=== PATIENT | male | born 1970 | race Caucasian/White ===

== ENCOUNTER 2021-01-15 20:07 | Inpatient (IN) | payer MEDICAID, SELFPAY ==
[~2021-01-15] VITALS: Ht 182.9 cm; Wt 112.5 kg
--- NOTE | 2021-01-15 20:07 | NUR ---
193- PT KARLY TRUONG. TAKEN TO BED 2
[2021-01-15 20:08] VITALS: BP 121/65
--- NOTE | 2021-01-15 20:08 | NUR ---
50 YO M GRAEMEA FROM [facility] [place] WITH C/C OF FEVER 101, RETOOK TEMP, TEMP AT 100.1. RT STATED FACILITY ADMIN 2 325MG OF TYLENOL WITH NO RELIEF OF FEVER. FACILITY ALSO APPLIED ICE PACKS, NO RELIEF. STATED THAT PT HAD JUST BEEN D/C FROM HOSPITAL, DATE UNK, RECEIVED ORDERS TO SEND PT HERE BY . ON ANTIB ZOSYN SINCE 01/12/21. PT HAS A GT, TRACH TO VENT, F/C IN PLACE, AND R UPPER ARM PICC LINE. SEIZURE PADS IN PLACE AND PT PLACED ON MONITOR. HX: SEPSIS, DM2, HTN, GERD, KIDNEY INJURY, AKF NKA
--- NOTE | 2021-01-15 20:30 | NUR ---
ERMD MADE AWARE OF PT'S PICC LINE, UNABLE TO DRAW BLOOD, BUT FLUIDS DO ENTER. STATED THAT'S OK WE CAN USE.
[2021-01-15 20:54] LABS: APPEARANCE,URINE SL CLOUDY (CLEAR); BILIRUBIN,URINE NEGATIVE (NEGATIVE); BLOOD, URINE 2+ (NEGATIVE); COLOR,URINE YELLOW (YELLOW); LEUKOCYTE ESTERASE ,URINE NEGATIVE (NEGATIVE); NITRITE, URINE NEGATIVE (NEGATIVE); PH,URINE 5.5 (5.0-9.0); UGLUCOSE 1+ (NEGATIVE)
[2021-01-15 20:55] LABS: BASOPHILS # (AUTO) 0.3 K/uL (0.00-0.22); BASOPHILS % (AUTO) 2.2 % (0.0-2.0); EOSINOPHILS % (AUTO) 0.3 % (0.0-4.0); HEMATOCRIT 32.4 % (36-52); HEMOGLOBIN 10.6 g/dL (12.0-18.0); LYMPHOCYTES # (AUTO) 1.5 K/uL (2.0-11.5); LYMPHOCYTES % (AUTO) 9.7 % (20.5-51.1); MEAN CORPUSCULAR HEMOGLOBIN 30 pg (27-31); MEAN CORPUSCULAR HGB CONC 33 g/dL (33-37); MEAN CORPUSCULAR VOLUME 90.5 fL (80-94); MONOCYTES # (AUTO) 1.5 K/uL (0.8-1.0); MONOCYTES % (AUTO) 9.6 % (1.7-9.3); NEUTROPHILS # (AUTO) 11.9 K/uL (1.8-7.7); NEUTROPHILS % (AUTO) 78.2 % (42.2-75.2); PLATELET COUNT (AUTO) 200 K/uL (140-450); RED BLOOD CELL COUNT(AUTO) 3.58 MIL/uL (4.20-6.10); RED CELL DISTRIBUTION WIDTH 14.4 % (11.6-13.7); WHITE BLOOD COUNT (AUTO) 15.2 K/uL (4.8-10.8)
[2021-01-15 21:04] LABS: URINE AMORPHOUS URATE 1+ /HPF (None Seen)
[2021-01-15] MEDS ORDERED: NACL 0.9% 1,000 ML IV ONE (21:05)
[2021-01-15] MEDS ORDERED: PIPERACILLIN/TAZOBACTAM 3.375 GM in DEXTROSE 5% 50 ML IV ONE (21:05)
[2021-01-15] MEDS ORDERED: VANCOMYCIN 1,000 MG in DEXTROSE 5% 250 ML IV ONE (21:05)
[2021-01-15 21:09] LABS: ALBUMIN 2.1 g/dL (3.4-5.0); ANION GAP 12.9 (8-16); CARBON DIOXIDE 34.1 mmol/L (21-32); CREATININE 1.4 mg/dL (0.6-1.3); TOTAL BILIRUBIN 0.4 mg/dL (0.0-1.0)
[2021-01-15] MEDS ORDERED: ACETAMINOPHEN 325 MG TAB PO ONE (21:10)
[2021-01-15] MEDS ORDERED: VANCOMYCIN 1,000 MG VIAL ONE (21:23)
[2021-01-15] MEDS ORDERED: CRUSHER, PILL MC ONE (21:26)
--- NOTE | 2021-01-15 21:42 | NUR ---
CALLED TO CONFIRM VANCO AND ZOSYN LAST DOSES, VANCO 4PM AND ZOSYN 5PM , ERMD MADE AWARE. INSTRUCTED TO HOLD MEDS.
--- NOTE | 2021-01-15 21:52 | NUR ---
GT MEDS HELD DUE TO INCOMPATIBILITY OF PORT ACCESS, CRYSTALD MADE AWARE.
[2021-01-15] MEDS ORDERED: ONDANSETRON 4 MG/2 ML VIAL IVP PRN (22:10)
[2021-01-15] MEDS ORDERED: DOCUSATE SODIUM 100 MG GELCAP PO PRN (22:10)
[2021-01-15] MEDS ORDERED: HYDROcodone/APAP 5/325 MG 1 TAB TAB PO PRN (22:10)
[2021-01-15] MEDS ORDERED: MORPHINE SULFATE 2 MG/ML SYR IVP PRN (22:10)
[2021-01-15] MEDS: NACL 0.9% 1,000 ML IV SCH (22:10)
[2021-01-15] MEDS ORDERED: LORazepam 2 MG/ML VIAL IM/IVP PRN (22:10)
[2021-01-15] MEDS ORDERED: ZOLPIDEM 5 MG TAB PO PRN (22:10)
[2021-01-15] MEDS ORDERED: SODIUM PHOS / POTASSIUM PHOS 1 PKT PDR PO PRN (22:10)
[2021-01-15] MEDS ORDERED: POTASSIUM CHLORIDE 10 MEQ TABER PO PRN (22:10)
[2021-01-15] MEDS ORDERED: MAG SULF 2000 MG/WATER PREMIX 50 ML IV PRN (22:10)
[2021-01-15] MEDS ORDERED: ALBU0.0912 IH (22:28)
[2021-01-15] MEDS ORDERED: AMLO10TA PO (22:30)
--- NOTE | 2021-01-15 22:30 | NUR ---
ZOSYN FIRST DOSE GIVEN PER
[2021-01-15] MEDS ORDERED: ASCO-5 PO (22:31)
[2021-01-15] MEDS ORDERED: ATRMDI INH (22:32)
[2021-01-15] MEDS ORDERED: CARV25TA GT (22:34)
[2021-01-15] MEDS ORDERED: CHOL50004 GT (22:36)
[2021-01-15] MEDS ORDERED: CLON0.1T46 GT (22:38)
[2021-01-15] MEDS ORDERED: DOCU-299 GT (22:39)
--- NOTE | 2021-01-15 22:39 | NUR ---
[facility] [place] AUTHORIZ[place] # [id number]
[2021-01-15 22:40] LABS: CHOL/HDL RATIO 4.7 (1-4.5); FREE T4 (FREE THYROXINE) 0.94 ng/dL (0.76-1.46); THYROID STIMULATING HORMONE 1.16 uIU/mL (0.34-3.74)
[2021-01-15] MEDS ORDERED: ENAL5TAB48 GT (22:41)
[2021-01-15] MEDS ORDERED: HYDR-1100 GT (22:42)
[2021-01-15] MEDS ORDERED: PANT40EC GT (22:51)
[2021-01-15] MEDS ORDERED: FURO-572 GT (22:51)
[2021-01-15] MEDS ORDERED: INSU100S53 SC (22:51)
[2021-01-15] MEDS ORDERED: SLIDE SUBQ (22:51)
[2021-01-15] MEDS ORDERED: ACET-2619 PO (22:51)
[2021-01-15] MEDS ORDERED: CHLO473S62 PO (22:51)
[2021-01-15] MEDS ORDERED: LON2.5 GT (22:51)
[2021-01-15] MEDS ORDERED: KEP500L PO (22:51)
[2021-01-15] MEDS ORDERED: LISI40TA12 GT (22:51)
[2021-01-15] MEDS ORDERED: VANC250C3 IV (22:51)
[2021-01-15] MEDS ORDERED: MIRABULK GT (22:51)
--- NOTE | 2021-01-15 22:56 | NUR ---
CONTACTED ESTEFANY RICH FOR PICC LINE, STATED IT WILL NOT BE PLACED UNTIL AM, DR.M OTERO.
--- NOTE | 2021-01-15 23:00 | NUR ---
SAAB CATH REPLACED FR16 USING STERILE TECHNIQUE, 100 ML RETURN OF YELLOW URINE. PT TOLERATED WELL.
[2021-01-15] MEDS ORDERED: PIPERACILLIN/TAZOBACTAM 3.375 GM VIAL IV ONE (23:06)
[2021-01-15 23:19] LABS: PROTHROMBIN TIME 10.6 secs (10.8-13.4)
--- NOTE | 2021-01-16 00:23 | NUR ---
GAVE REPORT TO ESTEFNAY BERNABE [id number].
--- NOTE | 2021-01-16 00:40 | NUR ---
Patient will be admitted to care of . Admited to TELE. Will go to [id number]. Belongings list completed. Report to ESTEFANY BERNABE.
--- NOTE | 2021-01-16 00:45 | NUR ---
ADMITTED A MALE PATIENT FROM ER VIA GURNEY, AWAKE WITH TRACH TO VENT. CC: FEVER DX: SEVERE SEPSIS, UTI PNA. HX: DM , SEIZURES, HTN, NEUROGENIC BLADDER, STROKE LEFT SIDED WEAKNESS. G-TUBE IN PLACE, SAAB CATHETER INTACT DRAINING CLEAR YELLOW URINE. PATIENT IS APHASIC. NO S/S OF RESPIRATORY DISTRESS. SKIN IS NON INTACT, WITH SKIN TEAR ON THE RIGHT COLLAR BONE, PRESSURE ULCER ON THE RIGHT EAR. ALL SAFETY PRECAUTIONS ARE IN PLACE. HEAD OF BED ELEVATED TO 30 DEGREES. PICC LINE ON THE HILDA REMOVED D/T NOT WORKING/CLOGGED. CALL LIGHT WITHIN REACH. WILL CONTINUE TO MONITOR.
--- NOTE | 2021-01-16 00:50 | NUR ---
PT TRANSPORTED FROM ED TO 126 W/ NO ADVERSE REACTIONS NO CHANGES TO VENT VENT IS PLUGGED INTO RED OUTLET W/ ALARMS ON AND AUDIBLE + AMBU AT BEDSIDE
[2021-01-16] MEDS ORDERED: PIPERACILLIN/TAZOBACTAM 3.375 GM in DEXTROSE 5% 50 ML IV SCH (01:00)
[2021-01-16 04:00] VITALS: BP 146/61
[2021-01-16] MEDS ORDERED: PIPERACILLIN/TAZOBACTAM 3.375 GM VIAL IV ONE (04:56)
[2021-01-16] MEDS: PIPERACILLIN/TAZOBACTAM 3.375 GM in DEXTROSE 5% 50 ML IV SCH ×3 (05:01→20:33)
[2021-01-16 06:11] LABS: ANION GAP 9.9 (8-16); CARBON DIOXIDE 33.1 mmol/L (21-32); CREATININE 1.1 mg/dL (0.6-1.3); MAGNESIUM 2.7 mg/dL (1.8-2.4); TOTAL BILIRUBIN 0.5 mg/dL (0.0-1.0)
[2021-01-16 06:27] LABS: BASOPHILS # (AUTO) 0.1 K/uL (0.00-0.22); BASOPHILS % (AUTO) 0.3 % (0.0-2.0); EOSINOPHILS % (AUTO) 0.2 % (0.0-4.0); HEMATOCRIT 35.3 % (36-52); HEMOGLOBIN 11.2 g/dL (12.0-18.0); LYMPHOCYTES # (AUTO) 1.9 K/uL (2.0-11.5); LYMPHOCYTES % (AUTO) 10.2 % (20.5-51.1); MEAN CORPUSCULAR HEMOGLOBIN 29 pg (27-31); MEAN CORPUSCULAR HGB CONC 32 g/dL (33-37); MONOCYTES # (AUTO) 1.8 K/uL (0.8-1.0); MONOCYTES % (AUTO) 9.3 % (1.7-9.3); NEUTROPHILS # (AUTO) 15.2 K/uL (1.8-7.7); PLATELET COUNT (AUTO) 217 K/uL (140-450); RED BLOOD CELL COUNT(AUTO) 3.84 MIL/uL (4.20-6.10); RED CELL DISTRIBUTION WIDTH 14.4 % (11.6-13.7)
--- NOTE | 2021-01-16 07:20 | NUR ---
RECEIVED REPORT FROM NIGHT NURSE PT IS APHASIC, TRACH TO VENT. FIO2 IS 35, RATE 18, PEEP 5, PT IS ON TELE, IV ACCESS ON L AC 18 GAUGE NS RUNNING AT 100ML/HR. PT HAS G TUBE FEEDING. PT HAS PRESSURE INJURY AT RIGHT EAR, SKIN TEAR ON RIGHT COLLAR BONE AREA. PT HAS SAAB CATHETER. PLAN OF CARE DISCUSSED WILL CONTINUE TO MONITOR PT.
--- NOTE | 2021-01-16 07:49 | NUR ---
PASSED ON ENDORSEMENT TO AM SHIFT RN.
[2021-01-16 08:00] VITALS: BP 135/67
--- NOTE | 2021-01-16 08:14 | NUR ---
PT IS IN BED, SEMI FOWLERS POSITION. NO RESPIRATORY DISTRESS NOTED ON TRACH TO VENT. G TUBE FEEDING IS INFUSING ORDERED. SAAB CATH IN PLACE DRAINING CLEAR, YELLOW URINE. PT IS STABLE AT THIS TIME.
[2021-01-16] MEDS: DOCUSATE SODIUM 100 MG GELCAP PO SCH (09:00)
[2021-01-16] MEDS ORDERED: VANCOMYCIN PER PHARMACY MC PRN (10:15)
--- NOTE | 2021-01-16 10:15 | NUR ---
ROUNDED ON PT. HE IS LAYING IN SEMI FOWLERS POSITION WITH NO DISTRESS NOTED. TRACH TO VENT WITH O2 SAT AT 92%. PT WAS CHANGED AND REPOSITIONED. PT WAS TURNED AND PILLOWS WERE USED TO OFFLOAD PRESSURE.
[2021-01-16] MEDS: NACL 0.9% 1,000 ML IV SCH (10:24)
[2021-01-16] MEDS ORDERED: VANCOMYCIN 750 MG in DEXTROSE 5% 250 ML IV SCH (11:00)
[2021-01-16] MEDS: NACL 0.45% 1,000 ML IV SCH ×2 (11:00→20:35)
--- NOTE | 2021-01-16 11:00 | NUR ---
RECEIVED CALL FROM LAB PT IS POSITIVE FOR GRAM NEGATIVE RODS PRELIMINARY. INFORMED MD AWAITING FOR FURTHER ORDERS.
--- NOTE | 2021-01-16 11:03 | NUR ---
STABLE NO DISTRESS NOTED DEEP TRACHEAL SUCTION FOR MODERATE THIN YELLOW SECRETONS AIRWAY PATENT SPUTUM CULTURE SPECIMEN OBTAINED FORWARDED TO LAB
[2021-01-16 12:00] VITALS: BP 146/70
[2021-01-16] MEDS: VANCOMYCIN 750 MG in NACL 0.9% 250 ML IV SCH ×2 (12:46→23:44)
[2021-01-16] MEDS: ACETAMINOPHEN 325 MG TAB PO PRN ×2 (12:54→22:27)
--- NOTE | 2021-01-16 12:59 | NUR ---
ADMINISTERED TYLENOL, PT HAS FEVER 100.4, COOLING MEASURES ARE IN PLACED. WILL REASSESS THE TEMPERATURE.
--- NOTE | 2021-01-16 14:57 | NUR ---
PT IS IN THE BED, NO S/S OF PAIN NOTED.NO SOB WILL CONTINUE TO MONITOR.
[2021-01-16 16:00] VITALS: BP 148/78
[2021-01-16] MEDS ORDERED: ENALAPRIL 5 MG TAB GT SCH (17:55)
[2021-01-16] MEDS ORDERED: DEXTROSE 50% 50 ML SYR IVP PRN (18:30)
--- NOTE | 2021-01-16 18:51 | NUR ---
TOOK PICTURES OF DTI ON BOTH HEELS, LEFT EAR WOUND, TEMPERATURE IS 98.7, COOLING MEASURES ARE IN PLACED. WILL CONTINUE TO MONITOR PT
--- NOTE | 2021-01-16 19:29 | NUR ---
ENDORSED THE NIGHT NURSE FOR CONTINUITY OF CARE. PT IS STABLE.
--- NOTE | 2021-01-16 19:57 | NUR ---
RECEIVED PATIENT FROM AM NURSE IN BED ON SEMI GUEVARA'S WITH TRACH TO VENT, FIO2 35 VT 450 R 18. NO S/S OF RESPIRATORY DISTRESS. ALL SAFETY PRECAUTIONS ARE IN PLACE. SAAB CATHETER DRAINING WELL CLEAR YELLOW URINE. NO SINGS OF PAIN NOTED. WILL CONTINUE TO MONITOR.
[2021-01-16 20:00] VITALS: BP 141/75
--- NOTE | 2021-01-16 20:33 | NUR ---
SCHEDULED MEDS GIVEN PER MD ORDERED.
[2021-01-16] MEDS: BLOOD GLUCOSE MONITORING 1 DEV DEV FS SCH (21:00)
[2021-01-16] MEDS: carvediloL 12.5 MG TAB GT SCH (22:25)
[2021-01-16] MEDS: levETIRAcetam 100 MG/ML ORASYR PO SCH (22:26)
[2021-01-16] MEDS: INSULIN LISPRO SLIDING SCALE 100 UNITS/ML VIAL SUBQ PRN (22:29)
[2021-01-16 22:30] VITALS: BP 141/75
[2021-01-17] VITALS (8 sets, daily range): BP systolic 116–159; BP diastolic 53–86
--- NOTE | 2021-01-17 | NUR ---
CHECKED PATIENT, PATIENT IS SLEEPING. NO SIGNS OF DISTRESS NOTED. AFEBRILE. KEPT CLEAN, DRY AND COMFORTABLE.
[2021-01-17] MEDS: PIPERACILLIN/TAZOBACTAM 3.375 GM in DEXTROSE 5% 50 ML IV SCH ×2 (04:37→13:16)
[2021-01-17] MEDS: BLOOD GLUCOSE MONITORING 1 DEV DEV FS SCH ×4 (06:30→21:02)
[2021-01-17] MEDS: INSULIN LISPRO SLIDING SCALE 100 UNITS/ML VIAL SUBQ PRN ×4 (06:31→21:36)
[2021-01-17] MEDS: NACL 0.45% 1,000 ML IV SCH ×2 (06:35→08:31)
[2021-01-17 06:43] LABS: BASOPHILS % (AUTO) 0.3 % (0.0-2.0); EOSINOPHILS # (AUTO) 0.1 K/uL (0-0.4); EOSINOPHILS % (AUTO) 0.8 % (0.0-4.0); HEMATOCRIT 31.4 % (36-52); HEMOGLOBIN 10.1 g/dL (12.0-18.0); LYMPHOCYTES # (AUTO) 1.5 K/uL (2.0-11.5); LYMPHOCYTES % (AUTO) 9.1 % (20.5-51.1); MEAN CORPUSCULAR HEMOGLOBIN 29 pg (27-31); MEAN CORPUSCULAR HGB CONC 32 g/dL (33-37); MONOCYTES % (AUTO) 6.2 % (1.7-9.3); NEUTROPHILS # (AUTO) 13.5 K/uL (1.8-7.7); NEUTROPHILS % (AUTO) 83.6 % (42.2-75.2); PLATELET COUNT (AUTO) 206 K/uL (140-450); RED BLOOD CELL COUNT(AUTO) 3.45 MIL/uL (4.20-6.10); RED CELL DISTRIBUTION WIDTH 14.2 % (11.6-13.7); WHITE BLOOD COUNT (AUTO) 16.1 K/uL (4.8-10.8)
[2021-01-17 06:58] LABS: ALBUMIN 1.9 g/dL (3.4-5.0); ANION GAP 8.9 (8-16); CARBON DIOXIDE 32.2 mmol/L (21-32); CREATININE 1.2 mg/dL (0.6-1.3); MAGNESIUM 2.5 mg/dL (1.8-2.4); POTASSIUM 4.1 mmol/L (3.5-5.1); TOTAL BILIRUBIN 0.3 mg/dL (0.0-1.0)
--- NOTE | 2021-01-17 07:28 | NUR ---
PT BEEN ENDORSED BY TREVIN FOR CONTINUITY OF CARE, POC DISCUSSED. PT IS TRACH TO VENT PT WITH A FIO2 35, VT 450, RR 18. PT HAS A L AC 20. FLUIDS HAVE NOTE BEEN REPLENISHED, WILL REPLENISH. PT HAS A GTUBE BUT TUBE FEEDING IS COMPLETE, WILL REPLENISH TUBE FEEDING WELL. PT HAS A SAAB CATH DRAINING YELLOW URINE. ALL SAFETY MEASURES IN PLACE, CALL LIGHT WITHIN REACH. WILL CONTINUE TO MONITOR.
--- NOTE | 2021-01-17 07:34 | NUR ---
ENDORSED TO AM NURSE FOR CONTINUITY OF CARE. PATIENT IS STABLE.
--- NOTE | 2021-01-17 07:50 | NUR ---
RECEIVED ON A [employer] Company[employer]APE R860 VENTILATOR PLUGGED INTO RED OUTLET TOLERATING WELL WITHOUT ADVERSE REACTIONS NOTED TO A KRISTIANLEY #6 AIRWAY SECURED WITH A GE TRACH TIE CUFF PRESSURE CHECKED NOTED AMBU BAG NOTED AT BEDSIDE GOOD CHEST RISE DEEP TRACHEAL SUCTION FOR COPIOUS THIN PALE YELLOW SECRETIONS AIRWAY PATENT
--- NOTE | 2021-01-17 08:21 | NUR ---
LAB CALLED, MORNING LAB WAS 419 BLOOD GLUCOSE AND BUN 37. BUN TRENDING DOWN. BLOOD GLUCOSE COVERAGE ADMINISTERED THIS AM. WILL CONTINUE TO MONITOR BLOOD GLUCOSE.
--- NOTE | 2021-01-17 08:24 | NUR ---
PATIENT HAS BEEN SCREENED AND CATEGORIZED HIGH NUTRITION RISK. PATIENT WILL BE SEEN WITHIN 1-2 DAYS OF ADMISSION. 01/17/21 RECEIVED FNS CONSULT FOR WOUNDS AND TUBE FEEDING. RECEIVED FNS REFERRAL FOR TUBE FEEDING AND ADITYA LESS THAN [address]
--- NOTE | 2021-01-17 08:34 | NUR ---
PT MYRA MEDICATION ADMINISTERED PER MD ORDER. PT TOLERATED ADMINISTRATION. ASSESSED RESIDUAL PRIOR, 10 ML. FLUSHED PRIOR TO AND AFTER ADMINISTRATION. PT TOLERATED ADMINISTRATION. NEW GTUBE TUBING AND GLUCERNA STARTED. TUBING PRIMED AND STARTED. NEW IV FLUIDS STARTED. PT IV IS PATENT AND INTACT. PT TEMPATURE 99.9, COOLING MEASURES IMPLEMENTED. WILL CONTINUE TO MONITOR. PT O2 IS 98%. ALL SAFETY MEASURES IN PLACE. CALL LIGHT WITHIN REACH. WILL CONTINUE TO MONITOR.
[2021-01-17] MEDS: POLYETHYLENE GLYCOL 17 GM/PKT GT PRN (08:36)
[2021-01-17] MEDS: levETIRAcetam 100 MG/ML ORASYR PO SCH ×2 (08:36→21:03)
[2021-01-17] MEDS: carvediloL 12.5 MG TAB GT SCH ×2 (08:37→21:03)
[2021-01-17] MEDS: ASCORBIC ACID 500 MG TAB PO SCH (08:38)
[2021-01-17] MEDS: amLODIPine 5 MG TAB PO SCH (08:38)
[2021-01-17] MEDS: FUROSEMIDE 20 MG TAB GT SCH (08:38)
[2021-01-17] MEDS: lisinopriL 20 MG TAB GT SCH (08:39)
[2021-01-17] MEDS: minoxidiL 2.5 MG TAB GT SCH (08:39)
[2021-01-17] MEDS: DOCUSATE SODIUM 100 MG GELCAP PO SCH (08:40)
[2021-01-17] MEDS ORDERED: NON-FORMULARY ITEM (Hydralazine HCl (Hydralazine Hcl) 1 TAB) GT/PO SCH (09:00)
[2021-01-17] MEDS ORDERED: PANTOPRAZOLE 40 MG TABEC PO SCH (09:00)
--- NOTE | 2021-01-17 09:58 | NUR ---
PT IS RESTING COMFORTABLE IN BED WITH NO ACUTE S/S OF DISTRESS. PT IS REPOSITIONED. ALL SAFETY MEASURES IN PLACE. CALL LIGHT WITHIN REACH. WILL CONTINUE TO MONITOR.
--- NOTE | 2021-01-17 11:38 | NUR ---
MYRA MEDICATION ADMINISTERED PER MD ORDER. PT TOLERATED ADMINISTRATION. PT BLOOD GLUCOSE 327. 8UNITS INSULIN ADMINISTERED PER MD ORDER IN PTS ABD. PT IS STABLE. COOLING MEASURES IN PLACE. PT IS REPOSITIONED. ALL SAFETY MEASURES IN PLACE. CALL LIGHT WITHIN REACH. WILL CONTINUE TO MONITOR.
[2021-01-17] MEDS: VANCOMYCIN 750 MG in NACL 0.9% 250 ML IV SCH ×2 (11:44→22:45)
[2021-01-17] MEDS: hydrALAZINE 25 MG TAB GT SCH ×2 (13:16→16:42)
--- NOTE | 2021-01-17 13:20 | NUR ---
SPOKE WITH PTS POINT OF CONTACT, MOTHER, CASIMIRO. ANSWERED ALL OF HER QUESTIONS.
--- NOTE | 2021-01-17 13:44 | NUR ---
MYRA MEDICATION ADMINISTERED PER MD ORDER. PT TOLERATED ADMINISTRATION. ALL SAFETY MEASURES IN PLACE. CALL LIGHT WITHIN REACH. WILL CONTINUE TO MONITOR.
--- NOTE | 2021-01-17 14:43 | NUR ---
NO DISTRESS NOTED GOOD CHEST RISE AIRWAY PATENT
[2021-01-17] MEDS: ACETAMINOPHEN 325 MG TAB PO PRN (14:52)
--- NOTE | 2021-01-17 14:52 | NUR ---
PRN TYLENOL ADMINISTERED FOR INCREASED TEMPERATURE. ICE PACKS HAVE BEEN APPLIED TO PTS ARMPITS, ALL BLANKETS REMOVED. PT TOLERATED ADMINISTRATION. ALL SAFETY MEASURES IN PLACE. CALL LIGHT WITHIN REACH. WILL CONTINUE TO MONITOR.
--- NOTE | 2021-01-17 15:29 | NUR ---
01/17/21 RD INITIAL ASSESSMENT COMPLETED PLEASE REFER TO NUTRITION ASSESSMENT UNDER CARE ACTIVITY FOR ESTIMATED NUTRITIONAL NEEDS. 1. CONTINUE GLUCERNA 1.2 @ 80 ML/HR X 24 HR -THIS WILL PROVIDE 2304 KCAL/DAY AND 115 GM OF PROTEIN/DAY, MEETING ADEQUATE NUTRIENT NEEDS 2. CONTINUE FREE WATER FLUSH OF 325 ML Q4H PER MD 3. RECOMMENDED CRISTINE BID TO PROMOTE WOUND HEALING 4. RD TO FOLLOW-UP 2-3 DAYS, HIGH RISK MARIB[address] FUENT[address] RD
--- NOTE | 2021-01-17 16:51 | NUR ---
BLOOD GLUCOSE IS 326 8 UNITS OF INSULIN ADMINISTERED PER MD ORDER. MYRA MEDICATION ADMINISTERED PER MD ORDER. PT TOLERATED ADMINISTRATION. ALL SAFETY MEASURES IN PLACE. CALL LIGHT WITHIN REACH. WILL CONTINUE TO MONITOR.
--- NOTE | 2021-01-17 17:08 | NUR ---
STABLE NO DISTRESS NOTED GOOD CHEST RISE DEEP TRACHEAL SUCTION FOR MODERATE THICK YELLOW SECRETINS SATURATION 97% ON FIO2 OF 35% PEEP 5cmH2O TITRATED FIO2 TO 30% IRONER MACHINE TO NOTIFY RN
--- NOTE | 2021-01-17 18:55 | NUR ---
INFORMED BY ESTEFANY ZHONG THAT PREVIOUS SPUTUM CULTURE CAME BACK CONTAMINATED AND A NEW SAMPLE NEEDS TO BE OBTAINED. NEW ORDER HAS BEEN PLACED. WILL ENDORSE TO INSTITUTE SCIENTIST NURSE TO INFORM RT TO COLLECT SPUTUM CULTURE. PT IS STABLE. ALL SAFETY MEASURES IN PLACE. WILL CONTINUE TO MONITOR.
--- NOTE | 2021-01-17 19:01 | NUR ---
PT WILL BE ENDORSED TO RADIO INTERFERENCE INVESTIGATOR NURSE FOR CONTINUITY OF CARE IN STABLE CONDITION, POC DISCUSSED.
--- NOTE | 2021-01-17 19:05 | NUR ---
RECEIVED PATIENT FROM AM SHIFT NURSE FOR CONTINUITY OF CARE. APHASIC, UNABLE TO MAKE NEEDS KNOWN. TRACH TO VENT. RESPIRATIONS EVEN, UNLABORED. NO S/S RESPIRATORY DISTRESS. O2 SAT 97%. S1/S2 AUSCULTATED. TELE MONITORING. FLACC 0. SKIN WARM, DRY. IV SITE TO LEFT AC 20G PATENT/INTACT, INFUSING FLUIDS WELL. ABDOMEN SOFT, NONTENDER, NONDISTENDED. BOWEL SOUNDS ACTIVE x4 QUADRANTS. GT PATENT, CONTINUE ON ENTERAL FEEDING TOLERATING WELL. HOB UP 45 DEGREES. SAAB CATHETER PATENT WITH YELLOW URINE DRAINING TO GRAVITY. CALL LIGHT IN REACH. PLAN OF CARE DISCUSSED. ISOLATION PRECAUTIONS OBSERVED. SAFETY PRECAUTIONS IN PLACE.
[2021-01-17] MEDS ORDERED: MEROPENEM 1,000 MG VIAL IV ONE (20:45)
[2021-01-17] MEDS: MEROPENEM 1,000 MG in NACL 0.9% 100 ML IV SCH (21:03)
[2021-01-17] MEDS: DOCUSATE 100 MG/10 ML UDC GT SCH (21:03)
--- NOTE | 2021-01-17 21:30 | NUR ---
DUE MEDS GIVEN. NO S/S RESPIRATORY DISTRESS. FLACC 0. PATIENT IS CLEAN/DRY. CALL LIGHT IN REACH. ISOLATION PRECAUTIONS OBSERVED. SAFETY PRECAUTIONS IN PLACE.
--- NOTE | 2021-01-17 23:28 | NUR ---
PATIENT RESTING COMFORTABLY IN BED. NO S/S RESPIRATORY DISTRESS. FLACC 0. PATIENT IS CLEAN/DRY. CALL LIGHT IN REACH. ISOLATION PRECAUTIONS OBSERVED. SAFETY PRECAUTIONS IN PLACE.
[2021-01-18] VITALS: BP 140/76
[2021-01-18] MEDS: ACETAMINOPHEN 325 MG TAB PO PRN ×4 (00:03→18:00)
--- NOTE | 2021-01-18 01:05 | NUR ---
VAP ORAL CARE RENDERED.
--- NOTE | 2021-01-18 02:51 | NUR ---
0220 SECOND SPUTUM SAMPLE SENT TO LAB
[2021-01-18] MEDS: NACL 0.45% 1,000 ML IV SCH ×3 (03:03→22:35)
--- NOTE | 2021-01-18 03:09 | NUR ---
INCONTINENT CARE RENDERED WITH BULK PIGMENT REDUCER AT BEDSIDE. NO S/S RESPIRATORY DISTRESS. FLACC 0. CALL LIGHT IN REACH. SAFETY PRECAUTIONS IN PLACE. ISOLATION PRECAUTIONS OBSERVED BY ALL STAFF.
[2021-01-18] MEDS ORDERED: MEROPENEM 1,000 MG VIAL IV ONE (03:47)
[2021-01-18 04:00] VITALS: BP 148/78
[2021-01-18] MEDS: MEROPENEM 1,000 MG in NACL 0.9% 100 ML IV SCH ×2 (04:16→12:43)
--- NOTE | 2021-01-18 05:04 | NUR ---
DUE MEDS GIVEN. NO S/S RESPIRATORY DISTRESS. FLACC 0. PATIENT IS CLEAN/DRY. CALL LIGHT IN REACH. SAFETY PRECAUTIONS IN PLACE. ISOLATION PRECAUTIONS OBSERVED BY ALL STAFF.
[2021-01-18] MEDS: INSULIN LISPRO SLIDING SCALE 100 UNITS/ML VIAL SUBQ PRN ×4 (05:39→21:16)
[2021-01-18] MEDS: BLOOD GLUCOSE MONITORING 1 DEV DEV FS SCH ×4 (06:37→21:11)
[2021-01-18 06:47] LABS: BASOPHILS # (AUTO) 0.1 K/uL (0.00-0.22); BASOPHILS % (AUTO) 0.6 % (0.0-2.0); EOSINOPHILS # (AUTO) 0.2 K/uL (0-0.4); EOSINOPHILS % (AUTO) 1.5 % (0.0-4.0); HEMATOCRIT 28.9 % (36-52); HEMOGLOBIN 9.4 g/dL (12.0-18.0); LYMPHOCYTES # (AUTO) 2.1 K/uL (2.0-11.5); LYMPHOCYTES % (AUTO) 14.7 % (20.5-51.1); MEAN CORPUSCULAR HEMOGLOBIN 29 pg (27-31); MEAN CORPUSCULAR HGB CONC 33 g/dL (33-37); MEAN CORPUSCULAR VOLUME 89.7 fL (80-94); MONOCYTES # (AUTO) 0.8 K/uL (0.8-1.0); MONOCYTES % (AUTO) 5.9 % (1.7-9.3); NEUTROPHILS % (AUTO) 77.3 % (42.2-75.2); PLATELET COUNT (AUTO) 183 K/uL (140-450); RED BLOOD CELL COUNT(AUTO) 3.22 MIL/uL (4.20-6.10); WHITE BLOOD COUNT (AUTO) 14.3 K/uL (4.8-10.8)
[2021-01-18 07:09] LABS: ALBUMIN 1.8 g/dL (3.4-5.0); ANION GAP 10.1 (8-16); CARBON DIOXIDE 29.1 mmol/L (21-32); CREATININE 1.1 mg/dL (0.6-1.3); MAGNESIUM 2.2 mg/dL (1.8-2.4); POTASSIUM 4.2 mmol/L (3.5-5.1); TOTAL BILIRUBIN 0.3 mg/dL (0.0-1.0)
--- NOTE | 2021-01-18 07:13 | NUR ---
ENDORSED PATIENT TO AM SHIFT NURSE FOR CONTINUITY OF CARE.
--- NOTE | 2021-01-18 07:21 | NUR ---
PT HAS BEEN ENDORSED BY PARER NURSE FOR CONTINUITY OF CARE, POC DISCUSSED. PT IS RESTING IN BED WITH EYES CLOSE, TRACH TO VENT WITH FIO2 SET AT FIO2. PT IS GETTING GTUBE RUNNING GLUCERNA 1.2 AT 80 ML RUNNING FREE FLUSHES Q4 HR. PT IS SATING AT 95%. ALL SAFETY MEASURES IN PLACE, CALL LIGHT WITHIN REACH. WILL CONTINUE TO MONITOR.
[2021-01-18 08:00] VITALS: BP 160/86
--- NOTE | 2021-01-18 08:49 | NUR ---
CALLED PHARMACY TO CHANGE PROTONIX TO BE ABLE TO BE CRUSHED AND GIVEN THROUGH GTUBE.
[2021-01-18] MEDS: carvediloL 12.5 MG TAB GT SCH ×2 (09:24→20:39)
[2021-01-18] MEDS: ASCORBIC ACID 500 MG TAB PO SCH (09:24)
[2021-01-18] MEDS: hydrALAZINE 25 MG TAB GT SCH ×3 (09:25→17:05)
[2021-01-18] MEDS: FUROSEMIDE 20 MG TAB GT SCH (09:26)
[2021-01-18] MEDS: amLODIPine 5 MG TAB PO SCH (09:26)
[2021-01-18] MEDS: minoxidiL 2.5 MG TAB GT SCH (09:26)
[2021-01-18] MEDS: lisinopriL 20 MG TAB GT SCH (09:26)
[2021-01-18] MEDS: POLYETHYLENE GLYCOL 17 GM/PKT GT PRN (09:26)
[2021-01-18] MEDS: DOCUSATE 100 MG/10 ML UDC GT SCH ×2 (09:27→20:38)
[2021-01-18] MEDS: levETIRAcetam 100 MG/ML ORASYR PO SCH ×2 (09:34→20:39)
--- NOTE | 2021-01-18 09:48 | NUR ---
[facility] MEDICATION ADMINISTERED PER MD ORDER. PT TOLERATED ADMINISTRATION. ASSESSED RESIDUAL PRIOR TO; 45 ML; FLUSHED WITH 15ML PRIOR TO AND AFTER ADMINISTRATION OF MEDICATION. IV IS PATENT AND INTACT. PT TEMPERATURE IS STEADY AT 99.4. PT O2 SATURATION IS STEADY AT 94%. ALL SAFETY MEASURES IN PLACE, WILL CONTINUE TO MONITOR.
--- NOTE | 2021-01-18 10:29 | NUR ---
RECEIVED ON A [employer]APE R860 VENTILATOR PLUGGED INTO RED OUTLET TOLERATING WELL WITHOUT ADVERSE REACTIONS NOTED TO A YG DCT #8 AIRWAY SECURED WITH A GE TRACH TIE CUFF PRESSURE CHECKED NOTED AMBU BAG NOTED AT BEDSIDE RESTING WELL NO SOB NOTED GOOD CHEST RISE DEP TRACHEAL SUCTION FOR COPIOUS SEMI THICK YELLOW SECRETIONS AIRWAY PATENT
--- NOTE | 2021-01-18 10:45 | NUR ---
RECEIVED REPORT FROM IDA ALLISON
[2021-01-18] MEDS: VANCOMYCIN 750 MG in NACL 0.9% 250 ML IV SCH (11:00)
[2021-01-18 12:00] VITALS: BP 141/79
--- NOTE | 2021-01-18 12:15 | NUR ---
WITH REMP OF 100.3, COOLING MEASURES RENDERED. TYLENOL GIVEN ORDERED Addendum: 01/18/21 at 1756 by Jay Guerra RN TEMP OF 100.3
--- NOTE | 2021-01-18 14:26 | NUR ---
RESTING WELL GOOD CHEST RISE DEEP TRACHEAL SUCTION FOR MODERATE THICK YELLOW SECRETIONS AIRWAY PATENT
--- NOTE | 2021-01-18 15:00 | NUR ---
CLARENCE CARE DONE. TURNED AND REPOSITIONED PT
[2021-01-18 16:00] VITALS: BP 131/72
--- NOTE | 2021-01-18 16:30 | NUR ---
TEMP 100.8, CONTINUE COOLING MEASURES. WILL GIVE TYLENOL WHEN DUE
--- NOTE | 2021-01-18 18:30 | NUR ---
TEMP 100.4, CONTINUE COOLING MEASURES, TYLENOL GIVEN
--- NOTE | 2021-01-18 19:30 | NUR ---
RECEIVED REPORT FROM AMALIA ALLISON FOR CONTINUITY OF CARE. PT NONVERBAL, AROUSABLE TO VERBAL/TACTILE STIMULI. NO APPARENT S/S OF ACUTE DISTRESS. BREATHING EVEN AND UNLABORED ON TRACH TO VENT WITH O2 SAT OF 97%. NO S/S OF CP, SOB OR PAIN. L AC 20G INTACT/PATENT WITH 1/2NS@100ML/HR. G-TUBE INTACT/PATENT WITH GLUCERNA 1.2@80ML/HR. SAAB CATH INTACT/PATENT WITH YELLOW URINE DRAINING TO GRAVITY. POC AND WHITE COMMUNICATION BOARD UPDATED. BED IN LOW/LOCKED POSITION. CALL LIGHT WITHIN REACH. PT ENCOURAGED TO CALL FOR ANY NEEDS/ASSISTANCE. WILL CONTINUE TO MONITOR.
[2021-01-18 20:00] VITALS: BP 128/74
[2021-01-18] MEDS ORDERED: cefTRIAXone 2,000 MG VIAL ONE (20:59)
[2021-01-18] MEDS: cefTRIAXone 2,000 MG in DEXTROSE 5% 100 ML IV SCH (21:10)
[2021-01-19] VITALS: BP 125/67
[2021-01-19 04:00] VITALS: BP 134/76
[2021-01-19] MEDS: ACETAMINOPHEN 325 MG TAB PO PRN ×2 (05:00→22:09)
[2021-01-19 06:16] LABS: BASOPHILS % (AUTO) 0.3 % (0.0-2.0); EOSINOPHILS # (AUTO) 0.3 K/uL (0-0.4); EOSINOPHILS % (AUTO) 2.3 % (0.0-4.0); HEMATOCRIT 32.4 % (36-52); HEMOGLOBIN 10.3 g/dL (12.0-18.0); LYMPHOCYTES # (AUTO) 1.9 K/uL (2.0-11.5); LYMPHOCYTES % (AUTO) 15.4 % (20.5-51.1); MEAN CORPUSCULAR HEMOGLOBIN 29 pg (27-31); MEAN CORPUSCULAR HGB CONC 32 g/dL (33-37); MEAN CORPUSCULAR VOLUME 90.5 fL (80-94); MONOCYTES # (AUTO) 0.8 K/uL (0.8-1.0); MONOCYTES % (AUTO) 6.3 % (1.7-9.3); NEUTROPHILS # (AUTO) 9.6 K/uL (1.8-7.7); NEUTROPHILS % (AUTO) 75.7 % (42.2-75.2); PLATELET COUNT (AUTO) 209 K/uL (140-450); RED BLOOD CELL COUNT(AUTO) 3.58 MIL/uL (4.20-6.10); RED CELL DISTRIBUTION WIDTH 14.1 % (11.6-13.7); WHITE BLOOD COUNT (AUTO) 12.7 K/uL (4.8-10.8)
[2021-01-19] MEDS: INSULIN LISPRO SLIDING SCALE 100 UNITS/ML VIAL SUBQ PRN ×4 (07:01→22:07)
[2021-01-19 07:07] LABS: ALBUMIN 1.9 g/dL (3.4-5.0); ANION GAP 10.2 (8-16); CARBON DIOXIDE 30.1 mmol/L (21-32); CREATININE 0.9 mg/dL (0.6-1.3); MAGNESIUM 2.3 mg/dL (1.8-2.4); POTASSIUM 4.3 mmol/L (3.5-5.1); TOTAL BILIRUBIN 0.2 mg/dL (0.0-1.0)
--- NOTE | 2021-01-19 07:20 | NUR ---
REPORT GIVEN TO TREVIN ALILSON FOR CONTINUITY OF CARE. PT RESTING QUIETLY. NO APPARENT S/S OF ACUTE DISTRESS. BREATHING EVEN AND UNLABORED. BED IN LOW/LOCKED POSITION. CALL LIGHT WITHIN REACH. ALL NEEDS MET AT THIS TIME.
--- NOTE | 2021-01-19 07:40 | NUR ---
RECEIVED REPORT FROM SHERIFFS NURSE. PATIENT LYING DOWN IN BED SLEEPING, AROUSABLE BY PAIN SENSATION. ON TRACH TO VENT. NO DISTRESS NOTED. FIO2:30%. SAAB CATHETER IN PLACE, IV SITE INTACT, PATENT, AND INFUSING IVF PER MD ORDERS. GTUBE FEEDING IN PLACE, ON CONTINUOUS FEEDING. REVIEWED PLAN OF CARE WITH PATIENT. UNABLE TO COMPREHEND. SAFETY MEASURES IN PLACE, CALL LIGHT WITHIN REACH. WILL CONTINUE TO MONITOR.
[2021-01-19 08:00] VITALS: BP 149/83
[2021-01-19] MEDS: BLOOD GLUCOSE MONITORING 1 DEV DEV FS SCH ×4 (08:26→21:00)
[2021-01-19] MEDS: NACL 0.45% 1,000 ML IV SCH ×2 (08:35→17:45)
[2021-01-19] MEDS: ASCORBIC ACID 500 MG TAB PO SCH (09:00)
[2021-01-19] MEDS: amLODIPine 5 MG TAB PO SCH (10:03)
[2021-01-19] MEDS: PANTOPRAZOLE 40 MG INJ VIAL IVP SCH (10:03)
[2021-01-19] MEDS: DOCUSATE 100 MG/10 ML UDC GT SCH ×2 (10:04→22:11)
[2021-01-19] MEDS: hydrALAZINE 25 MG TAB GT SCH ×3 (10:04→17:45)
[2021-01-19] MEDS: minoxidiL 2.5 MG TAB GT SCH (10:04)
[2021-01-19] MEDS: FUROSEMIDE 20 MG TAB GT SCH (10:04)
[2021-01-19] MEDS: carvediloL 12.5 MG TAB GT SCH ×2 (10:05→22:10)
[2021-01-19] MEDS: lisinopriL 20 MG TAB GT SCH (10:05)
--- NOTE | 2021-01-19 10:15 | NUR ---
SCHEDULED MEDICATIONS DUE GIVEN. WILL CONTINUE TO MONITOR.
[2021-01-19] MEDS: levETIRAcetam 100 MG/ML ORASYR PO SCH ×2 (10:45→22:09)
[2021-01-19 12:00] VITALS: BP 134/68
--- NOTE | 2021-01-19 13:00 | NUR ---
WOUND CARE EVALUATION NOTE: REASON FOR EVALUATION: LOW ADITYA SCALE AND MULTIPLE PRESSURE INJURY WOUNDS SKIN ASSESSMENT DONE WITH THIS 50 Y/O PT ADMITTED FROM SNF TO [facility] WITH INITIAL DX FEVER. PAST MEDICAL HX INCLUDES HEMORRHAGIC STROKE, CHRONIC RESPIRATORY FAILURE TRACH TO VENT, PEG, NEUROGENIC BLADDER, DM, HTN AND EPILEPSY. ALL ABOVE INFORMATION OBTAINED FROM ADMISSION H&P. PT. ADMITTED WITH MULTIPLE DTI HEELS AND SACRALCOCCYX AND PRESSURE INJURIES TO EARS. PT IS AWAKE. SKIN IS WARM AND MOIST, PT. WITH FEVER, BLE NO HAIR GROWTH, NO EDEMA. DORSAL PEDAL PULSES PRESENT AND NORMAL. CAPILLARY REFILLED < 2 SEC. X 10 TOES. INCONTINENT OF BOWEL. F/C PATENT WITH MODERATE AMOUNT YELLOW COLOR URINE OUT PUT OBSERVED. PLAN OF CARE DISCUSSED WITH PRIMARY RN. COMORBIDITIES RELATED TO DELAY WOUND HEALING, FURTHER SKIN BREAKS AND UN-AVOIDABLE PRESSURE INJURY: BOWEL INCONTINENCE, INFECTION, DM, HYPOXEMIC DECREASE TISSUE PERFUSION, LOW ALBUMIN LEVEL, DECREASE MOBILITY AND FUNCTIONAL ABILITIES, AND HOB ELEVATED THE MAJORITY OF TIMES DUE TO MEDICAL REASONS. 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 - GT SITE CLARENCE STOMA WITH SKIN INTACT. -MOISTURE ASSOCIATED DERMATITIS R/L GROINS EXTENDED TO CLARENCE-ANAL SKIN RED, MOIST AND INTACT -PRESSURE INJURY UN-STAGEABLE TO LEFT EAR 1X0.5X0.1CM 100% BROWN DRY ESCHAR TISSUE, CLARENCE WOUND SKIN INTACT. -PRESSURE INJURY UN-STAGEABLE TO RIGHT EAR 3X1X0.1CM 100% BROWN DRY ESCHAR TISSUE, CLARENCE WOUND SKIN INTACT. -DTI TO RIGHT HEEL 1X1CM 100% MAROON COLOR, CLARENCE-WOUND SKIN INTACT -DTI TO LEFT HEEL 0.5X0.5CM 100% MAROON COLOR, CLARENCE-WOUND SKIN INTACT -PRESSURE INJURY SACRALCOCCYX PREVIOUSLY BLOODY BLISTER WITH PARTIAL THICKNESS SKIN LOSS, OPEN WOUND 1X2CM SUPERFICIAL DEPTH, ENTIRE AREA DTI 4X5CM INTACT BLISTER REMAIN PARTIALLY, SURROUNDING SKIN MOIST NON-BLANCHABLE REDNESS, ENTIRE AREA FURTHER DAMAGE INDICATED RECOMMENDATIONS: -APPLY HYDRAGUARD TO R/L GROINS EXTENDED TO CLARENCE-ANAL BID AND PRN IF SOILING -PAINT RIGHT, LEFT EARS WITH BETADINE ALIE. BID AND LEONIE -APPLY SOAKED 2X2 BETADINE GAUZES TO TRACH CLARENCE STOMA SKIN AND COVER WITH FOAM DRESSING QD AND PRN IF POSSIBLE, OFF LOADING TRACH DEVICE TO THE AREA - CLEANSE SACRALCOCCYX WITH WOUND CLEANSING SOLUTION, PAT DRY, APPLY THERAHONEY GEL COVER WITH DRY DRESSING QD AND PRN IF SOILING -APPLY SKIN PREP TO BILATERAL HEELS BID, AIR DRY AND APPLY HEEL RAISERS TO BOTH HEELS AT ALL TIMES -OFFLOAD BILATERAL HEELS BY PLACING PILLOWS UNDER CALVES UNLESS OTHERWISE CONTRAINDICATED -PRESSURE REDISTRIBUTION SURFACE THERAPY -TURN AND REPOSITION Q2H, OFFLOAD SACRALCOCCYX AND BUTTOCKS BY TURNING RIGHT AND LEFT -CONTINUE TO FOLLOW RD RECOMMENDATIONS PLEASE CONTACT WOUND CARE NURSE FOR ANY QUESTION AND CHANGE OF WOUND CONDITION. Addendum: 01/19/21 at 1720 by Breezy Carr RN (Grace) SACRALCOCCYX PHOTO OBTAINED, OFF FOCUS DUE TO PT. MOVEMENT.
--- NOTE | 2021-01-19 13:50 | NUR ---
SCHEDULED MEDICATIONS DUE GIVEN. WILL CONTINUE TO MONITOR.
--- NOTE | 2021-01-19 15:13 | NUR ---
01/19/21 RD FOLLOW UP COMPLETED PLEASE REFER TO NUTRITION ASSESSMENT UNDER CARE ACTIVITY FOR ESTIMATED NUTRITIONAL NEEDS. 1. CONTINUE GLUCERNA 1.2 @ 80 ML/HR X 24 HR -THIS WILL PROVIDE 2304 KCAL/DAY AND 115 GM OF PROTEIN/DAY, MEETING ADEQUATE NUTRIENT NEEDS 2. CONTINUE FREE WATER FLUSH OF 325 ML Q4H PER MD 3. RECOMMENDED CRISTINE BID TO PROMOTE WOUND HEALING 4. RD TO FOLLOW-UP 2-3 DAYS, HIGH RISK MARIBETH FUENT[address] RD
[2021-01-19 16:00] VITALS: BP 122/68
--- NOTE | 2021-01-19 17:45 | NUR ---
SCHEDULED MEDICATIONS DUE GIVEN. WILL CONTINUE TO MONITOR.
--- NOTE | 2021-01-19 19:54 | NUR ---
GAVE REPORT TO FLIGHT OPERATIONS SPECIALIST NURSE FOR CONTINUITY OF CARE. PATIENT IN STABLE CONDITION.
[2021-01-19 20:00] VITALS: BP 129/68
--- NOTE | 2021-01-19 20:00 | NUR ---
RECEIVED BEDSIDE REPORT FROM DAY RN REGARDING THE PT FOR CONTINUITY OF CARE. PATIENT EYES OPEN, APHASIC. ON TRACH TO VENT SETTING. FIO2- 30%, PEEP- 5, VT- 450, RR-18, SATING 96%. NO SIGN AND SYMPTOMS OF DISTRESS NOTED AT THIS TIME. IVF AND GTF INFUSING ORDERED. BED IN LOW POSITION, BED ALARM ON, SIDE RAILS UP X2 AND BREAKS ON. CALL LIGHT WITHIN REACH. WILL CONTINUE POC AND MONITORING.
[2021-01-19] MEDS: cefTRIAXone 2,000 MG in DEXTROSE 5% 100 ML IV SCH (21:55)
--- NOTE | 2021-01-19 22:00 | NUR ---
SCHEDULED MEDICATIONS GIVEN ORDERED. PATIENT TOLERATED IT WELL. NO ADVERSE DRUG REACTION NOTED WILL CONTINUE TO OBSERVE PATIENT.
[2021-01-20] VITALS: BP 130/71
[2021-01-20] MEDS: HYDRAGUARD CREAM TP SCH ×2 (01:40→13:00)
[2021-01-20] MEDS: GAUZE TP SCH ×2 (01:40→13:00)
--- NOTE | 2021-01-20 02:23 | NUR ---
PATIENT ASLEEP AT THIS TIME. VISIBLE CHEST RISE AND FALL NOTED. WILL CONTINUE OBSERVATION. CALL LIGHT WITHIN REACH. SAFETY MEASURES IN PLACED.
[2021-01-20 04:00] VITALS: BP 140/72
[2021-01-20] MEDS: NACL 0.45% 1,000 ML IV SCH (04:10)
[2021-01-20] MEDS: BLOOD GLUCOSE MONITORING 1 DEV DEV FS SCH ×4 (05:37→21:00)
[2021-01-20] MEDS: INSULIN LISPRO SLIDING SCALE 100 UNITS/ML VIAL SUBQ PRN ×2 (05:39→17:08)
--- NOTE | 2021-01-20 06:35 | NUR ---
PATIENT STABLE. NO ACUTE EVENT THROUGHOUT THE NIGHT. NO SIGN AND SYMPTOMS OF DISTRESS NOTED AT THIS TIME. ALL NEEDS ATTENDED. WILL ENDORSE THE PATIENT TO THE ONCOMING RN FOR CONTINUITY OF CARE.
[2021-01-20 07:04] LABS: BASOPHILS % (AUTO) 0.3 % (0.0-2.0); EOSINOPHILS # (AUTO) 0.3 K/uL (0-0.4); EOSINOPHILS % (AUTO) 1.7 % (0.0-4.0); HEMATOCRIT 29.9 % (36-52); HEMOGLOBIN 9.8 g/dL (12.0-18.0); LYMPHOCYTES # (AUTO) 1.8 K/uL (2.0-11.5); LYMPHOCYTES % (AUTO) 12.4 % (20.5-51.1); MEAN CORPUSCULAR HEMOGLOBIN 29 pg (27-31); MEAN CORPUSCULAR HGB CONC 33 g/dL (33-37); MEAN CORPUSCULAR VOLUME 88.7 fL (80-94); MONOCYTES # (AUTO) 0.9 K/uL (0.8-1.0); MONOCYTES % (AUTO) 5.9 % (1.7-9.3); NEUTROPHILS # (AUTO) 11.8 K/uL (1.8-7.7); NEUTROPHILS % (AUTO) 79.7 % (42.2-75.2); PLATELET COUNT (AUTO) 189 K/uL (140-450); RED BLOOD CELL COUNT(AUTO) 3.37 MIL/uL (4.20-6.10); RED CELL DISTRIBUTION WIDTH 13.7 % (11.6-13.7); WHITE BLOOD COUNT (AUTO) 14.8 K/uL (4.8-10.8)
[2021-01-20 07:20] LABS: ALBUMIN 1.8 g/dL (3.4-5.0); ANION GAP 11.3 (8-16); CARBON DIOXIDE 26.9 mmol/L (21-32); CREATININE 0.9 mg/dL (0.6-1.3); MAGNESIUM 2.1 mg/dL (1.8-2.4); POTASSIUM 4.2 mmol/L (3.5-5.1); TOTAL BILIRUBIN 0.3 mg/dL (0.0-1.0)
--- NOTE | 2021-01-20 07:36 | NUR ---
ENDORSED PATIENT TO DAY RN FOR CONTINUITY OF CARE. PATIENT STABLE. SIGNING OFF.
[2021-01-20] MEDS: levETIRAcetam 100 MG/ML ORASYR PO SCH ×2 (10:01→21:00)
[2021-01-20] MEDS: PANTOPRAZOLE 40 MG INJ VIAL IVP SCH (10:02)
[2021-01-20] MEDS: carvediloL 12.5 MG TAB GT SCH ×2 (10:04→21:00)
[2021-01-20] MEDS: hydrALAZINE 25 MG TAB GT SCH ×3 (10:04→17:09)
[2021-01-20] MEDS: lisinopriL 20 MG TAB GT SCH (10:05)
[2021-01-20] MEDS: DOCUSATE 100 MG/10 ML UDC GT SCH ×2 (10:07→21:00)
[2021-01-20] MEDS: FUROSEMIDE 20 MG TAB GT SCH (10:08)
[2021-01-20] MEDS: amLODIPine 5 MG TAB PO SCH (10:08)
[2021-01-20] MEDS: minoxidiL 2.5 MG TAB GT SCH (10:09)
[2021-01-20] MEDS: ASCORBIC ACID 500 MG TAB PO SCH (10:10)
[2021-01-20] MEDS: THERAHONEY GEL 42.5 GM TP SCH (13:00)
[2021-01-20 20:00] VITALS: BP 144/74
[2021-01-20] MEDS: cefTRIAXone 2,000 MG in DEXTROSE 5% 100 ML IV SCH (21:00)
[2021-01-20 21:21] VITALS: BP 152/55
[2021-01-20 21:22] VITALS: BP 146/75
[2021-01-21] VITALS (8 sets, daily range): BP systolic 113–144; BP diastolic 69–76
[2021-01-21] MEDS: HYDRAGUARD CREAM TP SCH ×2 (01:15→13:43)
[2021-01-21] MEDS: GAUZE TP SCH ×2 (01:20→13:43)
[2021-01-21] MEDS: INSULIN LISPRO SLIDING SCALE 100 UNITS/ML VIAL SUBQ PRN ×5 (01:34→20:45)
--- NOTE | 2021-01-21 03:31 | NUR ---
PATIENT WITH EYES OPEN TRACH TO VENT NON VERBAL.PATIENT LUNGS DIMINISH ABDOMEN SOFT RECEIVING GLUCERNIA 80 HOUR RECEIVING EVERY FOUR HOURS 325 CC WATER FLUSH. NO RESIDUAL. PATIENT HAS A G-TUBE. F/C DRAINING YELLOW URINE. PATIENT HAS MULTIPLE WOUNDS PATIENT TRACH TO VENT SETTINGS AC18, TV 450, FI02 24%, PEEP 5 SAT97%. NO DISTRESS NOTED.
[2021-01-21] MEDS: NACL 0.45% 1,000 ML IV SCH ×2 (03:49→21:35)
[2021-01-21] MEDS: BLOOD GLUCOSE MONITORING 1 DEV DEV FS SCH ×4 (06:20→20:58)
--- NOTE | 2021-01-21 07:25 | NUR ---
RECEIVED BEDSIDE REPORT FROM STAFFING RN NURSE FOR CONTINUITY OF CARE. PT IS APHASIC. ON TRACH TO VENT WITH BREATHING UNLABORED. VENT SETTINGS; FIO2 24%, PEEP 5, VT 450, RT 18. G TUBE IN PLACE RUNNING FEEDING, GLUCERNA AT 80 ML/HR. SAAB CATH IN PLACE DRAINING CLEAR, YELLOW URINE. MULTIPLE WOUNDS ON THE SACRAL, BILATERAL HEELS, COLLAR BONE, AND BILAT EARS. IV IS IN THE LEFT AC 20 GAUGE, PATENT AND INTACT. PT IS STABLE AT THIS TIME. PLAN OF CARE DISCUSSED.
--- NOTE | 2021-01-21 09:40 | NUR ---
PT IS STABLE. BREATHING IS UNLABORED ON TRACH TO VENT. G TUBE IS IN PLACE WITH RESIDUAL LESS THAN 5 ML. PT TOLERATING FEEDING WELL. DIAPER IS DRY AND IN PLACE. SAAB CATH IN PLACE. PT DOES NOT APPEAR TO BE IN ANY DISTRESS. FLACC 0. WILL CONTINUE TO MONITOR.
[2021-01-21] MEDS: PANTOPRAZOLE 40 MG INJ VIAL IVP SCH (09:46)
[2021-01-21] MEDS: ASCORBIC ACID 500 MG TAB PO SCH (09:47)
[2021-01-21] MEDS: minoxidiL 2.5 MG TAB GT SCH (09:47)
[2021-01-21] MEDS: carvediloL 12.5 MG TAB GT SCH ×2 (09:47→20:35)
[2021-01-21] MEDS: FUROSEMIDE 20 MG TAB GT SCH (09:47)
[2021-01-21] MEDS: levETIRAcetam 100 MG/ML ORASYR PO SCH ×2 (09:48→20:35)
[2021-01-21] MEDS: DOCUSATE 100 MG/10 ML UDC GT SCH ×2 (09:48→20:35)
[2021-01-21] MEDS ORDERED: [UNRECOGNIZED DRUG - OTHER] IV (10:39)
[2021-01-21] MEDS ORDERED: IV Gentamycin IV (10:39)
[2021-01-21] MEDS: lisinopriL 20 MG TAB GT SCH (10:56)
[2021-01-21] MEDS: amLODIPine 5 MG TAB PO SCH (10:56)
[2021-01-21] MEDS: hydrALAZINE 25 MG TAB GT SCH ×3 (10:57→17:11)
--- NOTE | 2021-01-21 11:35 | NUR ---
PT WAS CHANGED AND REPOSITIONED. PILLOWS WERE USED TO OFFSET PRESSURE OFF WOUND ON BACK. PT OPENED EYES WHILE REPOSITIONING BUT DOES NOT TRACK WITH EYES. BREATHING IS UNLABORED ON TRACH TO VENT. O2 SAT IS 96%. WILL CONTINUE TO MONITOR.
--- NOTE | 2021-01-21 13:30 | NUR ---
PT IS STABLE. LAYING IN SEMI FOWLERS POSITION. G TUBE FEEDING INFUSING ORDERED. IV IS PATENT AND INTACT. WILL CONTINUE TO MONITOR.
[2021-01-21] MEDS: THERAHONEY GEL 42.5 GM TP SCH (13:43)
--- NOTE | 2021-01-21 15:30 | NUR ---
PT WAS CHANGED HE HAD A BM. BM WAS MODERATE IN AMOUNT. PT TOLERATED MOVEMENT WELL. ON TRACH TO VENT WITH BREATHING UNLABORED. DRESSING WAS CHANGED ON SACRAL. FLACC 0. WILL CONTINUE TO MONITOR.
--- NOTE | 2021-01-21 15:47 | NUR ---
01/21/21 RD FOLLOW UP COMPLETED PLEASE REFER TO NUTRITION ASSESSMENT UNDER CARE ACTIVITY FOR ESTIMATED NUTRITIONAL NEEDS. 1.CONTINUE GLUCERNA 1.2 @ 80 ML/HR X 24 HR a.THIS WILL PROVIDE 2304 KCAL/DAY AND 115 GM OF PROTEIN/DAY, MEETING ADEQUATE NUTRIENT NEEDS 2.CONTINUE FREE WATER FLUSH OF 325 ML Q4H PER MD 3.CONT CRISTINE BID TO PROMOTE WOUND HEALING 4.RD TO FOLLOW-UP 2-3 DAYS, HIGH RISK MARIBETH FUENTES RD
--- NOTE | 2021-01-21 17:14 | NUR ---
PT'S BS READING IS 343. HUMALOG INSULIN, 8 UNITS, WAS GIVEN PER SLIDING SCALE.
--- NOTE | 2021-01-21 17:26 | NUR ---
DC PLANNING: PATIENT IS GOING BACK TO [facility] CAN GO TO ROOM 120 C . [facility] WITH [facility] PROFESSOR TIME 7:30PM NOTIFIED [facility] PARAPROFESSIONAL . CM TO FOLLOW Addendum: 01/28/21 at 1155 by Matilda Hunt RN DC PLANNING: PATIENT HAS A DC ORDER GOING BACK TO [facility]. FAXED ALL PAPERWORK TO [facility] AWAITING FOR BED. CM TO FOLLOW Addendum: 01/28/21 at 1728 by Matilda Hunt RN DC PLANNING: CALLED [facility] SPOKE WITH BREANA STILL REVIEWING THE [facility] [employer] AWAITING FOR BED NUMBER. CALLED [facility] SPOKE WITH SHILOH YUE IT WILL CALL Addendum: 01/28/21 at 1747 by Matilda Hunt RN DC PLANNING: RECEIVED A CALL FROM BREANA AT [facility] STATED THEY ARE UNABLE TO TAKE PATIENT BECAUSE OF THE ISOLATION , STATED THEIR INFECTIOUS NURSE STATED EVEN THOUGH OUR ID STATED PT IS COLONIZED, WITH THEIR GUIDE LINE NEEDS TO BE ON ISOLATION AND NO ISO BED FOR TODAY AND TOMORROW. NOTIFIED DR DUENAS . MARIBEL TO FOLLOW Addendum: 02/01/21 at 1647 by Matilda Hunt RN DC PLANNING: PT GOT TRANSFERRED TO ICU, [facility] TO FO[facility] Addendum: 02/02/21 at 1138 by Matilda Hunt RN DC PLANNING: RECEIVED A CALL FROM TAMY LÓPEZ AT [facility] UPDATED PATIENT'S CLINICAL AND THE NEED FOR LTAC. PER TAMY WILL DISCUSS WITH SALES TEAM RECRUITER AND CALL BACK WITH THE DECISION. CM TO FOLLOW Addendum: 02/03/21 at 1403 by Matilda Hunt RN DC PLANING: CALLED AND FAXED ALL PAPERWORK TO [facility] ,SPOKE WITH BREANA MASTERSON ISO TORIN Norman CM TO FOLLOW Addendum: 02/04/21 at 1145 by Matilda Hunt RN DC PLANNING: CALLED [facility] SPOKE WITH [facility] ,STATED NO [facility]. CM TO FOLLOW Addendum: 02/04/21 at 1516 by Matilda Hunt RN DC PLANNING: PATIENT IS GOING TO [facility] CAN GO TO ROOM 120B # TO GIVE REPORT [phone] [facility] WITH [facility] PROFESSOR TIME 4:15 NOTIFIED JANICE DAN NURSE.
--- NOTE | 2021-01-21 17:58 | NUR ---
PT HAD A LARGE BM. BM WAS LIQUID AND BROWN IN COLOR. ALL LINENS AND DRESSING ON WOUND WAS CHANGED. PT WAS GIVEN A BED BATH. PT TOLERATED THIS WELL. PADDED BOOTS IN PLACE. LOTION APPLIED TO DRY SKIN ON HANDS AND FEET. PILLOWS WERE USED TO OFFSET PRESSURE ON SACRAL REGION.
--- NOTE | 2021-01-21 19:30 | NUR ---
ENDORSED PT TO FOOD PREP WORKER NURSE FOR CONTINUITY OF CARE. PT IS STABLE AT THIS TIME. PLAN OF CARE DISCUSSED.
[2021-01-21] MEDS: cefTRIAXone 2,000 MG in DEXTROSE 5% 100 ML IV SCH (19:52)
[2021-01-21] MEDS: ACETAMINOPHEN 325 MG TAB PO PRN (20:35)
--- NOTE | 2021-01-21 21:00 | NUR ---
CALLED [facility] AND REPORT GIVEN TO CHEMA, MADE AWARE THAT TEMP IS 100.9 AT 1999, REQUESTED TO CALL HER BACK LATER FOR THE TEMP, WOUND PICS TAKEN, PT REPOSITIONED AND OFFLOAD PRESSURE AREAS.
--- NOTE | 2021-01-21 21:50 | NUR ---
AXILLARY TEMP OF 99.6, CHEMA MADE AWARE, STATED STILL WITH LOW GRADE FEVER, WILL CALL BACK WHEN [facility] IS HERE.
--- NOTE | 2021-01-21 22:35 | NUR ---
[facility] TRANSPORT HERE, AXILLARY TEMP 100.3, CALLED CHEMA, STATED THEY CANNOT ACCEPT PT TONIGHT, THEY WANT TEMP TO BE 99 AND BELOW, DR RIVERA MADE AWARE, CAR FROM [facility] CALLED AND TOLD TO PUT PT ON WILL CALL FOR TOMORROW IF PT'S TEMP IS LOW ENOUGH FOR TRANSFER BACK TO [facility], WILL ENDORSE.
[2021-01-21] MEDS ORDERED: GENTAMICIN PER PHARMACY MC PRN (22:40)
[2021-01-21] MEDS ORDERED: GENTAMICIN 80 MG/2 ML VIAL ONE (23:11)
[2021-01-21] MEDS: GENTAMICIN 120 MG in DEXTROSE 5% 100 ML IV SCH (23:16)
[2021-01-22] VITALS: BP 112/70
[2021-01-22] MEDS: GAUZE TP SCH ×2 (01:09→13:39)
[2021-01-22] MEDS: HYDRAGUARD CREAM TP SCH ×2 (01:09→13:39)
--- NOTE | 2021-01-22 02:00 | NUR ---
SEEN PT SLEEPING, OPEN EYES TO TOUCH, FLACC-0, REPOSITIONED AND OFFLOAD PRESSURE AREAS, MONITORED CLOSELY.
[2021-01-22 04:00] VITALS: BP 122/71
[2021-01-22] MEDS: ACETAMINOPHEN 325 MG TAB PO PRN ×3 (05:13→17:28)
--- NOTE | 2021-01-22 05:15 | NUR ---
TYLENOL 650MG GIVEN VIA G-TUBE FOR AXILLARY TEMP OF 101.0, COOLING MEASURES STARTED, BM WITH LARGE LOOSE BROWN STOOL, PERINEAL CARE DONE, REPOSITIONED AND OFFLOAD PRESSURE AREAS, SUCTION SECRETIONS PRN, ORAL CARE DONE, MONITORED CLOSELY.
[2021-01-22] MEDS: NACL 0.45% 1,000 ML IV SCH ×2 (05:55→21:35)
[2021-01-22] MEDS: INSULIN LISPRO SLIDING SCALE 100 UNITS/ML VIAL SUBQ PRN ×4 (05:57→20:56)
[2021-01-22] MEDS ORDERED: GENTAMICIN 80 MG/2 ML VIAL ONE (06:03)
[2021-01-22] MEDS: GENTAMICIN 120 MG in DEXTROSE 5% 100 ML IV SCH ×3 (06:17→23:00)
[2021-01-22] MEDS: BLOOD GLUCOSE MONITORING 1 DEV DEV FS SCH ×4 (06:55→20:53)
--- NOTE | 2021-01-22 07:28 | NUR ---
REPORT GIVEN FROM KASSIDY PULMONARY NURSE PRACTITIONER NURSE FOR CONTINUITY OF CARE, POC DISCUSSED. PT IS VENT TO TRACH SATING AT 100% WITH FIO2 AT 24, PEEP 5, VT 450, RR 18. PT BLOOD PRESSURES IS 118/74. PT HAS A LEFT AC 20 G RUNNING 0.45 NS @ 40. PT RECEIVES TUBE FEEDING AT 80 ML AND Q4 325 FLUSHES. PT HAS A SACRAL WOUND WITH DRESSING CHANGED AND COVERED IN AN ISLAND DRESSING. PT HAS A SAAB DRAINING YELLOW URINE. PT IS ON CONTACT PRECAUTIONS FOR MDRO OF THE SPUTUM. PT HAS A DISCHARGE ORDER FOR WHEN FEVER IS BELOW 99, CURRENT TEMP IS 100.6. WILL MEDICATE PER MD ORDER. ALL SAFETY MEASURES IN PLACE, WILL CONTINUE TO MONITOR.
--- NOTE | 2021-01-22 07:33 | NUR ---
PT AWAKE, NO SIGNS OF DISTRESS, REPORT GIVEN TO IDA FOR CONTINUITY OF CARE.
[2021-01-22 08:00] VITALS: BP 118/74
[2021-01-22] MEDS: levETIRAcetam 100 MG/ML ORASYR PO SCH ×2 (08:54→20:41)
[2021-01-22] MEDS: DOCUSATE 100 MG/10 ML UDC GT SCH ×2 (08:54→20:40)
[2021-01-22] MEDS: PANTOPRAZOLE 40 MG INJ VIAL IVP SCH (08:55)
[2021-01-22] MEDS: FUROSEMIDE 20 MG TAB GT SCH (08:55)
[2021-01-22] MEDS: ASCORBIC ACID 500 MG TAB PO SCH (08:55)
[2021-01-22] MEDS: carvediloL 12.5 MG TAB GT SCH ×2 (09:00→20:39)
[2021-01-22] MEDS: minoxidiL 2.5 MG TAB GT SCH (09:01)
[2021-01-22] MEDS: lisinopriL 20 MG TAB GT SCH (09:01)
[2021-01-22] MEDS: amLODIPine 5 MG TAB PO SCH (09:02)
[2021-01-22] MEDS: hydrALAZINE 25 MG TAB GT SCH ×3 (09:02→17:27)
--- NOTE | 2021-01-22 09:19 | NUR ---
MYRA MEDICATION ADMINISTERED PER MD ORDER, PT TOLERATED ADMINISTRATION. ASSESS RESIDUAL PRIOR TO ADMINISTRATION, 25ML. FLUSHED WITH 10CC PRIOR TO MEDICATION ADMINISTRATION AND AFTER. RESTARTED TUBE FEEDING. IV SITE IS PT. COOLING MEASURES IN PACE. PT SATING AT 98%. ALL SAFETY MEASURES IN PLACE, WILL CONTINUE TO MONITOR.
--- NOTE | 2021-01-22 11:22 | NUR ---
BLOOD GLUCOSE CHECK IS 352, 10 UNITS OF INSULIN ADMINISTERED PER SLIDING SCALE. PRN TYLENOL ADMINISTERED PER MD ORDER FOR ELEVATED TEMP. WILL CONTINUE TO MONITOR. ALL SAFETY MEASURES IN PLACE, WILL CONTINEUE TO MONITOR.
[2021-01-22 12:00] VITALS: BP 90/52
--- NOTE | 2021-01-22 12:41 | NUR ---
PT HAS BEEN CLEANED, 1LARGE LOOSE BM NOTED. SAAB EMPTIED OF 850 YELLOW URINE. PT GTUBE DRESSING CHANGE. SACRAL DRESSING CHANGE. ALL BARRIER CREAM AND THERAHONEY APPLIED TO PT. PT TOLERATED CLEANING AND REPOSITIONING. ALL SAFETY MEASURES IN PLACE. CALL LIGHT WITHIN REACH WILL CONTINUE TO MONITOR.
[2021-01-22] MEDS: THERAHONEY GEL 42.5 GM TP SCH (13:39)
--- NOTE | 2021-01-22 13:50 | NUR ---
MYRA BP MEDICATION NONADMINISTERED PER MD ORDER DUE TO PTS DECREASED BP.
--- NOTE | 2021-01-22 15:04 | NUR ---
ROUNDED ON PT, PT IS RESTING IN BED WITH NO ACUTE S/S OF DISTRESS. PT IS SATING AT 98%. ALL SAFETY MEASURES IN PLACE CALL LIGHT WITHIN REACH. WILL CONTINUE TO MONITOR.
--- NOTE | 2021-01-22 15:53 | NUR ---
REASSESS PT TEMPATURE; 100.2. COOLING MEASURES INITIATED.
[2021-01-22 16:00] VITALS: BP 116/67
--- NOTE | 2021-01-22 16:05 | NUR ---
MYRA MEDICATION ADMINISTERED PER MD ORDER. PT TOLERATED ADMINISTRATION. PT BLOOD GLUCOSE 340, 10 UNITS OF INSULIN WILL BE ADMINISTERED PER MD ORDER.
--- NOTE | 2021-01-22 17:37 | NUR ---
MYRA MEDICATION ADMINISTERED PER MD ORDER, PRN TYLENOL ADMINISTERED PER MD ORDER FOR A FEVER OF 100.9. ALL SAFETY MEASURES IN PLACE. CALL LIGHT WITHIN REACH. WILL CONTINUE TO MONITOR
--- NOTE | 2021-01-22 18:37 | NUR ---
REASSESS TEMPERATURE: 98.9. PT IS IN STABLE CONDITION SATING AT 98%. ALL SAFETY MEASURES IN PLACE. WILL CONTINUE TO MONITOR.
--- NOTE | 2021-01-22 19:02 | NUR ---
PT IS STABLE. PT ENDORSED TO OUTSIDE SALES CONSULTANT NURSE FOR CONTINUITY OF CARE. POC DISCUSSED.
--- NOTE | 2021-01-22 19:04 | NUR ---
RECEIVED BEDSIDE REPORT FROM AM NURSE. PATIENT ON BED SLEEPING, NO S/S OF RESPIRATORY DISTRESS. SAAB CATHETER IN PLACE DRAINING CLEAR YELLOW URINE. ALL SAFETY PRECAUTIONS ARE IN PLACE. IVF 1/2 NS INFUSING WELL ON THE LAC. CALL LIGHT WITHIN REACH.
[2021-01-22 20:00] VITALS: BP 126/78
[2021-01-22] MEDS: cefTRIAXone 2,000 MG in DEXTROSE 5% 100 ML IV SCH (20:31)
--- NOTE | 2021-01-22 23:00 | NUR ---
GARAMYCIN NOT GIVEN ORDERED TO GIVE AFTER TROUGH AT 01/23/21 AT 0700.
[2021-01-23] VITALS (7 sets, daily range): BP systolic 100–129; BP diastolic 58–75
[2021-01-23] MEDS: HYDRAGUARD CREAM TP SCH ×2 (01:09→12:05)
[2021-01-23] MEDS: GAUZE TP SCH ×2 (01:09→12:05)
[2021-01-23] MEDS: INSULIN LISPRO SLIDING SCALE 100 UNITS/ML VIAL SUBQ PRN ×4 (06:33→21:48)
[2021-01-23] MEDS: BLOOD GLUCOSE MONITORING 1 DEV DEV FS SCH ×4 (06:36→21:25)
[2021-01-23 06:37] LABS: BASOPHILS % (AUTO) 0.1 % (0.0-2.0); EOSINOPHILS # (AUTO) 0.3 K/uL (0-0.4); EOSINOPHILS % (AUTO) 1.8 % (0.0-4.0); HEMATOCRIT 31.4 % (36-52); HEMOGLOBIN 10.3 g/dL (12.0-18.0); LYMPHOCYTES # (AUTO) 1.5 K/uL (2.0-11.5); MEAN CORPUSCULAR HEMOGLOBIN 29 pg (27-31); MEAN CORPUSCULAR HGB CONC 33 g/dL (33-37); MEAN CORPUSCULAR VOLUME 89.1 fL (80-94); MONOCYTES # (AUTO) 1.6 K/uL (0.8-1.0); MONOCYTES % (AUTO) 9.1 % (1.7-9.3); NEUTROPHILS # (AUTO) 14.1 K/uL (1.8-7.7); PLATELET COUNT (AUTO) 249 K/uL (140-450); RED BLOOD CELL COUNT(AUTO) 3.52 MIL/uL (4.20-6.10); WHITE BLOOD COUNT (AUTO) 17.5 K/uL (4.8-10.8)
[2021-01-23 07:04] LABS: ANION GAP 11.4 (8-16); CARBON DIOXIDE 28.4 mmol/L (21-32); CREATININE 0.9 mg/dL (0.6-1.3); POTASSIUM 4.8 mmol/L (3.5-5.1)
[2021-01-23] MEDS: GENTAMICIN 120 MG in DEXTROSE 5% 100 ML IV SCH ×2 (07:08→18:50)
--- NOTE | 2021-01-23 07:27 | NUR ---
RECEIVED REPORT FROM PRODUCT DEVELOPMENT SPECIALIST NURSE FOR CONTINUITY OF CARE, POC DISCUSSED. PT IS APHASIC, OPENS EYES TO NAME. PT IS TRACH TO VENT, SATING AT 98%. PT CHEST RISING AND FALLING EVEN AND UNLABORED, NO SOB NOTED. PT HAS A LEFT AC 20 G RUNNING 0.45 NS AT 40 ML. PT IS ON CONTACT PRECAUTIONS FOR MDRO OF THE SPUTUM. PT HAS A SAAB CATH DRAINING YELLOW URINE. ALL SAFETY MEASURES IN PLACE, WILL CONTINUE TO MONITOR.
--- NOTE | 2021-01-23 07:28 | NUR ---
AUTOMOBILE INSURANCE CLAIM EXAMINER REPORTS GENTAMICIN TROUGH DRAWN AT 0630. AUTOMOBILE INSURANCE CLAIM EXAMINER REPORTS GENTAMICIN HUNG AT 0700.
--- NOTE | 2021-01-23 07:28 | NUR ---
ENDORSED TO AM SHIFT RN FOR CONTINUITY OF CARE. PATIENT IS STABLE. NO FEVER OVERNIGHT.
--- NOTE | 2021-01-23 07:50 | NUR ---
ASSESSED PTS TEMPERATURE, 100.7 ORAL.
[2021-01-23 08:26] LABS: LYMPHOCYTES % (AUTO) 8.4 % (20.5-51.1); NEUTROPHILS % (AUTO) 80.6 % (42.2-75.2)
[2021-01-23] MEDS: lisinopriL 20 MG TAB GT SCH (09:09)
[2021-01-23] MEDS: ACETAMINOPHEN 325 MG TAB PO PRN ×2 (09:10→18:14)
[2021-01-23] MEDS: hydrALAZINE 25 MG TAB GT SCH ×3 (09:10→17:59)
[2021-01-23] MEDS: carvediloL 12.5 MG TAB GT SCH ×2 (09:10→21:23)
[2021-01-23] MEDS: amLODIPine 5 MG TAB PO SCH (09:10)
[2021-01-23] MEDS: minoxidiL 2.5 MG TAB GT SCH (09:11)
[2021-01-23] MEDS: ASCORBIC ACID 500 MG TAB PO SCH (09:11)
[2021-01-23] MEDS: FUROSEMIDE 20 MG TAB GT SCH (09:11)
[2021-01-23] MEDS: levETIRAcetam 100 MG/ML ORASYR PO SCH ×2 (09:11→21:18)
[2021-01-23] MEDS: DOCUSATE 100 MG/10 ML UDC GT SCH ×2 (09:12→21:18)
[2021-01-23] MEDS: PANTOPRAZOLE 40 MG INJ VIAL IVP SCH (09:12)
--- NOTE | 2021-01-23 09:27 | NUR ---
MYRA MEDICATION ADMINISTERED PER MD ORDER, PT TOLERATED ADMINISTRATION. ASSESSED RESIDUAL, 10ML ASPIRATED. FLUSHED WITH 10ML PRIOR TO AND AFTER MEDICATION ADMINISTRATION. PRN TYLENOL ADMINISTERED PER MD ORDER FOR A FEVER OF 100.7. PT IS TRACH TO VENT SATING AT 98%. ALL SAFETY MEASURES IN PLACE, CALL LIGHT WITHIN REACH. WILL CONTINUE TO MONITOR.
--- NOTE | 2021-01-23 10:55 | NUR ---
PT IS ASLEEP IN BED WITH CHEST RISING AND FALLING EVEN AND UNLABORED, SATING AT 98%. NO S/S OF ACUTE DISTRESS. ALL SAFETY MEASURES IN PLACE, CALL LIGHT WITHIN REACH. WILL CONTINUE TO MONITOR.
[2021-01-23] MEDS: THERAHONEY GEL 42.5 GM TP SCH (12:05)
--- NOTE | 2021-01-23 12:12 | NUR ---
BLOOD GLUCOSE 328, 8 UNITS OF INSULIN ADMINISTERED PER SLIDING SCALE. PT TOLERATED ADMINISTRATION. MYRA MEDICATION NON ADMINISTERED DUE TO DECREASED BLOOD PRESSURE, 100/58. PT IS STABLE WITH NO ACUTE S/S OF DISTRESS, SATING AT 98%. ALL SAFETY MEASURES IN PLACE, CALL LIGHT WITHIN REACH. WILL CONTINUE TO MONITOR.
--- NOTE | 2021-01-23 13:07 | NUR ---
NOTIFIED DIETARY OF GLUCERNA 1.2 FOR PT BEING OUT, AND NO EXTRA BOTTLES NOTED IN THE CABINET. DIETARY STATED THEY WILL BRING ONE. WILL FOLLOW UP.
--- NOTE | 2021-01-23 15:55 | NUR ---
PT HAS BEEN CLEANED, REPOSITIONED AND ASSESSED. HEELS HAVE BEEN ELEVATED, SACRAL DRESSING IS DRY AND INTACT. PT WIPED DOWN AND CLEANED. NO BM NOTED. PT REMAINED STABLE DURING CLEANING. NEW SHEETS AND GOWN PROVIDED. PT IS SATING AT 99%. GENTAMICIN NOT HUNG DUE TO MYRA DOSE CANCELED. NEW DOSE SCHEDULED FOR 1899, PEAK MYRA FOR 1829. PT IS STABLE. WILL CONTINUE TO MONITOR, ALL SAFETY MEASURES IN PLACE. CALL LIGHT WITHIN REACH. WILL CONTINUE TO MONITOR.
--- NOTE | 2021-01-23 18:08 | NUR ---
MYRA MEDICATION ADMINISTERED PER MD ORDER, PRN TYLENOL ADMINISTERED PER MD ORDER FOR 101.3 FEVER[address] COOLING MEASURES IN PLACE. WILL CONTINUE TO MONITOR.
--- NOTE | 2021-01-23 19:18 | NUR ---
PT ENDORSED TO TAX EXAMINER NURSE FOR CONTINUITY OF CARE, POC DISCUSSED. PT IS STABLE.
--- NOTE | 2021-01-23 19:19 | NUR ---
RECEIVED BEDSIDE REPORT FROM DAY SHIFT NURSE. PT IN BED RESTING. PT WITH EYE OPENING TO VOICE, NON-VERBAL. PT ON TRACH TO VENT, NO S/SX OF RESPI DISTRESS NOTED, SPO2 97%. ABDOMEN SOFT AND NON-TENDER, PT WITH GTUBE IN PLACE, ON CONTINUOUS FEEDING. SAAB CATHETER IN PLACE DRAINING WELL TO YELLOW URINE. SKIN IS WARM AND DRY. PT WITH MULTIPLE WOUNDS ON COLLAR BONE, EARS AND HEELS. IV ACCESS ON LEFT AC G20 PATENT AND INTACT, IVF INFUSING WELL. NO S/SX OF PAIN OR DISCOMFORT NOTED AT THIS TIME. FLACC 0. SAFETY MEASURES IN PLACE, CALL LIGHT WITHIN REACH, WILL CONTINUE TO MONITOR.
[2021-01-23] MEDS ORDERED: INSULIN LANTUS 100 UNITS/ML 10 ML VIAL SUBQ SCH (21:00)
[2021-01-23] MEDS: cefTRIAXone 2,000 MG in DEXTROSE 5% 100 ML IV SCH (21:18)
--- NOTE | 2021-01-23 21:23 | NUR ---
VS TAKEN. PT FEBRILE 102.2, TYLENOL NOT DUE YET. 0ML GTUBE RESIDUAL NOTED, SCHEDULED MEDS GIVEN ORDERED. BLOOD SUGAR 350, INSULIN COVERAGE GIVEN WELL. PT TURNED AND REPOSITIONED. SAFETY MEASURES IN PLACE. WILL CONTINUE TO MONITOR.
[2021-01-23] MEDS ORDERED: CRUSHER, PILL MC ONE (21:34)
[2021-01-23] MEDS: NACL 0.45% 1,000 ML IV SCH (21:35)
[2021-01-24] VITALS: BP 120/68
--- NOTE | 2021-01-24 00:07 | NUR ---
VS TAKEN. PT FEBRILE 101.0. SCHEDULED TYLENOL NOT DUE YET. COOLING MEASURES KEPT IN PLACE. PT REPOSITIONED. FLACC 0. SAFETY MEASURES IN PLACE. WILL CONTINUE TO MONITOR.
[2021-01-24] MEDS: ACETAMINOPHEN 325 MG TAB PO PRN (01:35)
[2021-01-24] MEDS: HYDRAGUARD CREAM TP SCH ×2 (01:36→13:13)
[2021-01-24] MEDS: GAUZE TP SCH ×2 (01:36→13:13)
--- NOTE | 2021-01-24 01:36 | NUR ---
PT STILL FEBRILE 101.1. PRN TYLENOL GIVEN ORDERED. WILL CONTINUE TO MONITOR.
[2021-01-24 04:00] VITALS: BP 117/71
--- NOTE | 2021-01-24 04:19 | NUR ---
VS STABLE. PT STILL FEBRILE. TYLENOL NOT DUE. PERINEAL, CATHETER, SKIN, ORAL CARE GIVEN. PT TOLERATED WELL. PT NOT IN DISTRESS. PT KEPT COMFORTABLE. SAFETY MEASURES IN PLACE. WILL CONTINUE TO MONITOR.
[2021-01-24] MEDS: BLOOD GLUCOSE MONITORING 1 DEV DEV FS SCH ×4 (06:36→21:00)
[2021-01-24] MEDS ORDERED: GENTAMICIN 80 MG/2 ML VIAL ONE (06:39)
[2021-01-24 06:40] LABS: HEMATOCRIT 28.5 % (36-52); HEMOGLOBIN 9.5 g/dL (12.0-18.0); MEAN CORPUSCULAR HEMOGLOBIN 30 pg (27-31); MEAN CORPUSCULAR HGB CONC 33 g/dL (33-37); MEAN CORPUSCULAR VOLUME 89.2 fL (80-94); PLATELET COUNT (AUTO) 257 K/uL (140-450); RED BLOOD CELL COUNT(AUTO) 3.19 MIL/uL (4.20-6.10); WHITE BLOOD COUNT (AUTO) 20.2 K/uL (4.8-10.8)
[2021-01-24] MEDS: GENTAMICIN 120 MG in DEXTROSE 5% 100 ML IV SCH (06:49)
[2021-01-24] MEDS: INSULIN LISPRO SLIDING SCALE 100 UNITS/ML VIAL SUBQ PRN ×4 (06:49→21:03)
[2021-01-24 07:05] LABS: ANION GAP 10.8 (8-16); CARBON DIOXIDE 27.8 mmol/L (21-32); POTASSIUM 4.6 mmol/L (3.5-5.1)
[2021-01-24 07:13] LABS: LYMPHOCYTES % (MANUAL) 7 % (20-46); MONOCYTES % (MANUAL) 5 % (5-12)
--- NOTE | 2021-01-24 07:25 | NUR ---
RECEIVED CHANGE OF SHIFT REPORT FROM NIGHT NURSE AT BEDSIDE FOR CONTINUITY OF CARE. REVIEWED AND WILL CONTINUE WITH POC. PT CONDITION IS STABLE. PT ASLEEP DURING BEDSIDE REPORT. NURSE REPORTS PT IS AA&OX2 WHEN AWAKE. PT IS ON TRACH TO VENT WITH FIO2: 24, PEEP: 5, VT: 450, RT: 18 WITH BREATHING NORMAL AND UNLABORED, PT HAS G-TUBE IN PLACE RUNNING PER MD ORDER. PT HAS LAC 20G RUNNING IVF PER MD ORDER. PT HAS SACRAL ULCER COVERED BY DRESSING, BILATERAL HEEL DTI. DRESSING IS DRY AND INTACT. WILL CONTINUE TO MONITOR.
--- NOTE | 2021-01-24 07:30 | NUR ---
REPORT GIVEN TO DAY SHIFT NURSE FOR CONTINUITY OF CARE
[2021-01-24 08:00] VITALS: BP 129/78
[2021-01-24] MEDS: carvediloL 12.5 MG TAB GT SCH ×2 (09:14→21:05)
[2021-01-24] MEDS: amLODIPine 5 MG TAB PO SCH (09:14)
[2021-01-24] MEDS: hydrALAZINE 25 MG TAB GT SCH ×3 (09:14→17:00)
[2021-01-24] MEDS: minoxidiL 2.5 MG TAB GT SCH (09:15)
[2021-01-24] MEDS: metroNIDAZOLE 500 MG TAB PEG SCH ×3 (09:15→17:09)
[2021-01-24] MEDS: lisinopriL 20 MG TAB GT SCH (09:15)
[2021-01-24] MEDS: ASCORBIC ACID 500 MG TAB PO SCH (09:15)
[2021-01-24] MEDS: DOCUSATE 100 MG/10 ML UDC GT SCH ×2 (09:16→21:05)
[2021-01-24] MEDS: PANTOPRAZOLE 40 MG INJ VIAL IVP SCH (09:16)
[2021-01-24] MEDS: FUROSEMIDE 20 MG TAB GT SCH (09:16)
[2021-01-24] MEDS: levETIRAcetam 100 MG/ML ORASYR PO SCH ×2 (09:17→21:05)
--- NOTE | 2021-01-24 09:30 | NUR ---
PT CONDITION IS STABLE. PT HAS IVF AND GTF RUNNING PER MD ORDER. PT IS ON TRACH TO VENT FIO2: 21, PEEP: 5, VT: 450, AND RT: 18. BREATHING IS NORMAL AND UNLABORED. WILL CONTINUE TO MONITOR PT CONDITION.
--- NOTE | 2021-01-24 11:26 | NUR ---
PT CONDITION IS STABLE. PT APHASIC. DOES NOT APPEAR TO BE IN PAIN OR DISTRESS. WILL CONTINUE TO MONITOR.
[2021-01-24 12:00] VITALS: BP 91/46
--- NOTE | 2021-01-24 12:00 | NUR ---
PT BLOOD GLUCOSE LEVEL IS 317, ADMINISTERED 8 UNITS OF HUMALOG INSULIN PER SLIDING SCALE. WILL CONTINUE TO MONITOR.
[2021-01-24] MEDS: metroNIDAZOLE 500 MG/NS PREMIX 100 ML IV SCH ×2 (13:00→21:51)
[2021-01-24] MEDS: THERAHONEY GEL 42.5 GM TP SCH (13:13)
--- NOTE | 2021-01-24 13:39 | NUR ---
PT CONDITION IS STABLE. PT APPEARS TO BE TAKING A NAP. BREATHING IS NORMAL AND UNLABORED WITH TRACH TO VENT. IVF AND TUBE FEED IS RUNNING PER MD ORDER. WILL CONTINUE TO MONITOR.
--- NOTE | 2021-01-24 15:16 | NUR ---
01/24/21 RD FOLLOW UP COMPLETED PLEASE REFER TO NUTRITION ASSESSMENT UNDER CARE ACTIVITY FOR ESTIMATED NUTRITIONAL NEEDS. 1.CONTINUE GLUCERNA 1.2 @80ML/HR X 24 HR - THIS WILL PROVIDE 2304 KCAL/DAY AND 115 GM OF PROTEIN/DAY MEETING ADEQUATE NUTRIENT NEEDS TOLERATED 2. CONTINUE FREE WATER FLUSH OF 325 ML Q4H PER MD. 3. CONTINUE CRISTINE BID TO PROMOTE WOUND HEALING 4. RD TO FOLLOW UP 2-3 DAYS, HIGH RISK JIMENA RODARTE RD
--- NOTE | 2021-01-24 15:30 | NUR ---
PT CONDITION IS STABLE. PT IS TAKING A NAP AND IS BREATHING NORMAL AND UNLABORED. PT DOES NOT APPEAR TO BE IN PAIN OR DISTRESS AT THIS TIME. WILL CONTINUE TO MONITOR CONDITION.
[2021-01-24 16:00] VITALS: BP 99/52
--- NOTE | 2021-01-24 16:27 | NUR ---
ADMINISTERED HUMALOG PRN FOR BLOOD GLUCOSE LEVEL OF 310. ADMINISTERED 8 UNITS PER SLIDING SCALE.
--- NOTE | 2021-01-24 17:38 | NUR ---
PT CONDITION IS STABLE. PT IS ASLEEP AND APHASIC. PT IS RUNNING IVF AND TUBE FEED PER MD ORDERS. PT DOES NOT APPEAR TO BE IN PAIN OR DISCOMFORT. WILL CONTINUE TO MONITOR.
--- NOTE | 2021-01-24 19:30 | NUR ---
RECEIVED BEDSIDE REPORT FROM DAY RN. PT IS APHASIC APPEARS TO BE ASLEEP AT THIS TIME. PT IS TRACH TO VENT. VENT SETTINGS: A/C VC 21% 450, 18 +5 , RR19 96%. C/C FEVER DX SEPSIS UTI PNA HX CVA DM, GERD SZ APHASIC. SAAB CATH IN PLACE DRAINING YELLOW URINE. IV LAC 20G INFUSING 1/2 NS AT 40ML/H MX WOUNDS, SACRAL WOUND DRESSING IS C/D/I. CHRIS EAR DTI LEONIE CHRIS HEEL DTI LEONIE ON HEEL PROTECTOR, R NECK CLINICAL PROJECT ASSISTANT, ON CONTACT ISO FOR MDRO URINE. POC DISCUSSED WITH PT. PT UNABLE TO COMPREHEND. CALL LIGHT IS WITHIN REACH. WILL CONTINUE TO MONITOR
--- NOTE | 2021-01-24 19:35 | NUR ---
GAVE CHANGE OF SHIFT REPORT TO NIGHT NURSE AT BEDSIDE FOR CONTINUITY OF CARE. DISCUSSED POC. PT CONDITION IS STABLE.
--- NOTE | 2021-01-24 19:51 | NUR ---
GENTAMICIN TROUGH HIGH 2.2 NOT REPORTED TO PHARMACY D/T GENTAMICIN WAS D/C.
[2021-01-24 20:00] VITALS: BP 115/66
[2021-01-24] MEDS: cefTRIAXone 2,000 MG in DEXTROSE 5% 100 ML IV SCH (20:34)
[2021-01-24] MEDS: INSULIN LANTUS 100 UNITS/ML 10 ML VIAL SUBQ SCH (21:00)
--- NOTE | 2021-01-24 21:05 | NUR ---
VSS. SAT WELL 97% ON FIO2 21%. PATIENT WITH 30CC OF GASTRIC RESIDUALS. MYRA MEDICATIONS GIVEN VIA G TUBE. BS 305 MYRA LANTUS GIVEN AND HUMALOG PER SLIDING SCALE. ORAL CARE PROVIDED WITH SOME DIFFICULTY D/T PT NOT OPENING MOUTH. PATIENT WAS REPOSITION FOR COMFORT. SAFETY MEASURES ARE IN PLACE. WILL CONTINUE TO MONITOR.
[2021-01-24] MEDS: NACL 0.45% 1,000 ML IV SCH (21:48)
[2021-01-25] VITALS (8 sets, daily range): BP systolic 100–116; BP diastolic 52–65
--- NOTE | 2021-01-25 | NUR ---
VITAL SIGNS ARE WITHIN NORMAL LIMITS. PATIENT WAS CLEANED AND REPOSITION FOR COMFORT. ORAL CARE PROVIDED. HOB ELEVATED. WILL CONTINUE TO MONITOR.
[2021-01-25] MEDS: GAUZE TP SCH ×2 (00:45→12:57)
[2021-01-25] MEDS: HYDRAGUARD CREAM TP SCH ×2 (00:45→12:56)
--- NOTE | 2021-01-25 02:02 | NUR ---
MADE ROUNDS. PATIENT APPEARS TO BE ASLEEP. CHEST RISE AND FALL NOTED. CALL LIGHT IS WITHIN REACH. WILL CONTINUE TO MONITOR.
--- NOTE | 2021-01-25 04:10 | NUR ---
VITAL SIGNS ARE WITHIN NORMAL LIMITS. ALL SAFETY MEASURES ARE IN PLACE. CALL LIGHT IS WITHIN REACH. WILL CONTINUE TO MONITOR.
[2021-01-25] MEDS: metroNIDAZOLE 500 MG/NS PREMIX 100 ML IV SCH ×3 (04:52→20:40)
[2021-01-25] MEDS: BLOOD GLUCOSE MONITORING 1 DEV DEV FS SCH ×4 (06:26→20:54)
[2021-01-25] MEDS: INSULIN LISPRO SLIDING SCALE 100 UNITS/ML VIAL SUBQ PRN ×4 (06:26→22:02)
--- NOTE | 2021-01-25 06:26 | NUR ---
BS 279 ADMIN HUMALOG PER SLIDING SCALE. NEW TUBE FEEDING STARTED PER ORDERS. CRISTINE MIXED AND GIVEN VIA G TUBE PER ORDERS. HOB ELEVATED. SAFETY MEASURES ARE IN PLACE.
[2021-01-25 06:31] LABS: BASOPHILS % (AUTO) 0.2 % (0.0-2.0); EOSINOPHILS # (AUTO) 0.2 K/uL (0-0.4); HEMATOCRIT 25.4 % (36-52); HEMOGLOBIN 8.6 g/dL (12.0-18.0); LYMPHOCYTES # (AUTO) 1.8 K/uL (2.0-11.5); LYMPHOCYTES % (AUTO) 10.5 % (20.5-51.1); MEAN CORPUSCULAR HEMOGLOBIN 29 pg (27-31); MEAN CORPUSCULAR HGB CONC 34 g/dL (33-37); MEAN CORPUSCULAR VOLUME 86.9 fL (80-94); MONOCYTES # (AUTO) 1.6 K/uL (0.8-1.0); MONOCYTES % (AUTO) 9.3 % (1.7-9.3); NEUTROPHILS # (AUTO) 13.2 K/uL (1.8-7.7); PLATELET COUNT (AUTO) 230 K/uL (140-450); RED BLOOD CELL COUNT(AUTO) 2.92 MIL/uL (4.20-6.10); RED CELL DISTRIBUTION WIDTH 14.3 % (11.6-13.7); WHITE BLOOD COUNT (AUTO) 16.7 K/uL (4.8-10.8)
[2021-01-25 06:52] LABS: ANION GAP 12.6 (8-16); CARBON DIOXIDE 26.1 mmol/L (21-32); POTASSIUM 4.7 mmol/L (3.5-5.1)
--- NOTE | 2021-01-25 07:13 | NUR ---
RECEIVED CHANGE OF SHIFT REPORT FROM NIGHT NURSE AT BEDSIDE FOR CONTINUITY OF CARE. REVIEWED AND WILL CONTINUE WITH POC. PT ASLEEP DURING REPORT. PT IS STABLE. WHEN AWAKE PT IS AA&OX1. ON TRACH TO VENT BREATHING UNLABORED AND NORMAL FIO2:21, PEEP: 5, VT: 450, AND RT: 18. SAAB IN PLACE AND DRAINING. PT HAS LAC 20G IV PATENT AND RUNNING FLUIDS PER MD ORDER. PT IS ON GT FEED GLUCERNA 1.2 RUNNING PER MD ORDER. SKIN IS WARM, DRY , AND INTACT EXCEPT SACRAL WOUND WITH DRESSING IN PLACE, BILATERAL HEEL DTI WITH HEEL PROTECTORS, R-NECK WOUND OPEN TO AIR, AND BILATERAL EAR WOUNDS OPEN TO AIR. WILL CONTINUE MONITORING.
--- NOTE | 2021-01-25 07:18 | NUR ---
GAVE BEDSIDE REPORT TO DAY RN. PT ENDORSED IN STABLE CONDITION.
--- NOTE | 2021-01-25 08:11 | NUR ---
RECEIVED ON A [employer] R860 VENTILATOR PLUGGED INTO RED OUTLET TOLERATING WELL WITHOUT ADVERSE REACTIONS NOTED TO A YG DCT #8 AIRWAY SECURED WITH A GE TRACH TIE CUFF PRESSURE CHECKED NOTED AMBU BAG NOTED AT BEDSIDE RESTING COMFORTABLY NO APPARENT DISTRESS NOTED GOOD CHEAT RISE DEEP TRACHEAL SUCTION FOR MODERATE THIN YELLOW SECRETIONS AIRWAY PATENT
[2021-01-25] MEDS: lisinopriL 20 MG TAB GT SCH (09:00)
[2021-01-25] MEDS: carvediloL 12.5 MG TAB GT SCH ×2 (09:00→21:05)
[2021-01-25] MEDS: DOCUSATE 100 MG/10 ML UDC GT SCH ×2 (09:00→20:39)
[2021-01-25] MEDS: hydrALAZINE 25 MG TAB GT SCH ×3 (09:00→17:37)
[2021-01-25] MEDS: amLODIPine 5 MG TAB PO SCH (09:00)
[2021-01-25] MEDS: minoxidiL 2.5 MG TAB GT SCH ×2 (09:00→09:29)
--- NOTE | 2021-01-25 09:28 | NUR ---
PT CONDITION IS STABLE. PT APPEARS TO BE SLEEPING WITH NO SIGNS OF DISTRESS OR PAIN. WILL CONTINUE TO MONITOR.
[2021-01-25] MEDS: metroNIDAZOLE 500 MG TAB PEG SCH ×2 (09:29→12:57)
[2021-01-25] MEDS: FUROSEMIDE 20 MG TAB GT SCH (09:29)
[2021-01-25] MEDS: ASCORBIC ACID 500 MG TAB PO SCH (09:29)
[2021-01-25] MEDS: PANTOPRAZOLE 40 MG INJ VIAL IVP SCH (09:30)
[2021-01-25] MEDS: levETIRAcetam 100 MG/ML ORASYR PO SCH ×2 (09:30→20:40)
--- NOTE | 2021-01-25 10:06 | NUR ---
SATURATION 90% ON FIO1 OF 21% PEEP 5cmH2O TRACHEAL SUCTION FOR MODERATE THIN PALE YELLOW SECRETIONS AIRWAY PATENT INCREASED FIO2 TO 24% TO MAINTAIN SATURATION GREATER THAN 90% Addendum: 01/25/21 at 1146 by Farshad Tapia RT FIO1 = FIO2
--- NOTE | 2021-01-25 11:45 | NUR ---
PT CONDITION IS STABLE. PERFORMED BED BATH WITH LITHOSTRIPPER. CHANGED WOUND DRESSING AND CLEANED EAR WOUND WITH BETADINE PER WOUND CARE ORDER. WILL CONTINUE TO MONITOR PT CONDITION.
--- NOTE | 2021-01-25 12:49 | NUR ---
PT BLOOD GLUCOSE LEVEL 249. ADMINISTERED 4 UNITS OF HUMALOG INSULIN PER SLIDING SCALE PARAMETERS. WILL CONTINUE TO PERFORM SCHEDULED GLUCOSE CHECKS.
[2021-01-25] MEDS: THERAHONEY GEL 42.5 GM TP SCH (12:57)
--- NOTE | 2021-01-25 13:24 | NUR ---
PT CONDITION IS STABLE. PT APPEARS TO BE ASLEEP. NO SIGNS OF DISTRESS OR PAIN. WILL CONTINUE WITH FREQ ROUNDING.
--- NOTE | 2021-01-25 14:45 | NUR ---
PT TRANSPORTED TO RADIOLOGY FOR CT. BRAD (RN) AND ANIBAL (RT) WERE REQUESTED TO BE PRESENT FOR PROCEDURE. PT TRANSPORTED VIA HOSPITAL BED. CONDITION IS STABLE.
--- NOTE | 2021-01-25 15:20 | NUR ---
PT BACK ON UNIT. CONDITION IS STABLE. WILL CONTINUE TO MONITOR.
--- NOTE | 2021-01-25 17:30 | NUR ---
PT CONDITION IS STABLE. PT DOES NOT APPEAR TO BE IN PAIN. WILL CONTINUE TO MONITOR.
[2021-01-25] MEDS: cefTRIAXone 2,000 MG in DEXTROSE 5% 100 ML IV SCH (20:37)
[2021-01-25] MEDS: INSULIN LANTUS 100 UNITS/ML 10 ML VIAL SUBQ SCH (21:00)
--- NOTE | 2021-01-25 21:07 | NUR ---
GAVE CHANGE OF SHIFT REPORT TO NIGHT NURSE AT BEDSIDE FOR CONTINUITY OF CARE. POC DISCUSSED. PT STABLE.
[2021-01-26] MEDS: HYDRAGUARD CREAM TP SCH ×2 (01:00→13:00)
[2021-01-26] MEDS: GAUZE TP SCH ×2 (01:00→13:00)
[2021-01-26 04:00] VITALS: BP 123/82
[2021-01-26] MEDS: metroNIDAZOLE 500 MG/NS PREMIX 100 ML IV SCH ×3 (05:16→20:58)
[2021-01-26] MEDS: BLOOD GLUCOSE MONITORING 1 DEV DEV FS SCH ×4 (06:00→21:17)
[2021-01-26 06:10] LABS: HEMOGLOBIN 8.9 g/dL (12.0-18.0); MEAN CORPUSCULAR HEMOGLOBIN 29 pg (27-31); MEAN CORPUSCULAR HGB CONC 33 g/dL (33-37); MEAN CORPUSCULAR VOLUME 88.5 fL (80-94); PLATELET COUNT (AUTO) 271 K/uL (140-450); RED BLOOD CELL COUNT(AUTO) 3.05 MIL/uL (4.20-6.10); RED CELL DISTRIBUTION WIDTH 14.6 % (11.6-13.7); WHITE BLOOD COUNT (AUTO) 15.8 K/uL (4.8-10.8)
[2021-01-26 06:27] LABS: ANION GAP 13.2 (8-16); CARBON DIOXIDE 27.6 mmol/L (21-32); CREATININE 0.9 mg/dL (0.6-1.3); POTASSIUM 4.8 mmol/L (3.5-5.1)
[2021-01-26] MEDS: INSULIN LISPRO SLIDING SCALE 100 UNITS/ML VIAL SUBQ PRN ×4 (06:54→21:19)
--- NOTE | 2021-01-26 07:30 | NUR ---
REPORT TO AM RN, PT SLEPT AT INTERVALS, AFEBRILE ALL SHIFTS W/ X2 EPISODES OF DIAPHORESIS, BS WNL, THIS AM BLOOD SUGAR 237 MG/DL. PM/ AM CARE DONE, PT TOLERATED WELL. POSITIONED COMFORTABLY AT PRESENT. NO RESP DISTRESS NOTED-TRACHE TO VENT AT ORDERED SETTINGS.
--- NOTE | 2021-01-26 07:48 | NUR ---
RECEIVED ON A [employer] R860 VENTILATOR PLUGGED INTO RED OUTLET TOLERATING WELL WITHOUT ADVERSE REACTIONS NOTED TO A YG DCT #8 AIRWAY SECURED WITH A GE TRACH TIE CUFF PRESSURE CHECKED NOTED AMBU BAG NOTED AT BEDSIDE LOC RESTING COMFORTABLY GOOD CHEST RISE DEEP TRACHEAL SUCTION FOR MODERATE SEMI THICK PALE YELLOW WITN SCATTERED PLUGS AIRWAY PATENT
[2021-01-26 08:00] VITALS: BP 134/84
[2021-01-26 09:26] LABS: EOSINOPHILS % (MANUAL) 2 % (0-4); LYMPHOCYTES % (MANUAL) 12 % (20-46); MONOCYTES % (MANUAL) 8 % (5-12)
[2021-01-26 09:28] LABS: METAMYELOCYTES % 1 % (0-0); MYELOCYTES % 1 % (0-0)
[2021-01-26] MEDS: DOCUSATE 100 MG/10 ML UDC GT SCH ×2 (09:30→20:56)
[2021-01-26] MEDS: FUROSEMIDE 20 MG TAB GT SCH (09:30)
[2021-01-26] MEDS: hydrALAZINE 25 MG TAB GT SCH ×3 (09:31→17:00)
[2021-01-26] MEDS: POLYETHYLENE GLYCOL 17 GM/PKT GT PRN (09:31)
[2021-01-26] MEDS: carvediloL 12.5 MG TAB GT SCH ×2 (09:32→20:57)
[2021-01-26] MEDS: minoxidiL 2.5 MG TAB GT SCH (09:32)
[2021-01-26] MEDS: ASCORBIC ACID 500 MG TAB PO SCH (09:33)
[2021-01-26] MEDS: PANTOPRAZOLE 40 MG INJ VIAL IVP SCH (09:34)
[2021-01-26] MEDS: lisinopriL 20 MG TAB GT SCH (09:35)
[2021-01-26] MEDS: amLODIPine 5 MG TAB PO SCH (09:35)
[2021-01-26] MEDS: levETIRAcetam 100 MG/ML ORASYR PO SCH ×2 (09:36→20:58)
[2021-01-26] MEDS: ACETAMINOPHEN 325 MG TAB PO PRN ×2 (09:43→17:41)
--- NOTE | 2021-01-26 10:15 | NUR ---
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
--- NOTE | 2021-01-26 11:04 | NUR ---
BG ASSESSED 201
--- NOTE | 2021-01-26 11:22 | NUR ---
PRN INSULIN MEDICATION GIVEN PER MD ORDER. PT EDUCATED . PT UNABLE TO VERBALIZE UNDERSTANDSING DUE TO CONDITION . CALL LIGHT WITHIN REACH ALL SAFETY MEASURES ARE IN PLACE
[2021-01-26 11:33] VITALS: BP 108/73
--- NOTE | 2021-01-26 11:33 | NUR ---
STABLE NO DISTRESS NOTED EQUAL CHEST RIISE DEEP TRACHEAL SUCTION FOR MODERATE THIN PALE YELLOW SECRETIONS AIRWAY PATENT
[2021-01-26 12:00] VITALS: BP 98/62
[2021-01-26] MEDS: THERAHONEY GEL 42.5 GM TP SCH (13:00)
--- NOTE | 2021-01-26 13:00 | NUR ---
PT CHANGED AND REPOSITIONED. WOUND CARE PERFORMED. COOLING MEASURES ARE IN PLACE.
--- NOTE | 2021-01-26 14:16 | NUR ---
NO DISTRESS NOTED EQUAL CHEST RISE GOOD AERATION THROUGHOUT BILATERAL LUNG GEIGER AIRWAY PATENT
--- NOTE | 2021-01-26 15:10 | NUR ---
PT RESTING IN BED, NO S/SX OF DISTRESS AT THIS TIME. PT REPOSITIONED AND ADRIAN BATH PERFORMED. PT TOLERATED WELL.
--- NOTE | 2021-01-26 15:15 | NUR ---
01/26/21 RD FOLLOW UP COMPLETED PLEASE REFER TO NUTRITION ASSESSMENT UNDER CARE ACTIVITY FOR ESTIMATED NUTRITIONAL NEEDS. 1. CONTINUE GLUCERNA 1.2 @ 80 ML/HR X 24 HR a. THIS WILL PROVIDE 2304 KCAL/DAY AND 115 GM OF PROTEIN/DAY, MEETING ADEQUATE NUTRIENT NEEDS 2. CONTINUE FREE WATER FLUSH OF 325 ML Q4H PER MD 3. CONT CRISTINE BID TO PROMOTE WOUND HEALING 4. RD TO FOLLOW-UP 2-3 DAYS, HIGH RISK REVIEWED BY JIMENA RODARTE RD
[2021-01-26 16:00] VITALS: BP 119/70
--- NOTE | 2021-01-26 16:40 | NUR ---
BG ASSESSED BG 249
--- NOTE | 2021-01-26 18:55 | NUR ---
IV SITE CHANGED PER PROTOCOL , NEW IV SITE RIGHT FOREARM 20 G
--- NOTE | 2021-01-26 19:23 | NUR ---
REPORT GIVEN TO NIGHT NURSE FOR CONTINUITY OF CARE. PT STABLE. NO S/S OF DISTRESS. ALL SAFETY MEASURES IN PLACE.
[2021-01-26 20:30] VITALS: BP 125/81
[2021-01-26] MEDS: cefTRIAXone 2,000 MG in DEXTROSE 5% 100 ML IV SCH (20:53)
[2021-01-26] MEDS: INSULIN LANTUS 100 UNITS/ML 10 ML VIAL SUBQ SCH (21:18)
[2021-01-27] MEDS: GAUZE TP SCH ×2 (01:00→13:43)
[2021-01-27] MEDS: HYDRAGUARD CREAM TP SCH ×2 (01:00→13:43)
[2021-01-27 04:30] VITALS: BP 127/77
[2021-01-27] MEDS: metroNIDAZOLE 500 MG/NS PREMIX 100 ML IV SCH ×3 (05:00→20:52)
[2021-01-27 06:14] LABS: BASOPHILS % (AUTO) 0.3 % (0.0-2.0); EOSINOPHILS # (AUTO) 0.3 K/uL (0-0.4); EOSINOPHILS % (AUTO) 1.8 % (0.0-4.0); HEMATOCRIT 28.4 % (36-52); HEMOGLOBIN 9.5 g/dL (12.0-18.0); LYMPHOCYTES # (AUTO) 1.6 K/uL (2.0-11.5); LYMPHOCYTES % (AUTO) 9.2 % (20.5-51.1); MEAN CORPUSCULAR HEMOGLOBIN 29 pg (27-31); MEAN CORPUSCULAR HGB CONC 33 g/dL (33-37); MEAN CORPUSCULAR VOLUME 87.6 fL (80-94); MONOCYTES # (AUTO) 1.3 K/uL (0.8-1.0); MONOCYTES % (AUTO) 7.5 % (1.7-9.3); NEUTROPHILS # (AUTO) 13.9 K/uL (1.8-7.7); NEUTROPHILS % (AUTO) 81.2 % (42.2-75.2); PLATELET COUNT (AUTO) 296 K/uL (140-450); RED BLOOD CELL COUNT(AUTO) 3.24 MIL/uL (4.20-6.10); RED CELL DISTRIBUTION WIDTH 14.3 % (11.6-13.7); WHITE BLOOD COUNT (AUTO) 17.2 K/uL (4.8-10.8)
[2021-01-27 06:56] LABS: CARBON DIOXIDE 25.6 mmol/L (21-32); CREATININE 0.9 mg/dL (0.6-1.3); POTASSIUM 4.6 mmol/L (3.5-5.1)
[2021-01-27 07:00] LABS: MAGNESIUM 2.2 mg/dL (1.8-2.4); PHOSPHORUS 3.3 mg/dL (2.5-4.9)
[2021-01-27] MEDS: BLOOD GLUCOSE MONITORING 1 DEV DEV FS SCH ×4 (07:13→21:02)
[2021-01-27] MEDS: INSULIN LISPRO SLIDING SCALE 100 UNITS/ML VIAL SUBQ PRN ×4 (07:14→21:06)
--- NOTE | 2021-01-27 07:40 | NUR ---
Report to AM RN. FREQUENT ROUNDS TO ASSESS PO2 LEVEL/ RESP STATUS THROUGHOUT SHIFT. PT SLEPT WELL MOST OF SHIFT, SCHEDULED MEDS ADMINISTERED. PT A TRACHE TO VENT TO SPECIFIC SETTINGS. ON ROUNDS PT HAS BEEN STABLE W/ PO2 AT 96% AND HIGHER. LAST VS WNL, RESP REG NON-LABORED, PO2 98%, THIS AM.
--- NOTE | 2021-01-27 07:43 | NUR ---
RECEIVED REPORT FROM SENIOR ETL DEVELOPER RN FOR CONTINUITY OF CARE. PATIENT IS RESTING IN BED. NO S/S OF DISTRESS. RESPIRATIONS ARE EVEN AND UNLABORED. ALL SAFETY PRECAUTIONS IN PLACE. WILL CONTINUE TO MONITOR.
[2021-01-27 08:00] VITALS: BP 130/82
[2021-01-27] MEDS: carvediloL 12.5 MG TAB GT SCH ×2 (10:14→21:23)
[2021-01-27] MEDS: PANTOPRAZOLE 40 MG INJ VIAL IVP SCH (10:14)
[2021-01-27] MEDS: lisinopriL 20 MG TAB GT SCH (10:15)
[2021-01-27] MEDS: minoxidiL 2.5 MG TAB GT SCH (10:15)
[2021-01-27] MEDS: ASCORBIC ACID 500 MG TAB PO SCH (10:15)
[2021-01-27] MEDS: hydrALAZINE 25 MG TAB GT SCH ×4 (10:15→17:00)
[2021-01-27] MEDS: amLODIPine 5 MG TAB PO SCH (10:16)
[2021-01-27] MEDS: levETIRAcetam 100 MG/ML ORASYR PO SCH ×2 (10:17→20:52)
[2021-01-27] MEDS: DOCUSATE 100 MG/10 ML UDC GT SCH ×2 (10:17→20:51)
[2021-01-27] MEDS: FUROSEMIDE 20 MG TAB GT SCH (10:17)
--- NOTE | 2021-01-27 10:20 | NUR ---
ADMINISTERED SCHEDULED MEDICATIONS TO PATIENT. PATIENT DOES NOT SHOW ANY S/S OF DISTRESS. IV SITE AT RIGHT WRIST 20G IS DRY, PATENT, INTACT, AND FLUSHING WELL. ALL SAFETY PRECAUTIONS IN PLACE.
--- NOTE | 2021-01-27 12:10 | NUR ---
PATIENT'S BLOOD SUGAR IS 224. ADMINISTERED 4 UNITS OF INSULIN PER SLIDING SCALE.
[2021-01-27] MEDS: ACETAMINOPHEN 325 MG TAB PO PRN (12:50)
--- NOTE | 2021-01-27 12:55 | NUR ---
PATIENT HAD A MILD FEVER OF 100.4, SO PRN TYLENOL WAS ADMINISTERED. COOLING MEASURES ALSO IN PLACE. WILL CONTINUE TO MONITOR.
--- NOTE | 2021-01-27 13:30 | NUR ---
ASSISTED MONOGRAM MACHINE OPERATOR CHANGING PATIENT. ALSO CHANGED SACRAL WOUND DRESSING. PATIENT TOLERATED ACTIVITY WELL. ALL SAFETY PRECAUTIONS REMAIN IN PLACE.
[2021-01-27] MEDS: THERAHONEY GEL 42.5 GM TP SCH (13:43)
[2021-01-27 16:00] VITALS: BP 96/61
--- NOTE | 2021-01-27 16:15 | NUR ---
PATIENT'S BLOOD SUGAR WAS 217. ADMINISTERED 4 UNITS OF INSULIN PER SLIDING SCALE.
--- NOTE | 2021-01-27 19:20 | NUR ---
ENDORSED PATIENT TO SYSTEM ADMIN RN FOR CONTINUITY OF CARE. PATIENT IS STABLE.
[2021-01-27 20:00] VITALS: BP 109/68
[2021-01-27] MEDS: cefTRIAXone 2,000 MG in DEXTROSE 5% 100 ML IV SCH (20:48)
[2021-01-27] MEDS: INSULIN LANTUS 100 UNITS/ML 10 ML VIAL SUBQ SCH (21:01)
[2021-01-27 21:22] VITALS: BP 120/74
[2021-01-28] MEDS: HYDRAGUARD CREAM TP SCH ×2 (01:00→13:59)
[2021-01-28] MEDS: GAUZE TP SCH ×2 (01:00→13:59)
[2021-01-28 04:00] VITALS: BP 121/72
[2021-01-28] MEDS: metroNIDAZOLE 500 MG/NS PREMIX 100 ML IV SCH ×3 (04:36→21:42)
[2021-01-28] MEDS: ACETAMINOPHEN 325 MG TAB PO PRN (05:22)
--- NOTE | 2021-01-28 05:30 | NUR ---
TYLENOL NEEDED FOR FEVER (100.9 DEGREES FAHRENHEIT) AND COOLING MEASURES IN PLACE. TOM ALAN RN
[2021-01-28 05:36] LABS: BASOPHILS # (AUTO) 0.1 K/uL (0.00-0.22); BASOPHILS % (AUTO) 0.4 % (0.0-2.0); EOSINOPHILS # (AUTO) 0.3 K/uL (0-0.4); EOSINOPHILS % (AUTO) 1.9 % (0.0-4.0); HEMATOCRIT 27.9 % (36-52); HEMOGLOBIN 9.2 g/dL (12.0-18.0); LYMPHOCYTES # (AUTO) 1.6 K/uL (2.0-11.5); LYMPHOCYTES % (AUTO) 10.1 % (20.5-51.1); MEAN CORPUSCULAR HEMOGLOBIN 29 pg (27-31); MEAN CORPUSCULAR HGB CONC 33 g/dL (33-37); MEAN CORPUSCULAR VOLUME 88.6 fL (80-94); MONOCYTES # (AUTO) 1.2 K/uL (0.8-1.0); NEUTROPHILS # (AUTO) 12.3 K/uL (1.8-7.7); NEUTROPHILS % (AUTO) 79.6 % (42.2-75.2); PLATELET COUNT (AUTO) 324 K/uL (140-450); RED BLOOD CELL COUNT(AUTO) 3.15 MIL/uL (4.20-6.10); RED CELL DISTRIBUTION WIDTH 14.6 % (11.6-13.7); WHITE BLOOD COUNT (AUTO) 15.4 K/uL (4.8-10.8)
[2021-01-28 06:36] LABS: MAGNESIUM 2.3 mg/dL (1.8-2.4); PHOSPHORUS 4.2 mg/dL (2.5-4.9)
[2021-01-28 06:44] LABS: ANION GAP 13.1 (8-16); CARBON DIOXIDE 26.5 mmol/L (21-32); CREATININE 0.9 mg/dL (0.6-1.3); POTASSIUM 4.6 mmol/L (3.5-5.1)
[2021-01-28] MEDS: INSULIN LISPRO SLIDING SCALE 100 UNITS/ML VIAL SUBQ PRN ×4 (06:52→21:17)
[2021-01-28] MEDS: BLOOD GLUCOSE MONITORING 1 DEV DEV FS SCH ×4 (06:53→21:16)
--- NOTE | 2021-01-28 07:29 | NUR ---
HANDOFF WITH ESTEFANY TAO. TOM ALAN RN
--- NOTE | 2021-01-28 09:15 | NUR ---
IV SITE NOTED ON LEFT FOREARM WITH FLUIDS RUNNING. PATIENT MEDICATED PER MD ORDERS. PATIENT EDUCATED ON MEDICATIONS GIVEN. ALL SAFETY MEASURES IN PLACE.
[2021-01-28] MEDS: hydrALAZINE 25 MG TAB GT SCH ×3 (09:46→17:35)
[2021-01-28] MEDS: carvediloL 12.5 MG TAB GT SCH ×2 (09:47→21:41)
[2021-01-28] MEDS: DOCUSATE 100 MG/10 ML UDC GT SCH ×2 (09:53→21:42)
[2021-01-28] MEDS: levETIRAcetam 100 MG/ML ORASYR PO SCH ×2 (09:54→21:41)
[2021-01-28] MEDS: PANTOPRAZOLE 40 MG INJ VIAL IVP SCH (09:55)
[2021-01-28] MEDS: amLODIPine 5 MG TAB PO SCH (09:55)
[2021-01-28] MEDS: POLYETHYLENE GLYCOL 17 GM/PKT GT PRN (09:55)
[2021-01-28] MEDS: FUROSEMIDE 20 MG TAB GT SCH (09:56)
[2021-01-28] MEDS: ASCORBIC ACID 500 MG TAB PO SCH (09:56)
[2021-01-28] MEDS: minoxidiL 2.5 MG TAB GT SCH (09:56)
[2021-01-28] MEDS: lisinopriL 20 MG TAB GT SCH (09:57)
[2021-01-28] MEDS ORDERED: METR500T1 IV (11:03)
--- NOTE | 2021-01-28 11:26 | NUR ---
PT RESTING. NO S/S OF DISTRESS. CHEST RISE AND FALL SYMMETRICAL. ALL SAFETY MEASURES IN PLACE
[2021-01-28 12:00] VITALS: BP 120/72
--- NOTE | 2021-01-28 13:45 | NUR ---
CHANGED PT BEDDING AND GOWN. WOUND CARE PERFORMED. DRESSINGS CHANGED, CLEAN AND DRY. PATIENT TOLERATED DRESSING CHANGE WELL. CALL LIGHT IN REACH. ALL SAFETY MEASURES IN PLACE
[2021-01-28] MEDS: THERAHONEY GEL 42.5 GM TP SCH (13:58)
--- NOTE | 2021-01-28 15:26 | NUR ---
01/28/21 RD FOLLOW UP COMPLETED PLEASE REFER TO NUTRITION ASSESSMENT UNDER CARE ACTIVITY FOR ESTIMATED NUTRITIONAL NEEDS. 1. CONTINUE GLUCERNA 1.2 @ 80 ML/HR X 24 HR -THIS WILL PROVIDE 2304 KCAL/DAY AND 115 GM OF PROTEIN/DAY, MEETING ADEQUATE NUTRIENT NEEDS CONTINUE FREE WATER FLUSH PER MD 3. RECOMMENDED CRISTINE BID TO PROMOTE WOUND HEALING 4. RD TO FOLLOW-UP 2-3 DAYS, HIGH RISK MARIBETH FUENTES RD
--- NOTE | 2021-01-28 16:30 | NUR ---
BG ASSESSED , 161. PRN MEDICATION GIVEN PER MD ORDER. PT EDUCATED AND VERBALIZED UNDERSTANDING.
--- NOTE | 2021-01-28 17:37 | NUR ---
[id number] PRN MEDICATION GIVEN , COOLING MEASURES APPLIED
--- NOTE | 2021-01-28 18:00 | NUR ---
PT TUBE FEEDING CHANGED PT TOLERATING WELL , PT REPOSITIONED FOR COMFORT
--- NOTE | 2021-01-28 19:30 | NUR ---
PT ENDORSED TO DANCING MASTER RN FOR CONTINUITY OF CARE. PT INSTABLE CONDITION.
[2021-01-28] MEDS: cefTRIAXone 2,000 MG in DEXTROSE 5% 100 ML IV SCH (20:10)
[2021-01-28 20:14] VITALS: BP 123/74
[2021-01-28] MEDS: INSULIN LANTUS 100 UNITS/ML 10 ML VIAL SUBQ SCH (21:35)
[2021-01-29] MEDS: HYDRAGUARD CREAM TP SCH ×2 (00:02→13:32)
[2021-01-29] MEDS: GAUZE TP SCH ×2 (00:02→13:33)
[2021-01-29 00:09] VITALS: BP 112/73
--- NOTE | 2021-01-29 03:22 | NUR ---
COMPLETE BED BATH, LINEN CHANGE. WOUND CARE. REPOSITIONING, HEEL PROTECTOR CHECK. TOM ALAN RN
[2021-01-29 03:41] VITALS: BP 118/73
[2021-01-29] MEDS: BLOOD GLUCOSE MONITORING 1 DEV DEV FS SCH ×4 (06:58→20:25)
[2021-01-29] MEDS: INSULIN LISPRO SLIDING SCALE 100 UNITS/ML VIAL SUBQ PRN ×4 (07:01→20:33)
--- NOTE | 2021-01-29 07:17 | NUR ---
HANDOFF WITH CHELO JEWELL RN. TOM ALAN RN
[2021-01-29] MEDS: hydrALAZINE 25 MG TAB GT SCH ×3 (09:49→17:00)
[2021-01-29] MEDS: carvediloL 12.5 MG TAB GT SCH ×2 (09:50→20:44)
[2021-01-29] MEDS: DOCUSATE 100 MG/10 ML UDC GT SCH ×2 (09:50→20:44)
[2021-01-29] MEDS: minoxidiL 2.5 MG TAB GT SCH (09:51)
[2021-01-29] MEDS: lisinopriL 20 MG TAB GT SCH (09:51)
[2021-01-29] MEDS: FUROSEMIDE 20 MG TAB GT SCH (09:51)
[2021-01-29] MEDS: levETIRAcetam 100 MG/ML ORASYR PO SCH ×2 (09:52→20:45)
[2021-01-29] MEDS: amLODIPine 5 MG TAB PO SCH (09:52)
[2021-01-29] MEDS: PANTOPRAZOLE 40 MG INJ VIAL IVP SCH (09:52)
[2021-01-29] MEDS: ASCORBIC ACID 500 MG TAB PO SCH (09:53)
[2021-01-29] MEDS: THERAHONEY GEL 42.5 GM TP SCH (13:32)
[2021-01-29 18:39] VITALS: BP 112/69
[2021-01-29] MEDS: cefTRIAXone 2,000 MG in DEXTROSE 5% 100 ML IV SCH (19:54)
[2021-01-29 20:08] VITALS: BP 122/67
[2021-01-29] MEDS: INSULIN LANTUS 100 UNITS/ML 10 ML VIAL SUBQ SCH (20:33)
[2021-01-30] VITALS (7 sets, daily range): BP systolic 102–136; BP diastolic 59–77
[2021-01-30] MEDS: GAUZE TP SCH ×2 (00:03→13:00)
[2021-01-30] MEDS: HYDRAGUARD CREAM TP SCH ×2 (00:03→13:00)
--- NOTE | 2021-01-30 03:14 | NUR ---
CHG BATH, PARTIAL LINEN CHANGE, WOUND CARE, SAAB CATHETER CARE, TRACHEAL SUCTIONING, EXTERNAL ORAL CARE, EYE CARE AND REPOSITIONING. TOM ALAN RN
[2021-01-30] MEDS: BLOOD GLUCOSE MONITORING 1 DEV DEV FS SCH ×4 (06:50→20:29)
[2021-01-30] MEDS: INSULIN LISPRO SLIDING SCALE 100 UNITS/ML VIAL SUBQ PRN ×4 (06:56→20:35)
--- NOTE | 2021-01-30 07:15 | NUR ---
HANDOFF WITH YVONNE RIVERS RN. TOM ALAN RN
--- NOTE | 2021-01-30 07:20 | NUR ---
RECEIVED REPORT FROM PROJECT DEVELOPER RN FOR CONTINUITY OF CARE. PATIENT IS RESTING IN BED. RESPIRATIONS ARE EVEN AND UNLABORED. NO S/S OF DISTRESS. ALL SAFETY PRECAUTIONS IN PLACE
[2021-01-30] MEDS: hydrALAZINE 25 MG TAB GT SCH ×3 (09:00→17:00)
[2021-01-30] MEDS: levETIRAcetam 100 MG/ML ORASYR PO SCH ×2 (10:04→22:07)
[2021-01-30] MEDS: FUROSEMIDE 20 MG TAB GT SCH (10:05)
[2021-01-30] MEDS: DOCUSATE 100 MG/10 ML UDC GT SCH ×2 (10:05→22:07)
[2021-01-30] MEDS: ASCORBIC ACID 500 MG TAB PO SCH (10:05)
[2021-01-30] MEDS: minoxidiL 2.5 MG TAB GT SCH (10:06)
[2021-01-30] MEDS: lisinopriL 20 MG TAB GT SCH (10:24)
[2021-01-30] MEDS: carvediloL 12.5 MG TAB GT SCH ×2 (10:24→22:07)
[2021-01-30] MEDS: PANTOPRAZOLE 40 MG INJ VIAL IVP SCH (10:24)
[2021-01-30] MEDS: amLODIPine 5 MG TAB PO SCH (10:24)
--- NOTE | 2021-01-30 10:25 | NUR ---
ADMINISTERED SCHEDULED MEDICATIONS. PATIENT'S BP JAYJAY 130/74, HR 101. HELD HYDRALAZINE, BUT ADMINISTERED ALL OTHER BP MED. ALL SAFETY PRECAUTIONS IN PLACE. WILL CONTINUE TO MONITOR.
--- NOTE | 2021-01-30 10:45 | NUR ---
RECEIVED ON [facility] R[facility] VENTILATOR PLUGGED INTO RED OUTLET TOLERATING WELL WITHOUT ADVERSE REACTIONS TO YG DCT #8 AIRWAY SECURED WITH A GE TRACH TIE CUFF PRESSURE CHECKED NOTED AMBU BAG NOTED AT BEDSIDE RESTING COMFORTABLY GOOD CHEST RISE DEEP TRACHEAL SUCTION FOR MODERATE THIN PALE YELLOW SECRETINS AIRWAY PATENT
--- NOTE | 2021-01-30 12:29 | NUR ---
PATIENT'S BLOOD SUGAR WAS 198. ADMINISTERED 2 UNITS PER PRN SLIDING SCALE.
--- NOTE | 2021-01-30 12:30 | NUR ---
PATIENT'S BP WAS 102/60, HR 98. HELD SCHEDULED HYDRALAZINE MEDICATION.
[2021-01-30] MEDS: THERAHONEY GEL 42.5 GM TP SCH (13:00)
--- NOTE | 2021-01-30 13:38 | NUR ---
STABLE EQUAL CHEST RISE DEEP TRACHEAL SUCTION FOR SMALL THIN PALE YELLOW SECRETINS AIRWAY PATENT
--- NOTE | 2021-01-30 14:45 | NUR ---
PATIENT IS RESTING. NO S/S OF DISTRESS. RESPIRATIONS ARE EVEN AND UNLABORED. ALL SAFETY PRECAUTIONS IN PLACE. WILL CONTINUE TO MONITOR.
--- NOTE | 2021-01-30 16:18 | NUR ---
STABLE RESTING WELL GOOD CHEST RISE DEEP TRACHEAL SUCTION FOR MODERATE THIN PALE YELLOW SECRETIONS AIRWAY PATENT
--- NOTE | 2021-01-30 17:00 | NUR ---
PATIENT'S BP WAS 103/62, HR 105. HELD SCHEDULED HYDRALAZINE. WILL CONTINUE TO MONITOR.
--- NOTE | 2021-01-30 17:29 | NUR ---
PATIENT'S BLOOD SUGAR WAS 205. ADMINISTERED 4 UNITS PER SLIDING SCALE.
--- NOTE | 2021-01-30 19:25 | NUR ---
ENDORSED PATIENT TO EMPLOYEE COUNSELOR RN FOR CONTINUITY OF CARE. PATIENT IS STABLE.
[2021-01-30] MEDS: cefTRIAXone 2,000 MG in DEXTROSE 5% 100 ML IV SCH (20:00)
[2021-01-30] MEDS: INSULIN LANTUS 100 UNITS/ML 10 ML VIAL SUBQ SCH (20:35)
[2021-01-31] VITALS (17 sets, daily range): BP systolic 77–148; BP diastolic 39–99
[2021-01-31] MEDS: GAUZE TP SCH ×2 (00:07→13:30)
[2021-01-31] MEDS: HYDRAGUARD CREAM TP SCH ×2 (00:07→13:30)
[2021-01-31 02:28] LABS: APPEARANCE,URINE CLEAR (CLEAR); BILIRUBIN,URINE NEGATIVE (NEGATIVE); BLOOD, URINE 1+ (NEGATIVE); COLOR,URINE YELLOW (YELLOW); LEUKOCYTE ESTERASE ,URINE NEGATIVE (NEGATIVE); NITRITE, URINE NEGATIVE (NEGATIVE); UGLUCOSE NEGATIVE (NEGATIVE)
[2021-01-31 02:36] LABS: RBC,URINE 0-5 /HPF (0-5)
[2021-01-31 06:36] LABS: ANION GAP 14.6 (8-16); CARBON DIOXIDE 26.7 mmol/L (21-32); CREATININE 1.1 mg/dL (0.6-1.3); POTASSIUM 5.3 mmol/L (3.5-5.1); TOTAL BILIRUBIN 0.3 mg/dL (0.0-1.0)
[2021-01-31] MEDS: BLOOD GLUCOSE MONITORING 1 DEV DEV FS SCH ×4 (06:54→20:20)
[2021-01-31] MEDS: INSULIN LISPRO SLIDING SCALE 100 UNITS/ML VIAL SUBQ PRN ×4 (06:56→20:23)
--- NOTE | 2021-01-31 07:25 | NUR ---
HANDOFF WITH ESTEFANY MCGRATH. TOM ALAN RN
--- NOTE | 2021-01-31 07:26 | NUR ---
RECEIVED BEDSIDE REPORT FROM AFTER SCHOOL PROGRAM DIRECTOR NURSE TOM RN, PT ON TRACH TO VENT, ACVC FIO2 25%, RATE 18, PEEP5, SATURATING @ 92%, NO SOB NOTED, IV TO L FA 20G PATEN INTACT, INFUSING WELL, GT IN PLACE WITH FEEDING, SAAB CATH IN PLACE DRAINING TO GRAVITY. INITIAL ASSESSMENT DONE, ALL SAFETY PRECAUTION DONE, WILL CONTINUE TO MONITOR.
--- NOTE | 2021-01-31 07:34 | NUR ---
RECEIVED ON A [employer] TVSCAPE R860 VENTILATOR PLUGGED INTO RED OUTLET TOLERATING WELL WITHOUT ADVERSE REACTIONS NOTED TO A YG DCT #8 AIRWAY SECURED WITH A GE TRACH TIE CUFF PRESSURE CHECKED NOTED AMBU BAG NOTED AT BEDSIDE RESTING COMFORTABLY NO APPARENT PULMONARY DISTRESS NOTED EQUAL CHEST RISE WITH GOOD AERATION THROUGHOUT BILATERAL LUNG GEIGER AIRWAY PATENT
[2021-01-31] MEDS: POLYETHYLENE GLYCOL 17 GM/PKT GT PRN (08:52)
[2021-01-31] MEDS: PANTOPRAZOLE 40 MG INJ VIAL IVP SCH (08:52)
[2021-01-31] MEDS: ACETAMINOPHEN 325 MG TAB PO PRN ×3 (08:52→23:50)
[2021-01-31] MEDS: FUROSEMIDE 20 MG TAB GT SCH (08:53)
[2021-01-31] MEDS: ASCORBIC ACID 500 MG TAB PO SCH (08:53)
[2021-01-31] MEDS: levETIRAcetam 100 MG/ML ORASYR PO SCH ×2 (08:55→20:50)
[2021-01-31] MEDS: DOCUSATE 100 MG/10 ML UDC GT SCH ×2 (08:55→20:50)
[2021-01-31] MEDS: minoxidiL 2.5 MG TAB GT SCH (09:00)
[2021-01-31] MEDS: hydrALAZINE 25 MG TAB GT SCH ×3 (09:00→17:00)
[2021-01-31] MEDS: lisinopriL 20 MG TAB GT SCH (09:00)
[2021-01-31] MEDS: amLODIPine 5 MG TAB PO SCH (09:00)
[2021-01-31] MEDS: carvediloL 12.5 MG TAB GT SCH ×2 (09:00→21:00)
[2021-01-31] MEDS ORDERED: SODIUM ZIRCONIUM CYCLOSILICATE 10 GM POWD.PACK PO SCH (10:00)
[2021-01-31] MEDS ORDERED: NACL 0.9% 500 ML IV SCH (10:45)
--- NOTE | 2021-01-31 10:55 | NUR ---
WOUND CARE RE-EVALUATION NOTE: SKIN ASSESSMENT DONE WITH PRIMARY RN CHANGE OF SACRAL SKIN CONDITION, MADE AWARE, POC DISCUSSED WITH PRIMARY RN. PT. WITH FEVER. PER DR. DUENAS TO HAVE WOUND CULTURE AND NO SURGEON CONSULT YET, WAIT FOR MORE LAB RESULTS.PT. WATERY STOOL WITH FOUL ODOR, PER PRIMARY RN PT. ON MULTIPLE MEDS FOR BOWEL MANAGEMENT. 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 ENTIRE AFFECTED AREA 7X6X0.1CM RECOMMENDATIONS: -CLEANSE SACROCOCCYX WOUND WITH NS, PAT DRY, APPLY THERAHONEY GEL AND COVER WITH ISLAND DRESSING QD AND PRN IF SOILING. -RECTAL TUBE FOR MOISTURE CONTROL AND PREVENT WOUND BED CONTAMINATION -PLEASE OBTAIN WOUND CULTURE
--- NOTE | 2021-01-31 11:00 | NUR ---
DR GARCIA AT BEDSIDE, NOTIFIED DR PT STILL HAVE TEMPERATURE CURRENTLY AT 103.0, HR IS 111, BP 91/55, PER DR TO GIVE 500ML BOLUS, BOLUS STARTED. WILL CONTINUE TO MONITOR.
[2021-01-31] MEDS ORDERED: NOREPINEPHRINE 4 MG in DEXTROSE 5% 250 ML IV PRN (11:40)
--- NOTE | 2021-01-31 11:41 | NUR ---
PT BP 77/44, NOTIFIED DR. DUENAS REGARDING PT, NOTIFIED THAT DR GARCIA HAD ORDERED 500L BOLUS AND IT WAS ALREADY GIVEN AND BP IS NOT IMPROVING. PER DR DUENAS TO TRANSFER PT TO ICU. AND ORDER LEVOPHED. WILL CONTINUE WITH ORDERS.
[2021-01-31] MEDS ORDERED: NOREPINEPHRINE 4 MG/4 ML VIAL IV ONE (11:42)
--- NOTE | 2021-01-31 12:28 | NUR ---
TRANSFERRED PATIENT TO ICU-3 ON VENTILATOR WITH SAME SETTINGS NOTED REMOVED OXYGEN LINE FROM WALL 50 PSI RE-ATTACHED TO E-TANK TOLERATED TRANSFER WELL WITHOUT COMPLICATIONS NOTED SATURATION 98%
--- NOTE | 2021-01-31 12:40 | NUR ---
TRANSFER PT TO ICU. Addendum: 01/31/21 at 1251 by Carina White RN ICU BED 3. ENDORSED GINA TAYLOR FOR CONTINUOUS OF CARE.
--- NOTE | 2021-01-31 12:45 | NUR ---
PT ARRIVED FROM TELE, PT PLACED ON MACHINE HOSE CUTTER, REPORT RECIEVED FROM RAMILA, PT WITH EYES OPEN, DOES NOT TRACK, TRACH TO VENT, BILAT CHEST RISE AND FALL, SKIN HOT DRY COLOR WNL, CAP REFIL <3, PIV 20G TO LEFT FA LEVOPOHED INFUSING, SITE WNL, GT IN PLACE, ABD SOFT FLAT NON DISTENDED, SAAB IN PLACE, DRAINING JOSE ALFREDO COLOR URINE, PLAN OF CARE REVIEWED, ALL SAFETY MEASURES IN PLACE
--- NOTE | 2021-01-31 12:55 | NUR ---
TEMP 101.8 ORALLY, COOL SPONGE BATH GIVEN, SAAB EXCHANGED, URINE CULTURE COLLECTED
[2021-01-31] MEDS: THERAHONEY GEL 42.5 GM TP SCH (13:00)
--- NOTE | 2021-01-31 13:55 | NUR ---
DR DUENAS ON THE PHONE, ORDERS RECEIVED.
[2021-01-31] MEDS: NACL 0.9% 1,000 ML IV SCH (14:00)
--- NOTE | 2021-01-31 14:12 | NUR ---
01/31/21 RD FOLLOW UP COMPLETED PLEASE REFER TO NUTRITION ASSESSMENT UNDER CARE ACTIVITY FOR ESTIMATED NUTRITIONAL NEEDS. 1. RECOMMEND HOLDING FEEDINGS D/T HEMODYNAMICALLY UNSTABLE 2. WHEN MEDICALLY STABLE RECOMMEND TRICKLE FEEDINGS 10 ML/HR ADVANCE 10 ML/HR Q12HR UNTIL GOAL IS REACHED. GOAL: GLUCERNA 1.2 @ 70 ML/HR 3. RECOMMEND FREE WATER FLUSH OF 50 ML Q4H 4. CONTINUE CRISTINE BID TO PROMOTE WOUND HEALING 5. RD TO FOLLOW-UP 2-3 DAYS, HIGH RISK MARIBETH FUENTES RD
[2021-01-31 15:02] LABS: BASOPHILS # (AUTO) 0.2 K/uL (0.00-0.22); BASOPHILS % (AUTO) 0.6 % (0.0-2.0); EOSINOPHILS % (AUTO) 0.1 % (0.0-4.0); HEMATOCRIT 31.8 % (36-52); HEMOGLOBIN 10.2 g/dL (12.0-18.0); LYMPHOCYTES # (AUTO) 3.1 K/uL (2.0-11.5); MEAN CORPUSCULAR HEMOGLOBIN 29 pg (27-31); MEAN CORPUSCULAR HGB CONC 32 g/dL (33-37); MEAN CORPUSCULAR VOLUME 89.6 fL (80-94); MONOCYTES # (AUTO) 3.8 K/uL (0.8-1.0); MONOCYTES % (AUTO) 13.6 % (1.7-9.3); NEUTROPHILS % (AUTO) 74.7 % (42.2-75.2); PLATELET COUNT (AUTO) 384 K/uL (140-450); RED BLOOD CELL COUNT(AUTO) 3.55 MIL/uL (4.20-6.10); RED CELL DISTRIBUTION WIDTH 15.5 % (11.6-13.7)
[2021-01-31 15:19] LABS: WHITE BLOOD COUNT (AUTO) 28.1 K/uL (4.8-10.8)
--- NOTE | 2021-01-31 16:15 | NUR ---
TEMP 102.7, TYLENOL GIVE, BED BATH GIVEN, CHG BATH GIVEN, SAAB CARE DONE, WOUND CARE DONE, COOLING BLANKET RECTAL TEMP PROBE APPLIED
[2021-01-31] MEDS ORDERED: PIPERACILLIN/TAZOBACTAM 3.375 GM in DEXTROSE 5% 50 ML IV SCH (18:00)
--- NOTE | 2021-01-31 18:24 | NUR ---
SPUTUM CULTURE, WOUND CULTURE OF SACRAL WOUND COLLECTED
--- NOTE | 2021-01-31 18:39 | NUR ---
DR QUEVEDO CALLED TO NOTIFY OF INCREASED WBC, INCREASED TEMP TODAY
--- NOTE | 2021-01-31 19:35 | NUR ---
PT RECEIVED ON AC/VC 500 +5 f18 25% W/ SECURED AND PATENT SHILEY 8 TRACH VENT ALARMS ON AND AUDIBLE VENT PLUGGED INTO RED OUTLET W/ AMBU AT BEDSIDE WILL CONTINUE TO MONITOR
--- NOTE | 2021-01-31 19:35 | NUR ---
RECEIVED PATIENT FROM AM SHIFT NURSE FOR CONTINUITY OF CARE. OPENS EYES WITH NO TRACKING, UNABLE TO MAKE NEEDS KNOWN. TRACH TO VENT. RESPIRATIONS EVEN, UNLABORED. NO S/S RESPIRATORY DISTRESS. S1/S2 AUSCULTATED. FLACC 0. SKIN WARM, DRY. IV SITE TO LEFT FOREARM 20G PATENT/INTACT, INFUSING LEVOPHED AND IV FLUIDS WELL. ABDOMEN SOFT, NONTENDER, NONDISTENDED. BOWEL SOUNDS ACTIVE x4 QUADRANTS. GT PATENT, CONTINUES ON ENTERAL FEEDING, TOLERATING FEEDING WELL. HOB UP 30 DEGREES. SAAB CATHETER PATENT WITH YELLOW URINE DRAINING TO GRAVITY. RECTAL TUBE IN PLACE. DARK LIQUID STOOL NOTED. PLAN OF CARE DISCUSSED. ISOLATION PRECAUTIONS OBSERVED.
[2021-01-31] MEDS: INSULIN LANTUS 100 UNITS/ML 10 ML VIAL SUBQ SCH (20:23)
--- NOTE | 2021-01-31 21:30 | NUR ---
DUE MEDS GIVEN. NO S/S RESPIRATORY DISTRESS. FLACC 0. PATIENT CLEAN/DRY. ISOLATION PRECAUTIONS OBSERVED.
--- NOTE | 2021-01-31 22:27 | NUR ---
PT TRANSPORTED TO CT AND BACK W/ NO COMPLICATIONS PT TOLERATED TRANSPORT WELL VENT PLUGGED INTO RED OUTLET AND ALARMS REMAIN ON AND AUDIBLE AMBU REMAINS AT BEDSIDE WILL CONTINUE TO MONITOR
[2021-01-31] MEDS ORDERED: VANCOMYCIN PER PHARMACY MC PRN (23:30)
--- NOTE | 2021-01-31 23:30 | NUR ---
PATIENT RESTING COMFORTABLY IN BED. NO S/S RESPIRATORY DISTRESS. FLACC 0. PATIENT CLEAN/DRY. ISOLATION PRECAUTIONS OBSERVED.
[2021-02-01] VITALS (31 sets, daily range): BP systolic 107–145; BP diastolic 62–85
[2021-02-01] MEDS: NACL 0.9% 1,000 ML IV SCH ×3 (00:29→14:12)
[2021-02-01] MEDS ORDERED: COLISTIMETHATE SODIUM 150 MG in NACL 0.9% 100 ML IV SCH (01:00)
--- NOTE | 2021-02-01 01:00 | NUR ---
VAP ORAL CARE RENDERED.
[2021-02-01] MEDS: GAUZE TP SCH ×2 (01:31→13:00)
[2021-02-01] MEDS: HYDRAGUARD CREAM TP SCH ×2 (01:31→13:00)
[2021-02-01] MEDS ORDERED: VANCOMYCIN 1,000 MG VIAL ONE (01:49)
[2021-02-01] MEDS ORDERED: MEROPENEM 1,000 MG VIAL IV ONE (01:50)
[2021-02-01] MEDS: VANCOMYCIN 1GM/DEXT 5% PREMIX 200 ML IV SCH ×2 (02:10→03:31)
[2021-02-01] MEDS: MEROPENEM 1,000 MG in NACL 0.9% 100 ML IV SCH ×3 (02:10→20:33)
--- NOTE | 2021-02-01 03:30 | NUR ---
PATIENT TURNED AND REPOSITIONED. NO S/S RESPIRATORY DISTRESS. FLACC 0. PATIENT CLEAN/DRY. ISOLATION PRECAUTIONS OBSERVED.
--- NOTE | 2021-02-01 04:00 | NUR ---
MORNING BED BATH DONE. WOUND CARE DONE.
--- NOTE | 2021-02-01 05:08 | NUR ---
ALL NEEDS ANTICIPATED AND MET. PATIENT RESTING COMFORTABLY IN BED. NO S/S RESPIRATORY DISTRESS. FLACC 0. PATIENT CLEAN/DRY. ISOLATION PRECAUTIONS OBSERVED.
[2021-02-01 06:05] LABS: ANION GAP 11.8 (8-16); CARBON DIOXIDE 28.6 mmol/L (21-32); POTASSIUM 4.4 mmol/L (3.5-5.1); TOTAL BILIRUBIN 0.3 mg/dL (0.0-1.0)
[2021-02-01 06:07] LABS: HEMATOCRIT 28.9 % (36-52); HEMOGLOBIN 9.6 g/dL (12.0-18.0); MEAN CORPUSCULAR HEMOGLOBIN 29 pg (27-31); MEAN CORPUSCULAR HGB CONC 33 g/dL (33-37); MEAN CORPUSCULAR VOLUME 88.3 fL (80-94); PLATELET COUNT (AUTO) 345 K/uL (140-450); RED BLOOD CELL COUNT(AUTO) 3.27 MIL/uL (4.20-6.10); RED CELL DISTRIBUTION WIDTH 15.4 % (11.6-13.7)
[2021-02-01] MEDS: INSULIN LISPRO SLIDING SCALE 100 UNITS/ML VIAL SUBQ PRN (06:41)
[2021-02-01] MEDS: BLOOD GLUCOSE MONITORING 1 DEV DEV FS SCH ×4 (06:41→21:11)
--- NOTE | 2021-02-01 07:27 | NUR ---
ENDORSED TO AM SHIFT NURSE FOR CONTINUITY OF CARE.
[2021-02-01 08:07] LABS: WHITE BLOOD COUNT (AUTO) 25.1 K/uL (4.8-10.8)
[2021-02-01 08:08] LABS: LYMPHOCYTES % (MANUAL) 5 % (20-46); MONOCYTES % (MANUAL) 4 % (5-12)
[2021-02-01] MEDS: hydrALAZINE 25 MG TAB GT SCH ×3 (09:00→17:00)
[2021-02-01] MEDS: lisinopriL 20 MG TAB GT SCH (09:00)
[2021-02-01] MEDS: amLODIPine 5 MG TAB PO SCH (09:00)
[2021-02-01] MEDS: minoxidiL 2.5 MG TAB GT SCH (09:00)
[2021-02-01] MEDS: carvediloL 12.5 MG TAB GT SCH ×2 (09:00→20:35)
--- NOTE | 2021-02-01 09:00 | NUR ---
SEEN BY , ORDER RECEIVED.
[2021-02-01] MEDS: DOCUSATE 100 MG/10 ML UDC GT SCH (09:14)
[2021-02-01] MEDS: FUROSEMIDE 20 MG TAB GT SCH (09:15)
[2021-02-01] MEDS: PANTOPRAZOLE 40 MG INJ VIAL IVP SCH (09:20)
[2021-02-01] MEDS: COLISTIMETHATE SODIUM 75 MG in NACL 0.9% 100 ML IV SCH ×2 (09:20→20:33)
[2021-02-01] MEDS: levETIRAcetam 100 MG/ML ORASYR PO SCH ×2 (09:20→20:32)
[2021-02-01] MEDS: ASCORBIC ACID 500 MG TAB PO SCH (09:21)
--- NOTE | 2021-02-01 11:30 | NUR ---
BLOOD GLUCOSE 208 INSULIN COVER ORDERED.
[2021-02-01] MEDS: THERAHONEY GEL 42.5 GM TP SCH (13:00)
[2021-02-01] MEDS ORDERED: VANCOMYCIN HCL 1.25 GM in DEXTROSE 5% 250 ML IV SCH (14:00)
--- NOTE | 2021-02-01 15:15 | NUR ---
SEEN BY DR. GARCIA ORDER RECEIVED ORDER TPO HOLD ALL PRESSUR MED UNTIL FURTHER ORDER,
--- NOTE | 2021-02-01 16:30 | NUR ---
BLOOD GLUCOSE 139 NO INSULIN GIVEN.
--- NOTE | 2021-02-01 19:25 | NUR ---
RECEIVED PATIENT OF BED WITH HOB ELEVATED TO 30 DEGREE; AWAKE, OPEN EYES SPONTANEOUSLY BUT DOESN'T TRACKS NOR FOLLOW ANY COMMANDS. ON TRACH TO VENT AT 24% FIO2, SO2 100%.IVF IN PROGRESS NORMAL SALINE AT 100 ML/HR VIA G20 IV CANNULA ON LEFT ARM. ABDOMEN IS SOFT; ACTIVE BOWEL SOUNDS. ON CONTINOUS TUBE FEEDING GLUCERNA 1.2 AT 70 ML/HR VIA G TUBE; TOLERATED. WITH SAAB CATH IN SITU TO GRAVITY DRAINAGE BAG DRAINING TO CLEAR YELLOW URINE OUTPUT; PATENT AND INTAT. WITH RECTAL TUBE IN PLACE; DRAINING TO WATERY BROWN STOOL TO GRAVITY DRAINAGE BAG; INTACT.
--- NOTE | 2021-02-01 19:30 | NUR ---
PT SLEEPING . REPORT GAVE TO MILES ALLISON.
--- NOTE | 2021-02-01 20:30 | NUR ---
TURNED AND REPOSITIONED PATIENT.
[2021-02-01] MEDS: INSULIN LANTUS 100 UNITS/ML 10 ML VIAL SUBQ SCH (21:12)
[2021-02-02] VITALS (32 sets, daily range): BP systolic 110–168; BP diastolic 62–100
[2021-02-02] MEDS: GAUZE TP SCH ×2 (04:00→13:00)
[2021-02-02] MEDS: HYDRAGUARD CREAM TP SCH ×2 (04:00→13:00)
[2021-02-02] MEDS: NACL 0.9% 1,000 ML IV SCH ×2 (04:30→16:00)
[2021-02-02] MEDS: MEROPENEM 1,000 MG in NACL 0.9% 100 ML IV SCH ×3 (05:17→21:42)
[2021-02-02 06:15] LABS: HEMATOCRIT 25.6 % (36-52); HEMOGLOBIN 8.4 g/dL (12.0-18.0); MEAN CORPUSCULAR HEMOGLOBIN 30 pg (27-31); MEAN CORPUSCULAR HGB CONC 33 g/dL (33-37); MEAN CORPUSCULAR VOLUME 89.7 fL (80-94); PLATELET COUNT (AUTO) 324 K/uL (140-450); RED BLOOD CELL COUNT(AUTO) 2.85 MIL/uL (4.20-6.10); RED CELL DISTRIBUTION WIDTH 15.6 % (11.6-13.7); WHITE BLOOD COUNT (AUTO) 17.2 K/uL (4.8-10.8)
[2021-02-02 06:40] LABS: ANION GAP 10.1 (8-16); CREATININE 0.9 mg/dL (0.6-1.3); POTASSIUM 4.1 mmol/L (3.5-5.1)
--- NOTE | 2021-02-02 07:25 | NUR ---
ENDORSED TO AM SHIFT NHUNG FOR CONTINUITY OF CARE.
[2021-02-02] MEDS: BLOOD GLUCOSE MONITORING 1 DEV DEV FS SCH ×4 (07:30→21:45)
--- NOTE | 2021-02-02 07:58 | NUR ---
RCV'D PATIENT ON MECHANICAL VENTILATOR WITH SHILEY [address] AND SECURED WITH TRACH TIE. NO SOB OR DISTRESS NOTED. VENT CONNECTED TO RED OUTLET. ALARMS AUDIBLE . AMBU BAG AT BEDSIDE. WILL CONTINUE TO MONITOR PATIENT.
[2021-02-02 08:23] LABS: LYMPHOCYTES % (MANUAL) 8 % (20-46); MONOCYTES % (MANUAL) 2 % (5-12)
[2021-02-02] MEDS: COLISTIMETHATE SODIUM 75 MG in NACL 0.9% 100 ML IV SCH ×2 (08:27→22:34)
[2021-02-02] MEDS: PANTOPRAZOLE 40 MG INJ VIAL IVP SCH (08:29)
[2021-02-02] MEDS: levETIRAcetam 100 MG/ML ORASYR PO SCH ×2 (08:29→21:36)
[2021-02-02] MEDS: ASCORBIC ACID 500 MG TAB PO SCH (08:30)
[2021-02-02] MEDS: hydrALAZINE 25 MG TAB GT SCH ×3 (08:31→21:35)
[2021-02-02] MEDS: carvediloL 12.5 MG TAB GT SCH ×2 (09:00→21:35)
[2021-02-02] MEDS: VANCOMYCIN 750 MG in DEXTROSE 5% 250 ML IV SCH ×2 (09:00→23:30)
[2021-02-02] MEDS: lisinopriL 20 MG TAB GT SCH (09:00)
[2021-02-02] MEDS: amLODIPine 5 MG TAB PO SCH (09:00)
[2021-02-02] MEDS: THERAHONEY GEL 42.5 GM TP SCH (13:00)
--- NOTE | 2021-02-02 13:52 | NUR ---
02/02/21 RD FOLLOW UP COMPLETED PLEASE REFER TO NUTRITION ASSESSMENT UNDER CARE ACTIVITY FOR ESTIMATED NUTRITIONAL NEEDS. 1. CONTINUE GLUCERNA 1.2 @ 70 ML/HR 2. CONTINUE WATER FLUSH OF 50 ML Q4H 3. CONTINUE CRISTINE BID TO PROMOTE WOUND HEALING 4. RD TO FOLLOW-UP 2-3 DAYS, HIGH RISK MARIBETH FUENTES RD
--- NOTE | 2021-02-02 19:30 | NUR ---
REPORT GIVE TO JESUS ALLISON
--- NOTE | 2021-02-02 19:45 | NUR ---
RECEIVED REPORT FROM RN DAYSHIFT NURSE AT BEDSIDE AT BEDSIDE FOR CONTINUITY OF CARE,PT IN STABLE CONDITION.PT LYING IN BED HOB UP 45% AOX1 HE IS A TRACH TO VENT FIO2 24%TV 500 RR 24. PT B/P 172/94 TEMP IS 98.5. HE HAS 2 IV SITE LEFT F/A 20 GUAGE RUNNING NORMAL SALINE AT100 MLS/HR AND LEFT HAND 20G IS SALINE LOCKED.PT ALSO HAS SAAB CATHETER AND RECTAL TUBE INTACT.HE ALSO HAS G TUBE TACT WITH NO RESIDUAL.FEEDING IS GLUCERNA 1.2 RUNNING AT 70MLS/HR. PT HAS COOLING MEASURES IN PLACE TO KEEP TEMPERATURE DOWN .ALL ORDERED PRECAUTIONS IN PLACE.
[2021-02-02] MEDS: INSULIN LANTUS 100 UNITS/ML 10 ML VIAL SUBQ SCH (21:00)
--- NOTE | 2021-02-02 21:00 | NUR ---
FINGERSTICK IS 100 ORDERED LANTUS HELD.
--- NOTE | 2021-02-02 22:30 | NUR ---
PT GIVEN ALL SCHEDULED MEDS APRESOLINE COREG AND KEPPRA VIA GT ORDERED WELL SQ HEPARIN AND SCHEDULED IV ABT'S. PT EDUCATED ON PURPOSE OF ORDERED MEDICATIONS, HOWEVER, UNABLE TO VERBALIZE UNDERSTANDING. PT ALSO TURNED AND REPOSITIONED IN BED. ORAL CARE PROVIDED.ALL ORDERED PRECAUTIONS IN PLACE.V/S FOLLOWS:T 98.3 P88 R22 B/P 158/95 02 98%.
[2021-02-03] VITALS (13 sets, daily range): BP systolic 92–181; BP diastolic 51–100
--- NOTE | 2021-02-03 00:30 | NUR ---
PT REPOSITIONED IN BED ,HE IS RESTING IN BED RESPIRATIONS EVEN AND UNLABORED,HOB ELEVATED 45%. NORMAL SALINE REPLACED AND RUNNING AT 100MLS/HR.RECTAL AND SAAB CATHETER IN PLACE.T 98.1 P 86 R 23 B/P 150/73 02 99% ON ALL TRACH TO VENT SETTINGS. ALL ORDERED PRECAUTIONS IN PLACE.
[2021-02-03] MEDS: HYDRAGUARD CREAM TP SCH ×2 (01:01→13:25)
[2021-02-03] MEDS: GAUZE TP SCH ×2 (01:01→13:25)
[2021-02-03] MEDS: NACL 0.9% 1,000 ML IV SCH ×3 (01:20→22:00)
[2021-02-03] MEDS ORDERED: hydrALAZINE 20 MG/ML VIAL IVP PRN (02:50)
--- NOTE | 2021-02-03 02:52 | NUR ---
PT B/P176/100 CALLED RECEIVED NEW PRN ORDER FOR HYDRALAZINE WAITING FOR PHARMACY TO VERIFY.
--- NOTE | 2021-02-03 03:35 | NUR ---
HYDRALAZINE GIVEN FOR HTN .WILL CONTINUE TO MONITOR PT.
[2021-02-03 05:49] LABS: BASOPHILS # (AUTO) 0.1 K/uL (0.00-0.22); BASOPHILS % (AUTO) 0.4 % (0.0-2.0); EOSINOPHILS # (AUTO) 0.2 K/uL (0-0.4); EOSINOPHILS % (AUTO) 1.8 % (0.0-4.0); HEMATOCRIT 28.7 % (36-52); HEMOGLOBIN 9.6 g/dL (12.0-18.0); LYMPHOCYTES # (AUTO) 1.7 K/uL (2.0-11.5); LYMPHOCYTES % (AUTO) 12.9 % (20.5-51.1); MEAN CORPUSCULAR HEMOGLOBIN 30 pg (27-31); MEAN CORPUSCULAR HGB CONC 33 g/dL (33-37); MEAN CORPUSCULAR VOLUME 88.6 fL (80-94); MONOCYTES # (AUTO) 1.1 K/uL (0.8-1.0); NEUTROPHILS # (AUTO) 10.1 K/uL (1.8-7.7); NEUTROPHILS % (AUTO) 76.9 % (42.2-75.2); PLATELET COUNT (AUTO) 330 K/uL (140-450); RED BLOOD CELL COUNT(AUTO) 3.24 MIL/uL (4.20-6.10); RED CELL DISTRIBUTION WIDTH 15.2 % (11.6-13.7); WHITE BLOOD COUNT (AUTO) 13.1 K/uL (4.8-10.8)
[2021-02-03 05:58] LABS: ANION GAP 11.1 (8-16); CARBON DIOXIDE 27.9 mmol/L (21-32); CREATININE 0.7 mg/dL (0.6-1.3)
[2021-02-03] MEDS: MEROPENEM 1,000 MG in NACL 0.9% 100 ML IV SCH ×3 (06:08→20:18)
[2021-02-03] MEDS: BLOOD GLUCOSE MONITORING 1 DEV DEV FS SCH ×4 (06:32→20:21)
--- NOTE | 2021-02-03 06:33 | NUR ---
PT TURNED, CLEANED AND REPOSITIONED IN BED, MERREM HUNG AND RUNNING ORDERED. PT FINGERSTICK IS 119 NO HUMALOG COVERAGE NEEDED. ALL ORDERED PRECAUTIONS IN PLACE.
--- NOTE | 2021-02-03 07:30 | NUR ---
RECEIVED REPORT FROM NIGHT NURSE. IN BED, HOB ELEVATED, AOX1, OPENS EYES TO NAME. TRACH TO VENT FIO2 24% TV 500 RR 24 PEEP 5. IV SITE LEFT FA 20G RUNNING NORMAL SALINE AT 100 ML/HR AND LEFT HAND 20G SALINE LOCKED. SAAB CATHETER AND RECTAL TUBE INTACT. G TUBE INTACT FEEDING GLUCERNA 1.2 70MLS/HR. SAFETY AND ISO LATION PRECAUTION IN PLACE. WILL CONTINUE TO MONITOR
--- NOTE | 2021-02-03 08:40 | NUR ---
due morning meds given via gt. tolerated well oral care and Fay care done
[2021-02-03] MEDS: VANCOMYCIN 750 MG in DEXTROSE 5% 250 ML IV SCH ×2 (09:00→20:45)
[2021-02-03] MEDS: hydrALAZINE 25 MG TAB GT SCH ×3 (09:17→16:26)
[2021-02-03] MEDS: carvediloL 12.5 MG TAB GT SCH ×2 (09:17→20:19)
[2021-02-03] MEDS: COLISTIMETHATE SODIUM 75 MG in NACL 0.9% 100 ML IV SCH ×2 (09:17→20:23)
[2021-02-03] MEDS: lisinopriL 20 MG TAB GT SCH (09:17)
[2021-02-03] MEDS: ASCORBIC ACID 500 MG TAB PO SCH (09:18)
[2021-02-03] MEDS: levETIRAcetam 100 MG/ML ORASYR PO SCH ×2 (09:18→20:19)
[2021-02-03] MEDS: PANTOPRAZOLE 40 MG INJ VIAL IVP SCH (09:18)
[2021-02-03] MEDS: amLODIPine 5 MG TAB PO SCH (09:18)
--- NOTE | 2021-02-03 11:30 | NUR ---
blood sugar 170, coverage given
[2021-02-03] MEDS: INSULIN LISPRO SLIDING SCALE 100 UNITS/ML VIAL SUBQ PRN (12:07)
[2021-02-03] MEDS: THERAHONEY GEL 42.5 GM TP SCH (13:25)
--- NOTE | 2021-02-03 13:39 | NUR ---
PT AWAKE, RESTING IN BED, NO RESPIRATORY DISTRESS, FLACC 0
--- NOTE | 2021-02-03 16:30 | NUR ---
BLOOD SUGAR 128, NO COVERAGE. TEMP 100.3, COOLING MEASURES, TYLENOL GIVEN
--- NOTE | 2021-02-03 17:58 | NUR ---
TEMP 99.8, CONTINUE COOLING MEASURES, FLACC 0, NO RESPIRATORY DISTRESS
--- NOTE | 2021-02-03 19:20 | NUR ---
RECEIVED BEDSIDE REPORT FROM DAY SHIFT NURSE FOR CONTINUITY OF CARE. PATIENT IS AWAKE, ORIENT TO SELF. RESPIRATION EVEN UNLABORED ON TRACH TO VENT. SKIN IS WARM AND DRY. IV PATENT AND INTACT. SAAB CATHETER DRAINING YELLOW CLEAR URINE. G-TUBE PATENT AND INTACT RUNNING 70ML/HR. PLAN OF CARE UPDATED. BED AT LOWEST POSITION. CALL LIGHT WITHIN WILL CONTINUE TO MONITOR.
--- NOTE | 2021-02-03 20:00 | NUR ---
INITIAL ASSESSMENT DONE. PATIENT IS AFEBRILE. WILL CONTINUE TO MONITOR
[2021-02-03] MEDS: LABETALOL 200 MG TAB PO SCH (20:19)
--- NOTE | 2021-02-03 20:20 | NUR ---
UNABLE TO SCAN PATIENT ID BAND, MANUALLY INPUT, ANOTHER NURSE WITNESS, ALL SCHEDULED MEDS WERE GIVEN. WILL CONTINUE TO MONITOR.
[2021-02-03] MEDS: INSULIN LANTUS 100 UNITS/ML 10 ML VIAL SUBQ SCH (20:21)
--- NOTE | 2021-02-03 22:43 | NUR ---
PROVIDED ORAL CARE
[2021-02-04] VITALS: BP 122/70
--- NOTE | 2021-02-04 01:00 | NUR ---
WOUND CARE PROVIDED
[2021-02-04] MEDS: NACL 0.9% 1,000 ML IV SCH (03:02)
[2021-02-04] MEDS: HYDRAGUARD CREAM TP SCH ×2 (03:02→13:43)
[2021-02-04] MEDS: GAUZE TP SCH ×2 (03:03→13:43)
--- NOTE | 2021-02-04 03:13 | NUR ---
MADE ROUNDS, PATIENT SLEEPING RESPIRATION EVEN UNLABORED ON TRACH TO VENT
[2021-02-04 04:00] VITALS: BP 114/69
--- NOTE | 2021-02-04 04:00 | NUR ---
VITALS WERE TAKEN, AM CARE PROVIDED
[2021-02-04] MEDS: MEROPENEM 1,000 MG in NACL 0.9% 100 ML IV SCH ×2 (04:54→13:43)
[2021-02-04] MEDS: BLOOD GLUCOSE MONITORING 1 DEV DEV FS SCH ×2 (06:47→12:03)
--- NOTE | 2021-02-04 07:09 | NUR ---
ENDORSED PATIENT TO DAY SHIFT NURSE FOR CONTINUITY OF CARE
[2021-02-04 07:11] LABS: CARBON DIOXIDE 23.5 mmol/L (21-32); CREATININE 0.8 mg/dL (0.6-1.3); POTASSIUM 4.5 mmol/L (3.5-5.1)
[2021-02-04 07:15] LABS: BASOPHILS % (AUTO) 0.5 % (0.0-2.0); EOSINOPHILS # (AUTO) 0.2 K/uL (0-0.4); EOSINOPHILS % (AUTO) 2.2 % (0.0-4.0); HEMATOCRIT 25.2 % (36-52); HEMOGLOBIN 8.4 g/dL (12.0-18.0); LYMPHOCYTES # (AUTO) 1.5 K/uL (2.0-11.5); LYMPHOCYTES % (AUTO) 15.7 % (20.5-51.1); MEAN CORPUSCULAR HEMOGLOBIN 30 pg (27-31); MEAN CORPUSCULAR HGB CONC 33 g/dL (33-37); MEAN CORPUSCULAR VOLUME 89.9 fL (80-94); MONOCYTES % (AUTO) 10.2 % (1.7-9.3); NEUTROPHILS # (AUTO) 6.8 K/uL (1.8-7.7); NEUTROPHILS % (AUTO) 71.4 % (42.2-75.2); PLATELET COUNT (AUTO) 305 K/uL (140-450); RED CELL DISTRIBUTION WIDTH 15.1 % (11.6-13.7); WHITE BLOOD COUNT (AUTO) 9.5 K/uL (4.8-10.8)
--- NOTE | 2021-02-04 07:47 | NUR ---
RECEIVE REPORT FROM OPERATOR SPECIALIST COMMUNICATIONS NURSE FOR CONTINUITY OF CARE. PATIENT SLEEPING. NO ACUTE DISTRESS NOTED. PATIENT O2 SATING AT 99%. ALL SAFETY MEASURES IN PLACE. CALL LIGHT WITHIN REACH. WILL CONTINUE TO MONITOR.
[2021-02-04 08:00] VITALS: BP 115/69
[2021-02-04] MEDS: hydrALAZINE 25 MG TAB GT SCH ×2 (09:00→13:43)
[2021-02-04] MEDS: amLODIPine 5 MG TAB PO SCH (09:00)
[2021-02-04] MEDS: LABETALOL 200 MG TAB PO SCH (09:00)
[2021-02-04] MEDS: carvediloL 12.5 MG TAB GT SCH (09:46)
[2021-02-04] MEDS: levETIRAcetam 100 MG/ML ORASYR PO SCH (09:46)
[2021-02-04] MEDS: lisinopriL 20 MG TAB GT SCH (09:47)
[2021-02-04] MEDS: ASCORBIC ACID 500 MG TAB PO SCH (09:47)
[2021-02-04] MEDS: POLYETHYLENE GLYCOL 17 GM/PKT GT PRN (09:49)
[2021-02-04] MEDS: COLISTIMETHATE SODIUM 75 MG in NACL 0.9% 100 ML IV SCH (09:53)
[2021-02-04] MEDS: PANTOPRAZOLE 40 MG INJ VIAL IVP SCH (09:53)
--- NOTE | 2021-02-04 09:53 | NUR ---
PATIENT SLEEPING. NO ACUTE DISTRESS NOTED. PATIENT TRACH TO VENT. PATIENT O2 SATING AT 99%. ROUTINE MEDICATION GIVEN. HYDRALIZINE, AMLODIPINE, AND LABETALOL HELD DUE POSSIBLY LOWERING PATIENT BLOOD PRESSURE. CURRENT BLOOD PRESSURE 115/69 HR 93. CARVEDILOL, LISINOPRIL AND VIT C DROPPED ON FLOOR. PHARMACY NOTIFIED OF NEED TO PULL OUT MEDIATION AGAIN. ALL SAFETY MEASURES IN PLACE. CALL LIGHT WITHIN REACH. WILL CONTINUE TO MONITOR.
[2021-02-04] MEDS: VANCOMYCIN 750 MG in DEXTROSE 5% 250 ML IV SCH (10:45)
--- NOTE | 2021-02-04 11:47 | NUR ---
PATIENT SLEEPING. NO ACUTE DISTRESS NOTED. PATIENT TRACH TO VENT. PATIENT O2 SATING AT 99%. ALL SAFETY MEASURES IN PLACE. CALL LIGHT WITHIN REACH. WILL CONTINUE TO MONITOR.
[2021-02-04 12:00] VITALS: BP 121/77
[2021-02-04] MEDS ORDERED: CARV12.52 GT (13:15)
[2021-02-04] MEDS ORDERED: MERO1VIA15 IV (13:15)
[2021-02-04] MEDS ORDERED: LISI20TA29 GT (13:15)
[2021-02-04] MEDS ORDERED: HYDR-4420 GT (13:15)
[2021-02-04] MEDS ORDERED: TRA200 PO (13:15)
[2021-02-04] MEDS ORDERED: INSU100S53 SC (13:15)
[2021-02-04] MEDS ORDERED: ACET-1182 PO (13:15)
[2021-02-04] MEDS ORDERED: COLI150P4 IV (13:15)
--- NOTE | 2021-02-04 13:15 | NUR ---
PATIENT SLEEPING. NO ACUTE DISTRESS NOTED. PATIENT TRACH TO VENT. PATIENT O2 SATING AT 98%. SUPERVISORY IT SPECIALIST AT BEDSIDE AIDING WITH ADLS. ALL SAFETY MEASURES IN PLACE. CALL LIGHT WITHIN REACH. WILL CONTINUE TO MONITOR.
[2021-02-04] MEDS: THERAHONEY GEL 42.5 GM TP SCH (13:43)
[2021-02-04 15:15] VITALS: BP 121/77
--- NOTE | 2021-02-04 15:48 | NUR ---
SPOKE WITH NILAM LONGORIA FROM [facility] [place] TO GIVE REPORT.
--- NOTE | 2021-02-04 16:30 | NUR ---
PATIENT AWAKE. NO ACUTE DISTRESS NOTED. VS STABLE. ALL DOCUMENTS GIVEN TO [facility] TRANSPORT. REPORT GIVEN TO [facility] [place] NILAM NAV[place]O. PATIENT TRACH TO VENT. Addendum: 02/04/21 at 1721 by Rocio Gann RN RN BP 127/81, HR 93, RR 18, O2 99%, TEMP 99
== END 2021-02-04 16:40 | DRG 720 ==
LOC: MED 20:07 → MTU 22:12 → OBSVTOIN 22:15 → MMU 23:02 → MIC 01-31 12:47 → MTU 02-03 07:12
PROVIDERS: ADMIT Family Medicine; ATTEND Family Medicine
PROC: 5A1955Z Respiratory Ventilation, Greater than 96 Consecutive Hours (ICD-10-PCS; principal; 2021-01-15)
DX: A41.59 Other Gram-negative sepsis (principal); N17.0 Acute kidney failure with tubular necrosis; J69.0 Pneumonitis due to inhalation of food and vomit; G93.41 Metabolic encephalopathy; E43 Unspecified severe protein-calorie malnutrition; J15.0 Pneumonia due to Klebsiella pneumoniae; J96.10 Chronic respiratory failure, unspecified whether with hypoxia or hypercapnia; E87.8 Other disorders of electrolyte and fluid balance, not elsewhere classified; I69.354 Hemiplegia and hemiparesis following cerebral infarction affecting left non-dominant side; I10 Essential (primary) hypertension; Z20.822 Contact with and (suspected) exposure to COVID-19; R65.20 Severe sepsis without septic shock; N39.0 Urinary tract infection, site not specified; E83.41 Hypermagnesemia; E87.1 Hypo-osmolality and hyponatremia; N31.9 Neuromuscular dysfunction of bladder, unspecified; E11.65 Type 2 diabetes mellitus with hyperglycemia; D64.9 Anemia, unspecified; G40.909 Epilepsy, unspecified, not intractable, without status epilepticus; Z79.4 Long term (current) use of insulin; Z79.899 Other long term (current) drug therapy; Z93.1 Gastrostomy status; Z68.33 Body mass index [BMI] 33.0-33.9, adult; B96.1 Klebsiella pneumoniae [K. pneumoniae] as the cause of diseases classified elsewhere; J40 Bronchitis, not specified as acute or chronic
CPT/HCPCS: 96360; 96361; 99291; G0378; 36415; 70450; 71045; 76770; 80048; 80053; 80170; 80173; 80202; 81001; 82150; 82533; 82948; 83036; 83605; 83690; 83735; 83880; 84100; 84439; 84443; 84484; 85025; 85379; 85610; 85730; 87040; 87070; 87075; 87081; 87086; 87186; 87205; 89220; 93005; 93970; 94002; 94003; A4649; C9113; J0360; J0696; J0770; J1580; J1644; J1815; J2185; J2543; J3370; J3490; J7030; J7060; Q0092; U0003

== ENCOUNTER 2021-02-25 20:00 | Inpatient (IN) | payer MEDICAID, SELFPAY ==
[~2021-02-25] VITALS: Ht 190.5 cm; Wt 73.0 kg
[~2021-02-25 20:00] MED LIST: ACET-1182 PO; ALBU0.0912 IH; AMLO10TA PO; ASCO-5 PO; ATRMDI INH; CARV12.52 GT; CHLO473S62 PO; CHOL50004 GT; COLI150P4 IV; DOCU-299 GT; ENAL5TAB48 GT; FURO-572 GT; HYDR-4420 GT; INSU100S53 SC; KEP500L PO; LISI20TA29 GT; LON2.5 GT; MERO1VIA15 IV; MIRABULK GT; PANT40EC GT; SLIDE SUBQ; TRA200 PO
[2021-02-25 20:03] VITALS: BP 135/87
[2021-02-25 20:24] VITALS: BP 135/78
[2021-02-25 21:49] LABS: BASOPHILS % (AUTO) 0.2 % (0.0-2.0); EOSINOPHILS # (AUTO) 0.3 K/uL (0-0.4); EOSINOPHILS % (AUTO) 1.6 % (0.0-4.0); HEMATOCRIT 22.9 % (36-52); HEMOGLOBIN 7.5 g/dL (12.0-18.0); LYMPHOCYTES # (AUTO) 1.8 K/uL (2.0-11.5); LYMPHOCYTES % (AUTO) 10.4 % (20.5-51.1); MEAN CORPUSCULAR HEMOGLOBIN 30 pg (27-31); MEAN CORPUSCULAR HGB CONC 33 g/dL (33-37); MEAN CORPUSCULAR VOLUME 90.6 fL (80-94); MONOCYTES # (AUTO) 1.1 K/uL (0.8-1.0); MONOCYTES % (AUTO) 6.2 % (1.7-9.3); NEUTROPHILS # (AUTO) 13.9 K/uL (1.8-7.7); NEUTROPHILS % (AUTO) 81.6 % (42.2-75.2); PLATELET COUNT (AUTO) 468 K/uL (140-450); RED BLOOD CELL COUNT(AUTO) 2.53 MIL/uL (4.20-6.10); RED CELL DISTRIBUTION WIDTH 16.8 % (11.6-13.7)
[2021-02-25 22:11] LABS: ALBUMIN 2.8 g/dL (3.4-5.0); ANION GAP 16.2 (8-16); CARBON DIOXIDE 28.3 mmol/L (21-32); CREATININE 1.2 mg/dL (0.6-1.3); POTASSIUM 4.5 mmol/L (3.5-5.1); TOTAL BILIRUBIN 0.3 mg/dL (0.0-1.0)
[2021-02-25 22:18] VITALS: BP 133/79
[2021-02-25] MEDS ORDERED: PIPERACILLIN/TAZOBACTAM 3.375 GM in DEXTROSE 5% 50 ML IV ONE (23:05)
[2021-02-25] MEDS ORDERED: ACETAMINOPHEN EXTRA STRENGTH 500 MG TAB GT ONE (23:05)
[2021-02-25] MEDS ORDERED: NACL 0.9% 1,000 ML IV ONE (23:05)
[2021-02-25] MEDS ORDERED: PIPERACILLIN/TAZOBACTAM 3.375 GM VIAL IV ONE (23:19)
[2021-02-25] MEDS ORDERED: CRUSHER, PILL MC ONE (23:47)
[2021-02-26 00:46] VITALS: BP 129/77
[2021-02-26 04:04] VITALS: BP 133/77
[2021-02-26] MEDS ORDERED: ALBUTEROL SULFATE/IPRATROPIU 3 ML SOL IH PRN (07:25)
[2021-02-26] MEDS ORDERED: DOCUSATE SODIUM 100 MG GELCAP PO PRN (07:30)
[2021-02-26] MEDS ORDERED: MAG SULF 2000 MG/WATER PREMIX 50 ML IV PRN (07:30)
[2021-02-26] MEDS ORDERED: POTASSIUM CHLORIDE 10 MEQ TABER PO PRN (07:30)
[2021-02-26] MEDS ORDERED: ZOLPIDEM 10 MG TAB PO PRN (07:30)
[2021-02-26] MEDS ORDERED: ONDANSETRON 4 MG/2 ML VIAL IVP PRN (07:30)
[2021-02-26] MEDS ORDERED: LORazepam 2 MG/ML VIAL IVP PRN (07:30)
[2021-02-26] MEDS ORDERED: MORPHINE SULFATE 2 MG/ML SYR IVP PRN (07:30)
[2021-02-26 09:00] VITALS: BP 134/79
[2021-02-26] MEDS: INSULIN LANTUS 100 UNITS/ML 10 ML VIAL SUBQ SCH (09:00)
[2021-02-26] MEDS ORDERED: DOCUSATE SODIUM 100 MG GELCAP PO SCH (09:00)
[2021-02-26] MEDS ORDERED: PIPERACILLIN/TAZOBACTAM 3.375 GM in DEXTROSE 5% 50 ML IV SCH (09:00)
[2021-02-26] MEDS: hydrALAZINE 25 MG TAB GT SCH ×3 (09:56→17:23)
[2021-02-26] MEDS: ASCORBIC ACID 500 MG TAB PO SCH (09:56)
[2021-02-26] MEDS: amLODIPine 5 MG TAB PO SCH (09:56)
[2021-02-26] MEDS: minoxidiL 2.5 MG TAB GT SCH (10:00)
[2021-02-26] MEDS: lisinopriL 20 MG TAB GT SCH (10:00)
[2021-02-26] MEDS: carvediloL 12.5 MG TAB GT SCH ×2 (10:00→22:29)
[2021-02-26] MEDS: levETIRAcetam 100 MG/ML ORASYR PO SCH ×2 (10:01→22:29)
[2021-02-26] MEDS ORDERED: DOCUSATE SODIUM 250 MG GELCAP PO SCH ×2 (10:09→21:00)
[2021-02-26] MEDS ORDERED: DOCUSATE 100 MG/10 ML UDC PO SCH (11:05)
[2021-02-26] MEDS ORDERED: DOCUSATE 100 MG/10 ML UDC GT SCH (11:05)
[2021-02-26] MEDS ORDERED: DOCUSATE 100 MG/10 ML UDC GT PRN (11:10)
[2021-02-26 16:00] VITALS: BP 139/86
[2021-02-26] MEDS: LINEZOLID 600MG PREMIX 300 ML IV SCH (17:23)
[2021-02-26] MEDS ORDERED: PIPERACILLIN/TAZOBACTAM 3.375 GM VIAL IV ONE (18:43)
[2021-02-26] MEDS: PIPERACILLIN/TAZOBACTAM 3.375 GM in DEXTROSE 5% 50 ML IV SCH (18:47)
[2021-02-26 20:33] VITALS: BP 139/80
[2021-02-26] MEDS: DOCUSATE 100 MG/10 ML UDC GT SCH (22:29)
[2021-02-27] MEDS ORDERED: PIPERACILLIN/TAZOBACTAM 3.375 GM VIAL IV ONE ×2 (00:27→06:31)
[2021-02-27 00:32] VITALS: BP 135/83
[2021-02-27] MEDS: PIPERACILLIN/TAZOBACTAM 3.375 GM in DEXTROSE 5% 50 ML IV SCH ×5 (00:34→23:50)
[2021-02-27] MEDS: LINEZOLID 600MG PREMIX 300 ML IV SCH ×2 (05:10→17:22)
[2021-02-27 05:14] VITALS: BP 140/81
[2021-02-27 06:44] LABS: BASOPHILS # (AUTO) 0.1 K/uL (0.00-0.22); BASOPHILS % (AUTO) 0.4 % (0.0-2.0); EOSINOPHILS # (AUTO) 0.2 K/uL (0-0.4); EOSINOPHILS % (AUTO) 1.4 % (0.0-4.0); HEMATOCRIT 30.5 % (36-52); HEMOGLOBIN 10.1 g/dL (12.0-18.0); LYMPHOCYTES # (AUTO) 1.9 K/uL (2.0-11.5); LYMPHOCYTES % (AUTO) 12.5 % (20.5-51.1); MEAN CORPUSCULAR HEMOGLOBIN 30 pg (27-31); MEAN CORPUSCULAR HGB CONC 33 g/dL (33-37); MONOCYTES # (AUTO) 1.4 K/uL (0.8-1.0); MONOCYTES % (AUTO) 9.1 % (1.7-9.3); NEUTROPHILS # (AUTO) 11.4 K/uL (1.8-7.7); NEUTROPHILS % (AUTO) 76.6 % (42.2-75.2); PLATELET COUNT (AUTO) 417 K/uL (140-450); RED BLOOD CELL COUNT(AUTO) 3.39 MIL/uL (4.20-6.10); RED CELL DISTRIBUTION WIDTH 16.1 % (11.6-13.7); WHITE BLOOD COUNT (AUTO) 14.9 K/uL (4.8-10.8)
[2021-02-27 06:56] LABS: ANION GAP 16.4 (8-16); CARBON DIOXIDE 26.8 mmol/L (21-32); CREATININE 1.1 mg/dL (0.6-1.3); POTASSIUM 4.2 mmol/L (3.5-5.1)
[2021-02-27 08:00] VITALS: BP 146/59
[2021-02-27] MEDS: DOCUSATE 100 MG/10 ML UDC GT SCH ×2 (08:36→21:41)
[2021-02-27] MEDS: amLODIPine 5 MG TAB PO SCH (08:37)
[2021-02-27] MEDS: minoxidiL 2.5 MG TAB GT SCH (08:38)
[2021-02-27] MEDS: carvediloL 12.5 MG TAB GT SCH ×2 (08:39→21:42)
[2021-02-27] MEDS: lisinopriL 20 MG TAB GT SCH (08:39)
[2021-02-27] MEDS: PANTOPRAZOLE 40 MG INJ VIAL IVP SCH (08:39)
[2021-02-27] MEDS: ASCORBIC ACID 500 MG TAB PO SCH (08:40)
[2021-02-27] MEDS: hydrALAZINE 25 MG TAB GT SCH ×3 (08:40→17:22)
[2021-02-27] MEDS: levETIRAcetam 100 MG/ML ORASYR PO SCH ×2 (09:50→21:42)
[2021-02-27] MEDS: INSULIN LANTUS 100 UNITS/ML 10 ML VIAL SUBQ SCH (09:50)
[2021-02-27 12:00] VITALS: BP 133/56
[2021-02-27 13:21] LABS: APPEARANCE,URINE CLEAR (CLEAR); BILIRUBIN,URINE NEGATIVE (NEGATIVE); BLOOD, URINE 1+ (NEGATIVE); COLOR,URINE YELLOW (YELLOW); LEUKOCYTE ESTERASE ,URINE NEGATIVE (NEGATIVE); NITRITE, URINE NEGATIVE (NEGATIVE); UGLUCOSE NEGATIVE (NEGATIVE)
[2021-02-27 13:29] LABS: RBC,URINE 0-5 /HPF (0-5); WBC,URINE 0-5 /HPF (0-5)
[2021-02-27 16:00] VITALS: BP 146/92
[2021-02-27 20:00] VITALS: BP 130/95
[2021-02-28] VITALS: BP 102/68
[2021-02-28 04:00] VITALS: BP 116/73
[2021-02-28] MEDS: LINEZOLID 600MG PREMIX 300 ML IV SCH ×2 (05:05→17:16)
[2021-02-28 06:11] LABS: BASOPHILS # (AUTO) 0.1 K/uL (0.00-0.22); BASOPHILS % (AUTO) 0.4 % (0.0-2.0); EOSINOPHILS # (AUTO) 0.2 K/uL (0-0.4); EOSINOPHILS % (AUTO) 1.3 % (0.0-4.0); HEMATOCRIT 31.8 % (36-52); HEMOGLOBIN 10.4 g/dL (12.0-18.0); LYMPHOCYTES # (AUTO) 2.5 K/uL (2.0-11.5); MEAN CORPUSCULAR HEMOGLOBIN 30 pg (27-31); MEAN CORPUSCULAR HGB CONC 33 g/dL (33-37); MEAN CORPUSCULAR VOLUME 91.1 fL (80-94); MONOCYTES # (AUTO) 1.8 K/uL (0.8-1.0); MONOCYTES % (AUTO) 10.8 % (1.7-9.3); NEUTROPHILS % (AUTO) 72.5 % (42.2-75.2); PLATELET COUNT (AUTO) 435 K/uL (140-450); RED BLOOD CELL COUNT(AUTO) 3.49 MIL/uL (4.20-6.10); RED CELL DISTRIBUTION WIDTH 16.3 % (11.6-13.7); WHITE BLOOD COUNT (AUTO) 16.6 K/uL (4.8-10.8)
[2021-02-28 06:42] LABS: ANION GAP 18.3 (8-16); CARBON DIOXIDE 24.8 mmol/L (21-32); CREATININE 1.2 mg/dL (0.6-1.3); POTASSIUM 4.1 mmol/L (3.5-5.1)
[2021-02-28] MEDS: PIPERACILLIN/TAZOBACTAM 3.375 GM in DEXTROSE 5% 50 ML IV SCH ×4 (06:43→23:41)
[2021-02-28 08:00] VITALS: BP 112/72
[2021-02-28] MEDS: DOCUSATE 100 MG/10 ML UDC GT SCH ×2 (09:42→21:29)
[2021-02-28] MEDS: carvediloL 12.5 MG TAB GT SCH ×2 (09:42→21:27)
[2021-02-28] MEDS: hydrALAZINE 25 MG TAB GT SCH ×3 (09:42→16:46)
[2021-02-28] MEDS: minoxidiL 2.5 MG TAB GT SCH (09:42)
[2021-02-28] MEDS: levETIRAcetam 100 MG/ML ORASYR PO SCH ×2 (09:43→21:29)
[2021-02-28] MEDS: lisinopriL 20 MG TAB GT SCH (09:43)
[2021-02-28] MEDS: amLODIPine 5 MG TAB PO SCH (09:43)
[2021-02-28] MEDS: PANTOPRAZOLE 40 MG INJ VIAL IVP SCH (09:43)
[2021-02-28] MEDS: ASCORBIC ACID 500 MG TAB PO SCH (09:43)
[2021-02-28] MEDS: INSULIN LANTUS 100 UNITS/ML 10 ML VIAL SUBQ SCH (09:44)
[2021-02-28 12:00] VITALS: BP 151/85
[2021-02-28 16:00] VITALS: BP 124/73
[2021-02-28] MEDS: INSULIN LISPRO SLIDING SCALE 100 UNITS/ML VIAL SUBQ PRN ×2 (17:01→23:52)
[2021-02-28] MEDS: BLOOD GLUCOSE MONITORING 1 DEV DEV FS SCH ×2 (17:01→23:46)
[2021-02-28 20:00] VITALS: BP 119/74
[2021-02-28] MEDS ORDERED: DILTIAZEM 25 MG/5 ML VIAL IVP SCH (21:25)
[2021-03-01] VITALS: BP 92/65
[2021-03-01 04:00] VITALS: BP 107/72
[2021-03-01] MEDS: LINEZOLID 600MG PREMIX 300 ML IV SCH ×2 (05:09→16:59)
[2021-03-01] MEDS: PIPERACILLIN/TAZOBACTAM 3.375 GM in DEXTROSE 5% 50 ML IV SCH ×3 (06:09→18:41)
[2021-03-01] MEDS: BLOOD GLUCOSE MONITORING 1 DEV DEV FS SCH ×3 (06:11→18:51)
[2021-03-01] MEDS: INSULIN LISPRO SLIDING SCALE 100 UNITS/ML VIAL SUBQ PRN ×3 (06:15→19:16)
[2021-03-01 06:18] LABS: BASOPHILS # (AUTO) 0.1 K/uL (0.00-0.22); BASOPHILS % (AUTO) 0.4 % (0.0-2.0); EOSINOPHILS # (AUTO) 0.2 K/uL (0-0.4); EOSINOPHILS % (AUTO) 1.2 % (0.0-4.0); HEMATOCRIT 30.1 % (36-52); HEMOGLOBIN 9.9 g/dL (12.0-18.0); LYMPHOCYTES # (AUTO) 2.4 K/uL (2.0-11.5); LYMPHOCYTES % (AUTO) 13.5 % (20.5-51.1); MEAN CORPUSCULAR HEMOGLOBIN 30 pg (27-31); MEAN CORPUSCULAR HGB CONC 33 g/dL (33-37); MEAN CORPUSCULAR VOLUME 90.5 fL (80-94); MONOCYTES # (AUTO) 1.8 K/uL (0.8-1.0); MONOCYTES % (AUTO) 9.8 % (1.7-9.3); NEUTROPHILS # (AUTO) 13.5 K/uL (1.8-7.7); NEUTROPHILS % (AUTO) 75.1 % (42.2-75.2); PLATELET COUNT (AUTO) 472 K/uL (140-450); RED BLOOD CELL COUNT(AUTO) 3.33 MIL/uL (4.20-6.10); RED CELL DISTRIBUTION WIDTH 16.3 % (11.6-13.7)
[2021-03-01 07:31] LABS: ANION GAP 16.2 (8-16); CARBON DIOXIDE 25.6 mmol/L (21-32); CREATININE 1.2 mg/dL (0.6-1.3); POTASSIUM 3.8 mmol/L (3.5-5.1)
[2021-03-01 08:00] VITALS: BP 105/70
[2021-03-01] MEDS: DOCUSATE 100 MG/10 ML UDC GT SCH ×2 (08:17→20:59)
[2021-03-01] MEDS: levETIRAcetam 100 MG/ML ORASYR PO SCH ×2 (08:18→21:00)
[2021-03-01] MEDS: PANTOPRAZOLE 40 MG INJ VIAL IVP SCH (08:18)
[2021-03-01] MEDS: minoxidiL 2.5 MG TAB GT SCH (08:18)
[2021-03-01] MEDS: hydrALAZINE 25 MG TAB GT SCH ×3 (08:18→16:59)
[2021-03-01] MEDS: ASCORBIC ACID 500 MG TAB PO SCH (08:18)
[2021-03-01] MEDS: carvediloL 12.5 MG TAB GT SCH ×2 (08:19→21:03)
[2021-03-01] MEDS: amLODIPine 5 MG TAB PO SCH (08:19)
[2021-03-01] MEDS: lisinopriL 20 MG TAB GT SCH (08:19)
[2021-03-01] MEDS: INSULIN LANTUS 100 UNITS/ML 10 ML VIAL SUBQ SCH (09:01)
[2021-03-01 12:00] VITALS: BP 104/61
[2021-03-01 16:00] VITALS: BP 121/74
[2021-03-01 20:00] VITALS: BP 114/73
[2021-03-01] MEDS ORDERED: TOBRAMYCIN PER PHARMACY MC PRN (20:35)
[2021-03-01] MEDS ORDERED: DEXTROSE 5% IV SCH (23:00)
[2021-03-01] MEDS ORDERED: TOBRAMYCIN IV SCH (23:00)
[2021-03-02] VITALS: BP 101/72
[2021-03-02] MEDS: BLOOD GLUCOSE MONITORING 1 DEV DEV FS SCH ×4 (00:14→18:00)
[2021-03-02] MEDS: INSULIN LISPRO SLIDING SCALE 100 UNITS/ML VIAL SUBQ PRN ×2 (00:18→12:58)
[2021-03-02] MEDS ORDERED: TOBRAMYCIN 80 MG/2 ML VIAL ONE (01:08)
[2021-03-02] MEDS ORDERED: TOBRAMYCIN 140 MG in DEXTROSE 5% 100 ML IV SCH (02:00)
[2021-03-02 04:00] VITALS: BP 119/78
[2021-03-02 06:03] LABS: BASOPHILS # (AUTO) 0.1 K/uL (0.00-0.22); BASOPHILS % (AUTO) 0.3 % (0.0-2.0); EOSINOPHILS # (AUTO) 0.2 K/uL (0-0.4); EOSINOPHILS % (AUTO) 1.4 % (0.0-4.0); HEMATOCRIT 29.6 % (36-52); HEMOGLOBIN 9.7 g/dL (12.0-18.0); LYMPHOCYTES # (AUTO) 2.5 K/uL (2.0-11.5); LYMPHOCYTES % (AUTO) 13.4 % (20.5-51.1); MEAN CORPUSCULAR HEMOGLOBIN 30 pg (27-31); MEAN CORPUSCULAR HGB CONC 33 g/dL (33-37); MEAN CORPUSCULAR VOLUME 90.8 fL (80-94); MONOCYTES # (AUTO) 1.9 K/uL (0.8-1.0); MONOCYTES % (AUTO) 10.4 % (1.7-9.3); NEUTROPHILS # (AUTO) 13.7 K/uL (1.8-7.7); NEUTROPHILS % (AUTO) 74.5 % (42.2-75.2); PLATELET COUNT (AUTO) 433 K/uL (140-450); RED BLOOD CELL COUNT(AUTO) 3.26 MIL/uL (4.20-6.10); RED CELL DISTRIBUTION WIDTH 16.5 % (11.6-13.7); WHITE BLOOD COUNT (AUTO) 18.4 K/uL (4.8-10.8)
[2021-03-02 06:24] LABS: ANION GAP 14.8 (8-16); CREATININE 1.2 mg/dL (0.6-1.3); POTASSIUM 3.8 mmol/L (3.5-5.1)
[2021-03-02 08:00] VITALS: BP 120/75
[2021-03-02] MEDS: hydrALAZINE 25 MG TAB GT SCH ×3 (09:00→17:00)
[2021-03-02] MEDS: INSULIN LANTUS 100 UNITS/ML 10 ML VIAL SUBQ SCH (09:00)
[2021-03-02] MEDS: DOCUSATE 100 MG/10 ML UDC GT SCH ×2 (09:00→21:00)
[2021-03-02] MEDS: levETIRAcetam 100 MG/ML ORASYR PO SCH ×2 (09:00→21:00)
[2021-03-02] MEDS: PANTOPRAZOLE 40 MG INJ VIAL IVP SCH (09:00)
[2021-03-02] MEDS: ASCORBIC ACID 500 MG TAB PO SCH (09:00)
[2021-03-02] MEDS: minoxidiL 2.5 MG TAB GT SCH (09:00)
[2021-03-02] MEDS: lisinopriL 20 MG TAB GT SCH (09:00)
[2021-03-02] MEDS: amLODIPine 5 MG TAB PO SCH (09:00)
[2021-03-02] MEDS: carvediloL 12.5 MG TAB GT SCH ×2 (09:00→21:00)
[2021-03-02] MEDS: TOBRAMYCIN 140 MG in DEXTROSE 5% 100 ML IV SCH ×2 (10:00→18:00)
[2021-03-02 12:00] VITALS: BP 120/75
[2021-03-02 20:00] VITALS: BP 122/78
[2021-03-02] MEDS ORDERED: TOBRAMYCIN 120 MG in DEXTROSE 5% 100 ML IV SCH (22:00)
[2021-03-02] MEDS: ACETAMINOPHEN 325 MG TAB PO PRN (23:51)
[2021-03-03] VITALS: BP 110/59
[2021-03-03] MEDS: TOBRAMYCIN 140 MG in DEXTROSE 5% 100 ML IV SCH ×2 (02:33→10:25)
[2021-03-03] MEDS ORDERED: MEROPENEM 1,000 MG VIAL IV ONE (05:07)
[2021-03-03] MEDS: MEROPENEM 1,000 MG in NACL 0.9% 100 ML IV SCH ×3 (05:13→21:39)
[2021-03-03] MEDS: BLOOD GLUCOSE MONITORING 1 DEV DEV FS SCH ×5 (06:01→23:34)
[2021-03-03 06:08] LABS: ANION GAP 15.5 (8-16); CARBON DIOXIDE 26.5 mmol/L (21-32); CREATININE 1.3 mg/dL (0.6-1.3)
[2021-03-03 06:17] LABS: BASOPHILS # (AUTO) 0.1 K/uL (0.00-0.22); BASOPHILS % (AUTO) 0.3 % (0.0-2.0); EOSINOPHILS # (AUTO) 0.1 K/uL (0-0.4); EOSINOPHILS % (AUTO) 0.6 % (0.0-4.0); HEMATOCRIT 28.9 % (36-52); HEMOGLOBIN 9.5 g/dL (12.0-18.0); LYMPHOCYTES # (AUTO) 2.1 K/uL (2.0-11.5); LYMPHOCYTES % (AUTO) 11.3 % (20.5-51.1); MEAN CORPUSCULAR HEMOGLOBIN 30 pg (27-31); MEAN CORPUSCULAR HGB CONC 33 g/dL (33-37); MEAN CORPUSCULAR VOLUME 91.2 fL (80-94); MONOCYTES # (AUTO) 1.7 K/uL (0.8-1.0); MONOCYTES % (AUTO) 9.2 % (1.7-9.3); NEUTROPHILS # (AUTO) 14.4 K/uL (1.8-7.7); NEUTROPHILS % (AUTO) 78.6 % (42.2-75.2); PLATELET COUNT (AUTO) 432 K/uL (140-450); RED BLOOD CELL COUNT(AUTO) 3.16 MIL/uL (4.20-6.10); WHITE BLOOD COUNT (AUTO) 18.4 K/uL (4.8-10.8)
[2021-03-03 07:02] VITALS: BP 106/64
[2021-03-03] MEDS: carvediloL 12.5 MG TAB GT SCH ×2 (09:00→21:40)
[2021-03-03] MEDS: amLODIPine 5 MG TAB PO SCH (09:00)
[2021-03-03] MEDS: hydrALAZINE 25 MG TAB GT SCH ×3 (09:00→18:52)
[2021-03-03] MEDS: lisinopriL 20 MG TAB GT SCH (09:00)
[2021-03-03] MEDS: INSULIN LANTUS 100 UNITS/ML 10 ML VIAL SUBQ SCH (09:00)
[2021-03-03] MEDS: levETIRAcetam 100 MG/ML ORASYR PO SCH ×2 (10:15→21:45)
[2021-03-03] MEDS: ASCORBIC ACID 500 MG TAB PO SCH (10:16)
[2021-03-03] MEDS: PANTOPRAZOLE 40 MG INJ VIAL IVP SCH (10:16)
[2021-03-03] MEDS: DOCUSATE 100 MG/10 ML UDC GT SCH ×2 (10:17→21:41)
[2021-03-03] MEDS: minoxidiL 2.5 MG TAB GT SCH (10:18)
[2021-03-03 12:00] VITALS: BP 108/66
[2021-03-03] MEDS ORDERED: fentaNYL citrate 0.05 MG/ML VIAL ONE (14:57)
[2021-03-03] MEDS ORDERED: BUPIVACAINE MPF 0.25% 10 ML VIAL INJ ONE (15:11)
[2021-03-03] MEDS ORDERED: LIDOCAINE 1% 500 MG/50 ML VIAL ONE (15:11)
[2021-03-03] MEDS ORDERED: ETOMIDATE 20 MG/10 ML VIAL IVP ONE (15:49)
[2021-03-03] MEDS ORDERED: PHENYLEPHRINE 10 MG/ML VIAL ONE (15:49)
[2021-03-03 16:00] VITALS: BP 120/76
[2021-03-03 20:00] VITALS: BP 118/83
[2021-03-03] MEDS ORDERED: levETIRAcetam 100 MG/ML ORASYR ONE (21:58)
[2021-03-04] VITALS: BP 126/80
[2021-03-04] MEDS: ACETAMINOPHEN 325 MG TAB PO PRN ×3 (01:20→18:32)
[2021-03-04 04:00] VITALS: BP 135/83
[2021-03-04] MEDS: MEROPENEM 1,000 MG in NACL 0.9% 100 ML IV SCH ×3 (05:00→21:05)
[2021-03-04] MEDS: INSULIN LISPRO SLIDING SCALE 100 UNITS/ML VIAL SUBQ PRN ×3 (06:02→23:46)
[2021-03-04] MEDS: BLOOD GLUCOSE MONITORING 1 DEV DEV FS SCH ×4 (06:02→23:44)
[2021-03-04 08:00] VITALS: BP 127/75
[2021-03-04] MEDS: carvediloL 12.5 MG TAB GT SCH ×2 (09:00→21:12)
[2021-03-04] MEDS: DOCUSATE 100 MG/10 ML UDC GT SCH ×2 (09:00→21:10)
[2021-03-04] MEDS: lisinopriL 20 MG TAB GT SCH (09:00)
[2021-03-04] MEDS: minoxidiL 2.5 MG TAB GT SCH (09:00)
[2021-03-04] MEDS: ASCORBIC ACID 500 MG TAB PO SCH (09:00)
[2021-03-04] MEDS: levETIRAcetam 100 MG/ML ORASYR PO SCH ×2 (09:00→21:10)
[2021-03-04] MEDS: PANTOPRAZOLE 40 MG INJ VIAL IVP SCH (09:00)
[2021-03-04] MEDS: INSULIN LANTUS 100 UNITS/ML 10 ML VIAL SUBQ SCH (09:00)
[2021-03-04] MEDS: hydrALAZINE 25 MG TAB GT SCH ×3 (09:00→17:44)
[2021-03-04] MEDS: amLODIPine 5 MG TAB PO SCH (09:00)
[2021-03-04 10:57] LABS: ANION GAP 15.9 (8-16); CARBON DIOXIDE 26.2 mmol/L (21-32); CREATININE 1.5 mg/dL (0.6-1.3); POTASSIUM 4.1 mmol/L (3.5-5.1)
[2021-03-04 12:00] VITALS: BP 136/77
[2021-03-04] MEDS: GAUZE TP SCH (13:05)
[2021-03-04 16:00] VITALS: BP 144/79
[2021-03-04] MEDS: TOBRAMYCIN 140 MG in DEXTROSE 5% 100 ML IV SCH (17:45)
[2021-03-04 20:00] VITALS: BP 127/72
[2021-03-05] VITALS: BP 121/68
[2021-03-05] MEDS: hydrALAZINE 25 MG TAB GT SCH ×3 (00:15→18:00)
[2021-03-05 04:00] VITALS: BP 121/74
[2021-03-05] MEDS: MEROPENEM 1,000 MG in NACL 0.9% 100 ML IV SCH ×3 (04:17→21:52)
[2021-03-05] MEDS: TOBRAMYCIN 140 MG in DEXTROSE 5% 100 ML IV SCH ×2 (05:34→18:11)
[2021-03-05] MEDS: BLOOD GLUCOSE MONITORING 1 DEV DEV FS SCH ×3 (05:35→18:38)
[2021-03-05] MEDS: INSULIN LISPRO SLIDING SCALE 100 UNITS/ML VIAL SUBQ PRN ×3 (05:36→18:39)
[2021-03-05 08:00] VITALS: BP 111/74
[2021-03-05] MEDS: INSULIN LANTUS 100 UNITS/ML 10 ML VIAL SUBQ SCH (10:07)
[2021-03-05] MEDS: PANTOPRAZOLE 40 MG INJ VIAL IVP SCH (10:15)
[2021-03-05] MEDS: DOCUSATE 100 MG/10 ML UDC GT SCH ×2 (10:15→21:51)
[2021-03-05] MEDS: amLODIPine 5 MG TAB PO SCH (10:15)
[2021-03-05] MEDS: lisinopriL 20 MG TAB GT SCH (10:15)
[2021-03-05] MEDS: carvediloL 12.5 MG TAB GT SCH ×2 (10:15→21:56)
[2021-03-05] MEDS: minoxidiL 2.5 MG TAB GT SCH (10:15)
[2021-03-05] MEDS: levETIRAcetam 100 MG/ML ORASYR PO SCH ×2 (10:15→21:52)
[2021-03-05] MEDS: ASCORBIC ACID 500 MG TAB PO SCH (10:15)
[2021-03-05] MEDS ORDERED: [UNRECOGNIZED DRUG - OTHER] TP PRN (10:35)
[2021-03-05] MEDS: [UNRECOGNIZED DRUG - OTHER] TP SCH (11:03)
[2021-03-05 12:00] VITALS: BP 121/78
[2021-03-05 12:38] LABS: ANION GAP 18.7 (8-16); CARBON DIOXIDE 23.4 mmol/L (21-32); CREATININE 1.5 mg/dL (0.6-1.3); POTASSIUM 4.1 mmol/L (3.5-5.1)
[2021-03-05 12:39] LABS: BASOPHILS % (AUTO) 0.2 % (0.0-2.0); EOSINOPHILS # (AUTO) 0.1 K/uL (0-0.4); EOSINOPHILS % (AUTO) 0.5 % (0.0-4.0); HEMATOCRIT 28.5 % (36-52); HEMOGLOBIN 9.3 g/dL (12.0-18.0); LYMPHOCYTES # (AUTO) 1.6 K/uL (2.0-11.5); LYMPHOCYTES % (AUTO) 8.7 % (20.5-51.1); MEAN CORPUSCULAR HEMOGLOBIN 30 pg (27-31); MEAN CORPUSCULAR HGB CONC 33 g/dL (33-37); MEAN CORPUSCULAR VOLUME 92.2 fL (80-94); MONOCYTES % (AUTO) 10.8 % (1.7-9.3); NEUTROPHILS # (AUTO) 14.4 K/uL (1.8-7.7); NEUTROPHILS % (AUTO) 79.8 % (42.2-75.2); PLATELET COUNT (AUTO) 373 K/uL (140-450); RED BLOOD CELL COUNT(AUTO) 3.09 MIL/uL (4.20-6.10); RED CELL DISTRIBUTION WIDTH 16.3 % (11.6-13.7); WHITE BLOOD COUNT (AUTO) 18.1 K/uL (4.8-10.8)
[2021-03-05] MEDS: SKINTEGRITY HYDROGEL TP SCH (12:59)
[2021-03-05] MEDS: GAUZE TP SCH (12:59)
[2021-03-05] MEDS: ACETAMINOPHEN 325 MG TAB PO PRN (13:01)
[2021-03-05] MEDS ORDERED: COMMUNICATION ORDER MC PRN (13:25)
[2021-03-05 16:00] VITALS: BP 111/65
[2021-03-05] MEDS: NACL 0.45% 1,000 ML IV SCH (16:28)
[2021-03-05 17:13] LABS: ANION GAP 17.1 (8-16); CARBON DIOXIDE 23.9 mmol/L (21-32); CREATININE 1.5 mg/dL (0.6-1.3)
[2021-03-05 17:22] LABS: APPEARANCE,URINE CLEAR (CLEAR); BILIRUBIN,URINE NEGATIVE (NEGATIVE); BLOOD, URINE TRACE-I (NEGATIVE); COLOR,URINE YELLOW (YELLOW); LEUKOCYTE ESTERASE ,URINE NEGATIVE (NEGATIVE); NITRITE, URINE NEGATIVE (NEGATIVE); UGLUCOSE NEGATIVE (NEGATIVE)
[2021-03-05 20:00] VITALS: BP 116/72
[2021-03-05 23:12] LABS: CHLORIDE,URINE RANDOM 32 mmol/L (110-250); CREATININE,URINE RANDOM 49 mg/dL (30-125); URINE SODIUM, RANDOM 33 mmol/l (40-220)
[2021-03-06] VITALS: BP 112/68
[2021-03-06] MEDS: BLOOD GLUCOSE MONITORING 1 DEV DEV FS SCH ×4 (00:25→17:22)
[2021-03-06 04:00] VITALS: BP 112/68
[2021-03-06] MEDS: MEROPENEM 1,000 MG in NACL 0.9% 100 ML IV SCH ×3 (04:28→21:04)
[2021-03-06] MEDS: NACL 0.45% 1,000 ML IV SCH ×2 (05:00→17:26)
[2021-03-06] MEDS: TOBRAMYCIN 140 MG in DEXTROSE 5% 100 ML IV SCH ×2 (06:00→17:26)
[2021-03-06 08:00] VITALS: BP 103/55
[2021-03-06] MEDS: DOCUSATE 100 MG/10 ML UDC GT SCH ×2 (10:00→20:06)
[2021-03-06] MEDS: amLODIPine 5 MG TAB PO SCH (10:00)
[2021-03-06] MEDS: [UNRECOGNIZED DRUG - OTHER] TP SCH (10:00)
[2021-03-06] MEDS: minoxidiL 2.5 MG TAB GT SCH (10:00)
[2021-03-06] MEDS: INSULIN LANTUS 100 UNITS/ML 10 ML VIAL SUBQ SCH (10:00)
[2021-03-06] MEDS: ASCORBIC ACID 500 MG TAB PO SCH (10:00)
[2021-03-06] MEDS: carvediloL 12.5 MG TAB GT SCH ×2 (10:00→20:10)
[2021-03-06] MEDS: hydrALAZINE 25 MG TAB GT SCH ×3 (10:00→17:00)
[2021-03-06] MEDS: PANTOPRAZOLE 40 MG INJ VIAL IVP SCH (10:00)
[2021-03-06] MEDS: levETIRAcetam 100 MG/ML ORASYR PO SCH ×2 (10:00→20:07)
[2021-03-06] MEDS: lisinopriL 20 MG TAB GT SCH (10:00)
[2021-03-06 12:00] VITALS: BP 113/61
[2021-03-06] MEDS: SKINTEGRITY HYDROGEL TP SCH (12:56)
[2021-03-06] MEDS: GAUZE TP SCH (12:56)
[2021-03-06] MEDS: INSULIN LISPRO SLIDING SCALE 100 UNITS/ML VIAL SUBQ PRN ×2 (13:02→17:22)
[2021-03-06 13:45] LABS: BASOPHILS # (AUTO) 0.1 K/uL (0.00-0.22); BASOPHILS % (AUTO) 0.6 % (0.0-2.0); EOSINOPHILS # (AUTO) 0.1 K/uL (0-0.4); EOSINOPHILS % (AUTO) 0.7 % (0.0-4.0); HEMATOCRIT 25.5 % (36-52); HEMOGLOBIN 8.4 g/dL (12.0-18.0); LYMPHOCYTES % (AUTO) 12.6 % (20.5-51.1); MEAN CORPUSCULAR HEMOGLOBIN 30 pg (27-31); MEAN CORPUSCULAR HGB CONC 33 g/dL (33-37); MEAN CORPUSCULAR VOLUME 92.3 fL (80-94); MONOCYTES % (AUTO) 12.8 % (1.7-9.3); NEUTROPHILS # (AUTO) 11.6 K/uL (1.8-7.7); NEUTROPHILS % (AUTO) 73.3 % (42.2-75.2); PLATELET COUNT (AUTO) 310 K/uL (140-450); RED BLOOD CELL COUNT(AUTO) 2.76 MIL/uL (4.20-6.10); RED CELL DISTRIBUTION WIDTH 16.7 % (11.6-13.7); WHITE BLOOD COUNT (AUTO) 15.8 K/uL (4.8-10.8)
[2021-03-06 13:57] LABS: ANION GAP 15.4 (8-16); CARBON DIOXIDE 23.8 mmol/L (21-32); CREATININE 1.3 mg/dL (0.6-1.3); POTASSIUM 4.2 mmol/L (3.5-5.1)
[2021-03-06 16:00] VITALS: BP 99/58
[2021-03-06 20:00] VITALS: BP 114/70
[2021-03-06] MEDS: ACETAMINOPHEN 325 MG TAB PO PRN (20:23)
[2021-03-07] VITALS: BP 118/67
[2021-03-07] MEDS: BLOOD GLUCOSE MONITORING 1 DEV DEV FS SCH ×4 (00:08→18:18)
[2021-03-07] MEDS: INSULIN LISPRO SLIDING SCALE 100 UNITS/ML VIAL SUBQ PRN ×4 (00:25→18:25)
[2021-03-07 04:00] VITALS: BP 114/67
[2021-03-07] MEDS: MEROPENEM 1,000 MG in NACL 0.9% 100 ML IV SCH ×3 (05:01→20:31)
[2021-03-07] MEDS: ACETAMINOPHEN 325 MG TAB PO PRN (05:49)
[2021-03-07] MEDS: TOBRAMYCIN 140 MG in DEXTROSE 5% 100 ML IV SCH ×2 (05:59→18:22)
[2021-03-07 06:29] LABS: BASOPHILS # (AUTO) 0.1 K/uL (0.00-0.22); BASOPHILS % (AUTO) 0.6 % (0.0-2.0); EOSINOPHILS # (AUTO) 0.2 K/uL (0-0.4); EOSINOPHILS % (AUTO) 0.9 % (0.0-4.0); HEMATOCRIT 23.7 % (36-52); HEMOGLOBIN 7.8 g/dL (12.0-18.0); LYMPHOCYTES # (AUTO) 2.6 K/uL (2.0-11.5); LYMPHOCYTES % (AUTO) 14.8 % (20.5-51.1); MEAN CORPUSCULAR HEMOGLOBIN 31 pg (27-31); MEAN CORPUSCULAR HGB CONC 33 g/dL (33-37); MEAN CORPUSCULAR VOLUME 93.3 fL (80-94); MONOCYTES % (AUTO) 11.3 % (1.7-9.3); NEUTROPHILS # (AUTO) 12.9 K/uL (1.8-7.7); NEUTROPHILS % (AUTO) 72.4 % (42.2-75.2); PLATELET COUNT (AUTO) 308 K/uL (140-450); RED BLOOD CELL COUNT(AUTO) 2.54 MIL/uL (4.20-6.10); RED CELL DISTRIBUTION WIDTH 16.8 % (11.6-13.7); WHITE BLOOD COUNT (AUTO) 17.8 K/uL (4.8-10.8)
[2021-03-07 07:06] LABS: ANION GAP 12.1 (8-16); CARBON DIOXIDE 25.9 mmol/L (21-32); CREATININE 1.4 mg/dL (0.6-1.3)
[2021-03-07 07:29] LABS: MAGNESIUM 2.5 mg/dL (1.8-2.4); PHOSPHORUS 2.5 mg/dL (2.5-4.9)
[2021-03-07 08:00] VITALS: BP 105/69
[2021-03-07] MEDS: NACL 0.45% 1,000 ML IV SCH ×2 (08:18→20:17)
[2021-03-07] MEDS: hydrALAZINE 25 MG TAB GT SCH ×3 (09:00→16:30)
[2021-03-07] MEDS: amLODIPine 5 MG TAB PO SCH (09:00)
[2021-03-07] MEDS: lisinopriL 20 MG TAB GT SCH (09:00)
[2021-03-07] MEDS: minoxidiL 2.5 MG TAB GT SCH (09:00)
[2021-03-07] MEDS: [UNRECOGNIZED DRUG - OTHER] TP SCH (09:00)
[2021-03-07] MEDS: PANTOPRAZOLE 40 MG INJ VIAL IVP SCH (10:15)
[2021-03-07] MEDS: INSULIN LANTUS 100 UNITS/ML 10 ML VIAL SUBQ SCH (10:16)
[2021-03-07] MEDS: levETIRAcetam 100 MG/ML ORASYR PO SCH ×2 (10:16→20:14)
[2021-03-07] MEDS: ASCORBIC ACID 500 MG TAB PO SCH (10:17)
[2021-03-07] MEDS: DOCUSATE 100 MG/10 ML UDC GT SCH ×2 (10:18→20:11)
[2021-03-07] MEDS: carvediloL 12.5 MG TAB GT SCH ×2 (10:35→20:13)
[2021-03-07 12:00] VITALS: BP 113/64
[2021-03-07] MEDS: SKINTEGRITY HYDROGEL TP SCH (13:26)
[2021-03-07] MEDS: GAUZE TP SCH (13:26)
[2021-03-07 16:00] VITALS: BP 125/75
[2021-03-07 20:00] VITALS: BP 111/55
[2021-03-08] VITALS (8 sets, daily range): BP systolic 109–127; BP diastolic 60–74
[2021-03-08] MEDS: BLOOD GLUCOSE MONITORING 1 DEV DEV FS SCH ×5 (00:28→23:57)
[2021-03-08] MEDS: MEROPENEM 1,000 MG in NACL 0.9% 100 ML IV SCH ×3 (05:40→20:33)
[2021-03-08] MEDS: NACL 0.45% 1,000 ML IV SCH ×2 (05:41→23:41)
[2021-03-08 06:27] LABS: BASOPHILS # (AUTO) 0.1 K/uL (0.00-0.22); BASOPHILS % (AUTO) 0.4 % (0.0-2.0); EOSINOPHILS # (AUTO) 0.3 K/uL (0-0.4); EOSINOPHILS % (AUTO) 1.9 % (0.0-4.0); HEMATOCRIT 24.2 % (36-52); HEMOGLOBIN 7.9 g/dL (12.0-18.0); LYMPHOCYTES # (AUTO) 2.5 K/uL (2.0-11.5); LYMPHOCYTES % (AUTO) 15.2 % (20.5-51.1); MEAN CORPUSCULAR HEMOGLOBIN 31 pg (27-31); MEAN CORPUSCULAR HGB CONC 33 g/dL (33-37); MONOCYTES # (AUTO) 1.6 K/uL (0.8-1.0); MONOCYTES % (AUTO) 9.8 % (1.7-9.3); NEUTROPHILS # (AUTO) 11.7 K/uL (1.8-7.7); NEUTROPHILS % (AUTO) 72.7 % (42.2-75.2); PLATELET COUNT (AUTO) 295 K/uL (140-450); RED BLOOD CELL COUNT(AUTO) 2.58 MIL/uL (4.20-6.10); RED CELL DISTRIBUTION WIDTH 16.2 % (11.6-13.7); WHITE BLOOD COUNT (AUTO) 16.1 K/uL (4.8-10.8)
[2021-03-08 06:34] LABS: MAGNESIUM 2.3 mg/dL (1.8-2.4); PHOSPHORUS 2.6 mg/dL (2.5-4.9)
[2021-03-08] MEDS: TOBRAMYCIN 140 MG in DEXTROSE 5% 100 ML IV SCH ×2 (06:38→17:54)
[2021-03-08 07:55] LABS: ANION GAP 13.1 (8-16); CREATININE 1.1 mg/dL (0.6-1.3); POTASSIUM 4.1 mmol/L (3.5-5.1)
[2021-03-08] MEDS: ASCORBIC ACID 500 MG TAB PO SCH (09:36)
[2021-03-08] MEDS: carvediloL 12.5 MG TAB GT SCH ×2 (09:37→20:33)
[2021-03-08] MEDS: minoxidiL 2.5 MG TAB GT SCH (09:38)
[2021-03-08] MEDS: PANTOPRAZOLE 40 MG INJ VIAL IVP SCH (09:39)
[2021-03-08] MEDS: DOCUSATE 100 MG/10 ML UDC GT SCH ×2 (09:39→20:32)
[2021-03-08] MEDS: lisinopriL 20 MG TAB GT SCH (09:39)
[2021-03-08] MEDS: levETIRAcetam 100 MG/ML ORASYR PO SCH ×2 (09:40→20:34)
[2021-03-08] MEDS: INSULIN LANTUS 100 UNITS/ML 10 ML VIAL SUBQ SCH (09:42)
[2021-03-08] MEDS: [UNRECOGNIZED DRUG - OTHER] TP SCH (09:42)
[2021-03-08] MEDS: amLODIPine 5 MG TAB PO SCH (10:37)
[2021-03-08] MEDS: hydrALAZINE 25 MG TAB GT SCH ×3 (10:38→17:27)
[2021-03-08] MEDS: SKINTEGRITY HYDROGEL TP SCH (12:08)
[2021-03-08] MEDS: GAUZE TP SCH (12:08)
[2021-03-08] MEDS: INSULIN LISPRO SLIDING SCALE 100 UNITS/ML VIAL SUBQ PRN ×2 (12:09→17:36)
[2021-03-08] MEDS ORDERED: CRUSHER, PILL MC ONE (12:11)
[2021-03-08] MEDS: ACETAMINOPHEN 325 MG TAB PO PRN (14:03)
[2021-03-09 04:00] VITALS: BP 112/70
[2021-03-09 05:32] LABS: BASOPHILS # (AUTO) 0.1 K/uL (0.00-0.22); BASOPHILS % (AUTO) 0.5 % (0.0-2.0); EOSINOPHILS # (AUTO) 0.4 K/uL (0-0.4); EOSINOPHILS % (AUTO) 2.3 % (0.0-4.0); HEMATOCRIT 23.8 % (36-52); HEMOGLOBIN 7.7 g/dL (12.0-18.0); LYMPHOCYTES # (AUTO) 2.5 K/uL (2.0-11.5); LYMPHOCYTES % (AUTO) 15.2 % (20.5-51.1); MEAN CORPUSCULAR HEMOGLOBIN 30 pg (27-31); MEAN CORPUSCULAR HGB CONC 32 g/dL (33-37); MEAN CORPUSCULAR VOLUME 93.6 fL (80-94); MONOCYTES # (AUTO) 1.4 K/uL (0.8-1.0); MONOCYTES % (AUTO) 8.8 % (1.7-9.3); NEUTROPHILS # (AUTO) 11.9 K/uL (1.8-7.7); NEUTROPHILS % (AUTO) 73.2 % (42.2-75.2); PLATELET COUNT (AUTO) 306 K/uL (140-450); RED BLOOD CELL COUNT(AUTO) 2.55 MIL/uL (4.20-6.10); RED CELL DISTRIBUTION WIDTH 16.3 % (11.6-13.7); WHITE BLOOD COUNT (AUTO) 16.2 K/uL (4.8-10.8)
[2021-03-09] MEDS: MEROPENEM 1,000 MG in NACL 0.9% 100 ML IV SCH ×3 (05:50→21:09)
[2021-03-09] MEDS: TOBRAMYCIN 140 MG in DEXTROSE 5% 100 ML IV SCH (06:05)
[2021-03-09] MEDS: BLOOD GLUCOSE MONITORING 1 DEV DEV FS SCH ×4 (06:05→21:12)
[2021-03-09 06:09] LABS: ANION GAP 12.3 (8-16); CARBON DIOXIDE 27.7 mmol/L (21-32); CREATININE 1.1 mg/dL (0.6-1.3)
[2021-03-09 06:16] LABS: MAGNESIUM 2.1 mg/dL (1.8-2.4); PHOSPHORUS 2.7 mg/dL (2.5-4.9)
[2021-03-09 08:00] VITALS: BP 115/70
[2021-03-09] MEDS: ASCORBIC ACID 500 MG TAB PO SCH (08:14)
[2021-03-09] MEDS: levETIRAcetam 100 MG/ML ORASYR PO SCH ×2 (08:22→21:21)
[2021-03-09] MEDS: PANTOPRAZOLE 40 MG INJ VIAL IVP SCH (08:23)
[2021-03-09] MEDS: DOCUSATE 100 MG/10 ML UDC GT SCH ×2 (08:23→21:22)
[2021-03-09] MEDS: hydrALAZINE 25 MG TAB GT SCH ×3 (08:24→17:50)
[2021-03-09] MEDS: minoxidiL 2.5 MG TAB GT SCH (08:24)
[2021-03-09] MEDS: amLODIPine 5 MG TAB PO SCH (08:24)
[2021-03-09] MEDS: lisinopriL 20 MG TAB GT SCH (08:25)
[2021-03-09] MEDS: INSULIN LANTUS 100 UNITS/ML 10 ML VIAL SUBQ SCH (08:27)
[2021-03-09] MEDS: NACL 0.45% 1,000 ML IV SCH (08:29)
[2021-03-09] MEDS: [UNRECOGNIZED DRUG - OTHER] TP SCH (09:00)
[2021-03-09] MEDS: carvediloL 12.5 MG TAB GT SCH ×2 (09:55→21:35)
[2021-03-09 12:00] VITALS: BP 110/71
[2021-03-09] MEDS: INSULIN LISPRO SLIDING SCALE 100 UNITS/ML VIAL SUBQ PRN ×2 (12:50→17:50)
[2021-03-09] MEDS: GAUZE TP SCH (13:00)
[2021-03-09] MEDS: SKINTEGRITY HYDROGEL TP SCH (13:00)
[2021-03-09] MEDS ORDERED: TOBRAMYCIN PER PHARMACY MC PRN (13:35)
[2021-03-09 16:00] VITALS: BP 120/66
[2021-03-09 20:00] VITALS: BP 129/70
[2021-03-09 21:44] VITALS: BP 118/72
[2021-03-10] VITALS (7 sets, daily range): BP systolic 99–138; BP diastolic 57–76
[2021-03-10] MEDS: NACL 0.45% 1,000 ML IV SCH ×2 (02:21→14:33)
[2021-03-10] MEDS: MEROPENEM 1,000 MG in NACL 0.9% 100 ML IV SCH ×2 (05:08→13:23)
[2021-03-10 05:35] LABS: BASOPHILS # (AUTO) 0.1 K/uL (0.00-0.22); BASOPHILS % (AUTO) 0.5 % (0.0-2.0); EOSINOPHILS # (AUTO) 0.4 K/uL (0-0.4); EOSINOPHILS % (AUTO) 2.4 % (0.0-4.0); HEMATOCRIT 23.7 % (36-52); HEMOGLOBIN 7.8 g/dL (12.0-18.0); LYMPHOCYTES # (AUTO) 2.3 K/uL (2.0-11.5); LYMPHOCYTES % (AUTO) 14.9 % (20.5-51.1); MEAN CORPUSCULAR HEMOGLOBIN 31 pg (27-31); MEAN CORPUSCULAR HGB CONC 33 g/dL (33-37); MEAN CORPUSCULAR VOLUME 93.2 fL (80-94); MONOCYTES # (AUTO) 1.2 K/uL (0.8-1.0); MONOCYTES % (AUTO) 7.5 % (1.7-9.3); NEUTROPHILS # (AUTO) 11.7 K/uL (1.8-7.7); NEUTROPHILS % (AUTO) 74.7 % (42.2-75.2); PLATELET COUNT (AUTO) 340 K/uL (140-450); RED BLOOD CELL COUNT(AUTO) 2.54 MIL/uL (4.20-6.10); RED CELL DISTRIBUTION WIDTH 16.2 % (11.6-13.7); WHITE BLOOD COUNT (AUTO) 15.7 K/uL (4.8-10.8)
[2021-03-10 05:51] LABS: ANION GAP 13.9 (8-16); CARBON DIOXIDE 26.1 mmol/L (21-32)
[2021-03-10] MEDS: BLOOD GLUCOSE MONITORING 1 DEV DEV FS SCH ×4 (05:53→23:50)
[2021-03-10 06:14] LABS: MAGNESIUM 2.1 mg/dL (1.8-2.4); PHOSPHORUS 2.9 mg/dL (2.5-4.9)
[2021-03-10] MEDS: ASCORBIC ACID 500 MG TAB PO SCH (08:29)
[2021-03-10] MEDS: INSULIN LANTUS 100 UNITS/ML 10 ML VIAL SUBQ SCH (08:30)
[2021-03-10] MEDS: [UNRECOGNIZED DRUG - OTHER] TP SCH (08:32)
[2021-03-10] MEDS: levETIRAcetam 100 MG/ML ORASYR PO SCH ×2 (08:32→21:30)
[2021-03-10] MEDS: PANTOPRAZOLE 40 MG INJ VIAL IVP SCH (08:33)
[2021-03-10] MEDS: DOCUSATE 100 MG/10 ML UDC GT SCH ×2 (08:33→21:31)
[2021-03-10] MEDS: minoxidiL 2.5 MG TAB GT SCH (08:36)
[2021-03-10] MEDS: carvediloL 12.5 MG TAB GT SCH ×2 (08:36→21:31)
[2021-03-10] MEDS: lisinopriL 20 MG TAB GT SCH (08:36)
[2021-03-10] MEDS: hydrALAZINE 25 MG TAB GT SCH ×3 (08:36→17:00)
[2021-03-10] MEDS: amLODIPine 5 MG TAB PO SCH (08:36)
[2021-03-10] MEDS: TOBRAMYCIN 120 MG in DEXTROSE 5% 100 ML IV SCH (12:00)
[2021-03-10] MEDS: GAUZE TP SCH (13:24)
[2021-03-10] MEDS: SKINTEGRITY HYDROGEL TP SCH (13:24)
[2021-03-10] MEDS: INSULIN LISPRO SLIDING SCALE 100 UNITS/ML VIAL SUBQ PRN ×2 (13:59→18:55)
[2021-03-11] VITALS (7 sets, daily range): BP systolic 99–124; BP diastolic 69–98
[2021-03-11] MEDS: NACL 0.45% 1,000 ML IV SCH ×2 (04:05→17:53)
[2021-03-11 05:26] LABS: BASOPHILS # (AUTO) 0.1 K/uL (0.00-0.22); BASOPHILS % (AUTO) 0.4 % (0.0-2.0); EOSINOPHILS # (AUTO) 0.3 K/uL (0-0.4); EOSINOPHILS % (AUTO) 1.6 % (0.0-4.0); HEMOGLOBIN 7.5 g/dL (12.0-18.0); LYMPHOCYTES # (AUTO) 2.6 K/uL (2.0-11.5); LYMPHOCYTES % (AUTO) 16.3 % (20.5-51.1); MEAN CORPUSCULAR HEMOGLOBIN 31 pg (27-31); MEAN CORPUSCULAR HGB CONC 33 g/dL (33-37); MEAN CORPUSCULAR VOLUME 93.2 fL (80-94); MONOCYTES # (AUTO) 1.3 K/uL (0.8-1.0); MONOCYTES % (AUTO) 8.2 % (1.7-9.3); NEUTROPHILS # (AUTO) 11.8 K/uL (1.8-7.7); NEUTROPHILS % (AUTO) 73.5 % (42.2-75.2); PLATELET COUNT (AUTO) 332 K/uL (140-450); RED BLOOD CELL COUNT(AUTO) 2.47 MIL/uL (4.20-6.10); RED CELL DISTRIBUTION WIDTH 16.1 % (11.6-13.7); WHITE BLOOD COUNT (AUTO) 16.1 K/uL (4.8-10.8)
[2021-03-11 05:36] LABS: ANION GAP 13.2 (8-16); CARBON DIOXIDE 26.8 mmol/L (21-32)
[2021-03-11] MEDS: BLOOD GLUCOSE MONITORING 1 DEV DEV FS SCH ×3 (05:38→17:28)
[2021-03-11] MEDS: INSULIN LISPRO SLIDING SCALE 100 UNITS/ML VIAL SUBQ PRN ×2 (05:43→11:45)
[2021-03-11 05:44] LABS: MAGNESIUM 2.1 mg/dL (1.8-2.4); PHOSPHORUS 3.3 mg/dL (2.5-4.9)
[2021-03-11] MEDS: hydrALAZINE 25 MG TAB GT SCH ×3 (08:49→17:30)
[2021-03-11] MEDS: carvediloL 12.5 MG TAB GT SCH ×2 (08:50→22:28)
[2021-03-11] MEDS: INSULIN LANTUS 100 UNITS/ML 10 ML VIAL SUBQ SCH (09:04)
[2021-03-11] MEDS: levETIRAcetam 100 MG/ML ORASYR PO SCH ×2 (09:09→22:33)
[2021-03-11] MEDS: DOCUSATE 100 MG/10 ML UDC GT SCH ×2 (09:10→22:27)
[2021-03-11] MEDS: minoxidiL 2.5 MG TAB GT SCH (09:11)
[2021-03-11] MEDS: amLODIPine 5 MG TAB PO SCH (09:11)
[2021-03-11] MEDS: ASCORBIC ACID 500 MG TAB PO SCH (09:11)
[2021-03-11] MEDS: lisinopriL 20 MG TAB GT SCH (09:12)
[2021-03-11] MEDS: PANTOPRAZOLE 40 MG INJ VIAL IVP SCH (09:12)
[2021-03-11] MEDS: [UNRECOGNIZED DRUG - OTHER] TP SCH (09:25)
[2021-03-11] MEDS: TOBRAMYCIN 120 MG in DEXTROSE 5% 100 ML IV SCH (11:39)
[2021-03-11] MEDS: MEROPENEM 1,000 MG in NACL 0.9% 100 ML IV SCH ×2 (12:52→22:29)
[2021-03-11] MEDS: SKINTEGRITY HYDROGEL TP SCH (13:46)
[2021-03-11] MEDS: GAUZE TP SCH (13:46)
[2021-03-12] VITALS: BP 116/78
[2021-03-12] MEDS: BLOOD GLUCOSE MONITORING 1 DEV DEV FS SCH ×4 (00:19→18:00)
[2021-03-12 04:00] VITALS: BP 118/78
[2021-03-12] MEDS: MEROPENEM 1,000 MG in NACL 0.9% 100 ML IV SCH ×3 (05:00→21:00)
[2021-03-12 06:33] LABS: BASOPHILS % (AUTO) 0.3 % (0.0-2.0); EOSINOPHILS # (AUTO) 0.3 K/uL (0-0.4); EOSINOPHILS % (AUTO) 1.8 % (0.0-4.0); HEMATOCRIT 21.5 % (36-52); HEMOGLOBIN 7.2 g/dL (12.0-18.0); LYMPHOCYTES # (AUTO) 2.2 K/uL (2.0-11.5); LYMPHOCYTES % (AUTO) 15.3 % (20.5-51.1); MEAN CORPUSCULAR HEMOGLOBIN 31 pg (27-31); MEAN CORPUSCULAR HGB CONC 34 g/dL (33-37); MEAN CORPUSCULAR VOLUME 91.7 fL (80-94); MONOCYTES # (AUTO) 1.1 K/uL (0.8-1.0); MONOCYTES % (AUTO) 7.7 % (1.7-9.3); NEUTROPHILS # (AUTO) 10.8 K/uL (1.8-7.7); NEUTROPHILS % (AUTO) 74.9 % (42.2-75.2); PLATELET COUNT (AUTO) 337 K/uL (140-450); RED BLOOD CELL COUNT(AUTO) 2.34 MIL/uL (4.20-6.10); RED CELL DISTRIBUTION WIDTH 15.6 % (11.6-13.7); WHITE BLOOD COUNT (AUTO) 14.4 K/uL (4.8-10.8)
[2021-03-12] MEDS: NACL 0.45% 1,000 ML IV SCH ×2 (06:53→21:00)
[2021-03-12 07:11] LABS: ANION GAP 14.4 (8-16); CARBON DIOXIDE 25.5 mmol/L (21-32); CREATININE 0.9 mg/dL (0.6-1.3); POTASSIUM 3.9 mmol/L (3.5-5.1)
[2021-03-12 08:00] VITALS: BP 120/60
[2021-03-12] MEDS: PANTOPRAZOLE 40 MG INJ VIAL IVP SCH (09:22)
[2021-03-12] MEDS: hydrALAZINE 25 MG TAB GT SCH ×3 (09:23→17:00)
[2021-03-12] MEDS: lisinopriL 20 MG TAB GT SCH (09:24)
[2021-03-12] MEDS: carvediloL 12.5 MG TAB GT SCH ×2 (09:25→21:00)
[2021-03-12] MEDS: ASCORBIC ACID 500 MG TAB PO SCH (09:26)
[2021-03-12] MEDS: minoxidiL 2.5 MG TAB GT SCH (09:27)
[2021-03-12] MEDS: amLODIPine 5 MG TAB PO SCH (09:27)
[2021-03-12] MEDS: DOCUSATE 100 MG/10 ML UDC GT SCH ×2 (09:29→21:00)
[2021-03-12] MEDS: INSULIN LANTUS 100 UNITS/ML 10 ML VIAL SUBQ SCH (09:29)
[2021-03-12] MEDS: [UNRECOGNIZED DRUG - OTHER] TP SCH (09:30)
[2021-03-12] MEDS: levETIRAcetam 100 MG/ML ORASYR PO SCH ×2 (09:30→21:00)
[2021-03-12 12:00] VITALS: BP 114/54
[2021-03-12] MEDS: TOBRAMYCIN 120 MG in DEXTROSE 5% 100 ML IV SCH (12:39)
[2021-03-12] MEDS: INSULIN LISPRO SLIDING SCALE 100 UNITS/ML VIAL SUBQ PRN ×3 (13:39→18:24)
[2021-03-12] MEDS: GAUZE TP SCH (13:42)
[2021-03-12] MEDS: SKINTEGRITY HYDROGEL TP SCH (13:42)
[2021-03-12 16:00] VITALS: BP 101/49
[2021-03-12 20:00] VITALS: BP 108/54
[2021-03-13] VITALS: BP 114/62
[2021-03-13 04:00] VITALS: BP 101/62
[2021-03-13] MEDS: MEROPENEM 1,000 MG in NACL 0.9% 100 ML IV SCH ×2 (05:00→13:22)
[2021-03-13] MEDS: BLOOD GLUCOSE MONITORING 1 DEV DEV FS SCH ×4 (06:13→17:42)
[2021-03-13 08:00] VITALS: BP 104/59
[2021-03-13] MEDS: amLODIPine 5 MG TAB PO SCH (09:00)
[2021-03-13] MEDS: minoxidiL 2.5 MG TAB GT SCH (09:00)
[2021-03-13] MEDS: hydrALAZINE 25 MG TAB GT SCH ×3 (09:00→17:00)
[2021-03-13] MEDS: carvediloL 12.5 MG TAB GT SCH ×2 (09:00→21:00)
[2021-03-13] MEDS: DOCUSATE 100 MG/10 ML UDC GT SCH ×2 (09:54→21:00)
[2021-03-13] MEDS: levETIRAcetam 100 MG/ML ORASYR PO SCH ×2 (09:55→21:00)
[2021-03-13] MEDS: PANTOPRAZOLE 40 MG INJ VIAL IVP SCH (09:55)
[2021-03-13] MEDS: lisinopriL 20 MG TAB GT SCH (09:56)
[2021-03-13] MEDS: ASCORBIC ACID 500 MG TAB PO SCH (09:56)
[2021-03-13] MEDS: [UNRECOGNIZED DRUG - OTHER] TP SCH (09:57)
[2021-03-13] MEDS: INSULIN LANTUS 100 UNITS/ML 10 ML VIAL SUBQ SCH (09:59)
[2021-03-13] MEDS: NACL 0.45% 1,000 ML IV SCH (10:20)
[2021-03-13 12:00] VITALS: BP 112/59
[2021-03-13] MEDS ORDERED: TOBRAMYCIN 140 MG in DEXTROSE 5% 100 ML IV SCH (12:00)
[2021-03-13] MEDS: INSULIN LISPRO SLIDING SCALE 100 UNITS/ML VIAL SUBQ PRN ×2 (12:30→17:43)
[2021-03-13] MEDS: GAUZE TP SCH (12:32)
[2021-03-13] MEDS: SKINTEGRITY HYDROGEL TP SCH (12:32)
[2021-03-13 16:00] VITALS: BP 101/60
[2021-03-13 20:00] VITALS: BP 122/71
[2021-03-14] VITALS: BP 120/70
[2021-03-14] MEDS: NACL 0.45% 1,000 ML IV SCH ×2 (02:00→13:11)
[2021-03-14 04:00] VITALS: BP 135/82
[2021-03-14 05:19] LABS: BASOPHILS # (AUTO) 0.1 K/uL (0.00-0.22); BASOPHILS % (AUTO) 0.4 % (0.0-2.0); EOSINOPHILS # (AUTO) 0.3 K/uL (0-0.4); EOSINOPHILS % (AUTO) 2.3 % (0.0-4.0); HEMATOCRIT 22.3 % (36-52); HEMOGLOBIN 7.7 g/dL (12.0-18.0); LYMPHOCYTES # (AUTO) 1.9 K/uL (2.0-11.5); LYMPHOCYTES % (AUTO) 13.4 % (20.5-51.1); MEAN CORPUSCULAR HEMOGLOBIN 31 pg (27-31); MEAN CORPUSCULAR HGB CONC 34 g/dL (33-37); MEAN CORPUSCULAR VOLUME 89.7 fL (80-94); MONOCYTES # (AUTO) 1.2 K/uL (0.8-1.0); NEUTROPHILS # (AUTO) 11.1 K/uL (1.8-7.7); NEUTROPHILS % (AUTO) 75.9 % (42.2-75.2); PLATELET COUNT (AUTO) 395 K/uL (140-450); RED BLOOD CELL COUNT(AUTO) 2.48 MIL/uL (4.20-6.10); RED CELL DISTRIBUTION WIDTH 15.8 % (11.6-13.7); WHITE BLOOD COUNT (AUTO) 14.6 K/uL (4.8-10.8)
[2021-03-14 05:20] LABS: ANION GAP 11.2 (8-16); CARBON DIOXIDE 25.6 mmol/L (21-32); CREATININE 0.7 mg/dL (0.6-1.3); POTASSIUM 3.8 mmol/L (3.5-5.1)
[2021-03-14] MEDS: BLOOD GLUCOSE MONITORING 1 DEV DEV FS SCH ×3 (06:00→12:00)
[2021-03-14 08:00] VITALS: BP 113/77
[2021-03-14] MEDS: levETIRAcetam 100 MG/ML ORASYR PO SCH (08:56)
[2021-03-14] MEDS: DOCUSATE 100 MG/10 ML UDC GT SCH (08:57)
[2021-03-14] MEDS: PANTOPRAZOLE 40 MG INJ VIAL IVP SCH (08:57)
[2021-03-14] MEDS: lisinopriL 20 MG TAB GT SCH (08:58)
[2021-03-14] MEDS: minoxidiL 2.5 MG TAB GT SCH (08:58)
[2021-03-14] MEDS: amLODIPine 5 MG TAB PO SCH (08:59)
[2021-03-14] MEDS: hydrALAZINE 25 MG TAB GT SCH ×2 (09:00→13:00)
[2021-03-14] MEDS: ASCORBIC ACID 500 MG TAB PO SCH (09:01)
[2021-03-14] MEDS: carvediloL 12.5 MG TAB GT SCH (09:01)
[2021-03-14] MEDS: [UNRECOGNIZED DRUG - OTHER] TP SCH (09:02)
[2021-03-14] MEDS: INSULIN LANTUS 100 UNITS/ML 10 ML VIAL SUBQ SCH (09:12)
[2021-03-14 12:00] VITALS: BP 102/79
[2021-03-14] MEDS: SKINTEGRITY HYDROGEL TP SCH (13:08)
[2021-03-14] MEDS: GAUZE TP SCH (13:08)
== END 2021-03-14 16:16 | DRG 710 ==
LOC: MED 20:00 → MTU 02-26 02:43
PROVIDERS: ADMIT General Practice; ATTEND General Practice
PROC: 5A1955Z Respiratory Ventilation, Greater than 96 Consecutive Hours (ICD-10-PCS; principal; 2021-02-25)
PROC: 30233N1 Transfusion of Nonautologous Red Blood Cells into Peripheral Vein, Percutaneous Approach (ICD-10-PCS; 2021-02-26)
PROC: 0QB10ZZ Excision of Sacrum, Open Approach (ICD-10-PCS; 2021-03-03)
DX: A41.9 Sepsis, unspecified organism (principal); J96.21 Acute and chronic respiratory failure with hypoxia; J69.0 Pneumonitis due to inhalation of food and vomit; G82.50 Quadriplegia, unspecified; N17.9 Acute kidney failure, unspecified; E43 Unspecified severe protein-calorie malnutrition; L89.154 Pressure ulcer of sacral region, stage 4; J44.9 Chronic obstructive pulmonary disease, unspecified; D64.9 Anemia, unspecified; E11.9 Type 2 diabetes mellitus without complications; G40.909 Epilepsy, unspecified, not intractable, without status epilepticus; R13.10 Dysphagia, unspecified; K21.9 Gastro-esophageal reflux disease without esophagitis; B96.1 Klebsiella pneumoniae [K. pneumoniae] as the cause of diseases classified elsewhere; Z16.12 Extended spectrum beta lactamase (ESBL) resistance; I11.0 Hypertensive heart disease with heart failure; I50.9 Heart failure, unspecified; L98.499 Non-pressure chronic ulcer of skin of other sites with unspecified severity; E83.42 Hypomagnesemia; N31.9 Neuromuscular dysfunction of bladder, unspecified; Z20.822 Contact with and (suspected) exposure to COVID-19; Z68.20 Body mass index [BMI] 20.0-20.9, adult; Z86.73 Personal history of transient ischemic attack (TIA), and cerebral infarction without residual deficits; Z93.1 Gastrostomy status; Z74.01 Bed confinement status; Z79.899 Other long term (current) drug therapy; Z93.0 Tracheostomy status
CPT/HCPCS: 36415; 36430; 71045; 80048; 80053; 80200; 81001; 81003; 82436; 82570; 82948; 83036; 83605; 83735; 84100; 84300; 85025; 85610; 86886; 86900; 86901; 86920; 87040; 87070; 87075; 87086; 87186; 87205; 93005; 94002; 94003; 96365; 99291; A6248; C9113; J0696; J1644; J1815; J2001; J2020; J2185; J2370; J2543; J3010; J3260; J3490; J7060; P9016; Q0092

== ENCOUNTER 2021-03-24 12:51 | Inpatient (IN) | payer MEDICAID, SELFPAY ==
[~2021-03-24] VITALS: Ht 177.8 cm; Wt 75.3 kg
[2021-03-24 12:51] VITALS: BP 113/70
[~2021-03-24 12:51] MED LIST changes: -ATRMDI INH; -FURO-572 GT; -MERO1VIA15 IV
--- NOTE | 2021-03-24 12:51 | NUR ---
Patient assisted from gurney onto bed. RT at bedside
--- NOTE | 2021-03-24 12:55 | NUR ---
50 y/o M BIBA from [facility] c/o fever 101.8, tachycardia 120 HR, elevated WBC. Pt presents [id number], Fay in place, R ear laceration with 4x4 gauze (-) bleeding. Baseline non-verbal +eye tracking. 20G initiated Left hand with 1000mL NS prior to arrival. Temporal 100.4. Contact precautions in place. RT at bedside. SpO2 100% on FiO2 30%. G-tube in place. Pt placed into a gown and campus monitor. Bed locked in lowest position, side rails x 2, call light in reach. PMH: CVA, DM, HTN, UTI, sepsis, respiratory failure, dysphagia, neurogenic bladder, CHF, COPD, seizure, GERD, encephalopathy Meds: lisinopril, labetalol, meropenem, carvedilol, Tylenol, insulin detemir, protonix, miralax, keppra, lasix, novolin, vasotec, norvasc, colace NKA
[2021-03-24] MEDS ORDERED: ACETAMINOPHEN 650 MG/20.3 ML UDC GT ONE (13:50)
[2021-03-24] MEDS ORDERED: PIPERACILLIN/TAZOBACTAM 3.375 GM in DEXTROSE 5% 50 ML IV ONE (13:50)
[2021-03-24] MEDS ORDERED: NACL 0.9% 1,000 ML IV ONE (13:50)
[2021-03-24] MEDS ORDERED: VANCOMYCIN 1,000 MG in DEXTROSE 5% 250 ML IV ONE (13:50)
--- NOTE | 2021-03-24 13:50 | NUR ---
# 16 FR Fay catheter with 10 ml utilizing sterile technique. Immediate return of 15ml clear yellow urine noted. Bedside drainage bag placed below level of bladder. Urine sample collected and sent to lab. Pt tolerated procedure well.
[2021-03-24] MEDS ORDERED: NACL 0.9% 250 ML IV ONE (13:55)
--- NOTE | 2021-03-24 13:56 | NUR ---
RA handed to Sharita, CPT at ER bedside. Blood cultures, sample collected by Sharita
[2021-03-24] MEDS ORDERED: PIPERACILLIN/TAZOBACTAM 3.375 GM VIAL IV ONE (13:58)
[2021-03-24] MEDS ORDERED: MEROPENEM 1,000 MG in NACL 0.9% 100 ML IV ONE (14:05)
[2021-03-24 14:19] LABS: HEMATOCRIT 23.6 % (36-52); HEMOGLOBIN 7.7 g/dL (12.0-18.0); MEAN CORPUSCULAR HEMOGLOBIN 30 pg (27-31); MEAN CORPUSCULAR HGB CONC 33 g/dL (33-37); MEAN CORPUSCULAR VOLUME 91.8 fL (80-94); PLATELET COUNT (AUTO) 363 K/uL (140-450); RED BLOOD CELL COUNT(AUTO) 2.57 MIL/uL (4.20-6.10); RED CELL DISTRIBUTION WIDTH 15.7 % (11.6-13.7)
--- NOTE | 2021-03-24 14:23 | NUR ---
SPUTUM SPECIMEN COLLECTED FOR VAP PROTOCOL SAMPLE FORWARDED TO LAB YANI/RN NOTIFIED
[2021-03-24 14:26] LABS: WHITE BLOOD COUNT (AUTO) 26.1 K/uL (4.8-10.8)
--- NOTE | 2021-03-24 14:35 | NUR ---
AIDEN SWAB COLLECTED AND WALKED TO LAB
[2021-03-24 14:40] LABS: ALBUMIN 2.3 g/dL (3.4-5.0); ANION GAP 13.5 (8-16); CARBON DIOXIDE 27.7 mmol/L (21-32); CREATININE 0.9 mg/dL (0.6-1.3); POTASSIUM 4.2 mmol/L (3.5-5.1); TOTAL BILIRUBIN 0.3 mg/dL (0.0-1.0)
--- NOTE | 2021-03-24 14:45 | NUR ---
mary Desai, RSV, Flu swabs collected handed to CPT Sharita
[2021-03-24 14:56] LABS: EOSINOPHILS % (MANUAL) 1 % (0-4); LYMPHOCYTES % (MANUAL) 4 % (20-46); METAMYELOCYTES % 1 % (0-0); MONOCYTES % (MANUAL) 7 % (5-12)
[2021-03-24 14:59] LABS: PROTHROMBIN TIME 9.9 secs (10.8-13.4)
--- NOTE | 2021-03-24 15:03 | NUR ---
RAD at bedside
[2021-03-24 15:07] LABS: BILIRUBIN,URINE NEGATIVE (NEGATIVE); BLOOD, URINE 3+ (NEGATIVE); COLOR,URINE YELLOW (YELLOW); LEUKOCYTE ESTERASE ,URINE 3+ (NEGATIVE); NITRITE, URINE POSITIVE (NEGATIVE); PH,URINE 5.5 (5.0-9.0); UGLUCOSE NEGATIVE (NEGATIVE)
[2021-03-24 15:10] LABS: APPEARANCE,URINE CLOUDY (CLEAR)
[2021-03-24 15:29] LABS: RBC,URINE 11-20 (MOD) /HPF (0-5); WBC,URINE TOO MANY TO COUNT /HPF (0-5); YEAST,URINE Many /HPF (None Seen)
[2021-03-24 15:37] LABS: RSV NEGATIVE (NEGATIVE)
[2021-03-24 15:50] VITALS: BP 120/61
[2021-03-24] MEDS ORDERED: MEROPENEM 1,000 MG VIAL IV ONE (15:50)
--- NOTE | 2021-03-24 15:50 | NUR ---
TOLERATING VENTILATORY SUPPORT WELL WITHOUT ADVERSE REACTIONS NOTED EQUAL CHEST RISE GOOD AERATION THROUGHOUT BILATERAL LUNG GEIGER AIRWAY PATENT
--- NOTE | 2021-03-24 15:55 | NUR ---
Wound photos taken and attached onto patients chart
--- NOTE | 2021-03-24 15:55 | NUR ---
Recctal temperature 100.2. Dr. Lan made aware.
--- NOTE | 2021-03-24 16:00 | NUR ---
Patient resting in high-fowlers position. Ventilator and iron setter remains in place SpO2 100% on ventilator settings. Bed locked in lowest position, side rails x 2.
[2021-03-24] MEDS ORDERED: NACL 0.9% 1,000 ML IV SCH (16:40)
--- NOTE | 2021-03-24 16:51 | NUR ---
Report given to ESTEFANY Escobar. All questions answered. ETA 5 min
--- NOTE | 2021-03-24 16:54 | NUR ---
RT contacted for patient transport to Telemetry floor
--- NOTE | 2021-03-24 17:12 | NUR ---
lab at bedside
--- NOTE | 2021-03-24 17:17 | NUR ---
STABLE NO EVIDENCE OF PULMONARY DISTRESS NOTED GOOD CHEST RISE AND AERATION THROUGHOUT BILATERAL LUNG FILEDS AIRWAY PATENT
--- NOTE | 2021-03-24 17:20 | NUR ---
Patient will be admitted to care of Dr. Suarez. Admited to Telemetry. Will go to [id number]. Belongings list completed. Report to ESTEFANY Escobar
--- NOTE | 2021-03-24 17:23 | NUR ---
TRANSFERRED TO [facility] 108-B ON VENTILATOR OXYGEN SUPPLY LINE CONNECTED TO E-TANK TOLERATED TRANSFER WELL WITHOUT COMPLICATIONS NOTED SATURATION 100% HR 109
--- NOTE | 2021-03-24 17:35 | NUR ---
RECEIVED PATIENT FROM ER VIA [facility] FOR CONTINUITY OF CARE. PATIENT IS BEING ADMITTED FOR SEPSIS. PATIENT WAS BROUGHT IN BY AMBULANCE FROM [employer] [place]. [facility] SAID PATIENT HAD ELEVATED WBC, ELEVATED TEMPERATURE, AND WAS TACHYCARDIC. PATIENT IS BEING ADMITTED FOR SEPSIS DIAGNOSIS. PATIENT IS ALERT BUT NOT ORIENTED. NONVERBAL. IV IS A 22G AT THE LEFT AC. IV IS DRY, PATENT, INTACT WITH IVF RUNNING WELL. RESPIRATIONS ARE EVEN AND UNLABORED. NO S/S OF DISTRESS. FLACC-0. ALL SAFETY PRECAUTIONS IN PLACE.
[2021-03-24] MEDS ORDERED: ONDANSETRON 4 MG/2 ML VIAL IM/IVP PRN (18:35)
[2021-03-24] MEDS ORDERED: ZOLPIDEM 5 MG TAB PO PRN (18:35)
[2021-03-24] MEDS ORDERED: POTASSIUM CHLORIDE 10 MEQ TABER PO PRN (18:35)
[2021-03-24] MEDS ORDERED: guaiFENesin DM 200/20 MG-10 ML 10 ML UDC PO PRN (18:35)
[2021-03-24] MEDS ORDERED: DOCUSATE 100 MG/10 ML UDC PO PRN (18:40)
[2021-03-24] MEDS: NACL 0.9% 1,000 ML IV SCH (18:49)
[2021-03-24] MEDS ORDERED: VANCOMYCIN 1,000 MG in DEXTROSE 5% 250 ML IV SCH (19:00)
--- NOTE | 2021-03-24 19:30 | NUR ---
RECEIVED REPORT FROM AM NURSE. PT LAYING IN BED. SHOWS NO SIGNS OF DISTRESS. WILL CONTINUE THE PT PLAN OF CARE.
--- NOTE | 2021-03-24 19:42 | NUR ---
ENDORSED PATIENT TO [facility]ING MACHINE OPERATOR RN FOR CONTINUITY OF CARE. PATIENT IS STABLE.
[2021-03-24 19:45] VITALS: BP 122/68
--- NOTE | 2021-03-24 20:30 | NUR ---
PT A&OX1 ALERT AND APHASIC. PT IS TRACH TO VENT ON 25 FIO2. TIDAL VOLUME IS 100, RR IS 12, PEEP IS 5, O2 IS 100%. PT IV SITE IS 22G ON LAC. RUNNING NS ON 100ML. GTUBE IS INTACT AND LOCK. PT WAS TURNED AND REPOSITION AND ALL DRESSINGS ARE DRY AND INTACT. PT VITAL SIGNS FALL TEMP: 99.0, HR:110. RR:14, BP:122/68, O2:100. ALL ORDERED PRECAUTION IN PLACE. PT HAS NO S/S OF PAIN OR DISTRESS.
[2021-03-24] MEDS ORDERED: MEROPENEM 1,000 MG in NACL 0.9% 100 ML IV SCH (21:00)
--- NOTE | 2021-03-24 21:00 | NUR ---
MERREM IV ABX HUNG AND RUNNING ORDER. PT. EDUCATION PROVIDED AT BEDSIDE. PT. UNABLE TO VERBALIZE UNDERSTANDING. PT HAS A 18G ON THE LEFT AC AND IT IS PATENT. PT SUCTION AND ORAL CARE PROVIDED. ICE PACK PLACED TO DECREASE TEMP. SAFETY MEASURES IN PLACE.
[2021-03-24] MEDS ORDERED: TOBRAMYCIN PER PHARMACY MC PRN (22:55)
[2021-03-24] MEDS: LINEZOLID 600MG PREMIX 300 ML IV SCH (23:46)
--- NOTE | 2021-03-25 | NUR ---
PT RECEIVED ORDERED ZYVOX. PT HAS AN ORDER FOR TOBRAMYCIN MEDICATION NOT AVAILABLE, NOTIFY PHARMACY TO CHANGE TIME & NOTIFY MD ABOUT TIME CHANGE. PT IS LAYING IN BED AND VITAL SIGNS FOLLOW BP:93/58 RR:14 HR:120,TEMP:100, O2:100.
[2021-03-25] MEDS ORDERED: TOBRAMYCIN IV SCH ×2 (00:30→09:00)
[2021-03-25] MEDS ORDERED: DEXTROSE 5% IV SCH ×2 (00:30→09:00)
[2021-03-25] MEDS: NACL 0.9% 1,000 ML IV SCH ×2 (04:35→14:54)
[2021-03-25] MEDS: MEROPENEM 1,000 MG in NACL 0.9% 100 ML IV SCH ×3 (05:00→20:09)
--- NOTE | 2021-03-25 06:00 | NUR ---
PT TURNED, CHANGED AND REPOSITIONED IN BED. TUBE FEED, GLUCERNA, IS RUNNING AT 20MLS/HR. MERREM HUNG AND RUNNING AT 200MLS/HR ORDERED. SACRAL DRESSING CHANGED. SAAB CATHETER CARE DONE, AND IS DRAINING LIGHT YELLOW URINE. FINGERSTICK DONE AND IS 129. ALL ORDERED PRECAUTIONS IN PLACE.
[2021-03-25 06:07] LABS: T4 (THYROXINE) 6.4 ug/dL (4.5-12.0)
[2021-03-25] MEDS: LANSOPRAZOLE 30 MG CAPDR GT SCH (06:42)
[2021-03-25 06:49] LABS: ANION GAP 12.1 (8-16); CARBON DIOXIDE 27.7 mmol/L (21-32); CREATININE 0.9 mg/dL (0.6-1.3); POTASSIUM 3.8 mmol/L (3.5-5.1)
[2021-03-25 07:16] LABS: BASOPHILS % (AUTO) 0.2 % (0.0-2.0); EOSINOPHILS # (AUTO) 0.2 K/uL (0-0.4); EOSINOPHILS % (AUTO) 1.1 % (0.0-4.0); HEMATOCRIT 20.2 % (36-52); LYMPHOCYTES # (AUTO) 1.3 K/uL (2.0-11.5); LYMPHOCYTES % (AUTO) 7.3 % (20.5-51.1); MEAN CORPUSCULAR HEMOGLOBIN 31 pg (27-31); MEAN CORPUSCULAR HGB CONC 33 g/dL (33-37); MEAN CORPUSCULAR VOLUME 92.4 fL (80-94); MONOCYTES % (AUTO) 10.7 % (1.7-9.3); NEUTROPHILS # (AUTO) 14.6 K/uL (1.8-7.7); NEUTROPHILS % (AUTO) 80.7 % (42.2-75.2); PLATELET COUNT (AUTO) 293 K/uL (140-450); RED BLOOD CELL COUNT(AUTO) 2.18 MIL/uL (4.20-6.10); RED CELL DISTRIBUTION WIDTH 15.4 % (11.6-13.7); WHITE BLOOD COUNT (AUTO) 18.2 K/uL (4.8-10.8)
--- NOTE | 2021-03-25 07:30 | NUR ---
Received report from pm nurse Chayito. Patient resting in bed, respirations even & nonlabored with trach to vent. GT intact with ongoing Glucerna 1.2 @ 20ml/hr. Left AC IV intact with ongoing NS @ 100ml/hr, left hand IV 24G saline lock, asymptomatic. Fay cath in place and draining clear yellow urine.
[2021-03-25 08:00] VITALS: BP 106/64
[2021-03-25 08:17] LABS: HEMOGLOBIN 6.6 g/dL (12.0-18.0)
--- NOTE | 2021-03-25 08:30 | NUR ---
GT feeding increased to 30ml/hr. GT residual is 0mL. No episode of vomiting. HOB remains elevated @ 30.
--- NOTE | 2021-03-25 08:58 | NUR ---
PATIENT HAS BEEN SCREENED AND CATEGORIZED HIGH NUTRITION RISK. PATIENT WILL BE SEEN WITHIN 1-2 DAYS OF ADMISSION. 03/25/21-03/26/21 REFERRAL RECEIVED FOR TUBE FEEDING AND DYSPHAGIA EMILY BEAR RD
[2021-03-25] MEDS ORDERED: PANTOPRAZOLE 40 MG TABEC PO SCH (09:00)
--- NOTE | 2021-03-25 09:17 | NUR ---
DC PLANNING: CM RECEIVED A CALL FROM [facility], THEY STATE THAT THEY ARE HAVING A C-AUREUS OUTBREAK AND THAT THE PATIENT TESTED POSITIVE FOR C-AUREUS WHEN HIS GROIN AND AXILLA WERE CULTURED. CM CALLED THE ID PREVENTIONIST MARK TO INFORM HER. MARIBEL ALSO SPOKE WITH DR QUEVEDO WHO STATED THAT THE PATIENT NEEDS TO BE IN CONTACT ISOLATION. MARIBEL ALSO SPOKE WITH BRYCE, RUST DIRECTOR TO NOTIFY HER. CM WILL FOLLOW FOR NEEDS. Addendum: 03/25/21 at 1547 by Arina Tate CM DC PLANNING: THE PATIENT ADMITTED FROM [facility] SNF THROUGH THE ED WITH C/O FEVERS AND ELEVATED WBC'S. THE PATIENT HAS A H/O VRE, ESBL AND C AUREUS. THE PATIENT IS TRACH TO VENT WITH PEG S/P CVA, COREAS CULTURES ORDERED. ID CONSULT, STARTED ON 3 IV ABX. PATIENTS HGB TODAY IS 6.6, 1 UNIT PRBC'S ORDERED. THE PATIENT HAS BEEN AT [facility] FOR OVER A YEAR AND IS NON-VERBAL, BEDBOUND AND TOTAL CARE. DC PLAN IS FOR THE PATIENT TO RETURN TO [facility] WHEN CLINICALLY STABLE, CM WILL FOLLOW FOR NEEDS. Addendum: 03/29/21 at 1125 by Arina Tate CM DC PLANNING: MARIBEL SPOKE WITH NIRAV FROM [facility] TO GIVE HER A CLINICAL UPDATE ON THE PATIENT. ENDORSED THAT HE HAD I&D DONE ON THE BY DR SARMIENTO OF THE RIGHT KNEE, LEFT EAR, RIGHT EAR AND SACROCOCCYX DECUBITUS. CULTURES PENDING FOR THE SACRAL DECUBITUS, URINE CULTURES POSITIVE FOR YEARS, SPUTUM CULTURE POSITIVE FOR PSEUDOMONAS AND SACRAL WOUND CULTURE POSITIVE FOR ESBL ON THE . THE PATIENT IS ON MEREM AND TOBRAMYCIN, ID, NEPHRO, SURGERY AND PULMONOLOGY ARE FOLLOWING. THE PATIENT WILL RETURN TO [facility] SUB ACUTE WHEN STABLE, CM WILL FOLLOW FOR NEEDS. Addendum: 04/01/21 at 1027 by Arina Tate DC PLANNING: PATIENT REMAINS WITH ELEVATED WBC'S AT 15.7, MULTIPLE ORGANISMS PRESENT IN CULTURES, REMAINS ON TOBRAMYCIN AND MEREM. IF THE PATIENT DC'S OVER THE WEEKEND THERE IS 24/7 TRANSPORT AVAILABLE THROUGH [facility], CALL THE CAR, NUMBER [phone], OPTION 4, OPTION 1, THEY WILL NEED THE PATIENTS INFORMATION FROM HIS FACE SHEET INCLUDING HIS POLICY NUMBER. DC PLAN IS FOR THE PATIENT TO RETURN TO [facility] WHEN CLINICALLY STABLE, CM WILL FOLLOW FOR NEEDS. Addendum: 04/06/21 at 1235 by Arina Tate CM DC PLANNING: DC ORDER RECEIVED, CLINICAL PACKET FAXED TO [facility]. PATIENT ACCEPTED TO ROOM [address] SYD PRADHAN. PHONE NUMBER TO CALL REPORT [phone]. ALS TRANSPORT REQUESTED THROUGH CALL THE CAR ([phone] OPT 4 OPT 1), THEY WILL CALL CM WITH A [employer]ET [employer]OCK SANDER TIME. RESERVATION NUMBER THROUGH CALL THE CAR IS [id number]. DISCHARGE ENDORSED TO THE PATIENTS ESTEFANY HOPKINS. CM WILL FOLLOW FOR NEEDS. Addendum: 04/06/21 at 1530 by Arina Tate CM DC PLANNING: TC FROM CALL THE CAR, CONFIRMED THAT THE PATIENT IS BEING PICKED UP BY [facility] IN AN HOUR, PATIENTS ESTEFANY HOPKINS IS AWARE. CM WILL FOLLOW NEEDED.
--- NOTE | 2021-03-25 09:30 | NUR ---
GT feeding increased to 40ml/hr (goal rate). GT residual 0mL. Abd soft, nontender.
[2021-03-25] MEDS: ACETAMINOPHEN 650 MG/20.3 ML UDC PO PRN ×3 (09:32→22:59)
[2021-03-25] MEDS: LINEZOLID 600MG PREMIX 300 ML IV SCH ×2 (09:32→20:49)
--- NOTE | 2021-03-25 11:10 | NUR ---
Blood transfusion: Initiated blood transfusion 1 unit PRBC. Pt awake, nonverbal, no signs of distress, respirations even & nonlabored on trach to vent. Fay cath intact and draining clear yellow urine. GT intact and infusing Vital AF 1.2 @ 40ml/hr.
--- NOTE | 2021-03-25 11:50 | NUR ---
Patient came back from [place] s/p [facility] via [facility]. Patient transferred from [facility] to hospital bed via 2-person total assist. Patient is awake, nonverbal, no signs of distress. Addendum: 03/25/21 at 1431 by Thu Peralta RN Wrong patient. Pls omit above charting.
--- NOTE | 2021-03-25 11:53 | NUR ---
WOUND CARE EVALUATION NOTE: REASON FOR EVALUATION: LOW ADITYA SCALE AND MULTIPLE PRESSURE INJURY WOUNDS SKIN ASSESSMENT DONE WITH PRIMARY RN ON THIS 50 Y/O PT ADMITTED FROM SNF TO [facility] WITH FEVER AND SUSPECTED SEPSIS. PAST MEDICAL HX INCLUDES HEMORRHAGIC STROKE, CHRONIC RESPIRATORY FAILURE TRACH TO VENT, PEG, NEUROGENIC BLADDER, DM, HTN AND EPILEPSY AND CHRONIC PRESSURE INJURIES. ALL ABOVE INFORMATION OBTAINED FROM ADMISSION H&P. PT IS AWAKE. SKIN IS WARM AND MOIST, BLE NO HAIR GROWTH, NO EDEMA. DORSAL PEDAL PULSES PRESENT AND NORMAL. CAPILLARY REFILLED < 2 SEC. X 10 TOES PLAN OF CARE DISCUSSED WITH PRIMARY RN AND DR. DUENAS INTEGUMENTARY: -ORAL MEMBRANE PINK INTACT, LIPS, CHEEKS SKIN DRY, NO OPEN WOUNDS -GT SITE CLARENCE STOMA WITH SKIN INTACT. -PRESSURE INJURY ULCER TO LEFT EAR CONNECTIVE TISSUE AND CARTILAGE EXPOSE 3X2.5CM MOIST, WOUND EDGE SLOFT LOUUGH TISSUE, MODERATE AMOUNT SEROUS DRAINAGE, CLARENCE WOUND SKIN DRY AND INTACT, NO ODOR. -PRESSURE INJURY UN-STAGEABLE TO RIGHT EAR 2X2CM 100% BROWN DRY ESCHAR TISSUE, CLARENCE WOUND SKIN INTACT. -PRESSURE INJURY STAGE 2 MID UPPER BACK 1X1CM WOUND BED 100% PINK, MOIST, NO ODOR, CLARENCE WOUND SKIN DRY AND CLEAN -PRESSURE INJURY SACRALCOCCYX STAGE 4 9X10X2.5CM 80% RED, GRANULATING TISSUE WITH 20 %SOLOUGH TISSUE, UNDERMINING AROUND THE CLOCK WITH DEEPEST TO 9 OCLOCK 2.5CM80, WOUND EDGE, WOUND BED MOIST, NO ODOR, SURROUNDING SKIN MOIST BLANCHABLE REDNESS. -PRESSURE INJURY UN-STAGEABLE LEFT LOWER LATERAL LEG 2X1CM 100% DRY BROWN ESCHAR TISSUE -PRESSURE INJURY UN-STAGEABLE RIGHT LATERAL KNEE 2X1CM 100% DRY BROWN ESCHAR TISSUE -PRESSURE INJURY DTI LEFT HEEL 2X3CM MAROON COLOR WITH WOUND EDGE TURNING BROWN THIN SCAB RECOMMENDATIONS: -APPLY MOIST 2X2 GAUZE WITH BETADINE SOLUTION TO RIGHT EAR, RIGHT LATERAL KNEE, LEFT LATERAL LEG AND LEFT HEEL, COVER WITH DRY DRESSING CHANGE QD AND PRN IF SOILING, OFFLOADING AREA -CLEANSE RIGHT EAR WITH NS, PAT DRY APPLY ALGINATE DRESSING, COVER WITH DRY DRESSING QD AND PRN IF SOILING -CLEANSE MID UPPER BACK WITH NS, PAT DRY, APPLY FOAM DRESSING QD AND PRN IF SOILING -SACRALCOCCYX CLEANSE GENTLY WITH NS, PACK WITH MOIST HYDROGEL KERLIX ROLL GAUZES AND COVER WITH DRY ISLAND DRESSING DAILY AND PRN SOILAGE. -HEEL RAISER TO LEFT HEEL -TURN AND REPOSITION PATIENT Q 2H -ASSESS AND MONITOR SKIN CONDITION DURING POSITION CHANGE -OFFLOAD BILATERAL HEELS BY PLACING PILLOWS UNDER CALVES AT ALL TIMES, UNLESS OTHERWISE CONTRAINDICATED -PRESSURE REDISTRIBUTION SURFACE THERAPY -KEEP SKIN CLEAN AND DRY AT ALL TIMES. PLEASE CONTACT WOUND CARE NURSE FOR ANY QUESTION AND CHANGE OF WOUND CONDITION. Addendum: 03/25/21 at 1203 by Breezy Carr RN (Grace) CORRECTION:-CLEANSE LEFT EAR WITH NS, PAT DRY APPLY ALGINATE DRESSING, COVER WITH DRY DRESSING Q3D AND PRN IF SOILING
[2021-03-25 12:00] VITALS: BP 118/74
--- NOTE | 2021-03-25 12:33 | NUR ---
POC discussed with recommendation for wounds debridement.
[2021-03-25] MEDS: SKINTEGRITY HYDROGEL TP SCH (13:00)
[2021-03-25] MEDS: GAUZE TP SCH (13:00)
[2021-03-25] MEDS: FOAM DRESSING TP SCH (13:00)
--- NOTE | 2021-03-25 14:15 | NUR ---
Blood transfusion completed. No signs of transfusion reaction. Patient resting in bed, awake, no signs of distress, respirations even & nonlabored on trach to vent, GT intact and infusing Glucerna 1.2 @ 40ml/hr, Fay cath intact and draining clear yellow urine. HOB remains elevated @ 30.
--- NOTE | 2021-03-25 15:26 | NUR ---
03/25/21 RD INITIAL ASSESSMENT COMPLETED PLEASE REFER TO NUTRITION ASSESSMENT UNDER CARE ACTIVITY FOR ESTIMATED NUTRITIONAL NEEDS. 1. RECOMMEND A NEW TF RATE OF 60 ML/HR WITH CRISTINE BID AND CONTINUE WATER FLUSH 200 ML Q4H -WILL PROVIDE 1888 KCAL, 119 GM PROTEIN AND 2359 ML FLUIDS, MEETING PT NUTRIENT NEEDS 2. RD TO FOLLOW-UP 2-3 DAYS, HIGH RISK EMILY BEAR RD
--- NOTE | 2021-03-25 15:30 | NUR ---
GT feeding increased to 50ml/hr. GT residual 10mL. Pt tolerates feeding well.
[2021-03-25 16:00] VITALS: BP 122/78
--- NOTE | 2021-03-25 16:00 | NUR ---
Called Chayito from lab to f/u on Mg, P, and lipid panel results. Per Chayito, will f/u.
[2021-03-25 16:27] LABS: CHOL/HDL RATIO 4.1 (1-4.5); FREE T4 (FREE THYROXINE) 1.08 ng/dL (0.76-1.46); MAGNESIUM 2.6 mg/dL (1.8-2.4); PHOSPHORUS 3.8 mg/dL (2.5-4.9); THYROID STIMULATING HORMONE 3.18 uIU/mL (0.34-3.74)
--- NOTE | 2021-03-25 16:30 | NUR ---
GT feeding increased to 60ml/hr (goal rate). GT residual 15mL. Pt continue to tolerate feeding well.
--- NOTE | 2021-03-25 16:40 | NUR ---
Fever: Tylenol administered via GT for temp 103F. Cooling measures in place: cool washcloth to forehead, tepid sponge bath given, removed blankets, fan turned on in room. Patient resting in bed, no signs of distress, respirations even & nonlabored with trach to vent.
[2021-03-25 17:33] LABS: BASOPHILS % (AUTO) 0.2 % (0.0-2.0); EOSINOPHILS # (AUTO) 0.2 K/uL (0-0.4); EOSINOPHILS % (AUTO) 1.7 % (0.0-4.0); HEMATOCRIT 23.1 % (36-52); HEMOGLOBIN 7.8 g/dL (12.0-18.0); LYMPHOCYTES # (AUTO) 1.2 K/uL (2.0-11.5); MEAN CORPUSCULAR HEMOGLOBIN 30 pg (27-31); MEAN CORPUSCULAR HGB CONC 34 g/dL (33-37); MEAN CORPUSCULAR VOLUME 89.6 fL (80-94); MONOCYTES # (AUTO) 1.5 K/uL (0.8-1.0); MONOCYTES % (AUTO) 10.1 % (1.7-9.3); NEUTROPHILS # (AUTO) 11.6 K/uL (1.8-7.7); PLATELET COUNT (AUTO) 280 K/uL (140-450); RED BLOOD CELL COUNT(AUTO) 2.58 MIL/uL (4.20-6.10); WHITE BLOOD COUNT (AUTO) 14.5 K/uL (4.8-10.8)
--- NOTE | 2021-03-25 19:10 | NUR ---
Report given to pm nurse Lindsay.
--- NOTE | 2021-03-25 19:30 | NUR ---
Received report from AM shift nurse. Patient is not able to verbalize needs but has no s/s of distress present at this time. Chest rise is even and unlabored with CTA. Normal heart sounds S1 & S2 present. Active bowel sound x4 with no tenderness on palpation. Bed is in the lowest position with Bed rails up for safety. Will continue to monitor throughout the shift for safety.
[2021-03-25 20:00] VITALS: BP 126/78
--- NOTE | 2021-03-25 22:10 | NUR ---
2100 Scheduled medication have been administered patient tolerated them well.
[2021-03-25] MEDS ORDERED: CLINDAMYCIN 600 MG/4 ML VIAL ONE (23:30)
[2021-03-25] MEDS ORDERED: IBUPROFEN 800 MG TAB ONE (23:32)
[2021-03-26] VITALS (7 sets, daily range): BP systolic 129–148; BP diastolic 80–89
--- NOTE | 2021-03-26 | NUR ---
Patient was placed as NPO pending today's procedure. GT feeding was put on hold patient is on IV fluids NS at 100ml/hr. Will continue to monitor.
[2021-03-26] MEDS: NACL 0.9% 1,000 ML IV SCH ×3 (01:20→11:02)
[2021-03-26] MEDS: MEROPENEM 1,000 MG in NACL 0.9% 100 ML IV SCH ×3 (04:56→21:00)
[2021-03-26] MEDS: LANSOPRAZOLE 30 MG CAPDR GT SCH (06:30)
--- NOTE | 2021-03-26 06:50 | NUR ---
Patient is currently awake with no s/s of distress. Patient continues to be NPO for pending procedure this morning. Patient is currently stable, with bed in the lowest position and bed rails up for safety. Will endorse further care to am shift nurse for continuity of care.
[2021-03-26 07:09] LABS: BASOPHILS % (AUTO) 0.2 % (0.0-2.0); EOSINOPHILS # (AUTO) 0.2 K/uL (0-0.4); EOSINOPHILS % (AUTO) 1.5 % (0.0-4.0); HEMATOCRIT 27.5 % (36-52); HEMOGLOBIN 9.3 g/dL (12.0-18.0); LYMPHOCYTES # (AUTO) 0.8 K/uL (2.0-11.5); LYMPHOCYTES % (AUTO) 6.9 % (20.5-51.1); MEAN CORPUSCULAR HEMOGLOBIN 30 pg (27-31); MEAN CORPUSCULAR HGB CONC 34 g/dL (33-37); MEAN CORPUSCULAR VOLUME 90.1 fL (80-94); MONOCYTES # (AUTO) 1.1 K/uL (0.8-1.0); MONOCYTES % (AUTO) 9.6 % (1.7-9.3); NEUTROPHILS # (AUTO) 9.6 K/uL (1.8-7.7); NEUTROPHILS % (AUTO) 81.8 % (42.2-75.2); PLATELET COUNT (AUTO) 309 K/uL (140-450); RED BLOOD CELL COUNT(AUTO) 3.06 MIL/uL (4.20-6.10); RED CELL DISTRIBUTION WIDTH 16.1 % (11.6-13.7); WHITE BLOOD COUNT (AUTO) 11.7 K/uL (4.8-10.8)
[2021-03-26 07:10] LABS: ANION GAP 11.2 (8-16); CARBON DIOXIDE 29.1 mmol/L (21-32); CREATININE 0.9 mg/dL (0.6-1.3); POTASSIUM 4.3 mmol/L (3.5-5.1)
--- NOTE | 2021-03-26 07:10 | NUR ---
RECEIVED REPORT FROM NIGHT NURSE. PT IS RESTING IN BED.NO S/S OF DISTRESS. BREATHING IS EVEN AND UNLABORED AND ON VENT. WILL CONTINUE WITH CURRENT PLAN OF CARE.
--- NOTE | 2021-03-26 09:00 | NUR ---
PT IS RESTING. PT IS NOT IN DISTRESS. PT OPENS EYES TO NAME. BREATHING IS UNLABORED AND EVEN. ANITBIOTICS GIVEN. PATIENT IS STABLE.
[2021-03-26] MEDS: SKINTEGRITY HYDROGEL TP SCH (09:10)
[2021-03-26] MEDS: LINEZOLID 600MG PREMIX 300 ML IV SCH ×2 (09:10→21:00)
--- NOTE | 2021-03-26 10:00 | NUR ---
PCR TEST CAME BACK NEGATIVE. PT IS NOW ON STANDARD PRECAUTIONS. NOT ON DROPLET ISOLATION ANYMORE.
--- NOTE | 2021-03-26 11:00 | NUR ---
PHYSICIAN SCIENTIST CHANGING PT WITH MY HELP TO TURN AND CLEANSE WOUNDS. PT IS IN NO S/S OF DISTRESS. BREATHING IS EVEN AND UNLABORED. PT HAD SMALL SOFT LIGHT BROWN BM. PT IS STABLE.
[2021-03-26] MEDS ORDERED: ONDANSETRON 4 MG/2 ML VIAL ONE (12:00)
[2021-03-26] MEDS ORDERED: METOCLOPRAMIDE 10 MG/2 ML INJ VIAL ONE (12:00)
[2021-03-26] MEDS ORDERED: SEVOFLURANE 250 ML BTL INH ONE (12:00)
--- NOTE | 2021-03-26 12:10 | NUR ---
PT VS TAKEN BEFORE TAKEN DOWN TO OR FOR WOUND DEBRIDEMENT. PT IS STABLE.
[2021-03-26] MEDS ORDERED: BUPIVACAINE-MPF 0.25% 30 ML VIAL INJ ONE (12:12)
--- NOTE | 2021-03-26 12:20 | NUR ---
CALLED PTS BROTHER OMA SILVA FOR ANESTHESIA CONSENT. MD EXPLAINED AND ANSWERED ALL QUESTIONS. ME AND OR NURSE VERIFIED THAT PTS BROTHER CONSENTED AND UNDERSTOOD THE DIRECTIONS OF .
--- NOTE | 2021-03-26 12:25 | NUR ---
bagged patient on bvm w tank to OR for procedure. patient tolerated well, no resp distress noted. bagging was taken over by rn in OR till anesthesia avail.
--- NOTE | 2021-03-26 12:30 | NUR ---
PT WENT DOWN TO OR WITH MD AND NURSES FOR DEBRIDEMENT. ACCOMPANIED BY RT TO KEEP STABLE. PT IS STABLE.
[2021-03-26] MEDS ORDERED: fentaNYL citrate 0.05 MG/ML VIAL ONE (12:34)
[2021-03-26] MEDS ORDERED: MIDAZOLAM 2 MG/2 ML VIAL ONE (12:35)
--- NOTE | 2021-03-26 13:10 | NUR ---
patient brought back to floor on BVM, pt tolerated well, no distress noted, placed back on vent.
--- NOTE | 2021-03-26 13:15 | NUR ---
PT RETURNED FROM OR FROM DEBRIDEMENT PROCEDURE. REPORT WAS RECEIVED FROM MD AND NURSES. VS ARE WNL. PT BREATHING IS EVEN AND UNLABORED. NO S/S OF DISTRESS. PT IS STABLE. WILL TAKE POST OP VS PER PROTOCOL.
[2021-03-26] MEDS: GAUZE TP SCH (13:35)
--- NOTE | 2021-03-26 15:00 | NUR ---
FINISHED ALL POST OP VS. VS WNL. PT BREATHING IS EVEN AND UNLABORED. NO SS OF DISTRESS AND PT IS STABLE.
--- NOTE | 2021-03-26 15:30 | NUR ---
PT HAS BEEN STARTED BACK ON GTUBE FEEDING SAME MD ORDER BEFORE GOING NPO AT MIDNIGHT.
--- NOTE | 2021-03-26 16:53 | NUR ---
PT IS RESTING. IV AND GTUBE FEEDING RUNNING AND PATENT. PT IS BREATHING EVEN AND UNLABORED. NO S/S OF DISTRESS. PT IS STABLE.
--- NOTE | 2021-03-26 18:30 | NUR ---
NEW 1000ML NS BAG STARTED AT 100ML/HR SINCE GETTING LOW ON NS FLUID BAG. PT CHANGED WITH ISOTOPE TECHNICIAN. SMALL BM. PT IS BREATHING UNLABORED AND EVEN. NO S/S OF DISTRESS. PT IS STABLE.
--- NOTE | 2021-03-26 18:55 | NUR ---
MESSAGED MD ABOUT POSITIVE FOR ESBL, MDRO, AND PROTEUS MIRABILIS. PLACING ON CONTACT ISOLATION PER MD ORDER.
--- NOTE | 2021-03-26 19:29 | NUR ---
ENDORSED TO NIGHT NURSE FOR CONTINUITY OF CARE.
--- NOTE | 2021-03-26 19:40 | NUR ---
RECIVED PT ON SIMV-VC BUR 12 Vt500 FIO2 25% PEEP 5 PS 8 NO SIGNS OF RESPIRATORY DISTRESS. PT IS AWAKE, HOB ELEVATED, TRACH SITE PATENT AND SECURE, AND VENT PLUGGED INTO RED OUTLET. BS CLEAR SX SCANT WHITE THICK. WILL CONTINUE TO MONITOR.
[2021-03-26] MEDS: ACETAMINOPHEN 650 MG/20.3 ML UDC PO PRN (22:17)
[2021-03-27] VITALS: BP 127/80
--- NOTE | 2021-03-27 00:08 | NUR ---
PATIENT NOT ALERT OPENS EYES ONLY HAS TRACH SIMV/VC RATE 12, TV 500, FI02 25%, PEEP 5 SAT 95% LUNG DIMINISH TO LISTEN. ABDOMEN SOFT HAS GT. INFUSING GLUCERNIA 60 HOUR WATER FLUSH EVERY FOUR HOURS 200CC. SINUS TACH ON MONITOR HEART RATE 110. HAS 22 GA IN UPPER LEFT ARM,AND LEFT HAND 24 GA H.L. HAS NO RESIDUAL WHEN CHECK GT. HAS F/C DRAINING YELLOW URINE PATIENT IN ISOLATION FOR ESBL AND SEPSIS. TEMP 100.2 GIVEN TYLENOL ELIXER FOR TEMP.
[2021-03-27 04:00] VITALS: BP 124/79
--- NOTE | 2021-03-27 04:05 | NUR ---
PT PRESENTS W/NO SIGNS OF RESPIRATORY DISTRESS. PT IS AWAKE, HOB ELEVATED, TRACH SITE PATENT AND SECURE, AND VENT PLUGGED INTO RED OUTLET. TRACH SITE CLEANED DRESSINGS, TIES, SUCTION WALKER AND HME ALL CHANGED. BS CLEAR SX SCANT WHITE THIN. WILL CONTINUE TO MONITOR.
[2021-03-27] MEDS: MEROPENEM 1,000 MG in NACL 0.9% 100 ML IV SCH ×3 (05:00→21:00)
--- NOTE | 2021-03-27 06:26 | NUR ---
PATIENT DRESSING CHANGE ATG SACRAL CLEAN AND GLAUZE PACK IN WOUND COVERED WITH ABD. AT 0500
[2021-03-27] MEDS: LANSOPRAZOLE 30 MG CAPDR GT SCH (06:30)
[2021-03-27] MEDS: NACL 0.9% 1,000 ML IV SCH ×2 (06:35→16:42)
[2021-03-27 07:12] LABS: BASOPHILS % (AUTO) 0.2 % (0.0-2.0); EOSINOPHILS # (AUTO) 0.2 K/uL (0-0.4); EOSINOPHILS % (AUTO) 1.8 % (0.0-4.0); HEMATOCRIT 22.6 % (36-52); HEMOGLOBIN 7.7 g/dL (12.0-18.0); LYMPHOCYTES # (AUTO) 1.4 K/uL (2.0-11.5); LYMPHOCYTES % (AUTO) 12.2 % (20.5-51.1); MEAN CORPUSCULAR HEMOGLOBIN 31 pg (27-31); MEAN CORPUSCULAR HGB CONC 34 g/dL (33-37); MEAN CORPUSCULAR VOLUME 90.3 fL (80-94); MONOCYTES # (AUTO) 1.4 K/uL (0.8-1.0); MONOCYTES % (AUTO) 12.9 % (1.7-9.3); NEUTROPHILS # (AUTO) 8.2 K/uL (1.8-7.7); NEUTROPHILS % (AUTO) 72.9 % (42.2-75.2); PLATELET COUNT (AUTO) 280 K/uL (140-450); RED BLOOD CELL COUNT(AUTO) 2.51 MIL/uL (4.20-6.10); RED CELL DISTRIBUTION WIDTH 15.6 % (11.6-13.7); WHITE BLOOD COUNT (AUTO) 11.2 K/uL (4.8-10.8)
[2021-03-27 07:22] LABS: CARBON DIOXIDE 28.7 mmol/L (21-32); CREATININE 0.9 mg/dL (0.6-1.3); POTASSIUM 3.7 mmol/L (3.5-5.1)
--- NOTE | 2021-03-27 07:40 | NUR ---
RECEIVED REPORT FROM NIGHT NURSE FOR CONTINUITY OF CARE. AOX1,APHASIC. PT IS RESTING IN BED. ON MECH VENT WITH NO S/S OF DISTRESS. BREATHING IS EVEN AND UNLABORED. SKIN IS WARM, DRY, AND NON-INTACT. NOTED REINFORCED DRESSING ON SACRAL AREA. C/D/I. PLAN OF CARE DISCUSSED. SAFETY PRECAUTIONS IN PLACE. CALL LIGHT WITHIN REACH. WILL CONTINUE WITH TO MONITOR.
[2021-03-27 08:00] VITALS: BP 149/84
[2021-03-27] MEDS: SKINTEGRITY HYDROGEL TP SCH (08:42)
[2021-03-27] MEDS: LINEZOLID 600MG PREMIX 300 ML IV SCH ×2 (08:42→21:00)
--- NOTE | 2021-03-27 09:00 | NUR ---
ALL SCHEDULED MEDS GIVEN. PT IS STABLE. NO DISTRESS NOTED. WILL CONTINUE TO MONITOR.
[2021-03-27 12:00] VITALS: BP 139/81
[2021-03-27] MEDS: GAUZE TP SCH (12:32)
--- NOTE | 2021-03-27 12:45 | NUR ---
ASSISTED WITH CHANGING PATIENT SHEETS. KEPT C/D/I. NO SIGNS OF RESPIRATORY DISTRESS NOTED. WILL CONTINUE TO MONITOR.
--- NOTE | 2021-03-27 15:30 | NUR ---
CHECKED ON PATIENT. PATIENT IS STABLE. NO DISTRESS NOTED. WILL CONTINUE TO MONITOR.
[2021-03-27 16:00] VITALS: BP 150/81
--- NOTE | 2021-03-27 17:25 | NUR ---
CHECKED ON PATIENT. PATIENT IS STABLE. NO DISTRESS NOTED. WILL CONTINUE TO MONITOR
--- NOTE | 2021-03-27 19:19 | NUR ---
ENDORSED TO DATA PROCESSING SYSTEMS CONSULTANT NURSE FOR CONTINUITY OF CARE. PT IS STABLE.
--- NOTE | 2021-03-27 19:30 | NUR ---
PATIENT RECEIVED FROM AM NURSE FOR CONTINUITY OF CARE. PT IS RESTING IN BED WITH HOB SLIGHTLY ELEVATED. BREATHING EVEN AND UNLABORED WITH NO SOB NOTED. NO S/S OF DISTRESS. PLACED CALL LIGHT WITHIN REACH. WILL CONT TO MONITOR.
[2021-03-27 20:00] VITALS: BP 154/83
--- NOTE | 2021-03-27 21:00 | NUR ---
ALL IV MEDICATIONS GIVEN BY RN. WHITE WELL.
[2021-03-28] VITALS: BP 160/96
--- NOTE | 2021-03-28 00:55 | NUR ---
PATIENT C/O PAIN 11/20. HEADACHE. V/S 160/96 107 16 98% TEMP=97.6F
--- NOTE | 2021-03-28 01:00 | NUR ---
RN MADE DR. VELARDE AWARE OF ELEVATED BP OF THE PATIENT, STILL WAITING FOR HER REPLY FOR NEW ORDER.
--- NOTE | 2021-03-28 02:00 | NUR ---
PAIN MEDICATION ADMINISTERED. REASSESS PATIENT. DENIES ANY PAIN. NO FACIAL GRIMACING NOTED.
[2021-03-28] MEDS: NACL 0.9% 1,000 ML IV SCH ×2 (02:35→11:53)
[2021-03-28] MEDS: HYDROcodone/APAP 7.5/325 MG 1 TAB PO PRN (02:45)
--- NOTE | 2021-03-28 03:00 | NUR ---
DR. VELARDE ASKING FOR WHAT AVAILABLE BP MEDICATION PATIENT HAS, REPLIED BACK THAT HE PATIENT HAS NO BP MEDICATION AT ALL.
[2021-03-28 04:00] VITALS: BP 137/88
[2021-03-28] MEDS: MEROPENEM 1,000 MG in NACL 0.9% 100 ML IV SCH ×3 (05:00→20:29)
[2021-03-28 06:30] LABS: BASOPHILS % (AUTO) 0.2 % (0.0-2.0); EOSINOPHILS # (AUTO) 0.4 K/uL (0-0.4); EOSINOPHILS % (AUTO) 3.2 % (0.0-4.0); HEMATOCRIT 23.5 % (36-52); LYMPHOCYTES # (AUTO) 1.7 K/uL (2.0-11.5); LYMPHOCYTES % (AUTO) 14.1 % (20.5-51.1); MEAN CORPUSCULAR HEMOGLOBIN 31 pg (27-31); MEAN CORPUSCULAR HGB CONC 34 g/dL (33-37); MEAN CORPUSCULAR VOLUME 89.7 fL (80-94); MONOCYTES # (AUTO) 1.3 K/uL (0.8-1.0); MONOCYTES % (AUTO) 10.8 % (1.7-9.3); NEUTROPHILS # (AUTO) 8.7 K/uL (1.8-7.7); NEUTROPHILS % (AUTO) 71.7 % (42.2-75.2); PLATELET COUNT (AUTO) 296 K/uL (140-450); RED BLOOD CELL COUNT(AUTO) 2.63 MIL/uL (4.20-6.10); RED CELL DISTRIBUTION WIDTH 15.6 % (11.6-13.7); WHITE BLOOD COUNT (AUTO) 12.1 K/uL (4.8-10.8)
[2021-03-28 06:44] LABS: ANION GAP 11.4 (8-16); CARBON DIOXIDE 29.5 mmol/L (21-32); CREATININE 0.8 mg/dL (0.6-1.3); POTASSIUM 3.9 mmol/L (3.5-5.1)
[2021-03-28 07:00] LABS: PHOSPHORUS 3.1 mg/dL (2.5-4.9)
--- NOTE | 2021-03-28 07:12 | NUR ---
RECEIVED PT FROM INJECTION MOULDING MACHINE OPERATOR NURSE. PT STABLE. NO S/S OF DISTRESS. BREATHING SYMMETRICAL. CALL LIGHT IN REACH. ALL SAFETY MEASURES IN PLACE. IV AND GTUBE FEEDING RUNNING PER MD ORDERS. VENT SETTINGS SIMV VC 24%, RATE 12, VOLUME 500, PEEP 5
[2021-03-28] MEDS: LANSOPRAZOLE 30 MG CAPDR GT SCH (07:17)
--- NOTE | 2021-03-28 07:41 | NUR ---
ALL REPORTS WERE GIVEN, PATIENT IS STABLE, TRANSFER OF CARE WAS ENDORSED TO INCOMING RN.
[2021-03-28 08:00] VITALS: BP 158/94
[2021-03-28] MEDS: LINEZOLID 600MG PREMIX 300 ML IV SCH ×2 (08:37→21:02)
[2021-03-28] MEDS: FOAM DRESSING TP SCH (09:00)
[2021-03-28] MEDS: TOBRAMYCIN 140 MG in DEXTROSE 5% 100 ML IV SCH (09:37)
[2021-03-28] MEDS: SKINTEGRITY HYDROGEL TP SCH (09:37)
--- NOTE | 2021-03-28 09:56 | NUR ---
PT RESTING IN BED. PT STABLE. NO S/S OF DISTRESS. BREATHING SYMMETRICAL. CALL LIGHT IN REACH. ALL SAFETY MEASURES IN PLACE. IV AND FEEDING RUNNING PER MD ORDERS. CHANGED TUBE FEEDING.
--- NOTE | 2021-03-28 11:26 | NUR ---
RECEIVED PT FROM SECRETARIAL TEACHER NURSE. PT STABLE. NO S/S OF DISTRESS. BREATHING SYMMETRICAL. CALL LIGHT IN REACH. ALL SAFETY MEASURES IN PLACE. IV AND FEEDING RUNNING PER MD ORDERS. PT CHANGED. WOUND CARE PROVIDED, DRESSINGS CHANGED
[2021-03-28 12:00] VITALS: BP 155/96
[2021-03-28] MEDS ORDERED: ALGINATE DRESSING MC SCH (13:00)
[2021-03-28] MEDS: GAUZE TP SCH (13:00)
--- NOTE | 2021-03-28 13:50 | NUR ---
PT RESTING IN BED. PT STABLE. NO S/S OF DISTRESS. BREATHING SYMMETRICAL. CALL LIGHT IN REACH. ALL SAFETY MEASURES IN PLACE. IV AND FEEDING RUNNING PER MD ORDERS. VENT SETTINGS 24 FI02, 12 RATE, VOLUME 500, PEEP 5
--- NOTE | 2021-03-28 14:49 | NUR ---
03/28/21 RD FOLLOW UP COMPLETED PLEASE REFER TO NUTRITION ASSESSMENT UNDER CARE ACTIVITY FOR ESTIMATED NUTRITIONAL NEEDS. 1. CONTINUE GLUCERNA 1.2 @ 60 ML/HR WITH CRISTINE BID AND WATER FLUSH 200 ML Q4H -WILL PROVIDE 1888 KCAL, 119 GM PROTEIN AND 2359 ML FLUIDS, MEETING PT NUTRIENT NEEDS 2. RD TO FOLLOW-UP 2-3 DAYS, HIGH RISK EMILY BEAR RD
[2021-03-28 16:00] VITALS: BP 171/99
--- NOTE | 2021-03-28 16:53 | NUR ---
PT RESTING IN BED. PT STABLE. NO S/S OF DISTRESS. BREATHING SYMMETRICAL. CALL LIGHT IN REACH. ALL SAFETY MEASURES IN PLACE. IV AND FEEDING RUNNING PER MD ORDERS.
--- NOTE | 2021-03-28 18:09 | NUR ---
PT. HAD SMALL BOWEL MOVEMENT SOFT BROWN, CLEANSE AND REPOSITIONED RESIDENT TOLERATED WELL NO DISCOMFORT NOTED. SAFETY PRECAUTION IN PLACE. DENIES PAIN WHEN ASKED.
--- NOTE | 2021-03-28 19:27 | NUR ---
ENDORSED PT TO MAINTENANCE AND ENGINEERING MANAGER NURSE. PT STABLE. NO S/S OF DISTRESS. BREATHING SYMMETRICAL. CALL LIGHT IN REACH. ALL SAFETY MEASURES IN PLACE. IV AND FEEDING RUNNING PER MD ORDERS.
--- NOTE | 2021-03-28 19:47 | NUR ---
CLINICAL SPECIALIST MEDICAL DEVICE NOTES A BLOOD PRESSURE 159/103 ON THE LEFT ARM. SHE DID TRY AGAIN TWO TIMES AND ON ANOTHER EXTREMITY. THIS WAS THE LOWER READING OF THE THREE. TOM ALAN RN
[2021-03-28 20:00] VITALS: BP 159/103
[2021-03-29] VITALS (7 sets, daily range): BP systolic 126–162; BP diastolic 80–102
[2021-03-29] MEDS: NACL 0.9% 1,000 ML IV SCH ×3 (01:38→18:35)
[2021-03-29] MEDS: MEROPENEM 1,000 MG in NACL 0.9% 100 ML IV SCH ×3 (04:50→21:34)
[2021-03-29] MEDS: LANSOPRAZOLE 30 MG CAPDR GT SCH (06:07)
[2021-03-29 07:03] LABS: ANION GAP 11.5 (8-16); CARBON DIOXIDE 29.9 mmol/L (21-32); CREATININE 0.8 mg/dL (0.6-1.3); POTASSIUM 4.4 mmol/L (3.5-5.1)
[2021-03-29 07:07] LABS: MAGNESIUM 1.8 mg/dL (1.8-2.4); PHOSPHORUS 2.9 mg/dL (2.5-4.9)
[2021-03-29 07:12] LABS: BASOPHILS % (AUTO) 0.3 % (0.0-2.0); EOSINOPHILS # (AUTO) 0.3 K/uL (0-0.4); EOSINOPHILS % (AUTO) 2.1 % (0.0-4.0); HEMATOCRIT 25.9 % (36-52); HEMOGLOBIN 8.8 g/dL (12.0-18.0); LYMPHOCYTES # (AUTO) 1.7 K/uL (2.0-11.5); MEAN CORPUSCULAR HEMOGLOBIN 30 pg (27-31); MEAN CORPUSCULAR HGB CONC 34 g/dL (33-37); MEAN CORPUSCULAR VOLUME 88.7 fL (80-94); MONOCYTES # (AUTO) 1.1 K/uL (0.8-1.0); NEUTROPHILS # (AUTO) 10.8 K/uL (1.8-7.7); NEUTROPHILS % (AUTO) 77.6 % (42.2-75.2); PLATELET COUNT (AUTO) 356 K/uL (140-450); RED BLOOD CELL COUNT(AUTO) 2.92 MIL/uL (4.20-6.10); RED CELL DISTRIBUTION WIDTH 15.2 % (11.6-13.7)
--- NOTE | 2021-03-29 07:31 | NUR ---
Handoff with ESTEFANY Portillo. Pop Holt RN
--- NOTE | 2021-03-29 07:40 | NUR ---
RECEIVED PT FROM MUNITIONS HANDLER NURSE, PATIENT IN BED . NO S/S OF DISTRESS. BREATHING SYMMETRICAL. PATIENT HAS AN IV RIGHT FORARM 20G ,VIDEO PRODUCER SHOWS SR . CALL LIGHT IN REACH. ALL SAFETY MEASURES IN PLACE. IV AND GTUBE FEEDING RUNNING PER MD ORDERS. VENT SETTINGS SIMV VC 24%, RATE 12, VOLUME 500, PEEP 5
[2021-03-29] MEDS: TOBRAMYCIN 140 MG in DEXTROSE 5% 100 ML IV SCH (08:24)
[2021-03-29] MEDS: SKINTEGRITY HYDROGEL TP SCH (08:24)
--- NOTE | 2021-03-29 09:35 | NUR ---
PATIENT IN BED NO COMPLAINS, NO SOD NOTED, GOT MORNING MEDICATION , ALL SAFETY MEASURES ON PLACE, CALLS LIGHT WITHIN REACH
--- NOTE | 2021-03-29 11:36 | NUR ---
PATIENT IN BED NO CMPLAINS, GOT CLEANED CHANGED ABD REPOSITIONED, CALLS LIGHT WITHIN REACH ALL SAFETY MEASURES ON PLACE
[2021-03-29] MEDS: GAUZE TP SCH (13:08)
--- NOTE | 2021-03-29 13:49 | NUR ---
PATIENT IN BED NO COMPLAINS, NO SOD NOTED, ALL SAFETY MEASURES ON PLACE, CALLS LIGHT WITHIN REACH
--- NOTE | 2021-03-29 16:05 | NUR ---
PATIENT IN BED NO COMPLAINS, NO SOD NOTED, GOT CLEANED AND CHANGED ALL SAFETY MEASURES ON PLACE, CALLS LIGHT WITHIN REACH
--- NOTE | 2021-03-29 18:14 | NUR ---
PATIENT IN BED NO COMPLAINS, NO SOD NOTED, ALL SAFETY MEASURES ON PLACE, CALLS LIGHT WITHIN REACH
--- NOTE | 2021-03-29 19:56 | NUR ---
full bedside report given to picker operator nurse
--- NOTE | 2021-03-29 20:00 | NUR ---
RECEIVED PT FROM MORNING RN. PT IS AWAKE LAYING IN BED. PT IS ABLE TO ANSWER BY SHAKING HIS HEAD. PT IS ON A TRACH TO VENT FIO2 24%, SATING AT 98%. PT HAS SAAB CATHETER DRAINING,CLEAR YELLOW COLOR. G-TUBE FEEDING AND IVF INFUSING ORDERED. PT DOES NOT HAVE ANY COMPLAINS AND IS NOT IN ANY DISTRESS AT THIS TIME. ALL SAFETY MEASURES TAKEN. WILL CONTINUE PROVIDING CONTINUITY OF CARE.
--- NOTE | 2021-03-29 22:00 | NUR ---
ALL DUE MEDS GIVEN AND PT TOLERATED IT WELL. NO ADVERSE DRUG REACTION NOTED AND NO COMPLAIN FROM THE PT.
[2021-03-30] VITALS: BP 159/95
--- NOTE | 2021-03-30 | NUR ---
VITAL SIGNS STABLE, AFEBRILE SATING 98% ON TRACH TO VENT SETTING. ST ON TELE MONITOR, HR- 106. NO COMPLAIN OF PAIN AT THIS TIME. CALL LIGHT WITHIN REACH.
[2021-03-30] MEDS: NACL 0.9% 1,000 ML IV SCH ×2 (01:58→16:55)
--- NOTE | 2021-03-30 02:00 | NUR ---
PATIENT ASLEEP AT THIS TIME. VISIBLE CHEST RISE AND FALL NOTED. SAFETY MEASURES IN PLACED. NOT IN ANY DISTRESS. CALL LIGHT WITHIN REACH. WILL CONTINUE MONITORING.
[2021-03-30 04:00] VITALS: BP 147/88
[2021-03-30] MEDS: MEROPENEM 1,000 MG in NACL 0.9% 100 ML IV SCH ×3 (05:41→21:00)
[2021-03-30] MEDS: LANSOPRAZOLE 30 MG CAPDR GT SCH (06:22)
--- NOTE | 2021-03-30 06:38 | NUR ---
NO ACUTE EVENT THROUGHOUT THE NIGHT. PATIENT STABLE AND NOT IN ANY DISTRESS. ALL NEEDS ATTENDED. CALL LIGHT WITHIN REACH. WILL ENDORSE THE PT TO THE ONCOMING RN FOR CONTINUITY OF CARE.
--- NOTE | 2021-03-30 07:09 | NUR ---
RECEIVE REPORT FROM POWERHOUSE OILER NURSE FOR CONTINUITY OF PATIENT CARE.
--- NOTE | 2021-03-30 07:10 | NUR ---
PATIENT AWAKE. PATIENT TRACH TO VENT FIO2 24%, TV 500, RR 12, PEEP 5. PATIENT O2 SATING AT 96%. NO ACUTE DISTRESS NOTED. IV INTACT. GTUBE IN PLACE. ALL SAFETY AND SEIZURE PRECAUTIONS IN PLACE. CALL LIGHT WITHIN REACH. WILL CONTINUE TO MONITOR.
[2021-03-30 08:00] VITALS: BP 148/95
[2021-03-30 08:32] LABS: BASOPHILS # (AUTO) 0.1 K/uL (0.00-0.22); BASOPHILS % (AUTO) 0.4 % (0.0-2.0); EOSINOPHILS # (AUTO) 0.3 K/uL (0-0.4); EOSINOPHILS % (AUTO) 1.5 % (0.0-4.0); HEMATOCRIT 26.2 % (36-52); HEMOGLOBIN 8.8 g/dL (12.0-18.0); LYMPHOCYTES # (AUTO) 2.3 K/uL (2.0-11.5); LYMPHOCYTES % (AUTO) 11.9 % (20.5-51.1); MEAN CORPUSCULAR HEMOGLOBIN 30 pg (27-31); MEAN CORPUSCULAR HGB CONC 33 g/dL (33-37); MEAN CORPUSCULAR VOLUME 89.6 fL (80-94); MONOCYTES # (AUTO) 1.5 K/uL (0.8-1.0); MONOCYTES % (AUTO) 7.8 % (1.7-9.3); NEUTROPHILS # (AUTO) 15.2 K/uL (1.8-7.7); NEUTROPHILS % (AUTO) 78.4 % (42.2-75.2); PLATELET COUNT (AUTO) 408 K/uL (140-450); RED BLOOD CELL COUNT(AUTO) 2.92 MIL/uL (4.20-6.10); RED CELL DISTRIBUTION WIDTH 15.4 % (11.6-13.7); WHITE BLOOD COUNT (AUTO) 19.3 K/uL (4.8-10.8)
[2021-03-30] MEDS: SKINTEGRITY HYDROGEL TP SCH (09:00)
[2021-03-30] MEDS: TOBRAMYCIN 140 MG in DEXTROSE 5% 100 ML IV SCH (09:00)
[2021-03-30 09:06] LABS: ANION GAP 12.8 (8-16); CREATININE 0.7 mg/dL (0.6-1.3); POTASSIUM 4.8 mmol/L (3.5-5.1)
[2021-03-30 09:22] LABS: PHOSPHORUS 2.6 mg/dL (2.5-4.9)
--- NOTE | 2021-03-30 09:45 | NUR ---
PATIENT AWAKE. PATIENT TRACH TO VENT FIO2 24%, TV 500, RR 12, PEEP 5. PATIENT O2 SATING AT 98%. NO ACUTE DISTRESS NOTED. RT AT BEDSIDE. ALL SAFETY AND SEIZURE PRECAUTIONS IN PLACE. CALL LIGHT WITHIN REACH. WILL CONTINUE TO MONITOR.
--- NOTE | 2021-03-30 11:01 | NUR ---
PATIENT AWAKE. PATIENT TRACH TO VENT FIO2 24%, TV 500, RR 12, PEEP 5. PATIENT O2 SATING AT 98%. NO ACUTE DISTRESS NOTED. EYELETTER AT BEDSIDE. ALL SAFETY AND SEIZURE PRECAUTIONS IN PLACE. CALL LIGHT WITHIN REACH. WILL CONTINUE TO MONITOR.
[2021-03-30 12:00] VITALS: BP 155/100
[2021-03-30] MEDS: GAUZE TP SCH (12:05)
--- NOTE | 2021-03-30 12:20 | NUR ---
WOUND NURSE AT BEDSIDE. PATIENT AWAKE. PATIENT TRACH TO VENT FIO2 24%, TV 500, RR 12, PEEP 5. PATIENT O2 SATING AT 99%. NO ACUTE DISTRESS NOTED. ALL SAFETY AND SEIZURE PRECAUTIONS IN PLACE. CALL LIGHT WITHIN REACH. WILL CONTINUE TO MONITOR.
--- NOTE | 2021-03-30 12:35 | NUR ---
WOUND CARE RE-EVALUATION NOTE: DEBRIDEMENT DONE BY DR. SARMIENTO TO R/L EARS, RIGHT LATERAL KNEE AND SACRALCOCCYX. PT. IS AWAKE, NON-VERBAL. NO S/S OF PAIN. POC DISCUSSED WITH PRIMARY RN. -PRESSURE INJURY ULCER TO LEFT EAR CONNECTIVE TISSUE AND CARTILAGE EXPOSE 3X2X0.2CM MOIST, WOUND EDGE FLAT MOIST TISSUE, SMALL AMOUNT SEROUS DRAINAGE, CLARENCE WOUND SKIN DRY AND INTACT, NO ODOR. -PRESSURE INJURY PARTIAL THICKNESS SKIN LOSS TO RIGHT EAR 2X1.5X0.1CM 100% PINK WOUND BED, MOIST, NO ODOR, CLARENCE WOUND SKIN INTACT. -PRESSURE INJURY STAGE 2 MID UPPER BACK 1X1CM WOUND BED 100% PINK, MOIST, NO ODOR, CLARENCE WOUND SKIN DRY AND CLEAN -PRESSURE INJURY SACRALCOCCYX STAGE 4 9X10X2.5CM 90% RED, GRANULATING TISSUE WITH 10 % SLOUGH TISSUE, UNDERMINING AROUND THE CLOCK WITH DEEPEST TO 9 OCLOCK 2.5CM80, WOUND EDGE, WOUND BED MOIST, NO ODOR, SURROUNDING SKIN MOIST BLANCHABLE REDNESS. -PRESSURE INJURY UN-STAGEABLE LEFT LOWER LATERAL LEG 2X1CM 100% DRY BROWN ESCHAR TISSUE -PRESSURE INJURY UN-STAGEABLE RIGHT LATERAL KNEE 2X1X0.1 CM 100% WHITE MOIST TISSUE, NO ODOR, CLARENCE WOUND SKIN INTACT. -PRESSURE INJURY DTI LEFT HEEL 2X3CM MAROON COLOR WITH WOUND EDGE TURNING BROWN THIN SCAB RECOMMENDATIONS: -DISCONTINUE APPLY MOIST 2X2 GAUZE WITH BETADINE SOLUTION TO RIGHT EAR, RIGHT LATERAL KNEE, COVER WITH DRY DRESSING CHANGE QD AND PRN IF SOILING, OFFLOADING AREA -DISCONTINUE CLEANSE LEFT EAR WITH NS, PAT DRY APPLY ALGINATE DRESSING, COVER WITH DRY DRESSING QD AND PRN IF SOILING -CLEANSE WITH WOUND CARE SOLUTION AND APPLY MOIST XEROFORM GAUZE TO LEFT AND RIGHT EARS, RIGHT LATERAL KNEE, COVER WITH DRY DRESSING CHANGE 3XWEEK ON MWF AND PRN IF SOILING, OFFLOADING AREAS -CONTINUE APPLY MOIST 2X2 GAUZE WITH BETADINE SOLUTION TO LEFT LATERAL LEG AND LEFT HEEL, COVER WITH DRY DRESSING CHANGE QD AND PRN IF SOILING, OFFLOADING AREA -CLEANSE MID UPPER BACK WITH NS, PAT DRY, APPLY FOAM DRESSING QD AND PRN IF SOILING -SACRALCOCCYX CLEANSE GENTLY WITH NS, PACK WITH MOIST HYDROGEL KERLIX ROLL GAUZES AND COVER WITH DRY ISLAND DRESSING DAILY AND PRN SOILAGE.
[2021-03-30] MEDS: NON ADHERENT DRESSING TP SCH (13:35)
--- NOTE | 2021-03-30 14:10 | NUR ---
03/30/21 RD FOLLOW UP COMPLETED PLEASE REFER TO NUTRITION ASSESSMENT UNDER CARE ACTIVITY FOR ESTIMATED NUTRITIONAL NEEDS. 1. CONTINUE GLUCERNA 1.2 @ 60 ML/HR WITH WATER FLUSH 200 ML Q4H AND CRISTINE BID TOLERATED -PROVIDES 1888 KCAL, 119 GM PROTEIN AND 2360 ML WATER, MEETING ESTIMATED NUTRIENT NEEDS 2. RD TO FOLLOW-UP 2-3 DAYS, HIGH RISK EMILY BEAR RD
--- NOTE | 2021-03-30 14:45 | NUR ---
PATIENT SLEEPING. PATIENT TRACH TO VENT FIO2 24%, TV 500, RR 12, PEEP 5. PATIENT O2 SATING AT 98%. NO ACUTE DISTRESS NOTED. ALL SAFETY AND SEIZURE PRECAUTIONS IN PLACE. CALL LIGHT WITHIN REACH. WILL CONTINUE TO MONITOR.
[2021-03-30 16:00] VITALS: BP 150/96
--- NOTE | 2021-03-30 16:14 | NUR ---
PATIENT AWAKE. PATIENT TRACH TO VENT FIO2 24%, TV 500, RR 12, PEEP 5. PATIENT O2 SATING AT 98%. NO ACUTE DISTRESS NOTED. CIVIL DEFENSE DIRECTOR AT BEDSIDE. ALL SAFETY AND SEIZURE PRECAUTIONS IN PLACE. CALL LIGHT WITHIN REACH. WILL CONTINUE TO MONITOR.
--- NOTE | 2021-03-30 18:24 | NUR ---
PATIENT AWAKE. PATIENT TRACH TO VENT FIO2 24%, TV 500, RR 12, PEEP 5. PATIENT O2 SATING AT 97%. NO ACUTE DISTRESS NOTED. . ALL SAFETY AND SEIZURE PRECAUTIONS IN PLACE. CALL LIGHT WITHIN REACH. WILL CONTINUE TO MONITOR.
--- NOTE | 2021-03-30 19:20 | NUR ---
ENDORSE TO ADVERTISING DISPATCH CLERK NURSE FOR CONTINUITY OF PATIENT CARE. PATIENT STABLE.
--- NOTE | 2021-03-30 19:51 | NUR ---
PATIENT WAS RECEIVED IN HIS BED AWAKE NON VERBAL, OPENS EYES AND TRACK. NO S/S OF DISTRESS, ON FEEDING TUBE TOLERATING FEEDING VERY WELL.
[2021-03-30 20:00] VITALS: BP 135/85
--- NOTE | 2021-03-30 22:00 | NUR ---
DUE IV ATB WAS ADMINISTERED, TOLERATD WELL.
[2021-03-31] VITALS: BP 140/83
--- NOTE | 2021-03-31 | NUR ---
PATIENT WAS ASLEEP CALMLY NO DISTRESS.
--- NOTE | 2021-03-31 02:00 | NUR ---
DUE IV ATB WAS ADMINISTERED, TOLERATED WELL BY THE PATIENT.
[2021-03-31 04:00] VITALS: BP 154/96
--- NOTE | 2021-03-31 04:00 | NUR ---
PATIENT WAS CLEANED, WOUND DRESSING WAS CHANGED.
[2021-03-31] MEDS: MEROPENEM 1,000 MG in NACL 0.9% 100 ML IV SCH ×3 (05:00→20:46)
[2021-03-31 05:21] LABS: BASOPHILS % (AUTO) 0.2 % (0.0-2.0); EOSINOPHILS # (AUTO) 0.2 K/uL (0-0.4); EOSINOPHILS % (AUTO) 1.4 % (0.0-4.0); HEMATOCRIT 24.6 % (36-52); HEMOGLOBIN 8.4 g/dL (12.0-18.0); LYMPHOCYTES # (AUTO) 1.9 K/uL (2.0-11.5); MEAN CORPUSCULAR HEMOGLOBIN 31 pg (27-31); MEAN CORPUSCULAR HGB CONC 34 g/dL (33-37); MEAN CORPUSCULAR VOLUME 88.9 fL (80-94); MONOCYTES # (AUTO) 1.2 K/uL (0.8-1.0); MONOCYTES % (AUTO) 7.9 % (1.7-9.3); NEUTROPHILS # (AUTO) 12.3 K/uL (1.8-7.7); NEUTROPHILS % (AUTO) 78.5 % (42.2-75.2); PLATELET COUNT (AUTO) 469 K/uL (140-450); RED BLOOD CELL COUNT(AUTO) 2.76 MIL/uL (4.20-6.10); RED CELL DISTRIBUTION WIDTH 15.6 % (11.6-13.7); WHITE BLOOD COUNT (AUTO) 15.7 K/uL (4.8-10.8)
[2021-03-31 05:30] LABS: ANION GAP 10.8 (8-16); CARBON DIOXIDE 29.3 mmol/L (21-32); CREATININE 0.7 mg/dL (0.6-1.3); POTASSIUM 4.1 mmol/L (3.5-5.1)
[2021-03-31] MEDS: NACL 0.9% 1,000 ML IV SCH ×2 (05:32→13:15)
[2021-03-31 05:40] LABS: PHOSPHORUS 2.8 mg/dL (2.5-4.9)
--- NOTE | 2021-03-31 05:53 | NUR ---
Pt received on ventilator. Pt manas current settings well. Trach and oral care done. No vent changes made throughout shift.
[2021-03-31] MEDS: LANSOPRAZOLE 30 MG CAPDR GT SCH (06:30)
--- NOTE | 2021-03-31 07:20 | NUR ---
RECEIVED REPORT FROM RESPONDER NURSE FOR CONTINUITY OF CARE. PATIENT IS ON TELE MONITOR. AROUSABLE TO VOICE, ABLE TO FOLLOW COMMAND, NON VERBAL. RESPIRATORY EVEN AND UNLABORED, TRACH TO VENT, VT 500, FIO2 24%, PEEP 5, O2 SAT 98%. NO SIGN OF DISTRESS NOTED. SKIN WARM, DRY, NON DIAPHORETIC. MULTIPLE WOUND NOTED WITH DRESSING INTACT. IV ON LEFT HAND, INTACT AND PATENT, IS INFUSING FLUID ORDER. IV ON RIGHT FA, INTACT AND PATENT, SALINE LOCK. SAAB IN PLACE, URINE CLEAR YELLOW NOTED. G-TUBE IN PLACE, FEEDING IS RUNNING ORDER, GLUCERNA 1.2 @60ML/HR, WATER 200ML Q4H. PATIENT TOLERATED WELL. NO SIGN OF DISCOMFORT. PLAN OF CARE DISCUSSED. PRECAUTION IN PLACE. CALL LIGHT WITHIN REACH. WILL CONTINUE TO MONITOR.
--- NOTE | 2021-03-31 07:43 | NUR ---
ALL REPORTS WERE GIVEN, TRANSFER OF CARE ENDORSED.
[2021-03-31 08:00] VITALS: BP 155/96
[2021-03-31] MEDS: FOAM DRESSING TP SCH (09:00)
[2021-03-31] MEDS: SKINTEGRITY HYDROGEL TP SCH (09:00)
[2021-03-31] MEDS: TOBRAMYCIN 140 MG in DEXTROSE 5% 100 ML IV SCH (09:12)
--- NOTE | 2021-03-31 09:12 | NUR ---
SCHEDULE MEDICATION GIVEN WITH EDUCATION. PATIENT TOLERATED WELL. NO SIGN OF DISTRESS NOTED. PRECAUTION IN PLACE. CALL LIGHT WITHIN REACH. WILL CONTINUE TO MONITOR.
--- NOTE | 2021-03-31 11:00 | NUR ---
PATIENT IS RESTING IN BED, NO SIGN OF DISTRESS NOTED, O2 SAT 98%. PRECAUTION IN PLACE. CALL LIGHT WITHIN REACH. WILL CONTINUE TO MONITOR.
[2021-03-31 12:00] VITALS: BP 137/93
[2021-03-31] MEDS: GAUZE TP SCH (13:14)
[2021-03-31] MEDS: NON ADHERENT DRESSING TP SCH (13:14)
--- NOTE | 2021-03-31 13:15 | NUR ---
SCHEDULE MEDICATION GIVEN WITH EDUCATION. PATIENT TOLERATED WELL. NO SIGN OF DISTRESS NOTED. PRECAUTION IN PLACE. CALL LIGHT WITHIN REACH. WILL CONTINUE TO MONITOR.
--- NOTE | 2021-03-31 15:00 | NUR ---
PATIENT IS SLEEPING, CHEST RISE AND FALL, NO SIGN OF DISTRESS NOTED, O2 SAT 99%. PRECAUTION IN PLACE. CALL LIGHT WITHIN REACH. WILL CONTINUE TO MONITOR.
[2021-03-31 16:00] VITALS: BP 139/97
[2021-03-31] MEDS: HYDROcodone/APAP 7.5/325 MG 1 TAB PO PRN (17:18)
--- NOTE | 2021-03-31 17:18 | NUR ---
RR 30 AND HR 132, PT NOD THE HEAD WHEN ASKING IF HE IS IN PAIN. PRN NORCO GIVEN WITH EDUCATION. PATIENT TOLERATED WELL. PRECAUTION IN PLACE, CALL LIGHT WITHIN REACH. WILL CONTINUE TO MONITOR.
--- NOTE | 2021-03-31 19:01 | NUR ---
PATIENT IS SLEEPING, CHEST RISE AND FALL, R 15, HR 111, O2 SAT 98%, NO SIGN OF DISTRESS NOTED, CALL LIGHT WITHIN REACH. PRECAUTION IN PLACE. WILL CONTINUE TO MONITOR.
--- NOTE | 2021-03-31 19:27 | NUR ---
ENDORSED PATIENT TO SHOP TEACHER NURSE FOR CONTINUITY OF CARE. PATIENT IS STABLE.
--- NOTE | 2021-03-31 19:30 | NUR ---
RECEIVED REPORT FROM MORNING RN. PT IS AWAKE WITH IVF NS AT 50 ON RIGHT FOREARM. FC IN PLACE DRAINING CLEAR YELLOW URINE. TRACH TO VENT. SATING 98%, FIO2 24%, PEEP 5. NO S/S OF RESPIRATORY DISTRESS, RESPIRATION REGULAR EVEN AND UNLABORED. ALL SAFETY PRECAUTIONS ARE IN PLACE. WILL CONTINUE TO MONITOR AND PROVIDE PLAN OF CARE.
[2021-03-31 20:00] VITALS: BP 123/79
--- NOTE | 2021-03-31 20:49 | NUR ---
ADMINISTERED MEROPENEM IVPB ORDERED.
--- NOTE | 2021-03-31 23:30 | NUR ---
PATIENT WAS CHANGED, CLEANED AND REPOSITIONED. ALL SAFETY MEASURES ARE IN PLACE. NO DISTRESS NOTED.
[2021-04-01] VITALS: BP 157/88
--- NOTE | 2021-04-01 02:30 | NUR ---
PT IS AWAKE. PT IS ON TRACH TO VENT SATING 99%. NO SIGNS OF DISTRESS OR COMPLAINS NOTED. PT IS ABLE TO NOD AND NODDED HE IS NOT IN PAIN. CALL LIGHT WITHIN REACH. ALL SAFETY MEASURES TAKEN. WILL CONTINUE TO MONITOR AND PROVIDE PLAN OF CARE.
[2021-04-01 04:00] VITALS: BP 139/87
[2021-04-01] MEDS: MEROPENEM 1,000 MG in NACL 0.9% 100 ML IV SCH ×3 (04:45→20:57)
--- NOTE | 2021-04-01 04:48 | NUR ---
MEROPENEM IVPB ADMINISTERED ORDERED.
--- NOTE | 2021-04-01 04:57 | NUR ---
ROUNDED PATIENT, PT IS SLEEPING. NO S/S OF DISTRESS NOTED. BED IN LOWEST POSITION, HEAD OF BED ELEVATED.
[2021-04-01] MEDS: LANSOPRAZOLE 30 MG CAPDR GT SCH (05:52)
--- NOTE | 2021-04-01 07:32 | NUR ---
ENDORSED PATIENT TO AM NURSE FOR CONTINUITY OF CARE. PATIENT IS IN STABLE CONDITION.
--- NOTE | 2021-04-01 07:34 | NUR ---
RECEIVED REPORT FROM NIGHT NURSE FOR CONTINUITY OF CARE. AOX1,APHASIC. PT IS RESTING IN BED. ON [facility] VENT SIM VC FIO2 24% VT 500 RATE 12 PEEP 5. WITH NO S/S OF RESPIRATORY DISTRESS. BREATHING IS EVEN AND UNLABORED. SKIN IS WARM, DRY, AND NON-INTACT. IV ON RFA 20G AND LH 24G INTACT AND PATENT. INF INFUSING WELL. WOUND DRESSING C/D/I. ON TUBE FEEDING AND NO RESIDUAL NOTED. PLAN OF CARE DISCUSSED. SAFETY PRECAUTIONS IN PLACE. CALL LIGHT WITHIN REACH. WILL CONTINUE WITH TO MONITOR.
[2021-04-01 08:00] VITALS: BP 134/86
[2021-04-01 08:06] LABS: PHOSPHORUS 3.2 mg/dL (2.5-4.9)
[2021-04-01] MEDS: SKINTEGRITY HYDROGEL TP SCH (08:44)
[2021-04-01] MEDS: TOBRAMYCIN 140 MG in DEXTROSE 5% 100 ML IV SCH (08:45)
--- NOTE | 2021-04-01 09:00 | NUR ---
ALL SCHEDULED MEDS GIVEN. PT IS STABLE. NO DISTRESS NOTED. WILL CONTINUE TO MONITOR.
[2021-04-01 09:49] LABS: ANION GAP 15.1 (8-16); CARBON DIOXIDE 25.9 mmol/L (21-32); CREATININE 0.7 mg/dL (0.6-1.3)
[2021-04-01 10:01] LABS: BASOPHILS % (AUTO) 0.2 % (0.0-2.0); EOSINOPHILS # (AUTO) 0.2 K/uL (0-0.4); EOSINOPHILS % (AUTO) 1.4 % (0.0-4.0); HEMATOCRIT 24.6 % (36-52); HEMOGLOBIN 8.2 g/dL (12.0-18.0); LYMPHOCYTES # (AUTO) 2.1 K/uL (2.0-11.5); LYMPHOCYTES % (AUTO) 14.1 % (20.5-51.1); MEAN CORPUSCULAR HEMOGLOBIN 30 pg (27-31); MEAN CORPUSCULAR HGB CONC 33 g/dL (33-37); MEAN CORPUSCULAR VOLUME 90.3 fL (80-94); MONOCYTES # (AUTO) 1.3 K/uL (0.8-1.0); MONOCYTES % (AUTO) 8.6 % (1.7-9.3); NEUTROPHILS # (AUTO) 11.2 K/uL (1.8-7.7); NEUTROPHILS % (AUTO) 75.7 % (42.2-75.2); PLATELET COUNT (AUTO) 471 K/uL (140-450); RED BLOOD CELL COUNT(AUTO) 2.73 MIL/uL (4.20-6.10); RED CELL DISTRIBUTION WIDTH 15.7 % (11.6-13.7); WHITE BLOOD COUNT (AUTO) 14.9 K/uL (4.8-10.8)
--- NOTE | 2021-04-01 11:45 | NUR ---
CHECKED ON PATIENT. PT IS STABLE. NO DISTRESS NOTED. WILL CONTINUE TO MONITOR.
[2021-04-01 12:00] VITALS: BP 141/86
--- NOTE | 2021-04-01 12:08 | NUR ---
04/01/21 RD FOLLOW UP COMPLETED PLEASE REFER TO NUTRITION ASSESSMENT UNDER CARE ACTIVITY FOR ESTIMATED NUTRITIONAL NEEDS. 1. CONTINUE GLUCERNA 1.2 @ 60 ML WITH WATER FLUSH 200 ML Q4H, CRISTINE BID TOLERATED -PROVIDES 1888 KCAL, 119 GM PROTEIN AND 2360 ML WATER, MEETING ESTIMATED NUTRIENT NEEDS 2. RD TO FOLLOW-UP 2-3 DAYS, HIGH RISK EMILY BEAR RD
[2021-04-01] MEDS: NON ADHERENT DRESSING TP SCH (12:59)
[2021-04-01] MEDS: GAUZE TP SCH (13:00)
--- NOTE | 2021-04-01 13:30 | NUR ---
ASSIST WITH CHANGING WOUND AND SHEETS WITH GRAPHITE DISK ASSEMBLER. NO DRAINAGE NOTED. DRESSING IS C/D/I.
[2021-04-01 16:00] VITALS: BP 153/99
--- NOTE | 2021-04-01 16:10 | NUR ---
CHECKED ON PATIENT. PT IS STABLE. NO DISTRESS NOTED. WILL CONTINUE TO MONITOR.
--- NOTE | 2021-04-01 19:11 | NUR ---
ENDORSED TO FILE MACHINE OPERATOR NURSE FOR CONTINUITY OF CARE. PT IS STABLE.
--- NOTE | 2021-04-01 19:12 | NUR ---
RECEIVED REPORT FROM AM NURSE. PATIENT IS AWAKE RESTING COMFORTABLY IN BED. TRACH TO VENT, FIO2 24, PEEP 5. NO S/S OF RESPIRATORY DISTRESS. RESPIRATION REGULAR NON LABORED. IVF NS INFUSING AT 50 ML. G-TUBE FEEDING OF JEVITY 1.2 RUNNING AT 60 ML. ALL SAFETY PRECAUTIONS ARE IN PLACE. SAAB CATHETER DRAINING YELLOW URINE. CALL LIGHT WITHIN REACH. WILL CONTINUE TO MONITOR.
[2021-04-01 20:00] VITALS: BP 151/93
--- NOTE | 2021-04-01 20:57 | NUR ---
MERREM IVPB GIVEN PER MD ORDERED.
[2021-04-01] MEDS: NACL 0.9% 1,000 ML IV SCH (21:32)
--- NOTE | 2021-04-01 23:58 | NUR ---
ROUNDED PATIENT, NO DISTRESS NOTED. SAFETY MEASURES IN PLACE.
[2021-04-02] VITALS (7 sets, daily range): BP systolic 145–161; BP diastolic 76–96
[2021-04-02] MEDS: MEROPENEM 1,000 MG in NACL 0.9% 100 ML IV SCH ×2 (04:47→12:28)
--- NOTE | 2021-04-02 04:47 | NUR ---
ADMINISTERED MERREM ORDERED. KEPT CLEAN , DRY AND COMFORTABLE. REPOSITIONED.
[2021-04-02] MEDS: LANSOPRAZOLE 30 MG CAPDR GT SCH (06:07)
[2021-04-02 06:48] LABS: BASOPHILS % (AUTO) 0.2 % (0.0-2.0); EOSINOPHILS # (AUTO) 0.2 K/uL (0-0.4); EOSINOPHILS % (AUTO) 1.6 % (0.0-4.0); HEMATOCRIT 23.2 % (36-52); HEMOGLOBIN 7.8 g/dL (12.0-18.0); LYMPHOCYTES # (AUTO) 1.6 K/uL (2.0-11.5); LYMPHOCYTES % (AUTO) 10.8 % (20.5-51.1); MEAN CORPUSCULAR HEMOGLOBIN 30 pg (27-31); MEAN CORPUSCULAR HGB CONC 33 g/dL (33-37); MEAN CORPUSCULAR VOLUME 88.9 fL (80-94); MONOCYTES # (AUTO) 1.3 K/uL (0.8-1.0); NEUTROPHILS # (AUTO) 11.7 K/uL (1.8-7.7); NEUTROPHILS % (AUTO) 78.4 % (42.2-75.2); PLATELET COUNT (AUTO) 556 K/uL (140-450); RED BLOOD CELL COUNT(AUTO) 2.61 MIL/uL (4.20-6.10); RED CELL DISTRIBUTION WIDTH 15.8 % (11.6-13.7); WHITE BLOOD COUNT (AUTO) 14.9 K/uL (4.8-10.8)
[2021-04-02 06:59] LABS: ANION GAP 13.5 (8-16); CARBON DIOXIDE 29.5 mmol/L (21-32); CREATININE 0.6 mg/dL (0.6-1.3)
[2021-04-02 07:13] LABS: MAGNESIUM 2.1 mg/dL (1.8-2.4); PHOSPHORUS 2.9 mg/dL (2.5-4.9)
--- NOTE | 2021-04-02 07:29 | NUR ---
ENDORSED TO AM NURSE FOR CONTINUITY OF CARE. PATIENT IS STABLE.
--- NOTE | 2021-04-02 07:30 | NUR ---
RECEIVED REPORT FROM NIGHT NURSE FOR CONTINUITY OF CARE. AOX1,APHASIC. PT IS RESTING IN BED. ON MECH VENT WITH NO S/S OF RESPIRATORY DISTRESS. BREATHING IS EVEN AND UNLABORED. SKIN IS WARM, DRY, AND NON-INTACT. IV ON RFA 20G AND LH 24G INTACT AND PATENT. IVF INFUSING WELL. WOUND DRESSING C/D/I. ON TUBE FEEDING AND NO RESIDUAL NOTED. PLAN OF CARE DISCUSSED. SAFETY PRECAUTIONS IN PLACE. CALL LIGHT WITHIN REACH. WILL CONTINUE WITH TO MONITOR.
[2021-04-02] MEDS: TOBRAMYCIN 140 MG in DEXTROSE 5% 100 ML IV SCH (09:00)
--- NOTE | 2021-04-02 09:00 | NUR ---
ALL SCHEDULED MEDS GIVEN. PT IS STABLE. NO DISTRESS NOTED. WILL CONTINUE TO MONITOR.
[2021-04-02] MEDS: SKINTEGRITY HYDROGEL TP SCH (09:04)
--- NOTE | 2021-04-02 12:10 | NUR ---
CHECKED ON PATIENT. PATIENT IS STABLE. NO DISTRESS NOTED. WILL CONTINUE TO MONITOR.
[2021-04-02] MEDS: GAUZE TP SCH (12:28)
[2021-04-02] MEDS: NON ADHERENT DRESSING TP SCH (12:29)
--- NOTE | 2021-04-02 13:45 | NUR ---
ALL SCHEDULED MEDS GIVEN. PT IS STABLE. NO DISTRESS NOTED. WILL CONTINUE TO MONITOR.
--- NOTE | 2021-04-02 15:30 | NUR ---
CHANGED PATIENT'S FEEDING. NO RESIDUAL WAS NOTED.
[2021-04-02] MEDS: NACL 0.9% 1,000 ML IV SCH (17:35)
--- NOTE | 2021-04-02 17:45 | NUR ---
CHECKED ON PATIENT. PATIENT IS STABLE. NO DISTRESS NOTED. WILL CONTINUE TO MONITOR.
--- NOTE | 2021-04-02 19:23 | NUR ---
ENDORSED TO SCHOOL VOCATIONAL EDUCATOR NURSE FOR CONTINUITY OF CARE. PT IS STABLE.
--- NOTE | 2021-04-02 19:25 | NUR ---
RECEIVED REPORT FROM AM NURSE. PATIENT IS AWAKE RESTING. TRACH TO VENT. NO SOB NOTED. BREATHING REGULAR NON LABORED. IVF NS INFUSING WELL ON THE RIGHT FOREARM. TUBE FEEDING RUNNING AT 60 ML. ALL SAFETY MEASURES ARE IN PLACE. CALL LIGHT WITHIN REACH.
--- NOTE | 2021-04-02 22:00 | NUR ---
PATIENT IS KEPT CLEAN, DRY AND COMFORTABLE. PT IS STABLE
[2021-04-03] VITALS: BP 170/96
--- NOTE | 2021-04-03 02:15 | NUR ---
ROUNDED PATIENT, PT IS ASLEEP. NO S/S OF DISTRESS NOTED.
[2021-04-03 04:00] VITALS: BP 165/96
[2021-04-03] MEDS: LANSOPRAZOLE 30 MG CAPDR GT SCH (05:40)
--- NOTE | 2021-04-03 07:07 | NUR ---
NEW BOTTLE OF FEEDING HANGED.
--- NOTE | 2021-04-03 07:30 | NUR ---
ENDORSED TO AM NURSE FOR CONTINUITY OF CARE. PATIENT IS STABLE.
--- NOTE | 2021-04-03 07:32 | NUR ---
RECEIVED REPORT FROM NIGHT NURSE FOR CONTINUITY OF CARE. AOX1,APHASIC. PT IS RESTING IN BED. ON MECH VENT WITH NO S/S OF RESPIRATORY DISTRESS. BREATHING IS EVEN AND UNLABORED. SKIN IS WARM, DRY, AND NON-INTACT. IV INTACT AND PATENT. IVF INFUSING WELL. WOUND DRESSING C/D/I. ON TUBE FEEDING AND NO RESIDUAL NOTED. PLAN OF CARE DISCUSSED. SAFETY PRECAUTIONS IN PLACE. CALL LIGHT WITHIN REACH. WILL CONTINUE WITH TO MONITOR.
[2021-04-03 08:00] VITALS: BP 163/108
[2021-04-03 08:01] LABS: BASOPHILS % (AUTO) 0.2 % (0.0-2.0); EOSINOPHILS # (AUTO) 0.2 K/uL (0-0.4); EOSINOPHILS % (AUTO) 1.3 % (0.0-4.0); HEMATOCRIT 23.5 % (36-52); LYMPHOCYTES # (AUTO) 1.7 K/uL (2.0-11.5); LYMPHOCYTES % (AUTO) 11.1 % (20.5-51.1); MEAN CORPUSCULAR HEMOGLOBIN 30 pg (27-31); MEAN CORPUSCULAR HGB CONC 34 g/dL (33-37); MEAN CORPUSCULAR VOLUME 88.9 fL (80-94); MONOCYTES # (AUTO) 1.5 K/uL (0.8-1.0); MONOCYTES % (AUTO) 9.6 % (1.7-9.3); NEUTROPHILS % (AUTO) 77.8 % (42.2-75.2); PLATELET COUNT (AUTO) 609 K/uL (140-450); RED BLOOD CELL COUNT(AUTO) 2.65 MIL/uL (4.20-6.10); RED CELL DISTRIBUTION WIDTH 15.9 % (11.6-13.7); WHITE BLOOD COUNT (AUTO) 15.4 K/uL (4.8-10.8)
[2021-04-03 08:07] LABS: ANION GAP 10.6 (8-16); CARBON DIOXIDE 30.5 mmol/L (21-32); CREATININE 0.6 mg/dL (0.6-1.3); POTASSIUM 4.1 mmol/L (3.5-5.1)
[2021-04-03] MEDS: FOAM DRESSING TP SCH (08:27)
[2021-04-03] MEDS: SKINTEGRITY HYDROGEL TP SCH (08:28)
--- NOTE | 2021-04-03 09:10 | NUR ---
ALL SCHEDULED MEDICATIONS WERE GIVEN. PT IS STABLE. NO DISTRESS NOTED. WILL CONTINUE TO MONITOR.
[2021-04-03] MEDS ORDERED: hydrALAZINE 20 MG/ML VIAL IVP PRN (10:35)
[2021-04-03 12:00] VITALS: BP 118/78
--- NOTE | 2021-04-03 12:06 | NUR ---
ASSISTED BUILDING RIGGER WITH CHANGING PATIENT'S SHEET AND CHUCKS. WOUND CARE DRESSING CHANGED. NO DRAINAGE NOTED. DRESSING C/D/I. KEPT CLEAN AND DRY.
[2021-04-03] MEDS: NON ADHERENT DRESSING TP SCH (12:16)
[2021-04-03] MEDS: GAUZE TP SCH (12:16)
[2021-04-03] MEDS: NACL 0.9% 1,000 ML IV SCH (13:25)
--- NOTE | 2021-04-03 14:58 | NUR ---
CHECKED ON PATIENT. PATIENT IS STABLE. NO DISTRESS NOTED. WILL CONTINUE TO MONITOR.
[2021-04-03] MEDS ORDERED: ENALAPRIL 5 MG TAB GT SCH (15:55)
[2021-04-03 16:00] VITALS: BP 157/102
[2021-04-03] MEDS ORDERED: DEXTROSE 50% 50 ML SYR IVP PRN (16:00)
[2021-04-03] MEDS ORDERED: lisinopriL 20 MG TAB GT SCH (16:30)
[2021-04-03] MEDS: hydrALAZINE 25 MG TAB GT SCH (16:35)
[2021-04-03] MEDS: BLOOD GLUCOSE MONITORING 1 DEV DEV FS SCH ×2 (16:38→21:49)
--- NOTE | 2021-04-03 16:38 | NUR ---
BLOOD GLUCOSE CHECK WAS 147. NO INSULIN COVERAGE NEEDED
--- NOTE | 2021-04-03 19:15 | NUR ---
ENDORSED TO SOUND TRUCK OPERATOR NURSE FOR CONTINUITY OF CARE. PT IS STABLE.
[2021-04-03] MEDS: LABETALOL 200 MG TAB GT SCH (21:31)
[2021-04-03] MEDS: DOCUSATE 100 MG/10 ML UDC GT SCH (21:32)
[2021-04-03] MEDS: carvediloL 6.25 MG TAB GT SCH (21:32)
[2021-04-03] MEDS: levETIRAcetam 100 MG/ML ORASYR GT SCH (21:33)
[2021-04-03 22:33] VITALS: BP 125/90
--- NOTE | 2021-04-04 01:25 | NUR ---
the patient was admitted for spesis and respiratory failure , he is on tube feeding , he is on trach to vent. breathing is even and unlabored. he is on tube feeding . vitals are stable ,.his HR is 110 . his bp is within normal variations. comfort and safey measures are provided. bed is in low position
[2021-04-04 04:00] VITALS: BP 121/79
[2021-04-04] MEDS: LANSOPRAZOLE 30 MG CAPDR GT SCH (06:37)
[2021-04-04 06:40] LABS: ANION GAP 10.6 (8-16); CARBON DIOXIDE 29.7 mmol/L (21-32); CREATININE 0.6 mg/dL (0.6-1.3); POTASSIUM 4.3 mmol/L (3.5-5.1)
[2021-04-04 06:45] LABS: BASOPHILS # (AUTO) 0.1 K/uL (0.00-0.22); BASOPHILS % (AUTO) 0.3 % (0.0-2.0); EOSINOPHILS # (AUTO) 0.2 K/uL (0-0.4); EOSINOPHILS % (AUTO) 0.9 % (0.0-4.0); HEMATOCRIT 25.6 % (36-52); HEMOGLOBIN 8.6 g/dL (12.0-18.0); LYMPHOCYTES # (AUTO) 1.7 K/uL (2.0-11.5); LYMPHOCYTES % (AUTO) 9.3 % (20.5-51.1); MEAN CORPUSCULAR HEMOGLOBIN 30 pg (27-31); MEAN CORPUSCULAR HGB CONC 34 g/dL (33-37); MEAN CORPUSCULAR VOLUME 89.3 fL (80-94); MONOCYTES # (AUTO) 1.8 K/uL (0.8-1.0); MONOCYTES % (AUTO) 9.9 % (1.7-9.3); NEUTROPHILS # (AUTO) 14.7 K/uL (1.8-7.7); NEUTROPHILS % (AUTO) 79.6 % (42.2-75.2); PLATELET COUNT (AUTO) 679 K/uL (140-450); RED BLOOD CELL COUNT(AUTO) 2.86 MIL/uL (4.20-6.10); RED CELL DISTRIBUTION WIDTH 16.1 % (11.6-13.7); WHITE BLOOD COUNT (AUTO) 18.4 K/uL (4.8-10.8)
[2021-04-04] MEDS: BLOOD GLUCOSE MONITORING 1 DEV DEV FS SCH ×4 (06:50→21:10)
--- NOTE | 2021-04-04 07:15 | NUR ---
RECEIVED BEDSIDE REPORT FROM DESIGN DIRECTOR NURSE FOR CONTINUITY OF CARE. PT IS ASLEEP, EYES CLOSED. A&OX1 PER DESIGN DIRECTOR NURSE. ON TRACH TO VENT WITH BREATHING UNLABORED. O2 SAT IS 98%. ON SIMV VC MODE WITH FIO2 AT 24%, PEEP 5, VT 500, AND RT 12. ST ON TELE MONITOR. ST ON TELE MONITOR, HR 112. G TUBE FEEDING INFUSING GLUCERNA. SAAB CATH IN PLACE DRAINING CLEAR, YELLOW URINE. SKIN IS WARM AND DRY. WOUNDS ON SACRAL AND BILATERAL EARS. IV IS IN THE LEFT HAND 24 GAUGE AND RIGHT FA 20 GAUGE INFUSING FLUIDS ORDERED. PT IS STABLE. PLAN OF CARE DISCUSSED.
[2021-04-04 08:00] VITALS: BP 132/86
--- NOTE | 2021-04-04 08:15 | NUR ---
RECEIVED ON A [employer] R860 VENTILATOR PLUGGED INTO RED OUTLET TOLERATING WELL WITHOUT ADVERSE REACTIONS NOTED TO A YG DCT #8 AIRWAY SECURED WITH A GE TRACH TIE CUFF PRESSURE CHECKED NOTED AMBU BAG AT BEDSIDE LOC AWAKE STABLE EQUAL CHEST RISE DEEP TRACHEAL SUCTION FOR LARGE THI YELLOW SECRETIONS AIRWAY PATENT Addendum: 04/04/21 at 0952 by Farshad Tapia RT PRESSURE SUPPORT 5cmH2O = SpVt 250ml; 6 ml/kg = 440ml; INCREASE PRESSURE SUPPORT TO [id number] JU/ESTEFANY NOTIFIED
[2021-04-04] MEDS: amLODIPine 5 MG TAB PO SCH (09:00)
[2021-04-04] MEDS: lisinopriL 20 MG TAB GT SCH (09:00)
[2021-04-04] MEDS: hydrALAZINE 25 MG TAB GT SCH ×3 (09:00→17:00)
--- NOTE | 2021-04-04 09:30 | NUR ---
PT IS AWAKE WITH EYES OPEN. TRACKS WITH EYES. PT IS NONVERBAL, VENTILATOR. O2 SAT IS 98%. BREATHING UNLABORED. G TUBE RESIDUAL IS LESS THAN 5 ML. TOLERATING FEEDING WELL. DIAPER IS DRY AND INTACT. WILL CONTINUE TO MONITOR.
[2021-04-04] MEDS: NACL 0.9% 1,000 ML IV SCH (09:32)
[2021-04-04] MEDS: levETIRAcetam 100 MG/ML ORASYR GT SCH ×2 (09:40→20:56)
[2021-04-04] MEDS: minoxidiL 2.5 MG TAB GT SCH (09:40)
[2021-04-04] MEDS: carvediloL 6.25 MG TAB GT SCH ×2 (09:40→20:57)
[2021-04-04] MEDS: DOCUSATE 100 MG/10 ML UDC GT SCH ×2 (09:41→20:56)
[2021-04-04] MEDS: LABETALOL 200 MG TAB GT SCH ×2 (09:41→20:56)
[2021-04-04] MEDS: SKINTEGRITY HYDROGEL TP SCH (09:42)
--- NOTE | 2021-04-04 10:00 | NUR ---
HELD HYDRALAZINE, LISINOPRIL, AND AMLODIPINE FOR DECREASED BP. BP WAS RECHECKED AFTER GIVEN OTHER THREE BP MEDS ORDERED AND IT IS NOW 103/71. WILL CONTINUE TO MONITOR BP.
--- NOTE | 2021-04-04 10:48 | NUR ---
RESTING COMFORTABLY NO SOB NOTED GOOD CHEST RISE DEEP TRACHEAL SUCTION FOR LARGE THIN YELLOW/GREEN SECRETIONS SPUTUM CULTURE OBTAINED FORWARDED TO LAB JU/RN NOTIFIED
[2021-04-04 12:00] VITALS: BP 100/66
--- NOTE | 2021-04-04 12:00 | NUR ---
SPUTUM CULTURE COLLECTED BY ANIBAL LEONARD. URINE SAMPLE COLLECTED FROM SAAB PORT. SENT TO LAB.
--- NOTE | 2021-04-04 13:00 | NUR ---
HELD HYDRALAZINE MEDICATION ORDERED FOR BP OF 100/61. WILL CONTINUE TO MONITOR BP.
[2021-04-04] MEDS: INSULIN LISPRO SLIDING SCALE 100 UNITS/ML VIAL SUBQ PRN (13:32)
--- NOTE | 2021-04-04 13:33 | NUR ---
BS READING IS 189. PT WAS GIVEN 2 UNITS HUMALOG INSULIN PER SLIDING SCALE. PT IS STABLE.
[2021-04-04] MEDS: GAUZE TP SCH (13:34)
[2021-04-04] MEDS: NON ADHERENT DRESSING TP SCH (13:34)
--- NOTE | 2021-04-04 14:11 | NUR ---
NO DISTRESS NOTED GOOD CHETS RISE DEEP TRACHEAL SUCTION FOR LARGE THIN YELLOW/GREEN SECRETIONS AIRWAY PATENT
--- NOTE | 2021-04-04 15:30 | NUR ---
PT HAD A BM AND WAS CHANGED. BM WAS MODERATE IN AMOUNT. BM WAS LIQUID, DARK BROWN. PT WAS ALSO GIVEN BED BATH. SUCTIONED THROUGH TRACH WITH SMALL AMOUNT OF CREAMY WHITE SECRETIONS. PT WAS POSITIONED ON SIDE WITH PILLOWS IN PLACE. PT STABLE.
[2021-04-04 16:00] VITALS: BP 104/61
--- NOTE | 2021-04-04 16:28 | NUR ---
BS READING IS 134. NO INSULIN NEEDED PER SLIDING SCALE. PT STABLE.
--- NOTE | 2021-04-04 17:00 | NUR ---
PT WAS NOT GIVEN HYDRALAZINE ORDERED FOR DECREASED BP. BP WAS 104/61. WILL CONTINUE TO MONITOR BP.
[2021-04-04 17:04] VITALS: BP 108/56
--- NOTE | 2021-04-04 17:04 | NUR ---
STABLE RESTING WELL NO DISTRESS NOTED EQUAL CHEST RISE DEEP TRACHEAL SUCTION FOR MODERATE THIN YELLOW/GREEN SECRETIONS AIRWAY PATENT
--- NOTE | 2021-04-04 19:10 | NUR ---
ENDORSED PT TO CAREER DEVELOPMENT MANAGER NURSE FOR CONTINUITY OF CARE. PT IS STABLE. O2 SAT IS 99%. PLAN OF CARE DISCUSSED.
[2021-04-04 20:00] VITALS: BP 119/69
[2021-04-04] MEDS: MEROPENEM 1,000 MG in NACL 0.9% 100 ML IV SCH (20:55)
[2021-04-05] VITALS: BP 109/68
[2021-04-05 04:00] VITALS: BP 115/62
[2021-04-05] MEDS: NACL 0.9% 1,000 ML IV SCH ×2 (04:47→21:21)
[2021-04-05] MEDS: LANSOPRAZOLE 30 MG CAPDR GT SCH (05:40)
[2021-04-05] MEDS: BLOOD GLUCOSE MONITORING 1 DEV DEV FS SCH ×4 (06:49→21:51)
[2021-04-05 06:51] LABS: BASOPHILS # (AUTO) 0.1 K/uL (0.00-0.22); BASOPHILS % (AUTO) 0.5 % (0.0-2.0); EOSINOPHILS # (AUTO) 0.1 K/uL (0-0.4); EOSINOPHILS % (AUTO) 0.8 % (0.0-4.0); HEMOGLOBIN 7.8 g/dL (12.0-18.0); LYMPHOCYTES % (AUTO) 13.7 % (20.5-51.1); MEAN CORPUSCULAR HEMOGLOBIN 30 pg (27-31); MEAN CORPUSCULAR HGB CONC 34 g/dL (33-37); MEAN CORPUSCULAR VOLUME 89.6 fL (80-94); MONOCYTES # (AUTO) 1.6 K/uL (0.8-1.0); MONOCYTES % (AUTO) 10.7 % (1.7-9.3); NEUTROPHILS % (AUTO) 74.3 % (42.2-75.2); PLATELET COUNT (AUTO) 585 K/uL (140-450); RED BLOOD CELL COUNT(AUTO) 2.57 MIL/uL (4.20-6.10); RED CELL DISTRIBUTION WIDTH 15.8 % (11.6-13.7); WHITE BLOOD COUNT (AUTO) 14.8 K/uL (4.8-10.8)
--- NOTE | 2021-04-05 06:58 | NUR ---
the patient vitals are stable.. breasthing is even and unlabored. the patient is on trachea to vent . comfort and safety measures are provided.bed is low position
[2021-04-05 07:09] LABS: ANION GAP 10.7 (8-16); CARBON DIOXIDE 29.8 mmol/L (21-32); CREATININE 0.7 mg/dL (0.6-1.3); POTASSIUM 4.5 mmol/L (3.5-5.1)
--- NOTE | 2021-04-05 07:10 | NUR ---
RECEIVED BEDSIDE REPORT FROM MEDICAID COLLECTION SPECIALIST NURSE FOR CONTINUITY OF CARE. PT IS ASLEEP. ON TRACH TO VENT WITH O2 AT 98%. BREATHING IS UNLABORED. SR ON TELE MONITOR. G TUBE IN PLACE. GLUCERNA AT 60 ML/HR PER ORDER. SAAB CATH IN PLACE. SACRAL AND BACK WOUND IN PLACE. BILATERAL EAR WOUNDS WITH DRY DRESSING IN PLACE. IV IN PLACE ON THE LEFT HAND AND RIGHT FOREARM. PT IS STABLE. PLAN OF CARE DISCUSSED.
[2021-04-05 08:00] VITALS: BP 121/67
--- NOTE | 2021-04-05 09:00 | NUR ---
PT IS AWAKE, EYES OPEN AND TRACKS NURSE. BREATHING IS UNLABORED ON TRACH TO VENT. O2 SAT IS 99%. PT WAS GIVEN BED BATH. PT HAD A BM AND WAS CHANGED. WOUNDS WERE ASSESSED AND CLEANSED ORDERED. DRESSINGS WERE APPLIED ORDERED.
[2021-04-05] MEDS: levETIRAcetam 100 MG/ML ORASYR GT SCH ×2 (09:36→21:19)
[2021-04-05] MEDS: SKINTEGRITY HYDROGEL TP SCH (09:36)
[2021-04-05] MEDS: DOCUSATE 100 MG/10 ML UDC GT SCH ×2 (09:36→21:19)
[2021-04-05] MEDS: MEROPENEM 1,000 MG in NACL 0.9% 100 ML IV SCH ×2 (09:36→21:21)
[2021-04-05] MEDS: LABETALOL 200 MG TAB GT SCH ×2 (09:37→21:20)
[2021-04-05] MEDS: carvediloL 6.25 MG TAB GT SCH ×2 (10:15→21:20)
[2021-04-05] MEDS: lisinopriL 20 MG TAB GT SCH (10:15)
[2021-04-05] MEDS: minoxidiL 2.5 MG TAB GT SCH (10:15)
[2021-04-05] MEDS: amLODIPine 5 MG TAB PO SCH (10:15)
[2021-04-05] MEDS: hydrALAZINE 25 MG TAB GT SCH ×3 (10:15→16:38)
--- NOTE | 2021-04-05 10:15 | NUR ---
ALL BP MEDS BESIDES LABETOLOL WERE HELD DUE TO DECREASED BP. BP IS 100/65 AND HR IS 91. BP IS STABLE AT THIS TIME. INFORMED DR. DUENAS.
--- NOTE | 2021-04-05 11:20 | NUR ---
PT HAD TWO LIQUID BM'S. MODERATE IN AMOUNT AND LIGHT BROWN IN COLOR. FOUL SMELLING ODOR PRESENT. INFORMED DR. DUENAS AND ASKED TO PLACE A C DIFF ORDER. HE AGREED TO THIS ORDER AND A SAMPLE WAS SENT TO LAB.
[2021-04-05 12:00] VITALS: BP 105/69
[2021-04-05] MEDS: INSULIN LISPRO SLIDING SCALE 100 UNITS/ML VIAL SUBQ PRN ×2 (12:16→16:49)
[2021-04-05] MEDS: NON ADHERENT DRESSING TP SCH (12:17)
[2021-04-05] MEDS: GAUZE TP SCH (12:17)
--- NOTE | 2021-04-05 12:18 | NUR ---
PT'S BS READING IS 165. PT WAS GIVEN 2 UNITS HUMALOG INSULIN PER SLIDING SCALE. HYDRALAZINE WAS HELD ORDERED FOR DECREASED BP OF 105/69. PER DOCTOR HENRIQUE CONTINUE TO MONITOR.
--- NOTE | 2021-04-05 14:30 | NUR ---
PT WAS REPOSITIONED AND PILLOWS WERE USED TO OFFSET PRESSURE FROM SACRAL REGION. PT IS AWAKE, TRACKS WITH EYES. NONVERBAL AND VENTILATED. O2 SAT IS 99%. PT IS STABLE. SR ON TELE MONITOR.
[2021-04-05 16:00] VITALS: BP 119/76
--- NOTE | 2021-04-05 16:38 | NUR ---
PT'S BS READING IS 153. PT WAS GIVEN 2 UNITS HUMALOG INSULIN PER SLIDING SCALE.
--- NOTE | 2021-04-05 18:12 | NUR ---
PT WAS CHANGED AND REPOSITIONED. PT HAD ANOTHER BM. LIQUID IN CONSISTENCY AND LIGHT BROWN IN COLOR. PT IS STABLE. TOLERATED MOVEMENT WELL.
--- NOTE | 2021-04-05 19:00 | NUR ---
RECEIVED PT ON SIMV-VC BUR 12 Vt500 FIO2 25% PEEP 5 PS 10 NO SIGNS OF RESPIRATORY DISTRESS. PT IS AWAKE, HOB ELEVATED, TRACH SITE PATENT AND SECURE, AND VENT PLUGGED INTO RED OUTLET. BS DIMINISHED THROUGHOUT SX SMALL WHITE THICK. WILL CONTINUE TO MONITOR.
--- NOTE | 2021-04-05 19:10 | NUR ---
ENDORSED PT TO CONFERENCE RESERVATIONIST NURSE FOR CONTINUITY OF CARE. PT IS STABLE AT THIS TIME. TRACH TO VENT WITH O2 SAT AT 100%. PLAN OF CARE DISCUSSED.
[2021-04-05 20:00] VITALS: BP 120/72
--- NOTE | 2021-04-05 23:18 | NUR ---
the pateint is non verbal , bedbound.nad has trachoto vent. vitals are stable.Hr is around 100s. no symptoms or signs of pain . no fever or chills. breathing is even and unlabored. tolerating well to the tube feeding .comfrt and safety measures are provided.
[2021-04-06 00:15] VITALS: BP 115/69
[2021-04-06 04:00] VITALS: BP 118/67
[2021-04-06] MEDS: LANSOPRAZOLE 30 MG CAPDR GT SCH (06:13)
[2021-04-06] MEDS: BLOOD GLUCOSE MONITORING 1 DEV DEV FS SCH ×2 (06:29→11:30)
[2021-04-06 07:09] LABS: BASOPHILS # (AUTO) 0.1 K/uL (0.00-0.22); BASOPHILS % (AUTO) 0.5 % (0.0-2.0); EOSINOPHILS # (AUTO) 0.1 K/uL (0-0.4); EOSINOPHILS % (AUTO) 0.9 % (0.0-4.0); HEMATOCRIT 22.8 % (36-52); HEMOGLOBIN 7.7 g/dL (12.0-18.0); LYMPHOCYTES # (AUTO) 1.6 K/uL (2.0-11.5); LYMPHOCYTES % (AUTO) 11.4 % (20.5-51.1); MEAN CORPUSCULAR HEMOGLOBIN 30 pg (27-31); MEAN CORPUSCULAR HGB CONC 34 g/dL (33-37); MEAN CORPUSCULAR VOLUME 89.4 fL (80-94); MONOCYTES # (AUTO) 1.7 K/uL (0.8-1.0); MONOCYTES % (AUTO) 11.5 % (1.7-9.3); NEUTROPHILS # (AUTO) 10.9 K/uL (1.8-7.7); NEUTROPHILS % (AUTO) 75.7 % (42.2-75.2); PLATELET COUNT (AUTO) 547 K/uL (140-450); RED BLOOD CELL COUNT(AUTO) 2.55 MIL/uL (4.20-6.10); RED CELL DISTRIBUTION WIDTH 16.1 % (11.6-13.7); WHITE BLOOD COUNT (AUTO) 14.4 K/uL (4.8-10.8)
[2021-04-06 07:35] LABS: CARBON DIOXIDE 28.4 mmol/L (21-32); CREATININE 0.7 mg/dL (0.6-1.3); POTASSIUM 4.4 mmol/L (3.5-5.1)
[2021-04-06 08:00] VITALS: BP 139/83
[2021-04-06] MEDS: levETIRAcetam 100 MG/ML ORASYR GT SCH (08:54)
[2021-04-06] MEDS: DOCUSATE 100 MG/10 ML UDC GT SCH (08:54)
[2021-04-06] MEDS: minoxidiL 2.5 MG TAB GT SCH (08:55)
[2021-04-06] MEDS: hydrALAZINE 25 MG TAB GT SCH ×2 (08:55→14:29)
[2021-04-06] MEDS: LABETALOL 200 MG TAB GT SCH (08:55)
[2021-04-06] MEDS: amLODIPine 5 MG TAB PO SCH (08:55)
[2021-04-06] MEDS: carvediloL 6.25 MG TAB GT SCH (08:56)
[2021-04-06] MEDS: MEROPENEM 1,000 MG in NACL 0.9% 100 ML IV SCH (08:56)
[2021-04-06] MEDS: lisinopriL 20 MG TAB GT SCH (08:56)
[2021-04-06] MEDS ORDERED: CRUSHER, PILL MC ONE (08:58)
[2021-04-06] MEDS: FOAM DRESSING TP SCH (09:00)
[2021-04-06] MEDS: SKINTEGRITY HYDROGEL TP SCH (09:00)
[2021-04-06] MEDS ORDERED: IV Meropenam IV (10:20)
[2021-04-06 12:00] VITALS: BP 121/72
[2021-04-06] MEDS: GAUZE TP SCH (13:00)
[2021-04-06] MEDS: NON ADHERENT DRESSING TP SCH (13:00)
[2021-04-06] MEDS: INSULIN LISPRO SLIDING SCALE 100 UNITS/ML VIAL SUBQ PRN (14:24)
--- NOTE | 2021-04-06 16:00 | NUR ---
Telephone report given to Rocio ALLISON from [facility].
--- NOTE | 2021-04-06 16:10 | NUR ---
Spoke to patient's brother Juan Jose and notified of discharge plan. Verbalized understanding.
--- NOTE | 2021-04-06 16:16 | NUR ---
Patient is discharged at this time via [facility] with [facility]. Fay cath, GT, trach are intact. IV to left hand and right forearm intact.
== END 2021-04-06 16:20 | DRG 720 ==
LOC: MED 12:51 → MTU 16:40
PROVIDERS: ADMIT Family Medicine; ATTEND Family Medicine
PROC: 5A1955Z Respiratory Ventilation, Greater than 96 Consecutive Hours (ICD-10-PCS; 2021-03-24)
PROC: 30233N1 Transfusion of Nonautologous Red Blood Cells into Peripheral Vein, Percutaneous Approach (ICD-10-PCS; 2021-03-25)
PROC: 0JBN0ZZ Excision of Right Lower Leg Subcutaneous Tissue and Fascia, Open Approach (ICD-10-PCS; 2021-03-26)
PROC: 0JB10ZZ Excision of Face Subcutaneous Tissue and Fascia, Open Approach (ICD-10-PCS; 2021-03-26)
PROC: 0JB70ZZ Excision of Back Subcutaneous Tissue and Fascia, Open Approach (ICD-10-PCS; principal; 2021-03-26 12:30)
DX: A41.9 Sepsis, unspecified organism (principal); J96.21 Acute and chronic respiratory failure with hypoxia; E43 Unspecified severe protein-calorie malnutrition; J18.9 Pneumonia, unspecified organism; G82.50 Quadriplegia, unspecified; L89.154 Pressure ulcer of sacral region, stage 4; R13.11 Dysphagia, oral phase; Z93.0 Tracheostomy status; Z99.11 Dependence on respirator [ventilator] status; D72.825 Bandemia; D63.8 Anemia in other chronic diseases classified elsewhere; N39.0 Urinary tract infection, site not specified; G40.909 Epilepsy, unspecified, not intractable, without status epilepticus; N31.9 Neuromuscular dysfunction of bladder, unspecified; I10 Essential (primary) hypertension; Z20.822 Contact with and (suspected) exposure to COVID-19; E11.9 Type 2 diabetes mellitus without complications; K21.9 Gastro-esophageal reflux disease without esophagitis; J40 Bronchitis, not specified as acute or chronic; E11.52 Type 2 diabetes mellitus with diabetic peripheral angiopathy with gangrene; Z74.01 Bed confinement status; Z68.23 Body mass index [BMI] 23.0-23.9, adult; Z93.1 Gastrostomy status; Z86.73 Personal history of transient ischemic attack (TIA), and cerebral infarction without residual deficits
CPT/HCPCS: 36415; 71045; 80048; 80053; 80200; 81001; 82150; 82948; 83036; 83605; 83690; 83735; 83880; 84100; 84436; 84439; 84443; 84479; 84484; 85025; 85610; 85730; 86886; 86900; 86901; 86920; 87040; 87070; 87075; 87081; 87086; 87205; 87420; 87804; 89220; 93005; 94002; 94003; 96361; 96365; 96367; 99285; 99291; A4649; A6248; J0360; J1815; J2020; J2185; J2250; J2405; J2543; J2765; J3010; J3260; J3370; J3490; J7030; J7060; P9016; U0003

== ENCOUNTER 2021-05-09 17:07 | Inpatient (IN) | payer MEDICAID, SELFPAY ==
[~2021-05-09] VITALS: Ht 182.9 cm; Wt 72.6 kg
[~2021-05-09 17:07] MED LIST changes: -ACET-1182 PO; +ACET-2619 GT; -ALBU0.0912 IH; +AMLO10TA GT; -AMLO10TA PO; +ASCO-5 GT; -ASCO-5 PO; -COLI150P4 IV; +IV Zosyn IV; +KEP500L GT; -KEP500L PO; +SULF-58 PO
--- NOTE | 2021-05-09 17:07 | NUR ---
BIBA TAKEN TO BED 1
[2021-05-09 17:10] VITALS: BP 68/34
[2021-05-09] MEDS ORDERED: PIPERACILLIN/TAZOBACTAM 3.375 GM in DEXTROSE 5% 50 ML IV ONE (17:30)
[2021-05-09] MEDS ORDERED: NACL 0.9% 1,500 ML IV ONE ×2 (17:30→22:05)
[2021-05-09] MEDS ORDERED: NACL 0.9% 1,000 ML IV ONE (17:30)
[2021-05-09] MEDS ORDERED: VANCOMYCIN 1,000 MG in DEXTROSE 5% 250 ML IV ONE (17:30)
[2021-05-09] MEDS ORDERED: PIPERACILLIN/TAZOBACTAM 3.375 GM VIAL IV ONE (17:47)
[2021-05-09] MEDS ORDERED: ACETAMINOPHEN 650 MG SUPP RC ONE (17:50)
--- NOTE | 2021-05-09 18:05 | NUR ---
PER MD ORDER STRAIGHT CATH INSERTED FOR URINE COLLECTED. PATIENT TOLERATED WELL.
[2021-05-09 18:14] LABS: HEMATOCRIT 21.3 % (36-52); MEAN CORPUSCULAR HEMOGLOBIN 29 pg (27-31); MEAN CORPUSCULAR HGB CONC 33 g/dL (33-37); MEAN CORPUSCULAR VOLUME 88.7 fL (80-94); PLATELET COUNT (AUTO) 368 K/uL (140-450); RED CELL DISTRIBUTION WIDTH 15.8 % (11.6-13.7)
[2021-05-09 18:16] LABS: WHITE BLOOD COUNT (AUTO) 27.5 K/uL (4.8-10.8)
[2021-05-09 18:17] LABS: HEMOGLOBIN 6.9 g/dL (12.0-18.0)
--- NOTE | 2021-05-09 18:22 | NUR ---
AIDEN AND FLU SWABS COLLECTED AND WALKED TO LAB.
[2021-05-09] MEDS ORDERED: VANCOMYCIN 1,000 MG VIAL ONE (18:33)
--- NOTE | 2021-05-09 18:45 | NUR ---
51/M KARLY FROM [facility] [place] FOR ABNORMAL LABS. PER EMS STAFF CALLED EMS STATING PATIENT HEMOGLOBIN WAS 6.6 TODAY. PATIENT WAS REFERRED TO COME TO ED BY PCP FOR ABNORMAL LABS. PATIENT IS TRACH TO VENT, NONVERBAL AND NONAMBULATORY AT BASELINE. PATIENT HAS G-TUBE IN PLACE, UPON ARRIVAL PATIENT TACHYCARDIC AND RECTAL TEMP OF 102.7. PATIENT PLACED IN GOWN ON BEDSIDE RADIO INSTALLER, RT RN AND DR. PORTILLO AT BEDSIDE UPON PATIENTS ARRIVAL.
[2021-05-09 18:54] LABS: ALBUMIN 1.7 g/dL (3.4-5.0); ANION GAP 19.5 (8-16); CARBON DIOXIDE 22.3 mmol/L (21-32); CREATININE 3.7 mg/dL (0.6-1.3); POTASSIUM 4.8 mmol/L (3.5-5.1); TOTAL BILIRUBIN 0.3 mg/dL (0.0-1.0)
[2021-05-09 19:04] LABS: EOSINOPHILS % (MANUAL) 1 % (0-4); LYMPHOCYTES % (MANUAL) 3 % (20-46); MONOCYTES % (MANUAL) 1 % (5-12)
[2021-05-09 19:25] LABS: BILIRUBIN,URINE NEGATIVE (NEGATIVE); BLOOD, URINE 3+ (NEGATIVE); COLOR,URINE YELLOW (YELLOW); LEUKOCYTE ESTERASE ,URINE TRACE (NEGATIVE); NITRITE, URINE NEGATIVE (NEGATIVE); UGLUCOSE NEGATIVE (NEGATIVE)
--- NOTE | 2021-05-09 19:25 | NUR ---
Pt report given to ESTEFANY HAY. Transfer of care at this time.
--- NOTE | 2021-05-09 19:27 | NUR ---
PT IS AWAKE, NONVERBAL. VSS. PT IS IN STABLE CONDITION. ALL NEEDS MET AT THIS TIME. BED LOCKED IN LOWEST POSITION, SIDE RAILS X2 FOR SAFETY.
[2021-05-09 19:28] LABS: APPEARANCE,URINE HAZY (CLEAR)
[2021-05-09 19:49] LABS: RBC,URINE 20-50 /HPF (0-5); YEAST,URINE Few /HPF (None Seen)
--- NOTE | 2021-05-09 20:08 | NUR ---
PT SATING AT 93%, PT SUCTIONED VIA TRACH, 02 SATURATION WENT UP TO 100%. VSS. PT IN STABLE CONDITION. ALL NEEDS MET AT THIS TIME.
[2021-05-09 20:17] VITALS: BP 106/52
--- NOTE | 2021-05-09 21:00 | NUR ---
PT CLEANED UP, DIAPER CHANGED- ONLY URINE PRESENT. TURNED AND REPOSITION.
[2021-05-09] MEDS ORDERED: DOCUSATE SODIUM 100 MG GELCAP PO PRN (21:55)
[2021-05-09] MEDS ORDERED: HYDROcodone/APAP 7.5/325 MG 1 TAB PO PRN (21:55)
[2021-05-09] MEDS ORDERED: guaiFENesin DM 200/20 MG-10 ML 10 ML UDC PO PRN (21:55)
[2021-05-09] MEDS ORDERED: ONDANSETRON 4 MG/2 ML VIAL IM/IVP PRN (21:55)
[2021-05-09] MEDS ORDERED: POTASSIUM CHLORIDE 10 MEQ TABER PO PRN (21:55)
[2021-05-09] MEDS ORDERED: ZOLPIDEM 5 MG TAB PO PRN (21:55)
[2021-05-09] MEDS: NACL 0.9% 1,000 ML IV SCH (21:55)
[2021-05-09] MEDS ORDERED: VANCOMYCIN PER PHARMACY MC PRN (22:00)
[2021-05-09] MEDS ORDERED: NACL 0.9% 3,000 ML IV ONE (22:05)
[2021-05-09] MEDS ORDERED: NOREPINEPHRINE 8 MG in DEXTROSE 5% 250 ML IV PRN (22:25)
[2021-05-09 22:58] LABS: CHOL/HDL RATIO 6.9 (1-4.5); FREE T4 (FREE THYROXINE) 0.83 ng/dL (0.76-1.46); MAGNESIUM 2.7 mg/dL (1.8-2.4); PHOSPHORUS 3.3 mg/dL (2.5-4.9); THYROID STIMULATING HORMONE 3.12 uIU/mL (0.34-3.74)
[2021-05-09 23:10] LABS: PROTHROMBIN TIME 10.8 secs (10.8-13.4)
--- NOTE | 2021-05-09 23:31 | NUR ---
PT IS AWAKE AND ALERT. ALL NEEDS MET AT THIS TIME. VSS. PT IS IN STABLE CONDITION. BED LOCKED IN LOWEST POSITION, SIDE RAILS X2 FOR SAFETY.
[2021-05-10] VITALS (7 sets, daily range): BP systolic 95–133; BP diastolic 55–80
[2021-05-10] MEDS ORDERED: PIPERACILLIN/TAZOBACTAM 3.375 GM in DEXTROSE 5% 50 ML IV SCH ×2
--- NOTE | 2021-05-10 | NUR ---
STARTED 2ND UNIT OF BLOOD. PT TOLERATING WELL. NO ADVERSE REACTION FROM TRANSFUSION. ALL PRECAUTIONS IN PLACE. WILL CONTINUE TO MONITOR. Addendum: 05/11/21 at 0429 by Jhonny Steel RN TIME SHOULD BE 2300
--- NOTE | 2021-05-10 00:25 | NUR ---
PT CHANGED, DIAPER ONLY HAD URINE. SHEETS CHANGED. TURNED AND REPOSITIONED.
--- NOTE | 2021-05-10 00:45 | NUR ---
BLOOD TRANSFUSION STARTED.
[2021-05-10] MEDS: NACL 0.9% 1,000 ML IV SCH ×2 (01:09→14:05)
--- NOTE | 2021-05-10 03:15 | NUR ---
BLOOD TRANSFUSION COMPLETE. PT TOLERATED. VSS. PT IN STABLE CONDITION.
--- NOTE | 2021-05-10 04:01 | NUR ---
PT CLEANED. DIAPER CHANGED, ONLY URINE PRESENT. PT TURNED AND REPOSITIONED.
--- NOTE | 2021-05-10 06:00 | NUR ---
PT IS AWAKE, NONVERBAL. PT IS IN STABLE CONDITION. VSS. ALL NEEDS MET AT THIS TIME. BED LOCKED IN LOWEST POSITION, SIDE RAILS X2 FOR SAFETY.
[2021-05-10] MEDS ORDERED: PIPERACILLIN/TAZOBACTAM 2.25 GM VIAL IV ONE ×2 (06:35→12:37)
[2021-05-10] MEDS: PIPERACILLIN/TAZOBACTAM 2.25 GM in DEXTROSE 5% 50 ML IV SCH ×3 (06:42→21:28)
[2021-05-10 06:46] LABS: ANION GAP 17.9 (8-16); CARBON DIOXIDE 20.2 mmol/L (21-32); CREATININE 3.5 mg/dL (0.6-1.3); POTASSIUM 4.1 mmol/L (3.5-5.1)
[2021-05-10] MEDS: DEXTROSE 50% 50 ML SYR IVP PRN (07:07)
--- NOTE | 2021-05-10 07:25 | NUR ---
Report and continuation of care received from ESTEFANY Cazares
--- NOTE | 2021-05-10 07:25 | NUR ---
Pt report given to ESTEFANY LOMELI. Transfer of care at this time.
[2021-05-10] MEDS: BLOOD GLUCOSE MONITORING 1 DEV DEV FS SCH ×4 (07:53→21:29)
--- NOTE | 2021-05-10 08:00 | NUR ---
Patient resting comfortably with shelter monitor in place. Vent remains in place. Bed locked in lowest position, side rails x 2.
--- NOTE | 2021-05-10 08:27 | NUR ---
Lab at bedside
--- NOTE | 2021-05-10 08:35 | NUR ---
PATIENT HAS BEEN SCREENED AND CATEGORIZED HIGH NUTRITION RISK. PATIENT WILL BE SEEN WITHIN 1-2 DAYS OF ADMISSION. 05/10/21-05/11/[address]
[2021-05-10 08:58] LABS: BASOPHILS # (AUTO) 0.1 K/uL (0.00-0.22); BASOPHILS % (AUTO) 0.4 % (0.0-2.0); EOSINOPHILS # (AUTO) 0.3 K/uL (0-0.4); EOSINOPHILS % (AUTO) 1.3 % (0.0-4.0); HEMATOCRIT 22.1 % (36-52); HEMOGLOBIN 7.1 g/dL (12.0-18.0); LYMPHOCYTES % (AUTO) 4.8 % (20.5-51.1); MEAN CORPUSCULAR HEMOGLOBIN 28 pg (27-31); MEAN CORPUSCULAR HGB CONC 32 g/dL (33-37); MEAN CORPUSCULAR VOLUME 88.3 fL (80-94); MONOCYTES # (AUTO) 1.1 K/uL (0.8-1.0); MONOCYTES % (AUTO) 5.4 % (1.7-9.3); NEUTROPHILS # (AUTO) 17.9 K/uL (1.8-7.7); NEUTROPHILS % (AUTO) 88.1 % (42.2-75.2); PLATELET COUNT (AUTO) 278 K/uL (140-450); RED CELL DISTRIBUTION WIDTH 15.9 % (11.6-13.7); WHITE BLOOD COUNT (AUTO) 20.3 K/uL (4.8-10.8)
[2021-05-10] MEDS ORDERED: lisinopriL 20 MG TAB GT SCH (09:00)
[2021-05-10] MEDS ORDERED: LABETALOL 200 MG TAB PO SCH (09:00)
[2021-05-10] MEDS ORDERED: amLODIPine 5 MG TAB GT SCH (09:00)
[2021-05-10] MEDS ORDERED: hydrALAZINE 25 MG TAB GT SCH (09:00)
[2021-05-10] MEDS: INSULIN LANTUS 100 UNITS/ML 10 ML VIAL SUBQ SCH (09:00)
[2021-05-10] MEDS: PANTOPRAZOLE 40 MG TABEC PO SCH (10:14)
[2021-05-10] MEDS: levETIRAcetam 100 MG/ML ORASYR GT SCH ×2 (10:14→21:29)
--- NOTE | 2021-05-10 10:15 | NUR ---
RT at bedside
--- NOTE | 2021-05-10 10:32 | NUR ---
Dr. Suarez made aware of AccMary Coyle.
--- NOTE | 2021-05-10 10:40 | NUR ---
DR. DUENAS RECONTACTED AND STATES TO SKIP DARLEENUS TODAY.
--- NOTE | 2021-05-10 11:30 | NUR ---
Patient awake, non-verbal tracking appropriately. Patient repositioned into bed. Diaper changed. Pt remains on cardiac tech. Bed locked in lowest position, side rails x 2.
--- NOTE | 2021-05-10 12:31 | NUR ---
Patient laying on R side; awaken by voice and tracking appropriately. plodder operator and IVF continued. Bed locked in lowest position, side rails x 2.
--- NOTE | 2021-05-10 14:32 | NUR ---
Patient incontinent to urine. EMT at bedside assisted with diaper change.
--- NOTE | 2021-05-10 17:46 | NUR ---
Report given to surveying crew stake runner
--- NOTE | 2021-05-10 18:02 | NUR ---
COUNTER INTELLIGENCE TECHNICIAN contacted states EVS is cleaning bed will recontact when ready. RT made aware
--- NOTE | 2021-05-10 18:25 | NUR ---
Patient will be admitted to care of Dr. Suarez. Admited to Telemetry. Will go to room 124A. Belongings list completed. Report to ESTEFANY Mcdonald
--- NOTE | 2021-05-10 18:45 | NUR ---
RECIEVED PT FRM. ER TRACH TO VENT - O2 SAT WNL . AWAKE , IV SITE INTACT AND PATENT , W/ G TUBE - CLAMPED . W/ WOUNDS - PUT ON BED WOUND PROTOCOL . ADMISSION ASSESSMENT - DONE , ON S2 PREC . ON CONTACT PRECAUTION , INITIAL V/S TAKEN - O2 TO O2 SAT MONITORING , ON TELE MONITOR. NO S/SX OF ACUTE DISTRESS ON THIS TIME , WILL ENDORSE.
--- NOTE | 2021-05-10 19:33 | NUR ---
RECEIVED PT ON TRACH SHILEY 8, SETTINGS SIMV RR8, VT500, PEEP5, FIO2 30%. ORAL CARE WAS DONE, AMBU BAG AT BEDSIDE, VENT PLUGGED INTO RED OUTLET. WILL CONTINUE TO MONITOR.
--- NOTE | 2021-05-10 20:00 | NUR ---
RECEIVED PT FROM ESTEFANY GONZALEZ FOR CONTINUITY OF CARE. PT APHASIC, ON TRACH TO VENT.WOUNDS ON SACRAL AREA, LLE AND L EAR. ALL PRECAUTIONS IN PLACE. WILL CONTINUE TO MONITOR.
--- NOTE | 2021-05-10 20:55 | NUR ---
RESPONDED TO REQUEST FROM RN OF ALARMING VENT. PT PRESENTED TACHYPNEIC RR 36, BS CLEAR DIMINISHED THROUGHOUT. NOT IN RESPIRATORY DISTRESS. SX SCANT WHITE THICK SECRETIONS. DISCUSSED WITH RN ABOUT MEDICATION FOR POSSIBLE INFECTION. WILL CONTINUE TO MONITOR.
[2021-05-10] MEDS: DEXT 5% /NACL 0.9% 1,000 ML IV SCH (21:29)
--- NOTE | 2021-05-10 21:30 | NUR ---
SCHEDULED MEDICATION GIVEN. NO DISTRESS NOTED. WILL CONTINUE TO MONITOR.
--- NOTE | 2021-05-10 22:13 | NUR ---
INFORMED ABOUT PT'S BLOOD TRANSFUSION,HGB 7.1. HE STILL WANTS TO GIVE 2ND UNIT BRAD. CALLED BLOOD BANK TO PREPARE BLOOD AND THEY TOLD ME THAT THEY WILL CALL ONCE BLOOD IS READY.WILL FOLLOW UP.
--- NOTE | 2021-05-10 23:00 | NUR ---
STARTED 2ND UNIT OF BLOOD. PT TOLERATING WELL. NO ADVERSE REACTION FROM TRANSFUSION. ALL PRECAUTIONS IN PLACE. WILL CONTINUE TO MONITOR.
[2021-05-11] VITALS (8 sets, daily range): BP systolic 86–117; BP diastolic 53–69
--- NOTE | 2021-05-11 | NUR ---
SCHEDULED MEDICATION GIVEN. NO DISTRESS NOTED. WILL CONTINUE TO MONITOR.
--- NOTE | 2021-05-11 01:30 | NUR ---
PT LAYING IN BED AWAKE, HOB ELEVATED, BS COARSE THROUGHOUT SX SMALL PALE YELLOW THICK. PT IS CURRENTLY RECEIVING BLOOD TRANSFUSION. NO DISTRESS SEEN WILL CONTINUE TO MONITOR.
--- NOTE | 2021-05-11 02:30 | NUR ---
2ND UNIT DONE. NO DISTRESS NOTED. ALL PRECAUTIONS IN PLACE. WILL CONTINUE TO MONITOR.
[2021-05-11] MEDS: DEXT 5% /NACL 0.9% 1,000 ML IV SCH ×4 (02:45→22:45)
[2021-05-11] MEDS: PIPERACILLIN/TAZOBACTAM 2.25 GM in DEXTROSE 5% 50 ML IV SCH ×5 (06:18→17:15)
[2021-05-11 06:41] LABS: ANION GAP 21.4 (8-16); CARBON DIOXIDE 18.6 mmol/L (21-32); CREATININE 3.7 mg/dL (0.6-1.3)
[2021-05-11 06:43] LABS: HEMATOCRIT 24.2 % (36-52); HEMOGLOBIN 8.1 g/dL (12.0-18.0); MEAN CORPUSCULAR HEMOGLOBIN 29 pg (27-31); MEAN CORPUSCULAR HGB CONC 34 g/dL (33-37); MEAN CORPUSCULAR VOLUME 87.4 fL (80-94); PLATELET COUNT (AUTO) 307 K/uL (140-450); RED BLOOD CELL COUNT(AUTO) 2.77 MIL/uL (4.20-6.10); RED CELL DISTRIBUTION WIDTH 15.9 % (11.6-13.7); WHITE BLOOD COUNT (AUTO) 22.1 K/uL (4.8-10.8)
[2021-05-11] MEDS: BLOOD GLUCOSE MONITORING 1 DEV DEV FS SCH ×4 (06:55→21:45)
--- NOTE | 2021-05-11 07:15 | NUR ---
ENDORSED TO AM SHIFT NURSE FOR CONTINUITY OF CARE. PT IS STABLE
--- NOTE | 2021-05-11 07:20 | NUR ---
RECEIVED BEDSIDE REPORT FROM APARTMENT MAINTENANCE TECHNICIAN NURSE FOR CONTINUITY OF CARE. PT IS AWAKE WITH EYES OPEN. APHASIC AT BASELINE. TRACH TO VENT WITH BREATHING UNLABORED. O2 SAT IS 99%. VENT SETTINGS FIO2 30%, PEEP 5, VT 500, AND RT 8. SKIN IS WARM AND DRY. WOUNDS ON THE SACRAL, BILAT EARS, AND LEFT LOWER EXTREMITY. DRESSING IN PLACE ON SACRAL. INCONTINENT OF BOWEL AND BLADDER. G TUBE IN PLACE NOT INFUSING FEEDING. IV IS IN THE RIGHT AC AND THE LEFT HAND. PT IS STABLE. PLAN OF CARE DISCUSSED.
--- NOTE | 2021-05-11 07:25 | NUR ---
ON SHIFT CHANGE BP WAS 89/50. [facility] MIX MAKER NURSE NOTIFIED DR. DUENAS. DR. DUENAS ASKED FOR TREND OF BP AND INFO WAS SENT. INFORMED HIM THAT I RECHECKED THE BP AND IT IS NOW 105/59. NO NEW ORDERS.
[2021-05-11] MEDS: levETIRAcetam 100 MG/ML ORASYR GT SCH ×2 (08:17→21:39)
[2021-05-11] MEDS: PANTOPRAZOLE 40 MG TABEC PO SCH (08:17)
[2021-05-11] MEDS: INSULIN LANTUS 100 UNITS/ML 10 ML VIAL SUBQ SCH (08:25)
--- NOTE | 2021-05-11 08:26 | NUR ---
PT WAS NOT GIVEN LANTUS INSULIN 40 UNITS ORDERED BECAUSE PT IS NPO. BS READING LAST WAS 115. WILL CONTINUE TO MONITOR PER PROTOCOL.
[2021-05-11] MEDS ORDERED: VANCOMYCIN 1,000 MG in DEXTROSE 5% 250 ML IV SCH (09:00)
--- NOTE | 2021-05-11 09:30 | NUR ---
BREATHING IS UNLABORED ON TRACH TO VENT. O2 SAT IS 100%. ST ON TELE MONITOR, HR 103. G TUBE RESIDUAL IS CLEAR AND LESS THAN 5 ML. NO FEEDING INFUSING CURRENTLY. IV FLUIDS ARE INFUSING ORDERED. PT IS STABLE.
[2021-05-11 10:44] LABS: LYMPHOCYTES % (MANUAL) 3 % (20-46); MONOCYTES % (MANUAL) 4 % (5-12)
--- NOTE | 2021-05-11 11:30 | NUR ---
BS READING WAS 137. PER SLIDING SCALE PT DOES NOT NEED INSULIN COVERAGE.
[2021-05-11 11:41] LABS: T4 (THYROXINE) 3.7 ug/dL (4.5 - 12.0)
--- NOTE | 2021-05-11 12:25 | NUR ---
WOUND CARE EVALUATION NOTE: PT. ADMITTED WITH ELEVATED WBC. PT. SEEN BY DR. SARMIENTO, NO WOUND DEBRIDEMENT NEEDED.POC DISCUSSED WITH DR. DUENAS,WILL CONTINUE LOCAL WOUND CARE. INTEGUMENTARY: -TRACH AND GT CLARENCE-STOMA SKIN DRY, INTACT -PRESSURE INJURY WOUNDS TO LEFT EAR PARTIAL THICKNESS SKIN LOSS 2X1.5X0.1CM WOUND BED MOIST PINK TISSUE, NO ODOR, WOUND EDGE FLAT CLARENCE WOUND SKIN MOIST AND INTACT -PRESSURE INJURY PARTIAL THICKNESS SKIN LOSS TO RIGHT EAR 2X1.5X0.1CM 100% PINK WOUND BED, MOIST, NO ODOR, CLARENCE WOUND SKIN HEALING SCAR TISSUE, INTACT. -PRESSURE INJURY SACRALCOCCYX STAGE 4 WITH [id number] 100% GRANULATING TISSUE, UNDERMINING TO 12-3 OCLOCK 3CM, WOUND EDGE FLAT, WOUND BED MODERATE AMOUNT SEROUS DRAINAGE, NO ODOR, CLARENCE-WOUND SKIN MOIST DENUDED SKIN NON-BLANCHABLE REDNESS FURTHER DAMAGE INDICATED -PRESSURE INJURY UN-STAGEABLE LEFT LATERAL LEG 3.5X1CM 100% DRY BROWN/BLACK STABLE ESCHAR TISSUE, NO ODOR, CLARENCE WOUND SKIN INTACT. -PRESSURE INJURY UN-STAGEABLE RIGHT LATERAL KNEE 1X1CM 100% DRY BROWN/BLACK STABLE ESCHAR TISSUE, NO ODOR, CLARENCE WOUND SKIN INTACT. RECOMMENDATIONS: -CLEANSE RIGHT AND LEFT EARS WITH NS, PAT DRY AND APPLY MOIST ALGINATE GAUZES TO WOUND BED AND COVER WITH DRY DRESSING CHANGE 3XWEEK ON MWF AND PRN IF SOILING, OFFLOADING AREAS -CLEANSE SACRALCOCCYX WITH NS, PAT DRY AND PACK WITH ONE PIECE KERLIX ROLL MOIST WITH HYDROGEL TO WOUND BED AND COVER WITH DRY DRESSING CHANGE DAILY AND PRN IF SOILING, OFFLOADING AREAS -CONTINUE WITH NS, APPLY MOIST 2X2 GAUZE WITH BETADINE SOLUTION TO LEFT LATERAL LEG AND RIGHT LATERAL KNEE COVER WITH DRY DRESSING CHANGE QD AND PRN IF SOILING, OFFLOADING AREA -TURN AND REPOSITION PATIENT Q 2H -ASSESS AND MONITOR SKIN CONDITION DURING POSITION CHANGE -OFFLOAD BILATERAL HEELS BY PLACING PILLOWS UNDER CALVES AT ALL TIMES, UNLESS OTHERWISE CONTRAINDICATED -PRESSURE REDISTRIBUTION SURFACE AND OFFLOADING SACRALCOCCYX -KEEP SKIN CLEAN AND DRY AT ALL TIMES. -CONTINUE TO FOLLOW RD RECOMMENDATIONS
--- NOTE | 2021-05-11 12:33 | NUR ---
05/11/21 RD INITIAL ASSESSMENT COMPLETED PLEASE REFER TO NUTRITION ASSESSMENT UNDER CARE ACTIVITY FOR ESTIMATED NUTRITIONAL NEEDS. 1. CONTINUE NPO MEDICALLY APPROPRIATE 2. WHEN MEDICALLY APPROPRIATE, CONSIDER GLUCERNA 1.2 @ 70 ML/HR, FWF 380ML, Q6H - PROVIDES 2016 KCAL, 101 GM PROTEIN, MEETING 82% KCALS AND 83% EST. PRO NEEDS 3. CONSIDER CRISTINE TID FOR WOUND HEALING 4. RD TO FOLLOW-UP 2-3 DAYS, HIGH RISK REVIEWED BY EMILY BEAR RD
[2021-05-11] MEDS: ALGINATE ROPE MC SCH (13:22)
[2021-05-11] MEDS: GAUZE TP SCH (13:22)
[2021-05-11] MEDS: SKINTEGRITY HYDROGEL TP SCH (13:23)
--- NOTE | 2021-05-11 13:30 | NUR ---
INFORMED DR. DUENAS OF G TUBE SUGGESTION BY LEAN MANUFACTURING ENGINEER. GLUCERNA 1.2 @70 ML/HR WITH WATER FLUSHES Q6H. HE STATED TO RESUME THE FEEDING.
--- NOTE | 2021-05-11 13:44 | NUR ---
DC PLANNIN YRS OLD MALE PATIENT ADMITTED FROM [facility] WITH A DX OF ANEMIA, SEPSIS AND PNEUMONIA. THE PATIENT HAS A H/O VRE, ESBL AND C AUREUS. THE PATIENT IS TRACH TO VENT WITH PEG S/P CVA, COREAS CULTURES ORDERED. ID CONSULT, STARTED ON MEROPENEM AND COLISTIN IV ABX. PATIENTS HGB TODAY IS 6.9, TRANSFUSED 2 UNITS OF PRBC.THE PATIENT HAS BEEN AT [facility] FOR OVER A YEAR AND IS NON-VERBAL, BEDBOUND AND TOTAL CARE. DC PLAN IS FOR THE PATIENT TO RETURN TO [facility] WHEN CLINICALLY STABLE, CM WILL FOLLOW FOR NEEDS. Addendum: 05/20/21 at 1652 by Matilda Hunt RN DC PLANNING: PT RECEIVED A TOTAL OF 5 UNITS PRBC, H/H , ON PROTONIX DRIP AND FERRLECIT IV. T-V FIO2 24 . AWAITING FOR GI CONSULATE FOR POSSIBLE EGD. ID, PULMO AND GI FOLLOWING DC PLAN TO RETURN TO [facility] WHEN STABLE. CM TO FOLLOW Addendum: 05/23/21 at 1617 by Matilda Hunt RN DC PLANNING: PATIENT IS RETURNING TO [facility] ROOM NUMBER [id number] # TO GIVE REPORT [phone] ARRANGED TRANSPORT WITH [facility] THE EARLIEST INSPECTOR MULTIFOCAL LENS TIME IS 11:30 PM. NOTIFIED CHELO BERNAL CM TO FOLLOW
--- NOTE | 2021-05-11 13:56 | NUR ---
UNABLE TO DRAW ABG PT REFUSED.
--- NOTE | 2021-05-11 15:00 | NUR ---
G TUBE FEEDING WAS STARTED @20 ML/HR. WILL BE INCREASED PT IS TOLERATING FEEDING. RESIDUAL IS CURRENTLY LESS THAN 5 ML.
--- NOTE | 2021-05-11 16:18 | NUR ---
BS READING IS 148. NO INSULIN COVERAGE NEEDED PER SLIDING SCALE. PT IS STABLE. REPOSITIONED IN BED AND SUPPORTED WITH PILLOWS.
--- NOTE | 2021-05-11 18:30 | NUR ---
PT WAS CHANGED AND REPOSITIONED. NO DISTRESS NOTED ON TRACH TO VENT. O2 SAT IS 100%. G TUBE FEEDING IS INFUSING. IV FLUIDS ARE INFUSING. WILL CONTINUE TO MONITOR.
--- NOTE | 2021-05-11 19:12 | NUR ---
ABG DRAWN WITH NO ISSUES NO CRITICAL VALUES FOUND. WILL CONTINUE TO MONITOR.
--- NOTE | 2021-05-11 19:25 | NUR ---
ENDORSED PT TO SCIENTIST ENGINEER NURSE FOR CONTINUITY OF CARE. PT IS STABLE. PLAN OF CARE DISCUSSED.
--- NOTE | 2021-05-11 19:30 | NUR ---
RECEIVED BEDSIDE REPORT FROM ENGINEER TECHNICIAN NURSE FOR CONTINUITY OF CARE. PT IS AWAKE,APHASIC. TRACH TO VENT WITH BREATHING UNLABORED. O2 SAT IS 99%. VENT SETTINGS FIO2 30%, PEEP 5, VT 500, AND RT 8. SKIN IS WARM AND DRY. WOUNDS ON THE SACRAL, BILAT EARS, AND LEFT LOWER EXTREMITY. DRESSING IN PLACE ON SACRAL. INCONTINENT OF BOWEL AND BLADDER. G TUBE IN PLACE RUNNING GLUCERNA 1.2 20MLS/HR WITH 380 WF Q6. IV IS IN THE RIGHT AC AND THE LEFT HAND.ALL PRECAUTIONS IN PLACE. WILL CONTINUE TO MONITOR.
--- NOTE | 2021-05-11 21:40 | NUR ---
SCHEDULED MEDICATIONS GIVEN. BLOOD SUGAR WAS 168. INSULIN COVERAGE GIVEN. PT TOLERATED WELL. ALL PRECAUTIONS IN PLACE. WILL CONTINUE TO MONITOR.
[2021-05-11] MEDS: INSULIN LISPRO SLIDING SCALE 100 UNITS/ML VIAL SUBQ PRN (21:46)
--- NOTE | 2021-05-11 22:00 | NUR ---
PT WAS CLEANED AND REPOSITIONED. NO DISTRESS NOTED. ALL PRECAUTIONS IN PLACE. WILL CONTINUE TO MONITOR.
--- NOTE | 2021-05-11 23:07 | NUR ---
PT LAYING IN BED AWAKE, HOB ELEVATED, BS COARSE APICES DIMINISHED BASES SX SMALL YELLOW THICK. NO DISTRESS SEEN WILL CONTINUE TO MONITOR.
[2021-05-12] VITALS: BP 120/80
--- NOTE | 2021-05-12 | NUR ---
DUE MEDS GIVEN. PT NOT IN ANY DISTRESS. WILL CONTINUE TO MONITOR
[2021-05-12] MEDS: PIPERACILLIN/TAZOBACTAM 2.25 GM in DEXTROSE 5% 50 ML IV SCH ×5 (00:29→23:44)
--- NOTE | 2021-05-12 02:15 | NUR ---
PT ASLEEP. VISIBLE CHEST RISE AND FALL NOTED. ALL PRECAUTIONS IN PLACE. WILL CONTINUE TO MONITOR.
--- NOTE | 2021-05-12 02:29 | NUR ---
PT LAYING IN BED AWAKE, HOB ELEVATED, BS COARSE APICES COARSE/DIMINISHED BASES SX SMALL YELLOW FROTHY. NO DISTRESS SEEN WILL CONTINUE TO MONITOR.
[2021-05-12 04:00] VITALS: BP 117/71
--- NOTE | 2021-05-12 04:31 | NUR ---
PT LAYING IN BED AWAKE, HOB ELEVATED, BS COARSE APICES COARSE/DIMINISHED BASES SX SMALL YELLOW FROTHY. CHANGED TRACH DRESSINGS AND ORAL CARE DONE. NO DISTRESS SEEN WILL CONTINUE TO MONITOR.
[2021-05-12] MEDS: DEXT 5% /NACL 0.9% 1,000 ML IV SCH ×4 (06:11→21:13)
[2021-05-12] MEDS: ACETAMINOPHEN 325 MG TAB PO PRN ×3 (06:12→21:25)
--- NOTE | 2021-05-12 06:15 | NUR ---
DUE MEDS GIVEN. BLOOD SUGAR WAS 128. NO COVERAGE NEEDED.PT FEBRILE 100.7. PRN FEVER MEDICATION GIVEN. CLEANED AND REPOSITIONED.SPONGE BATH DONE. ALL PRECAUTIONS IN PLACE. WILL CONTINUE TO MONITOR.
--- NOTE | 2021-05-12 06:24 | NUR ---
PT IS STABLE. NO ACUTE EVENTS THROUGHOUT THE NIGHT.NO S/SX OF DISTRESS. NO OTHER COMPLAINS AT THIS TIME.ALL NEEDS MET.ALL PRECAUTIONS IN PLACE.WILL ENDORSE TO AM SHIFT NURSE.
[2021-05-12 06:33] LABS: BASOPHILS % (AUTO) 0.2 % (0.0-2.0); EOSINOPHILS # (AUTO) 0.5 K/uL (0-0.4); EOSINOPHILS % (AUTO) 2.2 % (0.0-4.0); HEMATOCRIT 26.3 % (36-52); HEMOGLOBIN 8.8 g/dL (12.0-18.0); LYMPHOCYTES # (AUTO) 0.7 K/uL (2.0-11.5); LYMPHOCYTES % (AUTO) 3.3 % (20.5-51.1); MEAN CORPUSCULAR HEMOGLOBIN 29 pg (27-31); MEAN CORPUSCULAR HGB CONC 33 g/dL (33-37); MEAN CORPUSCULAR VOLUME 87.8 fL (80-94); MONOCYTES % (AUTO) 4.9 % (1.7-9.3); NEUTROPHILS # (AUTO) 18.3 K/uL (1.8-7.7); NEUTROPHILS % (AUTO) 89.4 % (42.2-75.2); PLATELET COUNT (AUTO) 320 K/uL (140-450); WHITE BLOOD COUNT (AUTO) 20.5 K/uL (4.8-10.8)
[2021-05-12 07:04] LABS: ANION GAP 20.2 (8-16); CARBON DIOXIDE 20.3 mmol/L (21-32); CREATININE 3.6 mg/dL (0.6-1.3); POTASSIUM 3.5 mmol/L (3.5-5.1)
--- NOTE | 2021-05-12 07:40 | NUR ---
RECEIVED BEDSIDE REPORT FROM FRONT LOADER RESIDENTIAL DRIVER NURSE FOR CONTINUITY OF CARE. PT IS AWAKE WITH EYES OPEN. APHASIC AT BASELINE. TRACH TO VENT WITH BREATHING UNLABORED. O2 SAT IS 99%. VENT SETTINGS FIO2 30%, PEEP 5, VT 500, AND RT 8. SKIN IS WARM AND DRY. WOUNDS ON THE SACRAL, BILAT EARS, AND LEFT LOWER EXTREMITY. DRESSING IN PLACE ON SACRAL. INCONTINENT OF BOWEL AND BLADDER. G TUBE IN PLACE NOT INFUSING FEEDING. IV IS IN THE RIGHT AC AND THE LEFT HAND. PT IS STABLE. PLAN OF CARE DISCUSSED. SAFETY PRECAUTIONS IN PLACE. WILL CONTINUE TO MONITOR.
[2021-05-12 08:00] VITALS: BP 121/65
[2021-05-12] MEDS: BLOOD GLUCOSE MONITORING 1 DEV DEV FS SCH ×4 (08:05→21:13)
[2021-05-12] MEDS: INSULIN LANTUS 100 UNITS/ML 10 ML VIAL SUBQ SCH (09:07)
[2021-05-12] MEDS: INSULIN LISPRO SLIDING SCALE 100 UNITS/ML VIAL SUBQ PRN (09:08)
[2021-05-12] MEDS: levETIRAcetam 100 MG/ML ORASYR GT SCH ×2 (09:09→21:13)
[2021-05-12] MEDS: PANTOPRAZOLE 40 MG INJ VIAL IVP SCH (09:28)
--- NOTE | 2021-05-12 09:45 | NUR ---
ALL SCHEDULED MEDS GIVEN. PT IS STABLE. NO DISTRESS NOTED. WILL CONTINUE TO MONITOR.
[2021-05-12 12:00] VITALS: BP 125/67
--- NOTE | 2021-05-12 12:22 | NUR ---
BLOOD GLUCOSE CHECK WAS 133. NO INSULIN COVERAGE NEEDED
[2021-05-12] MEDS: ALGINATE ROPE MC SCH (12:54)
[2021-05-12] MEDS: GAUZE TP SCH (12:55)
[2021-05-12] MEDS: SKINTEGRITY HYDROGEL TP SCH (12:55)
--- NOTE | 2021-05-12 13:45 | NUR ---
PATIENT'S TEMPERATURE ELEVATED TO 101.9. ADMINISTERED TYLENOL PRN AND COOLING MEASURES IN PLACE.
--- NOTE | 2021-05-12 15:15 | NUR ---
CHECKED ON PATIENT. PT IS STABLE. NO DISTRESS NOTED. WILL CONTINUE TO MONITOR.
[2021-05-12 16:00] VITALS: BP 133/67
--- NOTE | 2021-05-12 17:57 | NUR ---
BLOOD GLUCOSE CHECK WAS 124. NO INSULIN COVERAGE NEEDED.
--- NOTE | 2021-05-12 19:46 | NUR ---
ENDORSED TO LEHR LOADER NURSE FOR CONTINUITY OF CARE. PT IS STABLE
--- NOTE | 2021-05-12 19:50 | NUR ---
RECEIVED BEDSIDE REPORT FROM DAY SHIFT RN FOR CONTINUITY OF CARE. PT IS AWAKE. TRACH TO VENT. G-TUBE WITH FEEDING RUNNING MD ORDER. IVF RUNNING MD ORDER. BILATERAL EAR WOUNDS, SACRAL WOUND, AND LEFT LEG WOUND. PT IS NOT IN ANY DISTRESS. BED AT THE LOWEST POSITION. CALL LIGHT WITHIN REACH. ALL SAFETY MEASURES TAKEN. WILL CONTINUE TO MONITOR THE PT.
[2021-05-12 20:00] VITALS: BP 144/64
--- NOTE | 2021-05-12 21:30 | NUR ---
ALL DUE MEDS GIVEN. NO ADVERSE REACTION NOTED. PT IS RUNNING A FEVER. COOLING MEASURES TAKEN. ALSO, TYLENOL GIVEN MD ORDER. PT IS NOT IN ANY DISTRESS. WILL CONTINUE TO MONITOR THE PT.
--- NOTE | 2021-05-12 22:20 | NUR ---
PT O2 IS SATING IN LOW 80S. CALLED RT AND IS ON THE WAY. WILL CONTINUE TO MONITOR THE PT.
[2021-05-13] VITALS: BP 157/70
--- NOTE | 2021-05-13 00:10 | NUR ---
PT IS AWAKE IN BED WATCHING T.V. PT IS NOT IN ANY DISTRESS. IVF RUNNING MD ORDER. FEEDING RUNNING MD ORDER. BED AT THE LOWEST POSITION. HEAD OF BED RAISED. ALL SAFETY MEASURES TAKEN. WILL CONTINUE TO MONITOR THE PT.
--- NOTE | 2021-05-13 03:35 | NUR ---
PT IS SLEEPING IN BED. PT IS NOT IN ANY DISTRESS BREATHING RHYTHMIC AND SYMMETRICAL. IVF RUNNING MD ORDER. FEEDING RUNNING MD ORDER. BED AT THE LOWEST POSITION. HEAD OF BED RAISED. ALL SAFETY PRECAUTIONS TAKEN. WILL CONTINUE TO MONITOR THE PT.
[2021-05-13 04:00] VITALS: BP 149/77
[2021-05-13] MEDS: DEXT 5% /NACL 0.9% 1,000 ML IV SCH ×2 (04:34→14:49)
[2021-05-13] MEDS: PIPERACILLIN/TAZOBACTAM 2.25 GM in DEXTROSE 5% 50 ML IV SCH ×3 (05:41→17:18)
[2021-05-13] MEDS: ACETAMINOPHEN 325 MG TAB PO PRN ×3 (05:45→12:44)
--- NOTE | 2021-05-13 05:45 | NUR ---
ALL DUE MEDS GIVEN. NO ADVERSE REACTION NOTED. PT STILL RUNNING A FEVER. COOLING MEASURES TAKEN. TYLENOL GIVEN MD ORDER. WILL CONTINUE TO MONITOR THE PT.
[2021-05-13 06:13] LABS: BASOPHILS # (AUTO) 0.1 K/uL (0.00-0.22); BASOPHILS % (AUTO) 0.3 % (0.0-2.0); EOSINOPHILS # (AUTO) 0.5 K/uL (0-0.4); HEMATOCRIT 24.4 % (36-52); HEMOGLOBIN 8.1 g/dL (12.0-18.0); LYMPHOCYTES # (AUTO) 1.1 K/uL (2.0-11.5); LYMPHOCYTES % (AUTO) 4.1 % (20.5-51.1); MEAN CORPUSCULAR HEMOGLOBIN 29 pg (27-31); MEAN CORPUSCULAR HGB CONC 33 g/dL (33-37); MEAN CORPUSCULAR VOLUME 87.9 fL (80-94); MONOCYTES # (AUTO) 1.8 K/uL (0.8-1.0); MONOCYTES % (AUTO) 6.7 % (1.7-9.3); NEUTROPHILS # (AUTO) 22.9 K/uL (1.8-7.7); NEUTROPHILS % (AUTO) 86.9 % (42.2-75.2); PLATELET COUNT (AUTO) 312 K/uL (140-450); RED BLOOD CELL COUNT(AUTO) 2.78 MIL/uL (4.20-6.10)
[2021-05-13 06:31] LABS: ANION GAP 16.6 (8-16); CARBON DIOXIDE 20.9 mmol/L (21-32); CREATININE 3.3 mg/dL (0.6-1.3); POTASSIUM 3.5 mmol/L (3.5-5.1)
[2021-05-13] MEDS: BLOOD GLUCOSE MONITORING 1 DEV DEV FS SCH ×4 (06:32→20:53)
--- NOTE | 2021-05-13 06:55 | NUR ---
MESSAGED DR. STEEL REGARDING PT CRITICAL LAB VALUES OF BUN 73. CREAT 3.3. WAITING FOR REPLY.
[2021-05-13 07:02] LABS: WHITE BLOOD COUNT (AUTO) 26.3 K/uL (4.8-10.8)
--- NOTE | 2021-05-13 07:03 | NUR ---
RECEIVED CALL FROM LAB WITH PT CRITICAL LAB VALUE OF WBC 26.3. MESSAGED DR. VELARDE. WAITING FOR REPLY.
--- NOTE | 2021-05-13 07:15 | NUR ---
RECEIVED BEDSIDE REPORT FROM TRUMPET TEACHER NURSE FOR CONTINUITY OF CARE. PT IS AWAKE AND TRACKS WITH EYES. PT WAVED WHEN I SAID HELLO. ON TRACH TO VENT. O2 SAT IS 99%. VENT SETTINGS ARE FIO2 40%, PEEP 5, VT 500, RT 8, SIMV MODE. ST ON TELE MONITOR, HR 127. G TUBE IN PLACE INFUSING FEEDING GLUCERNA. SKIN IS WARM AND DRY. WOUNDS ON BILAT EARS, BILAT LEGS, AND SACRAL. IV IS IN THE RIGHT AC AND LEFT WRIST. BOTH IV'S INTACT AND PATENT. PT IS STABLE. PLAN OF CARE DISCUSSED.
--- NOTE | 2021-05-13 07:15 | NUR ---
ENDORSED PT TO DAY SHIFT NURSE FOR CONTINUITY OF CARE. PT IS STABLE.
[2021-05-13 08:00] VITALS: BP 135/74
[2021-05-13] MEDS: PANTOPRAZOLE 40 MG INJ VIAL IVP SCH (08:26)
[2021-05-13] MEDS: INSULIN LANTUS 100 UNITS/ML 10 ML VIAL SUBQ SCH (08:27)
[2021-05-13] MEDS: levETIRAcetam 100 MG/ML ORASYR GT SCH ×2 (08:27→20:53)
--- NOTE | 2021-05-13 09:30 | NUR ---
WOUNDS WERE CLEANSED PER PROTOCOL AND DRESSINGS CHANGED. PT TOLERATED THIS WELL. NO DISTRESS NOTED ON TRACH TO VENT. O2 SAT IS 97%. G TUBE RESIDUAL IS LESS THAN 5 ML. G TUBE FEEDING CHANGED. PT IS STABLE. WILL CONTINUE TO MONITOR.
--- NOTE | 2021-05-13 10:29 | NUR ---
NOTIFIED BY STUDENT SERVICES ADVISOR THAT HR IS IN THE 150'S. CHECKED PT'S TEMP AND IT WAS 100.0 F. APPLIED COOLING MEASURES AND REMOVED BLANKETS PER PROTOCOL. HR IS 162. CHECKED BP AND IT IS 192/110. INFORMED DR. VELARDE ABOUT THIS INFORMATION AND WILL WAIT FOR RESPONSE BACK.
--- NOTE | 2021-05-13 10:34 | NUR ---
RECEIVED TELEPHONE ORDER FOR LABETALOL 5 MG IV ONE TIME DOSE FROM DR. VELARDE.
[2021-05-13] MEDS ORDERED: LABETALOL 100 MG/20 ML VIAL IVP SCH (10:35)
--- NOTE | 2021-05-13 10:54 | NUR ---
AFTER GIVING LABETOLOL IVP ORDERED, PT'S HR IS DECREASING FROM 162 TO 126. BP IS NOW 121/70. WILL CONTINUE TO MONITOR PT.
[2021-05-13] MEDS ORDERED: VANCOMYCIN 1,000 MG in DEXTROSE 5% 250 ML IV SCH (11:00)
[2021-05-13 12:00] VITALS: BP 104/56
[2021-05-13] MEDS: INSULIN LISPRO SLIDING SCALE 100 UNITS/ML VIAL SUBQ PRN ×2 (12:02→16:25)
[2021-05-13] MEDS: ALGINATE ROPE MC SCH (12:02)
--- NOTE | 2021-05-13 12:02 | NUR ---
BS READING IS 154. 2 UNITS HUMALOG INSULIN GIVEN PER SLIDING SCALE. WILL MONITOR BS.
[2021-05-13] MEDS: SKINTEGRITY HYDROGEL TP SCH (12:03)
[2021-05-13] MEDS: GAUZE TP SCH (12:03)
--- NOTE | 2021-05-13 12:44 | NUR ---
TYLENOL WAS GIVEN VIA G TUBE FOR TEMP OF 101.3 F. COOLING MEASURES APPLIED. WILL MONITOR TEMP.
--- NOTE | 2021-05-13 13:00 | NUR ---
05/13/21 RD F/U COMPLETED PLEASE REFER TO NUTRITION ASSESSMENT UNDER CARE ACTIVITY FOR ESTIMATED NUTRITIONAL NEEDS. 1. CONTINUE GLUCERNA 1.2 @ 70 ML/HR, FWF 380ML, Q6H TOLERATED - PROVIDES 2016 KCAL, 101 GM PROTEIN, MEETING 82% KCALS AND 83% EST. PRO NEEDS 2. PROVIDE CRISTINE TID PER RD PROTOCOL 3. RD TO FOLLOW-UP 2-3 DAYS, HIGH RISK REVIEWED BY JIMENA RODARTE RD
--- NOTE | 2021-05-13 13:45 | NUR ---
RECHECKED PT'S TEMP AND IT WAS 99.0 F. COOLING MEASURES STILL APPLIED. NO DISTRESS NOTED ON TRACH TO VENT. O2 SAT IS 99%. HR IS 111, ST.
--- NOTE | 2021-05-13 15:24 | NUR ---
ROUNDED ON PT. NO RESPIRATORY DISTRESS NOTED. PT IS ASLEEP. AWOKE BRIEFLY, COUGHING. PRODUCTIVE WITH CREAMY, WHITE SECRETIONS. PT WAS SUCTIONED THROUGH TRACH. TOLERATED IT WELL. O2 SAT IS NOW 99%. WILL CONTINUE TO MONITOR.
--- NOTE | 2021-05-13 15:33 | NUR ---
DR. OLIVER (SPEED BELT SANDER) AT BEDSIDE ASSESSING PT. DOCTOR GAVE VERBAL ORDER FOR SAAB CATHETER, CDIFF, URINE CULTURE, AND ALBUMIN 25% 100 ML IV. WILL FOLLOW THROUGH WITH ORDERS ONCE VERIFIED.
[2021-05-13] MEDS ORDERED: ALBUMIN HUMAN 25% 100 ML IV ONE (15:35)
--- NOTE | 2021-05-13 15:45 | NUR ---
INSERTED SAAB CATH AND 1600 ML OF CLOUDY YELLOW/WHITE URINE WAS EXPELLED. INFORMED DR. VELARDE ABOUT THE FINDINGS. SHE STATED TO SEND THE URINE CULTURE AND LEAVE THE SAAB CATHETER IN. PT IS STABLE AT THIS TIME. HR IS 111 ON TELE MONITOR. OR SAT IS 98%. NO PAIN NOTED. TEMP IS 99 F. WILL CONTINUE TO MONITOR PT.
[2021-05-13 16:00] VITALS: BP 145/70
--- NOTE | 2021-05-13 16:25 | NUR ---
BS READING IS 174. PT WAS GIVEN HUMALOG INSULIN PER SLIDING SCALE, 2 UNITS. WILL MONITOR PT.
--- NOTE | 2021-05-13 18:30 | NUR ---
PT IS STABLE. TRACH TO VENT WITH O2 SAT AT 99%. HR IS 108. NO DISTRESS NOTED. SAAB CATH DRAINING URINE. WILL CONTINUE TO MONITOR.
[2021-05-13] MEDS ORDERED: COLISTIMETHATE SODIUM 150 MG VIAL IH SCH (19:00)
--- NOTE | 2021-05-13 19:16 | NUR ---
ENDORSED PT TO ROUTING EQUIPMENT TENDER NURSE FOR CONTINUITY OF CARE. PT IS STABLE. NO FEVER AT THIS TIME. O2 SAT IS 98%. HR IS 113. PLAN OF CARE DISCUSSED.
--- NOTE | 2021-05-13 19:30 | NUR ---
RECEIVED BEDSIDE REPORT FROM DAY SHIFT RN. PT IS ON VENT TO TRACH. FC IN PLACE DRAINING CLEAR YELLOW URINE. IVF RUNNING MD ORDER. FEEDING RUNNING MD ORDER. BILATERAL EAR WOUNDS, SACRAL WOUNDS, BILATERAL LEGS WOUNDS. PT IS NOT IN ANY DISTRESS. BREATHING RHYTHMIC AND SYMMETRICAL. BED AT THE LOWEST POSITION. ALL SAFETY MEASURES TAKEN. WILL CONTINUE TO MONITOR THE PT.
[2021-05-13 20:00] VITALS: BP 179/100
[2021-05-13] MEDS ORDERED: COLISTIMETHATE SODIUM 150 MG in NACL 0.9% 100 ML IV SCH (21:00)
--- NOTE | 2021-05-13 21:30 | NUR ---
PHARM CALLED ME TO VERIFY ORDER COLISTIMETHATE FOR PT. SPOKE TO DR. QUEVEDO. HE WANTED THE ROUTE IV. 150MG LOADING DOSE. 35 MG Q12H. WILL FOLLOW UP WITH PHARM.
[2021-05-13] MEDS ORDERED: MEROPENEM 500 MG VIAL IV ONE (21:44)
[2021-05-13] MEDS: MEROPENEM 500 MG in NACL 0.9% 50 ML IV SCH (21:59)
[2021-05-13 22:05] LABS: APPEARANCE,URINE CLOUDY (CLEAR); BILIRUBIN,URINE NEGATIVE (NEGATIVE); BLOOD, URINE 2+ (NEGATIVE); COLOR,URINE YELLOW (YELLOW); LEUKOCYTE ESTERASE ,URINE 3+ (NEGATIVE); NITRITE, URINE NEGATIVE (NEGATIVE); PH,URINE 5.5 (5.0-9.0); UGLUCOSE NEGATIVE (NEGATIVE)
--- NOTE | 2021-05-13 22:15 | NUR ---
SPOKE TO DR. QUEVEDO REGARDING THE PT MEDICATION. TOLD HIM I TALKED TO THE BOX STACKER AND THAT THEY DO NOT HAVE THIS MEDICATION AT THIS HOSPITAL. DR. QUEVEDO TOLD ME TO TELL THEM TO GO TO [facility] TO GET THE MEDICATION. HE HANGED UP AFTER. WILL FOLLOW UP WITH BOX STACKER.
[2021-05-13 22:49] LABS: RBC,URINE 0-5 /HPF (0-5); WBC,URINE 80-100 /HPF (0-5)
[2021-05-13 22:50] LABS: YEAST,URINE Moderate /HPF (None Seen)
[2021-05-14] VITALS: BP 133/80
--- NOTE | 2021-05-14 02:00 | NUR ---
PT IS CLEANED AND CHANGED. PT IS NOT IN ANY DISTRESS. NO SOB OR LABORED BREATHING NOTED. BED AT THE LOWEST POSITION. HEAD OF BED RAISED. WILL CONTINUE TO MONITOR THE PT.
[2021-05-14] MEDS: DEXT 5% /NACL 0.9% 1,000 ML IV SCH ×4 (03:00→18:07)
[2021-05-14 04:00] VITALS: BP 105/59
[2021-05-14] MEDS: BLOOD GLUCOSE MONITORING 1 DEV DEV FS SCH ×4 (07:07→21:00)
[2021-05-14] MEDS: INSULIN LISPRO SLIDING SCALE 100 UNITS/ML VIAL SUBQ PRN ×4 (07:08→23:39)
[2021-05-14 07:17] LABS: ANION GAP 18.8 (8-16); CARBON DIOXIDE 18.7 mmol/L (21-32); CREATININE 2.8 mg/dL (0.6-1.3); POTASSIUM 3.5 mmol/L (3.5-5.1)
--- NOTE | 2021-05-14 07:30 | NUR ---
ENDORSED PT TO DAY SHIFT RN FOR CONTINUITY OF CARE. PT IS STABLE.
[2021-05-14 07:32] LABS: BASOPHILS # (AUTO) 0.1 K/uL (0.00-0.22); BASOPHILS % (AUTO) 0.2 % (0.0-2.0); EOSINOPHILS # (AUTO) 0.3 K/uL (0-0.4); EOSINOPHILS % (AUTO) 1.1 % (0.0-4.0); HEMATOCRIT 21.9 % (36-52); HEMOGLOBIN 7.2 g/dL (12.0-18.0); LYMPHOCYTES # (AUTO) 0.8 K/uL (2.0-11.5); LYMPHOCYTES % (AUTO) 3.2 % (20.5-51.1); MEAN CORPUSCULAR HEMOGLOBIN 29 pg (27-31); MEAN CORPUSCULAR HGB CONC 33 g/dL (33-37); MEAN CORPUSCULAR VOLUME 88.2 fL (80-94); MONOCYTES # (AUTO) 1.5 K/uL (0.8-1.0); MONOCYTES % (AUTO) 6.4 % (1.7-9.3); NEUTROPHILS # (AUTO) 21.2 K/uL (1.8-7.7); NEUTROPHILS % (AUTO) 89.1 % (42.2-75.2); PLATELET COUNT (AUTO) 275 K/uL (140-450); RED BLOOD CELL COUNT(AUTO) 2.48 MIL/uL (4.20-6.10); RED CELL DISTRIBUTION WIDTH 16.4 % (11.6-13.7); WHITE BLOOD COUNT (AUTO) 23.8 K/uL (4.8-10.8)
--- NOTE | 2021-05-14 07:57 | NUR ---
RECEIVED REPORT FROM ASSOCIATE PRINCIPAL NURSE. NO S/S OF DISTRESS. BREATHING SYMMETRICAL. ALL SAFETY MEASURES IN PLACE. CRITICAL VALUES REPORTED. BUN 65, CR 2.8, NOTIFIED
[2021-05-14 08:00] VITALS: BP 146/82
[2021-05-14] MEDS: INSULIN LANTUS 100 UNITS/ML 10 ML VIAL SUBQ SCH (09:00)
[2021-05-14] MEDS: MEROPENEM 500 MG in NACL 0.9% 50 ML IV SCH ×2 (09:00→23:33)
[2021-05-14] MEDS: levETIRAcetam 100 MG/ML ORASYR GT SCH ×2 (09:00→21:00)
[2021-05-14] MEDS: COLISTIMETHATE SODIUM 35 MG in NACL 0.9% 100 ML IV SCH ×2 (09:00→21:00)
[2021-05-14] MEDS: PANTOPRAZOLE 40 MG INJ VIAL IVP SCH (09:00)
--- NOTE | 2021-05-14 10:32 | NUR ---
PT RESTING IN BED. NO S/S OF DISTRESS. CALL LIGHT IN REACH. ALL SAFETY MEASURES IN PLACE. BREATHING SYMMETRICAL.
[2021-05-14 12:00] VITALS: BP 155/83
--- NOTE | 2021-05-14 13:24 | NUR ---
PT RESTING IN BED. NO S/S OF DISTRESS. CALL LIGHT IN REACH. ALL SAFETY MEASURES IN PLACE. BREATHING SYMMETRICAL. PT CLEANED
[2021-05-14] MEDS: ALGINATE ROPE MC SCH (13:29)
[2021-05-14] MEDS: GAUZE TP SCH (13:30)
[2021-05-14] MEDS: SKINTEGRITY HYDROGEL TP SCH (13:30)
[2021-05-14] MEDS ORDERED: ALBUMIN HUMAN 25% 100 ML IV SCH (14:10)
[2021-05-14 16:00] VITALS: BP 136/76
--- NOTE | 2021-05-14 16:34 | NUR ---
PT RESTING IN BED. NO S/S OF DISTRESS. CALL LIGHT IN REACH. ALL SAFETY MEASURES IN PLACE. BREATHING SYMMETRICAL. WOUND CARE WAS PROVIDED AND PT WAS CLEANED
[2021-05-14 16:53] LABS: EOSINOPHILS # (AUTO) 0.7 K/uL (0-0.4); EOSINOPHILS % (AUTO) 3.2 % (0.0-4.0); HEMATOCRIT 21.2 % (36-52); HEMOGLOBIN 7.1 g/dL (12.0-18.0); LYMPHOCYTES # (AUTO) 0.8 K/uL (2.0-11.5); LYMPHOCYTES % (AUTO) 3.6 % (20.5-51.1); MEAN CORPUSCULAR HEMOGLOBIN 29 pg (27-31); MEAN CORPUSCULAR HGB CONC 34 g/dL (33-37); MEAN CORPUSCULAR VOLUME 87.3 fL (80-94); MONOCYTES # (AUTO) 1.5 K/uL (0.8-1.0); MONOCYTES % (AUTO) 6.7 % (1.7-9.3); NEUTROPHILS # (AUTO) 19.7 K/uL (1.8-7.7); NEUTROPHILS % (AUTO) 86.5 % (42.2-75.2); PLATELET COUNT (AUTO) 275 K/uL (140-450); RED BLOOD CELL COUNT(AUTO) 2.43 MIL/uL (4.20-6.10); RED CELL DISTRIBUTION WIDTH 15.9 % (11.6-13.7); WHITE BLOOD COUNT (AUTO) 22.8 K/uL (4.8-10.8)
--- NOTE | 2021-05-14 19:21 | NUR ---
PT RESTING IN BED. NO S/S OF DISTRESS. CALL LIGHT IN REACH. ALL SAFETY MEASURES IN PLACE. BREATHING SYMMETRICAL.
--- NOTE | 2021-05-14 19:22 | NUR ---
PT RESTING IN BED. NO S/S OF DISTRESS. CALL LIGHT IN REACH. ALL SAFETY MEASURES IN PLACE. BREATHING SYMMETRICAL. PT LINENS AND GOWN CHANGED, CLEANED
--- NOTE | 2021-05-14 19:35 | NUR ---
RECEIVED REPORT FROM RN DAYSHIFT NURSE AT BEDSIDE FOR CONTINUITY OF CARE. PT LYING IN BED HOB UP AT 45% AOX1 APHASIAC HE IS A TRACH TO VENT RESPIRATIONS EVEN AND UNLABORED ON ALL CURRENT VENT SETTINGS HAS A G TUBE INTACT RUNNING GLUCERNA AT 70MLS/HR. PT HAS SAAB CATHETER INTACT AND DRAINING LIGHT YELLOW URINE. IV SITE IS RIGHT WRIST 20G INTACT AND RUNNING D5 N/S AT 150MLS/HR. ALL ORDERED PRECAUTIONS IN PLACE.
[2021-05-14] MEDS ORDERED: ALBUMIN HUMAN 25% 100 ML IV ONE (19:55)
--- NOTE | 2021-05-14 19:56 | NUR ---
ENDORSED PT TO INVESTMENT ADVISOR NURSE
[2021-05-14 20:00] VITALS: BP 132/63
--- NOTE | 2021-05-14 20:30 | NUR ---
PT IN BED HE WAS SUCTIONED X1 V/S FOLLOWS: T 99.5 P 130 R 22 B/P 132/63 02 95% WITH ALL CURRENT TRACH TO VENT SETTINGS. WILL FOLLOW UP WITH MD REGARDING ELEVATED HR COOLING MEASURES APPLIED FOR INCREASED TEMP.
[2021-05-14 20:52] LABS: ANION GAP 15.8 (8-16); CARBON DIOXIDE 20.5 mmol/L (21-32); CREATININE 2.4 mg/dL (0.6-1.3); POTASSIUM 3.3 mmol/L (3.5-5.1)
--- NOTE | 2021-05-14 21:30 | NUR ---
PT FINGERSTICK IS 165, HE WAS GIVEN 2 UNITS OF HUMALOG PER S/S PT ALSO GIVEN ORDERED KEPPRA FOR HX OF SEIZURES, ALL SEIZURE PRECAUTIONS IN PLACE. PAUL GEORGE. TEXTED MD REGARDING ORDERS
--- NOTE | 2021-05-14 22:00 | NUR ---
LOOKED IN BOTH OMNICELL AND ASKED ROLLER LEVELER REGARDING COLY-MYCIN IV ABT, MEDICATION NOT AVAILABLE AT THIS TIME PHARMACY WILL RECONSTITUTE IN THE AM WILL ENDORSE TO AM SHIFT. PT TURNED AND REPOSITIONED IN BED.
[2021-05-14] MEDS ORDERED: NACL 0.9% 1,000 ML IV SCH (22:35)
--- NOTE | 2021-05-14 23:00 | NUR ---
NEW ORDER NOTED FROM MD VELARDE, SHE ORDERED 1 LITER BOLUS OF NORMAL SALINE WHICH WHICH WAS GIVEN. ALSO X1 ORDER OF ALBUMIN GIVEN. WILL RETAKE B/P AND FOLLOW UP WITH .
[2021-05-15] VITALS (8 sets, daily range): BP systolic 123–153; BP diastolic 64–87
[2021-05-15] MEDS: DEXT 5% /NACL 0.9% 1,000 ML IV SCH ×4 (00:05→20:05)
[2021-05-15] MEDS ORDERED: ALBUMIN HUMAN 25% 100 ML IV ONE (00:37)
[2021-05-15] MEDS ORDERED: METOPROLOL 25 MG TAB PO ONE (01:55)
--- NOTE | 2021-05-15 02:30 | NUR ---
PT GIVEN X1 LOPRESSOR ORDERED BY MD VELARDE, SHE ALSO ORDERED LOPRESSOR BID. PT TURNED AND REPOSITIONED IN BED.
--- NOTE | 2021-05-15 05:30 | NUR ---
PT TURNED CHANGED AND REPOSITIONED IN BED DRESSINGS FOR SACRAL AND BILATERAL LOWER LEGS CHANGED V/S FOLLOWS: T 97.124 P 124 R 22 B/P 123/66 02 95% ON ALL TRACH TO VENT SETTINGS. ALL ORDERED PRECAUTIONS IN PLACE.
--- NOTE | 2021-05-15 06:30 | NUR ---
FINGERSTICK IS 196 2 UNITS OF INSULIN COVERAGE GIVEN. FLAGYL HUNG AND RUNNING ORDERED.
[2021-05-15] MEDS: INSULIN LISPRO SLIDING SCALE 100 UNITS/ML VIAL SUBQ PRN ×2 (07:04→23:35)
[2021-05-15] MEDS: BLOOD GLUCOSE MONITORING 1 DEV DEV FS SCH ×4 (07:06→21:00)
--- NOTE | 2021-05-15 07:23 | NUR ---
RECEIVED REPORT FROM DISK OPERATOR NURSE
[2021-05-15 07:34] LABS: HEMATOCRIT 22.4 % (36-52); HEMOGLOBIN 7.3 g/dL (12.0-18.0); MEAN CORPUSCULAR HEMOGLOBIN 29 pg (27-31); MEAN CORPUSCULAR HGB CONC 33 g/dL (33-37); MEAN CORPUSCULAR VOLUME 87.4 fL (80-94); PLATELET COUNT (AUTO) 335 K/uL (140-450); RED BLOOD CELL COUNT(AUTO) 2.57 MIL/uL (4.20-6.10)
[2021-05-15 08:09] LABS: MAGNESIUM 1.2 mg/dL (1.8-2.4); PHOSPHORUS 2.2 mg/dL (2.5-4.9)
[2021-05-15 08:42] LABS: ANION GAP 17.6 (8-16); CARBON DIOXIDE 19.7 mmol/L (21-32); CREATININE 2.1 mg/dL (0.6-1.3); POTASSIUM 3.3 mmol/L (3.5-5.1)
[2021-05-15] MEDS: INSULIN LANTUS 100 UNITS/ML 10 ML VIAL SUBQ SCH (09:01)
[2021-05-15] MEDS: MEROPENEM 500 MG in NACL 0.9% 50 ML IV SCH ×2 (09:02→23:36)
[2021-05-15] MEDS: METOPROLOL 25 MG TAB PO SCH ×2 (09:02→23:43)
[2021-05-15] MEDS: PANTOPRAZOLE 40 MG INJ VIAL IVP SCH (09:02)
[2021-05-15] MEDS: levETIRAcetam 100 MG/ML ORASYR GT SCH ×2 (09:03→23:37)
[2021-05-15] MEDS: ACETAMINOPHEN 325 MG TAB PO PRN ×2 (09:23→23:38)
--- NOTE | 2021-05-15 09:24 | NUR ---
PT RUNNING FEVER TEMPS BETWEEN 100.3 AND 102, MEDICATED PER MD ORDER AND ICE PACKS APPLIED. CALLED PHARMACY FOR PT MEDICATION MISSING. PHARMACY TO BRING MEDICATION. ALL SAFETY MEASURES IN PLACE
[2021-05-15 09:52] LABS: WHITE BLOOD COUNT (AUTO) 26.5 K/uL (4.8-10.8)
--- NOTE | 2021-05-15 10:08 | NUR ---
CRITICAL VALUE RECEIVED 0953. WBC 26.5, MD NOTIFIED. PHARMACY BROUGHT MEDICATION. WILL ADMINISTER
[2021-05-15] MEDS: COLISTIMETHATE SODIUM 35 MG in NACL 0.9% 100 ML IV SCH ×2 (10:13→21:00)
[2021-05-15 11:37] LABS: LYMPHOCYTES % (MANUAL) 6 % (20-46); MONOCYTES % (MANUAL) 5 % (5-12)
[2021-05-15] MEDS ORDERED: POTASSIUM PHOSPHATE 15 MM in NACL 0.9% 250 ML IV SCH (12:30)
[2021-05-15] MEDS: GAUZE TP SCH (13:00)
[2021-05-15] MEDS: SKINTEGRITY HYDROGEL TP SCH (13:00)
[2021-05-15] MEDS: ALGINATE ROPE MC SCH (13:00)
--- NOTE | 2021-05-15 13:00 | NUR ---
CHANGED AND CLEANED PT. ALL SAFETY MEASURES IN PL;JEM. WOUND CARE ADMINISTERED
[2021-05-15] MEDS ORDERED: FLUCONAZOLE 100 MG/NS PREMIX 50 ML IV SCH (15:40)
--- NOTE | 2021-05-15 16:00 | NUR ---
WAS UNABLE TO PULL PT MEDICATION FROM [facility]. ATTEMPTED TO REACH PHARMACY, NO ANSWER. AFTER SEVERAL ATTEMPTS TO REACH PHARMACY I STILL HAVE NOT RECEIVED AN ANSWER. Addendum: 05/15/21 at 2043 by Mendel Ayala RN RN NIGHT NURSE NOTIFIED.
[2021-05-15] MEDS ORDERED: MAG SULF 2000 MG/WATER PREMIX 50 ML IV ONE (16:20)
[2021-05-15] MEDS ORDERED: POTASSIUM PHOSPHATE 15 MM in NACL 0.9% 250 ML IV ONE (16:20)
--- NOTE | 2021-05-15 16:32 | NUR ---
PT RESTING IN BED. NO S/S OF DISTRESS. CALL LIGHT IN REACH. ALL SAFETY MEASURES IN PLACE. BREATHING SYMMETRICAL. PT LINENS AND GOWN CHANGED, CLEANED
--- NOTE | 2021-05-15 17:51 | NUR ---
05/15/21 RD FOLLOW UP COMPLETED PLEASE REFER TO NUTRITION PROGRESS NOTE UNDER CARE ACTIVITY FOR ESTIMATED NUTRITION NEEDS. RD RECOMMENDATIONS: 1. CONTINUE GLUCERNA 1.2 @ 70 ML/HR, FWF 380ML, Q6H TOLERATED - PROVIDES 2016 KCAL, 101 GM PROTEIN, MEETING 82% KCALS AND 83% EST. PRO NEEDS 2. RECOMMEND MONITORING AND REPLENISHING ELECTROLYTE TO PREVENT RE-FEEDING SYNDROME 3. CONTINUE CRISTINE TID TO PROMOTE WOUND HEALING 4. RD TO FOLLOW-UP 2-3 DAYS, HIGH RISK ALEJANDRA NORTH, RD
--- NOTE | 2021-05-15 21:00 | NUR ---
PATIENT IS IN BED RESTING, APHASIC, NON VERBAL. TRACH TO VENT. NO S/S OF RESPIRATORY DISTRESS. RESPIRATION EVEN UNLABORED. ALL SAFETY PRECAUTIONS ARE IN PLACE. G-TUBE FEEDING RUNNING ORDERED BY MD. IVF INFUSING PER MD ORDERED. ADMINISTERED MEDS ORDERED. FLACC 0.
--- NOTE | 2021-05-15 22:05 | NUR ---
IVF INFILTRATED. INSERTED A NEW PERIPHERAL IV ON THE RIGHT FOREARM WITH GOOD RETURN OF BLOOD. TOLERATED PROCEDURE WELL.
[2021-05-15] MEDS ORDERED: COLISTIMETHATE SODIUM 150 MG VIAL ONE (22:45)
[2021-05-16] VITALS (7 sets, daily range): BP systolic 100–225; BP diastolic 71–85
[2021-05-16] MEDS: DEXT 5% /NACL 0.9% 1,000 ML IV SCH ×4 (02:45→22:47)
[2021-05-16] MEDS ORDERED: hydrALAZINE 20 MG/ML VIAL IVP SCH (05:20)
[2021-05-16 06:48] LABS: BASOPHILS % (AUTO) 0.1 % (0.0-2.0); EOSINOPHILS # (AUTO) 0.4 K/uL (0-0.4); EOSINOPHILS % (AUTO) 1.6 % (0.0-4.0); LYMPHOCYTES # (AUTO) 0.8 K/uL (2.0-11.5); LYMPHOCYTES % (AUTO) 2.9 % (20.5-51.1); MEAN CORPUSCULAR HEMOGLOBIN 29 pg (27-31); MEAN CORPUSCULAR HGB CONC 33 g/dL (33-37); MEAN CORPUSCULAR VOLUME 86.7 fL (80-94); MONOCYTES # (AUTO) 1.7 K/uL (0.8-1.0); MONOCYTES % (AUTO) 6.6 % (1.7-9.3); NEUTROPHILS # (AUTO) 22.7 K/uL (1.8-7.7); NEUTROPHILS % (AUTO) 88.8 % (42.2-75.2); PLATELET COUNT (AUTO) 294 K/uL (140-450); RED BLOOD CELL COUNT(AUTO) 2.26 MIL/uL (4.20-6.10)
[2021-05-16 07:17] LABS: ANION GAP 11.8 (8-16); CARBON DIOXIDE 22.4 mmol/L (21-32); CREATININE 1.7 mg/dL (0.6-1.3); POTASSIUM 3.2 mmol/L (3.5-5.1)
[2021-05-16 07:22] LABS: MAGNESIUM 1.1 mg/dL (1.8-2.4); PHOSPHORUS 2.8 mg/dL (2.5-4.9)
[2021-05-16] MEDS: BLOOD GLUCOSE MONITORING 1 DEV DEV FS SCH ×4 (07:44→21:46)
--- NOTE | 2021-05-16 07:54 | NUR ---
ENDORSED PATIENT TO AM NURSE IN STABLE CONDITION.
--- NOTE | 2021-05-16 07:59 | NUR ---
RECEIVED PATIENT FROM MEDICAL RECORDS LIBRARY PROFESSOR NURSE FOR CONTINUITY OF CARE. PATIENT IS RESTING IN BED, EYE OPEN SPONTANEOUS, APHASIC. RESPIRATORY EVEN AND UNLABORED, TRACH TO VENT, VT 500, PEEP 5, FIO2 24%, O2 SAT 98%. NO SIGN OF DISTRESS NOTED. SKIN WARM, DRY, NON DIAPHORETIC. IV ON RIGHT AC 20G, INTACT AND PATEN, SALINE LOCK. IV ON RIGHT FA 20G, INTACT AND PATENT, IS INFUSING FLUID ORDER. SAAB CATH IN PLACE, CLEAR YELLOW URINE NOTED. PRECAUTION IN PLACE. CALL LIGHT WITHIN REACH. WILL CONTINUE TO MONITOR.
[2021-05-16 09:08] LABS: WHITE BLOOD COUNT (AUTO) 25.6 K/uL (4.8-10.8)
[2021-05-16 09:09] LABS: HEMATOCRIT 19.6 % (36-52); HEMOGLOBIN 6.5 g/dL (12.0-18.0)
[2021-05-16] MEDS: COLISTIMETHATE SODIUM 35 MG in NACL 0.9% 100 ML IV SCH (09:22)
[2021-05-16] MEDS: levETIRAcetam 100 MG/ML ORASYR GT SCH ×2 (09:26→21:16)
[2021-05-16] MEDS: PANTOPRAZOLE 40 MG INJ VIAL IVP SCH (09:26)
--- NOTE | 2021-05-16 09:26 | NUR ---
SCHEDULE MEDICATIONS GIVEN WITH EDUCATION, PATIENT TOLERATED WELL. NO SIGN OF DISTRESS NOTED. PRECAUTION IN PLACE. CALL LIGHT WITHIN REACH. WILL CONTINUE TO MONITOR.
[2021-05-16] MEDS: INSULIN LANTUS 100 UNITS/ML 10 ML VIAL SUBQ SCH (09:28)
[2021-05-16] MEDS: METOPROLOL 25 MG TAB PO SCH ×2 (09:41→21:37)
[2021-05-16] MEDS: MEROPENEM 500 MG in NACL 0.9% 50 ML IV SCH ×2 (10:33→22:41)
--- NOTE | 2021-05-16 11:45 | NUR ---
WOUND CARE RE-EVALUATION NOTE: MULTIPLE PRESSURE INJURIES WOUNDS NO CHANGE OF CONDITION, WILL CONTINUE SAME INTERVENTIONS. INTEGUMENTARY: -PRESSURE INJURY WOUNDS TO LEFT EAR PARTIAL THICKNESS SKIN LOSS 2X1.3X0.1CM WOUND BED MOIST PINK TISSUE, NO ODOR, WOUND EDGE FLAT CLARENCE WOUND SKIN MOIST AND INTACT -PRESSURE INJURY PARTIAL THICKNESS SKIN LOSS TO RIGHT EAR 2X1X0.1CM 100% PINK WOUND BED, MOIST, NO ODOR, CLARENCE WOUND SKIN HEALING SCAR TISSUE, INTACT. -PRESSURE INJURY SACRALCOCCYX STAGE 4 WITH 0X4I5MV 100% GRANULATING TISSUE, UNDERMINING TO 12-3 OCLOCK 3CM, WOUND EDGE FLAT, WOUND BED MODERATE AMOUNT SEROUS DRAINAGE, NO ODOR, CLARENCE-WOUND SKIN MOIST DENUDED SKIN NON-BLANCHABLE REDNESS FURTHER DAMAGE INDICATED -PRESSURE INJURY UN-STAGEABLE LEFT LATERAL LEG 3.5X1CM 100% DRY BROWN/BLACK STABLE ESCHAR TISSUE, NO ODOR, CLARENCE WOUND SKIN INTACT. -PRESSURE INJURY UN-STAGEABLE RIGHT LATERAL KNEE 1X1CM 100% DRY BROWN/BLACK STABLE ESCHAR TISSUE, NO ODOR, CLARENCE WOUND SKIN INTACT. RECOMMENDATIONS: -CLEANSE RIGHT AND LEFT EARS WITH NS, PAT DRY AND APPLY MOIST ALGINATE GAUZES TO WOUND BED AND COVER WITH DRY DRESSING CHANGE 3XWEEK ON MWF AND PRN IF SOILING, OFFLOADING AREAS -CLEANSE SACRALCOCCYX WITH NS, PAT DRY AND PACK WITH ONE PIECE KERLIX ROLL MOIST WITH HYDROGEL TO WOUND BED AND COVER WITH DRY DRESSING CHANGE DAILY AND PRN IF SOILING, OFFLOADING AREAS -CONTINUE WITH NS, APPLY MOIST 2X2 GAUZE WITH BETADINE SOLUTION TO LEFT LATERAL LEG AND RIGHT LATERAL KNEE COVER WITH DRY DRESSING CHANGE QD AND PRN IF SOILING, OFFLOADING AREA -TURN AND REPOSITION PATIENT Q 2H -ASSESS AND MONITOR SKIN CONDITION DURING POSITION CHANGE -OFFLOAD BILATERAL HEELS BY PLACING PILLOWS UNDER CALVES AT ALL TIMES, UNLESS OTHERWISE CONTRAINDICATED -PRESSURE REDISTRIBUTION SURFACE AND OFFLOADING SACRALCOCCYX -KEEP SKIN CLEAN AND DRY AT ALL TIMES. -CONTINUE TO FOLLOW RD RECOMMENDATIONS
[2021-05-16] MEDS: INSULIN LISPRO SLIDING SCALE 100 UNITS/ML VIAL SUBQ PRN ×3 (12:25→21:46)
--- NOTE | 2021-05-16 12:25 | NUR ---
BLOOD SUGAR CHECK 177, 2 UNITS INSULIN GIVEN TO COVER. PATIENT TOLERATED WELL. NO SIGN OF DISTRESS NOTED. PRECAUTION IN PLACE. CALL LIGHT WITHIN REACH. WILL CONTINUE TO MONITOR.
[2021-05-16] MEDS: SKINTEGRITY HYDROGEL TP SCH (13:00)
[2021-05-16] MEDS: GAUZE TP SCH (13:00)
[2021-05-16] MEDS: ALGINATE ROPE MC SCH (13:00)
--- NOTE | 2021-05-16 14:20 | NUR ---
PATIENT IS RESTING IN BED, NO SIGN OF DISTRESS NOTED. PRECAUTION IN PLACE. CALL LIGHT WITHIN REACH. WILL CONTINUE TO MONITOR.
--- NOTE | 2021-05-16 17:12 | NUR ---
CALLED LAB REGARDING BLOOD TRANSFUSION. PER LAB, NO PRBC AVAILABLE AT THIS TIME. WILL CONTINUE TO FOLLOW UP.
--- NOTE | 2021-05-16 17:39 | NUR ---
BLOOD SUGAR CHECK 185, 2 UNITS INSULIN GIVEN TO COVER. PATIENT TOLERATED WELL. NO SIGN OF DISTRESS NOTED. PRECAUTION IN PLACE. CALL LIGHT WITHIN REACH. WILL CONTINUE TO MONITOR.
--- NOTE | 2021-05-16 17:57 | NUR ---
RECEIVED CALL FROM PATIENT'S MOM, CATE, PATIENT'S CONDITION UPDATE. ALL QUESTIONS WERE ANSWERED.
--- NOTE | 2021-05-16 19:47 | NUR ---
ENDORSED PATIENT TO COMPUTER HELP DESK REPRESENTATIVE NURSE FOR CONTINUITY OF CARE. PATIENT IS STABLE.
--- NOTE | 2021-05-16 19:50 | NUR ---
RECEIVED PT WITH EYES OPEN, APHASIC, WITH TRACH TO VENT WITH FF SETTINGS: SIMV FIO2 -40%, TV-500, R-20, PEEP-5, SAT RANGING FROM 86% TO 92%, PT HAS LOTS OF SECRETIONS, SUCTIONED FREQUENTLY WITH MODERATELY HEAVY WHITE SECRETIONS NOTED, IVF INFUSING WELL, G-TUBE FEEDING ON-GOING, HOB ELEVATED AT ALL TIMES, SAAB CATHETER TO GRAVITY WITH YELLOW OUTPUT, MAINTAINED ON ISOLATION FOR MDRO SPUTUM, PT BEDBOUND, WILL REPOSITION Q2H AND OFFLOAD PRESSURE AREAS, FREQUENT ROUNDS WILL BE MADE.
--- NOTE | 2021-05-16 21:30 | NUR ---
2119 PATIENT IN SEVERE SOB. PLACED PATIENT ON AC MODE FROM SIMV. PATIENT IS ON AC 20 VT 500 PEEP 5 AND FIO2 AT 100%. WILL TITRATE FIO2 TO KEEP SATS GREATER THAN 92%
[2021-05-16] MEDS: DEXTROSE 5% IV SCH (21:37)
[2021-05-16] MEDS: COLISTIMETHATE SODIUM IV SCH (21:37)
[2021-05-16] MEDS: ACETAMINOPHEN 325 MG TAB PO PRN (21:38)
--- NOTE | 2021-05-16 21:50 | NUR ---
CALLED LAB AND TALKED TO RAY TO FOLLOW UP [facility], STATED [facility] APPROVED 1 UNIT [facility] BUT STILL WAITING FOR AVAILABILITY.
[2021-05-17] VITALS (7 sets, daily range): BP systolic 102–173; BP diastolic 62–97
--- NOTE | 2021-05-17 | NUR ---
PT SLEEPING, OPEN EYES TO TOUCH, FLACC-0, VITAL SIGNS STABLE, SR-ST ON TELE, IVF INFUSING WELL, G-TUBE FEEDING ON-GOING, REPOSITIONED AND OFFLOAD PRESSURE AREAS, CONTINUE TO MONITOR CLOSELY.
[2021-05-17] MEDS: DEXT 5% /NACL 0.9% 1,000 ML IV SCH ×3 (05:36→18:18)
[2021-05-17] MEDS: INSULIN LISPRO SLIDING SCALE 100 UNITS/ML VIAL SUBQ PRN ×2 (06:15→11:57)
--- NOTE | 2021-05-17 06:39 | NUR ---
TALKED TO [place] FROM BLOOD BANK TO FOLLOW UP [facility], STATED THEY HAVE IT BUT IT HASN'T BEEN CROSSMATCH YET, WILL ENDORSE.
[2021-05-17] MEDS: BLOOD GLUCOSE MONITORING 1 DEV DEV FS SCH ×4 (07:09→22:32)
--- NOTE | 2021-05-17 07:39 | NUR ---
PT AWAKE, NO SIGNS OF DISTRESS, BEDSIDE REPORT GIVEN TO RN HORACE FOR CONTINUITY OF CARE.
[2021-05-17 07:52] LABS: MAGNESIUM 1.4 mg/dL (1.8-2.4); PHOSPHORUS 2.7 mg/dL (2.5-4.9)
[2021-05-17] MEDS: MEROPENEM 500 MG in NACL 0.9% 50 ML IV SCH ×2 (09:00→22:23)
[2021-05-17] MEDS: levETIRAcetam 100 MG/ML ORASYR GT SCH ×2 (09:00→22:21)
[2021-05-17] MEDS: DEXTROSE 5% IV SCH ×2 (09:00→22:22)
[2021-05-17] MEDS: METOPROLOL 25 MG TAB PO SCH ×2 (09:00→22:21)
[2021-05-17] MEDS: PANTOPRAZOLE 40 MG INJ VIAL IVP SCH (09:00)
[2021-05-17] MEDS: COLISTIMETHATE SODIUM IV SCH ×2 (09:00→22:22)
[2021-05-17] MEDS: INSULIN LANTUS 100 UNITS/ML 10 ML VIAL SUBQ SCH (09:00)
--- NOTE | 2021-05-17 09:58 | NUR ---
RECEIVED ON A FERREIRA VENTILATOR PLUGGED INTO RED OUTLET TOLERATING WELL WITHOUT ADVERSE REACTIONS NOTED TO A PORTEX DCT #8 AIRWAY SECURED WITH A GE TRACH TIE CUFF PRESSURE CHECKED NOTED AMBU BAG AT BEDSIDE LOC AWAKE RESPONDS TO SUPERVISORY HISTORIAN VERBAL WITH "RAISING OF RIGHT HAND" GOOD CHEST RISE DEEP TRACHEAL SUCTION FOR COPIOUS THIN TO FROTHY YELLOW/GREEN SECRETIONS AIRWAY PATENT
--- NOTE | 2021-05-17 12:00 | NUR ---
TYLENOL GIVEN FOR A 11.4 LOW GRADE FEVER.
[2021-05-17] MEDS: ACETAMINOPHEN 325 MG TAB PO PRN (12:02)
[2021-05-17] MEDS ORDERED: ZOLPIDEM 5 MG TAB PO PRN (12:15)
[2021-05-17] MEDS: ALGINATE ROPE MC SCH (13:00)
[2021-05-17] MEDS: GAUZE TP SCH (13:00)
[2021-05-17] MEDS: SKINTEGRITY HYDROGEL TP SCH (13:00)
--- NOTE | 2021-05-17 13:00 | NUR ---
TEMP IS NOW 99.1 . TYLENOL HELPED DECREASE TEMP ON PT. PT IS STABLE.
[2021-05-17 14:26] LABS: BASOPHILS % (AUTO) 0.2 % (0.0-2.0); EOSINOPHILS # (AUTO) 0.4 K/uL (0-0.4); EOSINOPHILS % (AUTO) 2.3 % (0.0-4.0); LYMPHOCYTES # (AUTO) 0.8 K/uL (2.0-11.5); LYMPHOCYTES % (AUTO) 4.1 % (20.5-51.1); MEAN CORPUSCULAR HEMOGLOBIN 29 pg (27-31); MEAN CORPUSCULAR HGB CONC 33 g/dL (33-37); MEAN CORPUSCULAR VOLUME 87.6 fL (80-94); MONOCYTES # (AUTO) 1.3 K/uL (0.8-1.0); NEUTROPHILS # (AUTO) 16.5 K/uL (1.8-7.7); NEUTROPHILS % (AUTO) 86.4 % (42.2-75.2); PLATELET COUNT (AUTO) 242 K/uL (140-450); RED BLOOD CELL COUNT(AUTO) 1.98 MIL/uL (4.20-6.10); RED CELL DISTRIBUTION WIDTH 16.3 % (11.6-13.7); WHITE BLOOD COUNT (AUTO) 19.2 K/uL (4.8-10.8)
--- NOTE | 2021-05-17 14:30 | NUR ---
HGB IS AT 5.8 AND HCT IS AT 17.4. WILL BEGIVING [facility] UNIT ONCE THE LAB CALLS THAT IT IS READY.
[2021-05-17 14:35] LABS: HEMATOCRIT 17.4 % (36-52); HEMOGLOBIN 5.8 g/dL (12.0-18.0)
--- NOTE | 2021-05-17 19:46 | NUR ---
ENDORSED PT TO PROGRAM PROFESSIONAL NURSE FOR CONTINUITY OF CARE.
[2021-05-18] VITALS: BP 123/77
[2021-05-18] MEDS: DEXT 5% /NACL 0.9% 1,000 ML IV SCH ×4 (03:18→22:07)
[2021-05-18 04:00] VITALS: BP 139/83
--- NOTE | 2021-05-18 05:00 | NUR ---
Patient blood transfusion was started. VS. 99.2,117,26, 137/83 99%.
--- NOTE | 2021-05-18 05:15 | NUR ---
INCREASE IN TEMP tylenol and cooling measures applied temp 100.6, 119, 26, 139/83 100%
[2021-05-18] MEDS: ACETAMINOPHEN 325 MG TAB PO PRN (05:21)
--- NOTE | 2021-05-18 05:45 | NUR ---
Temp still elevated 102.1. Blood bank and MD notified. Blood bank stated to continue with infusion if not other reaction present. v/s 137/81, 12, 26 100%
[2021-05-18] MEDS: BLOOD GLUCOSE MONITORING 1 DEV DEV FS SCH ×4 (06:32→22:05)
--- NOTE | 2021-05-18 07:05 | NUR ---
Patient pulled out IV line while blood was infusing. Will endorse to AM shift.
[2021-05-18 08:00] VITALS: BP 147/83
[2021-05-18] MEDS: METOPROLOL 25 MG TAB PO SCH ×2 (09:00→22:05)
[2021-05-18] MEDS: INSULIN LANTUS 100 UNITS/ML 10 ML VIAL SUBQ SCH (09:00)
[2021-05-18] MEDS: COLISTIMETHATE SODIUM IV SCH ×2 (09:00→22:06)
[2021-05-18] MEDS: levETIRAcetam 100 MG/ML ORASYR GT SCH ×2 (09:00→22:05)
[2021-05-18] MEDS: DEXTROSE 5% IV SCH ×2 (09:00→22:06)
[2021-05-18] MEDS: PANTOPRAZOLE 40 MG INJ VIAL IVP SCH (09:00)
[2021-05-18 12:00] VITALS: BP 129/79
[2021-05-18] MEDS: MEROPENEM 500 MG in NACL 0.9% 50 ML IV SCH ×2 (12:02→22:06)
--- NOTE | 2021-05-18 12:13 | NUR ---
05/18/21 RD F/U COMPLETED PLEASE REFER TO NUTRITION ASSESSMENT UNDER CARE ACTIVITY FOR ESTIMATED NUTRITIONAL NEEDS. 1. CONTINUE GLUCERNA 1.2 @ 70 ML/HR, FWF 380ML, Q6H TOLERATED - PROVIDES 2016 KCAL, 101 GM PROTEIN, MEETING 82% KCALS AND 83% EST. PRO NEEDS 2. CONTINUE CRISTINE TID 3. RD TO FOLLOW-UP 2-3 DAYS, HIGH RISK REVIEWED BY JIMENA RODARTE RD
[2021-05-18] MEDS: SKINTEGRITY HYDROGEL TP SCH (13:33)
[2021-05-18] MEDS: GAUZE TP SCH (13:33)
[2021-05-18] MEDS: ALGINATE ROPE MC SCH (13:33)
[2021-05-18 16:00] VITALS: BP 130/80
[2021-05-18] MEDS: INSULIN LISPRO SLIDING SCALE 100 UNITS/ML VIAL SUBQ PRN (18:13)
--- NOTE | 2021-05-18 19:20 | NUR ---
ENDORSED TO CATARACT LENS GENERATOR NURSE FOR CONTINUITY OF CARE.
--- NOTE | 2021-05-18 19:52 | NUR ---
RECEIVED PT ON TRACH SHILEY 8, SETTINGS AC RR20, VT500, PEEP5, FIO2 30% NO DISTRESS NOTED PT SATING 96%. BS COARSE THROUGHOUT SX SMALL YELLOW THICK. AMBU BAG AT BEDSIDE, VENT PLUGGED INTO RED OUTLET. WILL CONTINUE TO MONITOR.
[2021-05-18 20:00] VITALS: BP 145/83
--- NOTE | 2021-05-18 20:00 | NUR ---
Received patient from AM shift nurse. Patient is currently stable with RT at bedside. No s/s of distress is noted at this time. Will continue to monitor throughout the shift.
[2021-05-18 20:19] LABS: MAGNESIUM 1.2 mg/dL (1.8-2.4); PHOSPHORUS 2.9 mg/dL (2.5-4.9)
[2021-05-19] VITALS (7 sets, daily range): BP systolic 137–172; BP diastolic 77–93
--- NOTE | 2021-05-19 00:30 | NUR ---
ROUNDS: Patient is currently resting no s/s of distress noted. All evening interventions and medications have been completed. Patient has call light within reach, bed is locked with bed alarm and locked into position with bed rails up. Will continue to monitor.
[2021-05-19] MEDS: DEXT 5% /NACL 0.9% 1,000 ML IV SCH ×2 (06:10→10:45)
[2021-05-19] MEDS: BLOOD GLUCOSE MONITORING 1 DEV DEV FS SCH ×4 (06:11→20:27)
--- NOTE | 2021-05-19 06:46 | NUR ---
Patient is currently resting no s/s of distress is noted at this time. All current needs have been met and all shift interventions have been completed. Will differ further care to AM shift nurse for continuity of care.
[2021-05-19 06:47] LABS: BASOPHILS # (AUTO) 0.1 K/uL (0.00-0.22); BASOPHILS % (AUTO) 0.4 % (0.0-2.0); EOSINOPHILS # (AUTO) 0.3 K/uL (0-0.4); LYMPHOCYTES # (AUTO) 1.1 K/uL (2.0-11.5); LYMPHOCYTES % (AUTO) 8.7 % (20.5-51.1); MEAN CORPUSCULAR HEMOGLOBIN 28 pg (27-31); MEAN CORPUSCULAR HGB CONC 32 g/dL (33-37); MEAN CORPUSCULAR VOLUME 87.5 fL (80-94); MONOCYTES # (AUTO) 1.4 K/uL (0.8-1.0); MONOCYTES % (AUTO) 11.3 % (1.7-9.3); NEUTROPHILS # (AUTO) 9.9 K/uL (1.8-7.7); NEUTROPHILS % (AUTO) 77.6 % (42.2-75.2); PLATELET COUNT (AUTO) 233 K/uL (140-450); RED BLOOD CELL COUNT(AUTO) 2.22 MIL/uL (4.20-6.10); RED CELL DISTRIBUTION WIDTH 15.6 % (11.6-13.7); WHITE BLOOD COUNT (AUTO) 12.8 K/uL (4.8-10.8)
[2021-05-19 07:09] LABS: ANION GAP 14.5 (8-16); CARBON DIOXIDE 24.5 mmol/L (21-32); CREATININE 1.1 mg/dL (0.6-1.3)
[2021-05-19 07:15] LABS: MAGNESIUM 1.1 mg/dL (1.8-2.4); PHOSPHORUS 3.1 mg/dL (2.5-4.9)
--- NOTE | 2021-05-19 07:30 | NUR ---
PATIENT RECEIVED FROM NIGHT NURSE , PATIENT RESTING IN BED , ALL SAFETY MEASURES ARE IN PLACE, CALL LIGHT WITHIN REACH , BED ALARM ON ,
[2021-05-19 08:07] LABS: FOLIC ACID > 20.00 ng/mL (>3.0)
[2021-05-19] MEDS: MEROPENEM 500 MG in NACL 0.9% 50 ML IV SCH ×2 (08:28→20:21)
[2021-05-19] MEDS: levETIRAcetam 100 MG/ML ORASYR GT SCH ×2 (08:29→20:25)
[2021-05-19] MEDS: PANTOPRAZOLE 40 MG INJ VIAL IVP SCH (08:29)
[2021-05-19] MEDS: METOPROLOL 25 MG TAB PO SCH ×2 (08:30→20:26)
[2021-05-19] MEDS: INSULIN LANTUS 100 UNITS/ML 10 ML VIAL SUBQ SCH (08:31)
--- NOTE | 2021-05-19 09:00 | NUR ---
MEDICATIONS GIVEN PER MD ORDER, PT EDUCATED , PT UNABLE TO VERBALIZE UNDERSTANDING DUE TO CONDITION , ALL SAFETY MEASURES ARE IN PLACE.
[2021-05-19] MEDS ORDERED: MAG SULF 2000 MG/WATER PREMIX 100 ML IV ONE (09:20)
[2021-05-19 09:44] LABS: HEMATOCRIT 19.4 % (36-52); HEMOGLOBIN 6.3 g/dL (12.0-18.0)
[2021-05-19] MEDS: DEXTROSE 5% IV SCH ×2 (09:44→20:56)
[2021-05-19] MEDS: COLISTIMETHATE SODIUM IV SCH ×2 (09:44→20:56)
--- NOTE | 2021-05-19 09:45 | NUR ---
hgb6.3, hct 19.4 , md NOTIFIED
--- NOTE | 2021-05-19 10:02 | NUR ---
RECEIVED ON A [employer] R860 VENTILATOR PLUGGED INTO RED OUTLET TOLERATING WELL WITHOUT ADVERSE REACTIONS NOTED TO A YG DCT #8 AIRWAY SECURED WITH A GE TRACH TIE CUFF PRESSURE CHECKED NOTED AMBU BAG AT BEDSIDE EQUAL CHEST RISE DEEP TRACHEAL SUCTION FOR LARGE SEMI THICK YELLOW SECRETIONS AIRWAY PATENT Addendum: 05/19/21 at 1804 by Farshad Tapia RT [employer] R860 = HANNA
[2021-05-19 11:18] LABS: FERRITIN 1400 ng/mL (30 - 400); TRANSFERRIN 104 mg/dL (200 - 370)
--- NOTE | 2021-05-19 11:20 | NUR ---
RESIDUALS 130 AT THIS TIME , TUBE FEEDING STOPPED PER MD ORDER,
--- NOTE | 2021-05-19 12:00 | NUR ---
BLOOD BANK CALLED RE: [facility] MD ORDER, NOT AVAILABLE AT THIS TIME .
[2021-05-19] MEDS ORDERED: POTASSIUM CHLORIDE 20% 40 MEQ/15 ML UDC GT SCH (13:00)
[2021-05-19] MEDS ORDERED: FUROSEMIDE 20 MG/2 ML VIAL IVP SCH (13:00)
[2021-05-19 13:15] LABS: ALBUMIN 1.5 g/dL (3.4-5.0); BILIRUBIN,DIRECT 0.2 mg/dL (0.0-0.3); TOTAL BILIRUBIN 0.5 mg/dL (0.0-1.0)
[2021-05-19] MEDS: ALGINATE ROPE MC SCH (13:36)
[2021-05-19] MEDS: GAUZE TP SCH (13:37)
[2021-05-19] MEDS: SKINTEGRITY HYDROGEL TP SCH (13:37)
--- NOTE | 2021-05-19 13:49 | NUR ---
MEDICATIONS GIVEN PER MD ORDER, PT EDUCATED NO S/SX OF DISTRESS AT THIS TIME
--- NOTE | 2021-05-19 13:50 | NUR ---
TUBE FEEDING RESUMED
--- NOTE | 2021-05-19 14:25 | NUR ---
WOUND CARE PERFORMED PATIENT
[2021-05-19] MEDS: SODIUM FERRIC GLUCONATE 125 MG in NACL 0.9% 100 ML IV SCH (16:20)
--- NOTE | 2021-05-19 16:30 | NUR ---
BG 97 , NO ACTION AT THIS TIME
--- NOTE | 2021-05-19 16:56 | NUR ---
PATIENT TOLERATING FEEDINGS, 70 RESIDUAL AT THIS TIME
--- NOTE | 2021-05-19 18:26 | NUR ---
TUBE FEEDING DISCONTINUED , PT HAS RESIDUAL 250MLS
--- NOTE | 2021-05-19 19:18 | NUR ---
PATIENT ENDORSED TO FOOD ORDER EXPEDITER FOR CONTINUITY OF CARE, PATIENT IN STABLE CONDITION
--- NOTE | 2021-05-19 19:27 | NUR ---
FOLLOWED UP WITH BLOOD BANK CALLED RE: [facility] MD ORDER, NOT AVAILABLE AT THIS TIME .
--- NOTE | 2021-05-19 19:35 | NUR ---
Received patient from AM shift nurse. Patient is Alert but unable to communicate needs no s/s of distress is noted at this time. Chest rise is even and unlabored, on vent trach. Normal heart sounds present. Patient feeding is on hold because GT site is leaking and is pending placement check EGD tomorrow. Consent has been completed for pending procedure. sacral wound dressing is clean and intact. IV line to the LAC is patent infusing with no s/s of infiltration. Bed is locked, in the lowest position with bed rails up. Will continue to monitor throughout the shift for changes.
[2021-05-19] MEDS: ACETAMINOPHEN 325 MG TAB PO PRN (21:45)
--- NOTE | 2021-05-19 22:18 | NUR ---
Patient noted to have an elevated temp of 101.7 cooling measures and PRN Tylenol have been administered as ordered will follow up and reassess. Patient has no other s/s of distress at this time.
--- NOTE | 2021-05-19 22:35 | NUR ---
RECEIVED PT ON TRACH SHILEY 8, SETTINGS AC RR20, VT500, PEEP5, FIO2 30%, ORAL CARE WAS DONE, AMBU BAG AT BEDSIDE, VENT PLUGGED INTO RED OUTLET, HOB ELEVATED. WILL CONTINUE TO MONITOR.
--- NOTE | 2021-05-19 22:45 | NUR ---
Temperature reassessed at 100.1 medications and cooling measures are effective will continue to monitor
[2021-05-20] VITALS: BP 130/77
--- NOTE | 2021-05-20 00:20 | NUR ---
ROUND: Patient is stable no s/s of distress is noted at this time. Patient temp has decreased to 97.1 interventions are effective. Bed is locked in the lowest position with bed rails up will continue to monitor throughout the shift.
[2021-05-20 01:07] VITALS: BP 141/82
--- NOTE | 2021-05-20 01:07 | NUR ---
PT PRESENTS WITH NO SIGNS OF RESPIRATORY DISTRESS. BS REVEALED COARSE THROUGHOUT SX MODERATE YELLOW/GREEN FROTHY SECRETIONS. AMBU BAG AT BEDSIDE, VENT PLUGGED INTO RED OUTLET, HOB ELEVATED. WILL CONTINUE TO MONITOR.
[2021-05-20 04:00] VITALS: BP 127/80
[2021-05-20 06:52] LABS: ANION GAP 10.6 (8-16); CARBON DIOXIDE 25.8 mmol/L (21-32); POTASSIUM 3.4 mmol/L (3.5-5.1)
--- NOTE | 2021-05-20 07:00 | NUR ---
Patient is currently in bed with no s/s of distress at this time. No further episodes of high temp. All current needs have been met during the shift. Bed is locked, in the lowest position with bed rails up for safety. Will differ further care to AM shift nurse for continuity of care.
--- NOTE | 2021-05-20 07:30 | NUR ---
BEDSIDE REPORT RECEIVED FROM HARMONIC ANALYST NURSE , PT RESTING IN BED NO S/SX OF DISTRESS AT THIS TIME , CALL LIGHT WITHIN REACH , BED IN LOW POSITION , NON SLIP SOCKS ON, ALL BELONGINGS WITHIN REACH , PATIENT EDUCATED ON BED REMOTE FLACC 0, O2 97% . ALL SAFETY MEASURES ARE IN PLACE.
[2021-05-20 07:50] LABS: BASOPHILS % (AUTO) 0.4 % (0.0-2.0); EOSINOPHILS # (AUTO) 0.2 K/uL (0-0.4); EOSINOPHILS % (AUTO) 1.7 % (0.0-4.0); HEMATOCRIT 21.3 % (36-52); LYMPHOCYTES # (AUTO) 1.4 K/uL (2.0-11.5); LYMPHOCYTES % (AUTO) 11.3 % (20.5-51.1); MEAN CORPUSCULAR HEMOGLOBIN 29 pg (27-31); MEAN CORPUSCULAR HGB CONC 33 g/dL (33-37); MEAN CORPUSCULAR VOLUME 88.2 fL (80-94); MONOCYTES # (AUTO) 1.5 K/uL (0.8-1.0); MONOCYTES % (AUTO) 12.2 % (1.7-9.3); NEUTROPHILS # (AUTO) 9.2 K/uL (1.8-7.7); NEUTROPHILS % (AUTO) 74.4 % (42.2-75.2); PLATELET COUNT (AUTO) 237 K/uL (140-450); RED BLOOD CELL COUNT(AUTO) 2.41 MIL/uL (4.20-6.10); RED CELL DISTRIBUTION WIDTH 15.9 % (11.6-13.7); WHITE BLOOD COUNT (AUTO) 12.4 K/uL (4.8-10.8)
[2021-05-20] MEDS: INSULIN LANTUS 100 UNITS/ML 10 ML VIAL SUBQ SCH (09:00)
[2021-05-20] MEDS: COLISTIMETHATE SODIUM IV SCH ×2 (09:00→20:59)
[2021-05-20] MEDS: MEROPENEM 500 MG in NACL 0.9% 50 ML IV SCH ×2 (09:00→22:09)
[2021-05-20] MEDS: DEXTROSE 5% IV SCH ×2 (09:00→20:59)
--- NOTE | 2021-05-20 09:00 | NUR ---
MEDICATIONS GIVEN PER MD ORDER PATIENT EDUCATED AND UNABLE TO VERBALIZE UNDERSTANDING DUE TO CONDITION . ALL SAFETY MEASURES ARE IN PLACE.
[2021-05-20] MEDS: levETIRAcetam 100 MG/ML ORASYR GT SCH ×2 (09:55→20:34)
[2021-05-20] MEDS: METOPROLOL 25 MG TAB PO SCH ×2 (09:56→20:35)
[2021-05-20] MEDS: PANTOPRAZOLE 40 MG INJ VIAL IVP SCH (09:56)
[2021-05-20] MEDS ORDERED: CRUSHER, PILL MC ONE (10:10)
[2021-05-20] MEDS: BLOOD GLUCOSE MONITORING 1 DEV DEV FS SCH ×4 (10:18→20:34)
[2021-05-20] MEDS: DEXT 5% /NACL 0.9% 1,000 ML IV SCH (10:45)
[2021-05-20 11:32] LABS: HEMOGLOBIN 6.9 g/dL (12.0-18.0)
--- NOTE | 2021-05-20 11:32 | NUR ---
05/20/21 RD F/U COMPLETED PLEASE REFER TO NUTRITION ASSESSMENT UNDER CARE ACTIVITY FOR ESTIMATED NUTRITIONAL NEEDS. 1. WHEN MEDICALLY APPROPRIATE, RESUME GLUCERNA 1.2 @ 70 ML/HR, FWF 380ML, Q6H TOLERATED - PROVIDES 2016 KCAL, 101 GM PROTEIN, MEETING 82% KCALS AND 83% EST. PRO NEEDS 2. CONTINUE CRISTINE TID 3. RD TO FOLLOW-UP 2-3 DAYS, HIGH RISK REVIEWED BY EMILY BEAR RD
--- NOTE | 2021-05-20 11:40 | NUR ---
BLOOD PICKED UP FROM BLOOD BANK DOUBLE VERIFICATION PERFORMED ALL SAFETY MEASURES ARE IN PLACE
--- NOTE | 2021-05-20 11:50 | NUR ---
DOUBLE RN VERIFICATION PERFORMED AT THIS TIME , PT EDUCATED AND UNABLE TO VERBALIZE UNDERSTANDING DUE TO CONDITION . ALL SAFETY MEASURES ARE IN PLACE.
--- NOTE | 2021-05-20 12:00 | NUR ---
BLOOD TRANSFUSION STARTED , ALL SAFETY MEASURES ARE IN PLACE
--- NOTE | 2021-05-20 12:15 | NUR ---
VITALS OBTAINED , ALL WNL , PT TOLERATING WELL ALL SAFETY MEASURES ARE IN PLACE
[2021-05-20] MEDS: SKINTEGRITY HYDROGEL TP SCH (13:00)
[2021-05-20] MEDS: GAUZE TP SCH (13:00)
[2021-05-20] MEDS: ALGINATE ROPE MC SCH (13:00)
[2021-05-20 13:15] VITALS: BP 127/80
--- NOTE | 2021-05-20 13:40 | NUR ---
PT IN BED BLD TRANSFUSION IN PROGRESS TOLERATING WELL NO S/SX OF ADVERSE REACTIONS NOTED TEMP 97.0 BP 120/69 SPO2 95% ALL SAFETY MEASURES IN PLACE
[2021-05-20 16:00] VITALS: BP 120/67
[2021-05-20] MEDS: SODIUM FERRIC GLUCONATE 125 MG in NACL 0.9% 100 ML IV SCH (16:00)
--- NOTE | 2021-05-20 16:25 | NUR ---
PT CHANGED REPOSITIONED , WOUND CARE PERFORMED , PT TOLERATED WELL 02%94 ALL SAFETY MEASURES ARE IN PLACE.
--- NOTE | 2021-05-20 17:17 | NUR ---
BLOOD GLUCOSE CHECKED AT 98 NO ACTIONS NEEDED
--- NOTE | 2021-05-20 18:50 | NUR ---
PT RESTING IN BED NO S/SX OF DISTRESS ALL SAFETY MEASURES ARE IN PLACE
--- NOTE | 2021-05-20 19:30 | NUR ---
BEDSIDE REPORT GIVEN TO LABOR ARBITRATOR HEARING OFFICE NURSE. PATIENT RESTING IN BED. NO S/SX OF DISTRESS AT THIS TIME , ALL SAFETY MEASURES ARE IN PLACE
--- NOTE | 2021-05-20 19:30 | NUR ---
RECEIVED REPORT FROM RN DAYSHIFT NURSE AT BEDSIDE FOR CONTINUITY OF CARE, PT IN STABLE CONDITION. PT IS LYING IN BED HOB UP 35% AOX1 TRACH TO VENT WITH FOLLOWING SETTINGS. FI02 IS 24% VT 500 PEEP 5 RR 20. PT RESPIRATIONS EVEN AND UNLABORED. NEW IV SITE 24G TO RIGHT HAND INTACT AND FINISHED WITH ORDERED FERRLECIT. G TUBE FEEDING ON HOLD GT SITE SLIGHTLY RED AND DRAINING A SMALL OUT OF TUBE FEEDING. ALL ORDERED PRECAUTIONS IN PLACE.
[2021-05-20 20:00] VITALS: BP 154/86
--- NOTE | 2021-05-20 20:30 | NUR ---
PT LYING IN BED HOB UP 35% PT IS AOX1 AND APHASIAC. V/S FOLLOWS: T 99.1 P 94 R 20 B/P 154/86 02 97% WITH ALL CURRENT TRACH TO VENT SETTINGS. PT WAS SUCTIONED X1. LOWER ABDOMEN IS SOFT WITH HYPOACTIVE BOWEL SOUNDS. RESIDUAL WAS 70MLS FEEDING REMAINS ON HOLD. LUNG SOUNDS CLEAR AND DIMINISHED. ALL ORDERED PRECAUTIONS IN PLACE.
--- NOTE | 2021-05-20 21:30 | NUR ---
PT GIVEN ORDERED KEPPRA VIA G TUBE WELL ORDERED COREG B/P IS (154/86). PT FINGERSTICK IS 92, NO HUMALOG COVERAGE NEEDED. PT EDUCATION GIVEN REGARDING MEDICATION, HOWEVER PT UNABLE TO COMPREHEND. COOLING MEASURES PROVIDED DUE TO INCREASED TEMPERATURE.
[2021-05-21] VITALS (7 sets, daily range): BP systolic 147–179; BP diastolic 84–98
[2021-05-21] MEDS: ACETAMINOPHEN 325 MG TAB PO PRN ×2 (02:12→20:20)
--- NOTE | 2021-05-21 02:15 | NUR ---
PT V/S FOLLOWS: T 99.3 P 96 R 20 B/P 165/91 02 98% ON ALL TRACH TO VENT SETTINGS. PT GIVEN TYLENOL FOR PAIN AND INCREASED TEMP. HE WAS ALSO GIVEN CHG BATH AND HE WAS TURNED, CHANGED AND REPOSITIONED IN BED.HOB ELEVATED WILL RECHECK B/P LATER.
[2021-05-21] MEDS: HYDROcodone/APAP 7.5/325 MG 1 TAB PO PRN ×2 (06:26→06:40)
--- NOTE | 2021-05-21 06:30 | NUR ---
PT IN BED V/S FOLLOWS: T 101.9 P 122 R 20 B/P 176/98 02 100% WITH ALL TRACH TO VENT SETTINGS. PT WAS GIVEN COOLING MEASURES FOR INCREASED TEMP. TOO EARLY FOR A PRN TYLENOL ICE PACKS AND PAIN RELIEVE PRN NORCO GIVEN. ALSO SPOKE TO MD DUENAS REGARDING PT HIGH B/P PER MD BARCENAS TO GIVEN LOPRESSOR EARLY. PT ALSO GIVEN LOPRESSOR WE NORCO. WILL MONITOR FOR EFFECT. PT FINGERSTICK IS 93, NO HUMALOG COVERAGE NEEDED.
[2021-05-21] MEDS: BLOOD GLUCOSE MONITORING 1 DEV DEV FS SCH ×4 (06:39→21:10)
[2021-05-21] MEDS: METOPROLOL 25 MG TAB PO SCH ×2 (06:39→20:20)
[2021-05-21 06:54] LABS: BASOPHILS # (AUTO) 0.1 K/uL (0.00-0.22); BASOPHILS % (AUTO) 0.6 % (0.0-2.0); EOSINOPHILS # (AUTO) 0.2 K/uL (0-0.4); EOSINOPHILS % (AUTO) 2.1 % (0.0-4.0); HEMATOCRIT 25.6 % (36-52); HEMOGLOBIN 8.8 g/dL (12.0-18.0); LYMPHOCYTES # (AUTO) 0.9 K/uL (2.0-11.5); LYMPHOCYTES % (AUTO) 8.5 % (20.5-51.1); MEAN CORPUSCULAR HEMOGLOBIN 30 pg (27-31); MEAN CORPUSCULAR HGB CONC 34 g/dL (33-37); MEAN CORPUSCULAR VOLUME 87.4 fL (80-94); MONOCYTES # (AUTO) 1.3 K/uL (0.8-1.0); MONOCYTES % (AUTO) 12.2 % (1.7-9.3); NEUTROPHILS # (AUTO) 7.9 K/uL (1.8-7.7); NEUTROPHILS % (AUTO) 76.6 % (42.2-75.2); PLATELET COUNT (AUTO) 261 K/uL (140-450); RED BLOOD CELL COUNT(AUTO) 2.93 MIL/uL (4.20-6.10); RED CELL DISTRIBUTION WIDTH 15.5 % (11.6-13.7); WHITE BLOOD COUNT (AUTO) 10.4 K/uL (4.8-10.8)
[2021-05-21 07:33] LABS: ANION GAP 12.9 (8-16); CARBON DIOXIDE 25.3 mmol/L (21-32); CREATININE 1.1 mg/dL (0.6-1.3); POTASSIUM 3.2 mmol/L (3.5-5.1)
--- NOTE | 2021-05-21 08:12 | NUR ---
REPORT RECEIVED FROM PM SHIFT RN FOR CONTINUE CARE. PT. WITH TRACH/VENT.NOT I IN DISTRESS. ALL SAFETY MEASURSES IN PLACED. WILL CONTINUE TO MONITOR THE PT.
[2021-05-21] MEDS: INSULIN LANTUS 100 UNITS/ML 10 ML VIAL SUBQ SCH (09:00)
--- NOTE | 2021-05-21 09:30 | NUR ---
RECEIVED ON A VIASYS FERREIRA VENTILATOR PLUGGED INTO RED OUTLET TOLERATING WELL WITHOUT COMPLICATIONS NOTED TO A YG DCT #8 AIRWAY CUFF PRESSURE CHECKED NOTED AMBU BAG AT BEDSIDE RESTING WELL NO DISTRESS NOTED GOOD CHEST RISE DEEP TRACHEAL SUCTION FOR LARGE THI YELLOW/GREEN SECRETIONS AIRWAY PATENT
[2021-05-21] MEDS: PANTOPRAZOLE 40 MG INJ VIAL IVP SCH (09:45)
[2021-05-21] MEDS: levETIRAcetam 100 MG/ML ORASYR GT SCH ×2 (10:00→20:20)
--- NOTE | 2021-05-21 10:30 | NUR ---
MADE ROUND. PT. COMFORTABLY RESTING. STABLE WITH VENT SUPPORT. NO DISTRESS NOTED. SAFETY MEASURES IN PLACED. WILL CONTINUE TO MONITOR THE PT.
[2021-05-21] MEDS: DEXT 5% /NACL 0.9% 1,000 ML IV SCH (13:35)
[2021-05-21] MEDS: ALGINATE ROPE MC SCH (13:39)
[2021-05-21] MEDS: SKINTEGRITY HYDROGEL TP SCH (13:39)
[2021-05-21] MEDS: GAUZE TP SCH (13:39)
--- NOTE | 2021-05-21 14:00 | NUR ---
ROUNDED TO THE PT'S ROOM. PT. STABLE ON VENT. FIO2 24%.OT IN DISTRESS NOTED. ALL SAFETY MEASURES IN PLACED. WILL CONTINUE TO MONITOR THE PT.
--- NOTE | 2021-05-21 14:44 | NUR ---
RESTING WELL NO DISTRESS NOTED EQUAL CHEST RISE DEEP TRACHEAL SUCTION FOR LARGE THI YELLOW SECRETIONS AIRWAY PATENT
[2021-05-21] MEDS: SODIUM FERRIC GLUCONATE 125 MG in NACL 0.9% 100 ML IV SCH (16:59)
--- NOTE | 2021-05-21 17:00 | NUR ---
PT. STABLE WITH VENT SUPPORT. NOT IN DISTRESS OBSERVED. ALL SAFETY MEASURES IN PLACED. WILL CONTINUE TO MONITOR THE PT.
[2021-05-21] MEDS: INSULIN LISPRO SLIDING SCALE 100 UNITS/ML VIAL SUBQ PRN (17:08)
--- NOTE | 2021-05-21 19:13 | NUR ---
RECEIVED PT ON TRACH SHILEY 8, SETTINGS AC RR20, VT500, PEEP5, FIO2 24%, NO DISTRESS NOTED, ORAL CARE WAS DONE, AMBU BAG AT BEDSIDE, VENT PLUGGED INTO RED OUTLET, HOB ELEVATED. WILL CONTINUE TO MONITOR.
--- NOTE | 2021-05-21 19:27 | NUR ---
REPORT GIVEN TO PM SHIFT RN FOR CONTUITY OF CARE. PT STABLE ON VENT SUPPORT RAZIA 24%
--- NOTE | 2021-05-21 19:30 | NUR ---
RECEIVED PT SLEEPING, OPEN EYES TO TOUCH, APHASIC, ON TRACH TO VENT WITH FF SETTINGS:FI02-24%, TV-500, R-20, PEEP-5, SAT-96%, FLACC-0, IVF INFUSING WELL, SAAB CATH TO GRAVITY WITH CLOUDY YELLOW OUTPUT, G-TUBE CLAMPED AT THIS TIME DUE TO LEAKING ON GT SITE, BEDBOUND, WILL REPOSITION AND OFFLOAD PRESSURE AREAS, FREQUENT ROUNDS WILL BE MADE.
[2021-05-21] MEDS: DEXTROSE 50% 50 ML SYR IVP PRN (21:58)
[2021-05-21] MEDS ORDERED: FLUCONAZOLE 200 MG/NS PREMIX 100 ML IV SCH (22:05)
--- NOTE | 2021-05-21 22:39 | NUR ---
PT PRESENTS WITH NO SIGNS OF RESPIRATORY DISTRESS. BS REVEALED COARSE CRACKLES AT APICES CLEAR BASES SX SMALL YELLOW THICK SECRETIONS. AMBU BAG AT BEDSIDE, VENT PLUGGED INTO RED OUTLET, HOB ELEVATED. WILL CONTINUE TO MONITOR.
[2021-05-21] MEDS ORDERED: MEROPENEM 500 MG in NACL 0.9% 50 ML IV SCH (23:00)
[2021-05-21] MEDS: FLUCONAZOLE 200 MG/NS PREMIX 100 ML IV SCH (23:05)
[2021-05-21] MEDS ORDERED: COLISTIMETHATE SODIUM 35 MG in NACL 0.9% 100 ML IV SCH (23:30)
[2021-05-22] VITALS (7 sets, daily range): BP systolic 149–166; BP diastolic 77–95
[2021-05-22] MEDS: ACETAMINOPHEN 325 MG TAB PO PRN (04:59)
[2021-05-22 06:43] LABS: BASOPHILS # (AUTO) 0.1 K/uL (0.00-0.22); BASOPHILS % (AUTO) 0.8 % (0.0-2.0); EOSINOPHILS # (AUTO) 0.1 K/uL (0-0.4); EOSINOPHILS % (AUTO) 1.3 % (0.0-4.0); HEMATOCRIT 23.4 % (36-52); LYMPHOCYTES % (AUTO) 13.5 % (20.5-51.1); MEAN CORPUSCULAR HEMOGLOBIN 30 pg (27-31); MEAN CORPUSCULAR HGB CONC 34 g/dL (33-37); MEAN CORPUSCULAR VOLUME 87.3 fL (80-94); MONOCYTES # (AUTO) 1.3 K/uL (0.8-1.0); MONOCYTES % (AUTO) 16.8 % (1.7-9.3); NEUTROPHILS # (AUTO) 5.2 K/uL (1.8-7.7); NEUTROPHILS % (AUTO) 67.6 % (42.2-75.2); PLATELET COUNT (AUTO) 239 K/uL (140-450); RED BLOOD CELL COUNT(AUTO) 2.68 MIL/uL (4.20-6.10); WHITE BLOOD COUNT (AUTO) 7.6 K/uL (4.8-10.8)
[2021-05-22 06:47] LABS: ANION GAP 14.1 (8-16); CARBON DIOXIDE 25.9 mmol/L (21-32)
[2021-05-22] MEDS: BLOOD GLUCOSE MONITORING 1 DEV DEV FS SCH ×4 (07:00→20:21)
--- NOTE | 2021-05-22 07:42 | NUR ---
HANDOFF REPORT RECEIVED FROM PM SHIFT RN KASSIDY FOR CONTINUITY OF CARE. PT IS ON TRACH/VENT SUPPORT, FIO2 24%. , SPOR 99%. NO ACUTE DISTRESS NOTED. SAFETY MEASURES IN PLACED. WILL CONTINUE TO MONITOR THE PT.
[2021-05-22] MEDS: MEROPENEM 500 MG in NACL 0.9% 50 ML IV SCH ×2 (08:50→20:06)
[2021-05-22] MEDS: levETIRAcetam 100 MG/ML ORASYR GT SCH ×2 (08:56→20:07)
[2021-05-22] MEDS: PANTOPRAZOLE 40 MG INJ VIAL IVP SCH (08:57)
[2021-05-22] MEDS: METOPROLOL 25 MG TAB PO SCH ×2 (08:58→20:07)
[2021-05-22] MEDS: INSULIN LANTUS 100 UNITS/ML 10 ML VIAL SUBQ SCH (09:00)
[2021-05-22] MEDS: COLISTIMETHATE SODIUM 35 MG in NACL 0.9% 100 ML IV SCH ×2 (10:00→21:16)
[2021-05-22] MEDS: DEXT 5% /NACL 0.9% 1,000 ML IV SCH (10:45)
--- NOTE | 2021-05-22 10:49 | NUR ---
PT. AWAKE, EYES OPEN. NO S/S OF PAIN NOTED. IV F RUNNING. ADMINISTERED MEDICATION VIA G TUBE. . G TUBE SITE STILL LEAKAGE. APPLIED DRY DRESSING. WILL CONTINUE TO MONITOR THE PT.
--- NOTE | 2021-05-22 12:30 | NUR ---
INSULIN LANTUS WAS HOLD AND NOTIFIED MD DR. DUENAS. SINCE PT. IS NPO AND IV FLUID D5NS RUNNING @20 ML/HR. BLOOD SUGAR RUNNING LOW. SAID OK TO HOLD INSULIN.
[2021-05-22] MEDS: GAUZE TP SCH (13:00)
[2021-05-22] MEDS: SKINTEGRITY HYDROGEL TP SCH (13:00)
[2021-05-22] MEDS: ALGINATE ROPE MC SCH (13:00)
--- NOTE | 2021-05-22 14:06 | NUR ---
PT. STABLE, RESTING IN THE BED. NOT IN DISTRESS NOTED ON VENT SUPPORT. ALL SAFETY MEASURES IN PLACED. SPOKE WITH MOM ON PHONE AND UPDATED STATUS.
[2021-05-22] MEDS: SODIUM FERRIC GLUCONATE 125 MG in NACL 0.9% 100 ML IV SCH (16:00)
--- NOTE | 2021-05-22 19:25 | NUR ---
RECEIVED PT SLEEPING, OPEN EYES TO TOUCH, APHASIC, ON TRACH TO VENT WITH FF SETTINGS:FI02-24%, TV-500, R-20, PEEP-5, SAT-98%, FLACC-0, IVF INFUSING WELL, SAAB CATH TO GRAVITY WITH CLOUDY YELLOW OUTPUT, G-TUBE CLAMPED AT THIS TIME DUE TO LEAKING ON GT SITE, BEDBOUND, WILL REPOSITION AND OFFLOAD PRESSURE AREAS, FREQUENT ROUNDS WILL BE MADE.
--- NOTE | 2021-05-22 20:30 | NUR ---
BLOOD SUGAR CHECKED WITH 79 RESULT, GT SITE DRESSING WITH MODERATE GASTRIC DRAINAGE, SITE COVERED WITH NADINE GAUZE AND FLUFFY 4X4 GAUZE AND ABD PAD X2, DUE MEDICATION WITH TYLENOL GIVEN FOR TEMP-100.3 AND IV ANTIBIOTICS ADMINISTERED, COOLING MEASURES STARTED, SUCTIONED SECRETION PRN, ALL NEEDS ANTICIPATED.
[2021-05-22] MEDS: FLUCONAZOLE 200 MG/NS PREMIX 100 ML IV SCH (23:17)
[2021-05-23] VITALS (9 sets, daily range): BP systolic 144–188; BP diastolic 79–109
--- NOTE | 2021-05-23 05:00 | NUR ---
BM WITH LOOSE BROWN LOOSE STOOL, C-DIFF SPECIMEN SENT TO LAB, MONITORED CLOSELY.
[2021-05-23] MEDS: DEXTROSE 50% 50 ML SYR IVP PRN (06:00)
[2021-05-23] MEDS: BLOOD GLUCOSE MONITORING 1 DEV DEV FS SCH ×4 (06:36→21:11)
--- NOTE | 2021-05-23 06:40 | NUR ---
BLOOD SUGAR OF 67, D50 1 AMP GIVEN, BLOOD SUGAR RECHECK-92, NO DISTRESS NOTED.
--- NOTE | 2021-05-23 07:25 | NUR ---
PT SLEEPING, NO SIGNS OF DISTRESS, REPORT GIVEN TO ESTEFANY WHITNEY FOR CONTINUITY OF CARE.
[2021-05-23 07:45] LABS: BASOPHILS # (AUTO) 0.1 K/uL (0.00-0.22); BASOPHILS % (AUTO) 0.8 % (0.0-2.0); EOSINOPHILS # (AUTO) 0.2 K/uL (0-0.4); EOSINOPHILS % (AUTO) 2.4 % (0.0-4.0); HEMOGLOBIN 8.2 g/dL (12.0-18.0); LYMPHOCYTES # (AUTO) 0.9 K/uL (2.0-11.5); LYMPHOCYTES % (AUTO) 10.8 % (20.5-51.1); MEAN CORPUSCULAR HEMOGLOBIN 30 pg (27-31); MEAN CORPUSCULAR HGB CONC 34 g/dL (33-37); MEAN CORPUSCULAR VOLUME 86.8 fL (80-94); MONOCYTES # (AUTO) 1.2 K/uL (0.8-1.0); MONOCYTES % (AUTO) 14.8 % (1.7-9.3); NEUTROPHILS % (AUTO) 71.2 % (42.2-75.2); PLATELET COUNT (AUTO) 259 K/uL (140-450); RED BLOOD CELL COUNT(AUTO) 2.77 MIL/uL (4.20-6.10); RED CELL DISTRIBUTION WIDTH 15.1 % (11.6-13.7); WHITE BLOOD COUNT (AUTO) 8.4 K/uL (4.8-10.8)
--- NOTE | 2021-05-23 08:06 | NUR ---
RECEIVED ON A VIASYS FERREIRA VENTILATOR PLUGGED INTO RED OUTLET TOLERATING WELL WITHOUT ADVERSE REACTIONS NOTED TO A YG DCT #8 AIRWAY SECURED WITH A GE TRACH TUE CUFF PRESSURE CHECKED NOTED AMBU BAG AT BEDSIDE RESTING COMFORTABLY GOOD CHEST RISE DEEP TRACHEAL SUCTION FOR SMALL THIN YELLOW SECRETIONS AIRWAY PATENT
[2021-05-23 08:19] LABS: ANION GAP 16.5 (8-16); CARBON DIOXIDE 21.5 mmol/L (21-32)
[2021-05-23] MEDS ORDERED: hydrALAZINE 20 MG/ML VIAL IVP PRN (08:40)
[2021-05-23] MEDS: INSULIN LANTUS 100 UNITS/ML 10 ML VIAL SUBQ SCH (09:00)
[2021-05-23] MEDS: MEROPENEM 500 MG in NACL 0.9% 50 ML IV SCH ×2 (09:29→20:22)
[2021-05-23] MEDS: levETIRAcetam 100 MG/ML ORASYR GT SCH ×2 (09:33→20:22)
[2021-05-23] MEDS: METOPROLOL 25 MG TAB PO SCH ×2 (09:34→20:23)
[2021-05-23] MEDS: PANTOPRAZOLE 40 MG INJ VIAL IVP SCH (09:34)
[2021-05-23] MEDS: lisinopriL 20 MG TAB PO SCH (09:34)
[2021-05-23] MEDS: COLISTIMETHATE SODIUM 35 MG in NACL 0.9% 100 ML IV SCH ×2 (09:55→21:11)
--- NOTE | 2021-05-23 09:55 | NUR ---
WOUND CARE RE-EVALUATION NOTE: MULTIPLE WOUNDS NO IMPROVING NOTICE, POC DISCUSSED WITH DR. DUENAS " PT. WBC FINALLY COMES DOWN ,WILL SEE.". PT'S COMORBIDITIES DELAY WOUND HEALING AND FURTHER SKIN BREAKS. -PRESSURE INJURY WOUNDS TO LEFT EAR PARTIAL THICKNESS SKIN LOSS 2X1.3X0.1CM WOUND BED 50% MOIST PINK TISSUE AND 50% DRY BROWN SCAB, NO ODOR, WOUND EDGE FLAT CLARENCE WOUND SKIN MOIST AND INTACT -PRESSURE INJURY PARTIAL THICKNESS SKIN LOSS TO RIGHT EAR 2X1CM 50% PINK WOUND BED, MOIST, NO ODOR, 50 % DRY SCAB, CLARENCE WOUND SKIN HEALING SCAR TISSUE, INTACT. -PRESSURE INJURY SACRALCOCCYX STAGE 4 WITH [id number] 100% GRANULATING TISSUE, UNDERMINING TO 12-3 OCLOCK 3CM, WOUND EDGE FLAT, WOUND BED MODERATE AMOUNT SEROUS DRAINAGE, NO ODOR, CLARENCE-WOUND SKIN MOIST DENUDED SKIN NON-BLANCHABLE REDNESS FURTHER DAMAGE INDICATED -PRESSURE INJURY UN-STAGEABLE LEFT LATERAL LEG 3.5X1CM 100% DRY BROWN/BLACK STABLE ESCHAR TISSUE, NO ODOR, CLARENCE WOUND SKIN INTACT. -PRESSURE INJURY UN-STAGEABLE RIGHT LATERAL KNEE 1X1CM 100% DRY BROWN/BLACK STABLE ESCHAR TISSUE, NO ODOR, CLARENCE WOUND SKIN INTACT.
[2021-05-23] MEDS: DEXT 5% /NACL 0.9% 1,000 ML IV SCH (11:02)
[2021-05-23] MEDS ORDERED: MERO500P7 IV (11:46)
[2021-05-23] MEDS ORDERED: COLI150P9 IV (11:46)
[2021-05-23] MEDS ORDERED: LISI20TA29 GT (11:46)
[2021-05-23] MEDS: GAUZE TP SCH (13:00)
[2021-05-23] MEDS: ALGINATE ROPE MC SCH (13:00)
[2021-05-23] MEDS: SKINTEGRITY HYDROGEL TP SCH (13:00)
--- NOTE | 2021-05-23 14:40 | NUR ---
RESTING WELL GOOD CHEST RISE DEEP TRACHEAL SUCTION FOR SMALL SEMI THICK YELLOW SECRETIONS AIRWAY PATENT
[2021-05-23] MEDS: SODIUM FERRIC GLUCONATE 125 MG in NACL 0.9% 100 ML IV SCH (16:00)
--- NOTE | 2021-05-23 16:17 | NUR ---
05/23/21 RD FOLLOW UP COMPLETED PLEASE REFER TO NUTRITION ASSESSMENT UNDER CARE ACTIVITY FOR ESTIMATED NUTRITIONAL NEEDS. 1. WHEN MEDICALLY APPROPRIATE, RESUME GLUCERNA 1.2 @ 70 ML/HR, FWF 380ML Q6H TOLERATED -PROVIDES 2016 KCAL, 101 GM PROTEIN, MEETING 82% KCALS AND 83% EST. PRO NEEDS -START AT 10 ML/HR AND INCREASE BY 10 ML Q4H 2. CONTINUE CRISTINE TID PER PROTOCOL 3. RD TO FOLLOW-UP 2-3 DAYS, HIGH RISK EMILY BEAR RD
--- NOTE | 2021-05-23 19:56 | NUR ---
REPORT CALLED TO AMY AT [facility] AT [phone]
--- NOTE | 2021-05-23 22:05 | NUR ---
CALLED [facility] TO FOLLOW TIME OF TRANSPORT .THEY WILL BE HERE IN 90 MINS.PT SLEEPING.NO DISTRESS NOTED.
[2021-05-23] MEDS: FLUCONAZOLE 200 MG/NS PREMIX 100 ML IV SCH (22:26)
--- NOTE | 2021-05-23 22:35 | NUR ---
RECEIVED REPORT OF PT IN STABLE CONDITION.PT WILL TRANSFER BACK TO [facility].D/C PAPER WORKS DONE BY JENIFFER RN.RESP.UNLABORED.PT IS TRACH TO VENT.F/C PATENT AND DRAINING YELLOW COLOR URINE.TELE IS ON AND SHOWING SR.IVF AT 20ML/H INFUSING WELL.NO S/S OF ANY DISTRESS NOTED NOW. WILL FOLLOW W/[facility] FOR TRANSPORT TIME.
--- NOTE | 2021-05-23 23:55 | NUR ---
CALLED [facility] AGAIN.THEY SAID [facility] WILL COME IN 60 MINS.
[2021-05-24] VITALS: BP 150/82
--- NOTE | 2021-05-24 01:45 | NUR ---
[facility] CAME AND PICK PT UP.VS STABLE.T=98.8,VW=370/82,RR=20,AZ=91 O2 SAT=95%.
--- NOTE | 2021-05-24 03:18 | NUR ---
RE-ADMITTED TO [facility] FROM [facility] PLACED ON A [employer] R860 VENTILATOR WITH COMPRESSOR ON PLUGGED INTO RED OUTLET TOLERATING WELL WITHOUT ADVERSE REACTIONS NOTED TO A YG DCT #8 AIRWAY SECURED WITH A TRACH TIE CUFF PRESSURE CHECKED NOTED AMBU BAG AT BEDSIDE RESTING COMFORTABLY WITHOUT SOB NOTED GOOD CHEST RISE AND AERATION THROUGHOUT BILATERAL LUNG GEIGER AIRWAY PATENT
--- NOTE | 2021-05-24 03:20 | NUR ---
[facility] (LEONARDO) CALLED AND SAID PT HAS FEVER 100.6 AND SHE CALLED AND SHE SAID TO TRANSFER PT BACK TO [facility].T=100.6 THERE.I TOLD HER YOU CAN GIVE PT TYLENOL.AND LEONARDO SAID THIS IS OUR POLICY IF TEMP IS OVER 100,WE WILL NOT ACCEPT PT.I CALLED NISA RODAS IS [employer].I CALLED LEONARDO AGAIN AND ASKED HER IS [employer] WHY DID YOU CALL [facility].SHE SAID THEY ALWAYS CALL ADMITTING DR DIRECTLY.SO PT CAME BACK AND CHECKED TEMP=99.9 TEMPORAL.HIS CONDITION IS STABLE.WILL RESTART IVF AND ALL ORDERS .
[2021-05-24 04:00] VITALS: BP 150/82
[2021-05-24] MEDS: DEXT 5% /NACL 0.9% 1,000 ML IV SCH (04:25)
[2021-05-24] MEDS: ACETAMINOPHEN 325 MG TAB PO PRN (04:26)
--- NOTE | 2021-05-24 07:30 | NUR ---
RECEIVED PT RESTING. NO SOB NOTED. NO SIGNS OF PAIN NOTED. ON TRACH TO MECHANICAL VENT. WILL CONTINUE TO MONITOR.
--- NOTE | 2021-05-24 07:32 | NUR ---
CONDITION IS STABLE.REPORT GIVEN TO AM RN.NO DISTRESS NOTED AT THIS TIME.
[2021-05-24] MEDS: BLOOD GLUCOSE MONITORING 1 DEV DEV FS SCH ×4 (07:34→20:53)
[2021-05-24 08:00] VITALS: BP 147/85
--- NOTE | 2021-05-24 08:00 | NUR ---
G-TUBE SITE NOTED SOME LEAKING. 50 MLS RESIDUAL NOTED.
--- NOTE | 2021-05-24 08:00 | NUR ---
PT'S LATEST TEMPERATURE: 98.0 F
--- NOTE | 2021-05-24 08:30 | NUR ---
RECEIVED ON A [employer] R860 VENTILATOR WITH COMPRESSOR ON PLUGGED INTO RED OUTLET TOLERATING WELL WITHOUT ADVERSE REACTIONS NOTED TO A YG DCT #8 AIRWAY SECURED WITH GE TRACH TIE CUFF PRESSURE CHECKED NOTED AMBU AG ATE BEDSIDE GOOD CHEST RISE DEEP TRACHEAL SUCTION FOR LARGE YELLOW/GREEN SECRETIONS AIRWAY PATENT
[2021-05-24] MEDS: INSULIN LANTUS 100 UNITS/ML 10 ML VIAL SUBQ SCH (09:00)
[2021-05-24] MEDS ORDERED: MEROPENEM 500 MG in NACL 0.9% 50 ML IV SCH (09:25)
[2021-05-24] MEDS: levETIRAcetam 100 MG/ML ORASYR GT SCH ×2 (09:30→20:54)
[2021-05-24] MEDS: PANTOPRAZOLE 40 MG INJ VIAL IVP SCH (09:30)
[2021-05-24] MEDS: lisinopriL 20 MG TAB PO SCH (09:31)
[2021-05-24] MEDS: METOPROLOL 25 MG TAB PO SCH ×2 (09:31→20:55)
--- NOTE | 2021-05-24 11:53 | NUR ---
NO APPARENT DISTRESS NOTED EQUAL CHEST RISE GOOD AERATION THROUGHOUT BILATERAL LUNG GEIGER AIRWAY PATENT
[2021-05-24 12:00] VITALS: BP 151/84
--- NOTE | 2021-05-24 12:00 | NUR ---
PT'S LATEST TEMPERATURE: 100.3 F, COOLING MEASURES STARTED.
[2021-05-24] MEDS: COLISTIMETHATE SODIUM 150 MG in NACL 0.9% 100 ML IV SCH ×2 (12:41→21:23)
[2021-05-24] MEDS: MEROPENEM 1,000 MG in NACL 0.9% 50 ML IV SCH ×2 (13:45→20:54)
[2021-05-24] MEDS: SKINTEGRITY HYDROGEL TP SCH (13:47)
[2021-05-24] MEDS: GAUZE TP SCH (13:47)
[2021-05-24] MEDS: ALGINATE ROPE MC SCH (13:47)
--- NOTE | 2021-05-24 15:28 | NUR ---
STABLE EQAUL CHEST RISE DEEP TRACHEAL SUCTION FOR COPIOUS THIN PAL YELLOW SECRETIONS AIRWAY PATENT
[2021-05-24 15:34] LABS: BASOPHILS # (AUTO) 0.1 K/uL (0.00-0.22); BASOPHILS % (AUTO) 1.3 % (0.0-2.0); EOSINOPHILS # (AUTO) 0.2 K/uL (0-0.4); EOSINOPHILS % (AUTO) 1.9 % (0.0-4.0); HEMOGLOBIN 9.2 g/dL (12.0-18.0); LYMPHOCYTES # (AUTO) 1.3 K/uL (2.0-11.5); LYMPHOCYTES % (AUTO) 14.3 % (20.5-51.1); MEAN CORPUSCULAR HEMOGLOBIN 29 pg (27-31); MEAN CORPUSCULAR HGB CONC 33 g/dL (33-37); MEAN CORPUSCULAR VOLUME 88.2 fL (80-94); MONOCYTES # (AUTO) 1.3 K/uL (0.8-1.0); MONOCYTES % (AUTO) 14.6 % (1.7-9.3); NEUTROPHILS # (AUTO) 6.1 K/uL (1.8-7.7); NEUTROPHILS % (AUTO) 67.9 % (42.2-75.2); PLATELET COUNT (AUTO) 313 K/uL (140-450); RED BLOOD CELL COUNT(AUTO) 3.17 MIL/uL (4.20-6.10); RED CELL DISTRIBUTION WIDTH 15.4 % (11.6-13.7)
[2021-05-24 16:00] VITALS: BP 156/86
[2021-05-24 16:00] LABS: ANION GAP 14.4 (8-16); CARBON DIOXIDE 23.7 mmol/L (21-32); POTASSIUM 3.1 mmol/L (3.5-5.1)
--- NOTE | 2021-05-24 16:00 | NUR ---
PT'S LATEST TEMPERATURE: 100.0, COOLING MEASURES CONTINUED.
[2021-05-24] MEDS: SODIUM FERRIC GLUCONATE 125 MG in NACL 0.9% 100 ML IV SCH (16:49)
[2021-05-24] MEDS ORDERED: POTASSIUM CHLORIDE 20% 40 MEQ/15 ML UDC GT PRN (17:50)
--- NOTE | 2021-05-24 18:00 | NUR ---
G-TUBE RESIDUAL 80 MLS NOTED. PT REMAINS NPO. D5 NS MAINTENANCE FLUID INFUSING WELL.
[2021-05-24] MEDS: DEXTROSE 50% 50 ML SYR IVP PRN (18:33)
--- NOTE | 2021-05-24 18:35 | NUR ---
LATEST BLOOD SUGAR: 63 MG/DL, D50 IVP GIVEN ORDERED PRN.
--- NOTE | 2021-05-24 18:57 | NUR ---
PT AWAKE. NO SIGNS OF PAIN AT THIS TIME. NO SOB NOTED. SECRETIONS SUCTIONED REGULARLY. WILL ENDORSED TO NEXT SHIFT NURSE FOR CONTINUITY OF CARE.
[2021-05-24 20:00] VITALS: BP 137/71
--- NOTE | 2021-05-24 20:05 | NUR ---
RECEIVED REPORT OF PT IN STABLE CONDITION.PT IS TRACH TO VENT W/FIO2 28.RESP.UNLABORED.LUNGS DIMINISHED.IVF INFUSING WELL.F/C PATENT AND DRAINING CLEAR YELLOW COLOR URINE.VS STABLE.NO DISTRESS NOTED AT THIS TIME.WILL CONTINUE MONITORING.
--- NOTE | 2021-05-24 21:21 | NUR ---
RECEIVED PT ON VENT W/ TRACH SHILEY 8, SETTINGS AC RR20, VT500, PEEP5, FIO2 28% PT PRESENTS WITH NO SIGNS OF RESPIRATORY DISTRESS SATING 94%. BS REVEAL COARSE CRACKLES AT APICES CLEAR AT BASES. DEEP TRACHEAL SX SMALL YELLOW THICK SECRETIONS. HOB ELEVATED, ORAL CARE DONE, VENT PLUGGED INTO RED OUTLET. WILL CONTINUE TO MONITOR.
[2021-05-24] MEDS: FLUCONAZOLE 200 MG/NS PREMIX 100 ML IV SCH (22:54)
[2021-05-25] VITALS: BP 155/87
--- NOTE | 2021-05-25 00:15 | NUR ---
SLEEPING.NO DISTRESS NOTED AT THIS TIME.HR IS SR.RESP.UNLABORED.
[2021-05-25 00:16] VITALS: BP 155/87
--- NOTE | 2021-05-25 00:30 | NUR ---
CONDITION STABLE.NO FEVER IN WHOLE SHIFT.
[2021-05-25 04:00] VITALS: BP 160/87
[2021-05-25] MEDS: MEROPENEM 1,000 MG in NACL 0.9% 50 ML IV SCH (05:10)
[2021-05-25] MEDS: BLOOD GLUCOSE MONITORING 1 DEV DEV FS SCH (06:39)
--- NOTE | 2021-05-25 06:40 | NUR ---
BS=74.NO COVERAGE NEEDED.NO ANY DISTRESS NOTED AT PRESENT TIME.
--- NOTE | 2021-05-25 07:25 | NUR ---
RECEIVED PATIENT FROM [place] HELPER NURSE FOR CONTINUITY OF CARE. PATIENT IS AWAKE, APHASIC. ON TELE MONITOR. RESPIRATORY EVEN AND UNLABORED, ON TRACH TO VENT, A/C VC FIO2 28%, VT 500, PEEP 5, RATE 20, O2 SAT 98%. NO SIGN OF DISTRESS NOTED. SKIN WARM, DRY, NON DIAPHORETIC, IV ON LEFT FA 20G, INTACT AND PATENT, IS INFUSING FLUID ORDER. SAAB IN PLACE, CLEAR YELLOW URINE. G-TUBE IN PLACE, LOCKED. PLAN OF CARE DISCUSSED. PRECAUTION IN PLACE. CALL LIGHT WITHIN REACH. WILL CONTINUE TO MONITOR.
--- NOTE | 2021-05-25 07:37 | NUR ---
PT WAS AFEBRILE ALL SHIFT.ENDORSED TO SALINAS RN.PT'S CONDITION IS STABLE.
[2021-05-25 07:54] LABS: ANION GAP 16.2 (8-16); CARBON DIOXIDE 23.1 mmol/L (21-32); POTASSIUM 3.3 mmol/L (3.5-5.1)
[2021-05-25 08:00] VITALS: BP 176/97
[2021-05-25] MEDS: INSULIN LANTUS 100 UNITS/ML 10 ML VIAL SUBQ SCH (08:39)
--- NOTE | 2021-05-25 08:41 | NUR ---
BS CHECK 63, HELD LANTUS 40U, BP 176/97, HR 125, SCHEDULE MEDICATION GIVEN WITH APPLE JUICE. PATIENT TOLERATED WELL. NO SIGN OF DISTRESS NOTED. PRECAUTION IN PLACE. CALL LIGHT WITHIN REACH. WILL CONTINUE TO MONITOR.
[2021-05-25] MEDS: PANTOPRAZOLE 40 MG INJ VIAL IVP SCH (08:44)
[2021-05-25] MEDS: levETIRAcetam 100 MG/ML ORASYR GT SCH (08:44)
[2021-05-25] MEDS: METOPROLOL 25 MG TAB PO SCH (08:44)
[2021-05-25] MEDS: lisinopriL 20 MG TAB PO SCH (08:44)
[2021-05-25] MEDS: COLISTIMETHATE SODIUM 150 MG in NACL 0.9% 100 ML IV SCH (09:07)
[2021-05-25 09:20] LABS: BASOPHILS # (AUTO) 0.1 K/uL (0.00-0.22); BASOPHILS % (AUTO) 0.8 % (0.0-2.0); EOSINOPHILS # (AUTO) 0.2 K/uL (0-0.4); EOSINOPHILS % (AUTO) 1.5 % (0.0-4.0); HEMATOCRIT 25.8 % (36-52); HEMOGLOBIN 8.2 g/dL (12.0-18.0); LYMPHOCYTES # (AUTO) 1.3 K/uL (2.0-11.5); LYMPHOCYTES % (AUTO) 11.5 % (20.5-51.1); MEAN CORPUSCULAR HEMOGLOBIN 28 pg (27-31); MEAN CORPUSCULAR HGB CONC 32 g/dL (33-37); MEAN CORPUSCULAR VOLUME 89.1 fL (80-94); MONOCYTES # (AUTO) 1.5 K/uL (0.8-1.0); MONOCYTES % (AUTO) 12.6 % (1.7-9.3); NEUTROPHILS # (AUTO) 8.5 K/uL (1.8-7.7); NEUTROPHILS % (AUTO) 73.6 % (42.2-75.2); PLATELET COUNT (AUTO) 314 K/uL (140-450); RED CELL DISTRIBUTION WIDTH 15.1 % (11.6-13.7); WHITE BLOOD COUNT (AUTO) 11.6 K/uL (4.8-10.8)
[2021-05-25] MEDS: ACETAMINOPHEN 325 MG TAB PO PRN (09:38)
--- NOTE | 2021-05-25 09:46 | NUR ---
BS CHECK 89. NO SIGN OF DISTRESS NOTED. PRECAUTION IN PLACE. CALL LIGHT WITHIN REACH. WILL CONTINUE TO MONITOR.
[2021-05-25] MEDS: DEXT 5% /NACL 0.9% 1,000 ML IV SCH (10:45)
[2021-05-26 06:59] LABS: BASOPHILS # (AUTO) 0.1 K/uL (0.00-0.22); BASOPHILS % (AUTO) 0.6 % (0.0-2.0); EOSINOPHILS # (AUTO) 0.2 K/uL (0-0.4); EOSINOPHILS % (AUTO) 1.9 % (0.0-4.0); HEMATOCRIT 23.2 % (36-52); HEMOGLOBIN 7.8 g/dL (12.0-18.0); LYMPHOCYTES # (AUTO) 1.6 K/uL (2.0-11.5); LYMPHOCYTES % (AUTO) 15.5 % (20.5-51.1); MEAN CORPUSCULAR HEMOGLOBIN 30 pg (27-31); MEAN CORPUSCULAR HGB CONC 34 g/dL (33-37); MEAN CORPUSCULAR VOLUME 88.5 fL (80-94); MONOCYTES # (AUTO) 1.4 K/uL (0.8-1.0); MONOCYTES % (AUTO) 13.4 % (1.7-9.3); NEUTROPHILS # (AUTO) 7.2 K/uL (1.8-7.7); NEUTROPHILS % (AUTO) 68.6 % (42.2-75.2); PLATELET COUNT (AUTO) 357 K/uL (140-450); RED BLOOD CELL COUNT(AUTO) 2.62 MIL/uL (4.20-6.10); RED CELL DISTRIBUTION WIDTH 15.5 % (11.6-13.7); WHITE BLOOD COUNT (AUTO) 10.5 K/uL (4.8-10.8)
[2021-05-26 07:46] LABS: ANION GAP 15.8 (8-16); CARBON DIOXIDE 21.8 mmol/L (21-32); CREATININE 1.5 mg/dL (0.6-1.3); POTASSIUM 3.6 mmol/L (3.5-5.1)
[2021-05-26] MEDS ORDERED: MERO1PIG IV (10:13)
[2021-05-26] MEDS ORDERED: [UNRECOGNIZED DRUG - CODE] IV (10:13)
[2021-05-26] MEDS ORDERED: ACET650S53 PO (10:13)
== END 2021-05-24 01:45 | DRG 720 ==
LOC: MED 17:07 → MMU 20:28 → MTU 05-10 16:46 → UNDODISIN 05-24 01:40
PROVIDERS: ADMIT Family Medicine; ATTEND Family Medicine
PROC: 5A1955Z Respiratory Ventilation, Greater than 96 Consecutive Hours (ICD-10-PCS; principal; 2021-05-09)
PROC: 30233N1 Transfusion of Nonautologous Red Blood Cells into Peripheral Vein, Percutaneous Approach (ICD-10-PCS; 2021-05-10)
DX: A41.9 Sepsis, unspecified organism (principal); N17.0 Acute kidney failure with tubular necrosis; J96.21 Acute and chronic respiratory failure with hypoxia; J69.0 Pneumonitis due to inhalation of food and vomit; G93.41 Metabolic encephalopathy; J95.851 Ventilator associated pneumonia; G93.1 Anoxic brain damage, not elsewhere classified; J15.1 Pneumonia due to Pseudomonas; D63.8 Anemia in other chronic diseases classified elsewhere; E83.39 Other disorders of phosphorus metabolism; E83.41 Hypermagnesemia; E43 Unspecified severe protein-calorie malnutrition; E78.5 Hyperlipidemia, unspecified; K21.9 Gastro-esophageal reflux disease without esophagitis; R13.10 Dysphagia, unspecified; N39.0 Urinary tract infection, site not specified; R65.20 Severe sepsis without septic shock; E87.1 Hypo-osmolality and hyponatremia; S31.000A Unspecified open wound of lower back and pelvis without penetration into retroperitoneum, initial encounter; X58.XXXA Exposure to other specified factors, initial encounter; G40.909 Epilepsy, unspecified, not intractable, without status epilepticus; J44.0 Chronic obstructive pulmonary disease with (acute) lower respiratory infection; L89.90 Pressure ulcer of unspecified site, unspecified stage; E87.6 Hypokalemia; I12.9 Hypertensive chronic kidney disease with stage 1 through stage 4 chronic kidney disease, or unspecified chronic kidney disease; E11.22 Type 2 diabetes mellitus with diabetic chronic kidney disease; N18.9 Chronic kidney disease, unspecified; S81.802A Unspecified open wound, left lower leg, initial encounter; Z20.822 Contact with and (suspected) exposure to COVID-19; Z79.899 Other long term (current) drug therapy; Z68.21 Body mass index [BMI] 21.0-21.9, adult; Y93.89 Activity, other specified; Y92.89 Other specified places as the place of occurrence of the external cause; Y99.8 Other external cause status; Z93.0 Tracheostomy status; Z99.11 Dependence on respirator [ventilator] status; Z87.01 Personal history of pneumonia (recurrent); Z86.73 Personal history of transient ischemic attack (TIA), and cerebral infarction without residual deficits; Z74.01 Bed confinement status; Z93.1 Gastrostomy status
CPT/HCPCS: 36415; 36430; 36600; 71045; 80048; 80053; 80076; 80202; 81001; 82150; 82272; 82607; 82728; 82746; 82803; 82948; 83036; 83540; 83605; 83690; 83735; 83880; 84100; 84436; 84439; 84443; 84479; 84484; 85025; 85045; 85610; 85730; 86886; 86900; 86901; 86920; 87040; 87070; 87081; 87086; 87205; 87804; 89220; 93005; 94002; 94003; 96365; 96367; 99291; A6248; C9113; J0360; J0770; J1450; J1815; J1940; J2185; J2543; J2916; J3370; J3475; J3490; J7030; J7060; P9016; P9046; Q0092